=== PATIENT | female | born 1965 | race Caucasian/White ===

== ENCOUNTER → 2018-01-05 15:57 | Outpatient (CLI) | payer MEDICAID, SELFPAY ==
[2018-01-05 17:27] LABS: D-Dimer 475 ng/mlFEU (<500)
== END ==
PROVIDERS: PCP Nurse Practitioner Family; Visit Provider Nurse Practitioner
DX: R22.42 Localized swelling, mass and lump, left lower limb (principal)
CPT/HCPCS: 36415; 85379

== ENCOUNTER → 2018-01-12 09:05 | Outpatient (CLI) | payer MEDICAID, SELFPAY | PROVIDERS: PCP Nurse Practitioner Family; Visit Provider Orthopaedic Surgery | DX: G56.01 Carpal tunnel syndrome, right upper limb (principal); Z01.818 Encounter for other preprocedural examination ==

== ENCOUNTER 2018-01-23 09:19 | Day surgery (SDC) | payer MEDICAID, SELFPAY ==
--- NOTE | 2018-01-12 11:33 | PHPE_ITS ---
PREOPERATIVE HISTORY AND PHYSICAL DATE OF PROCEDURE February 02, 2018 DATE OF DICTATION January 12, 2018 SURGEON Jean Orozco M.D. CHIEF COMPLAINT Right wrist numbness and pain. ASSESSMENT 1. Carpal tunnel syndrome, right wrist. 2. Hypertension. 3. Hyperlipidemia. 4. Diabetes controlled with diet. 5. Gastroesophageal reflux disease with Sams's esophagus. 6. Depression. 7. Frequent urinary tract infections. PLAN Right ECTR, details of the surgery were discussed with the patient, as well as the risks and pertinen t anatomy. All questions were answered. HISTORY OF PRESENT ILLNESS Lakeshia is a 52-year-old female who has been complaining of right wrist numbness and pain for a really m any years, upwards of 20 or 25 years. Lakeshia is a very active person who enjoys multiple sports includi ng golfing and bowling, and this is actually starting to get in the way of those activities. She also states that she has pretty significant pain at night that wakes her up from sleep. She previously baltazar d been well controlled using a brace at night and also during the daytime to relieve the numbness and pain during activities, however, recently since she went out to a bowling tournament this past sprin g, she feels as though she over did it and now even with the brace, she is getting significant pain a nd numbness. She has had EMGs, which have shown latency in the median nerve of 6.73. The ulnar nerve appears to be fine. She did get a workup in clinic and physical exam was classic for carpal tunnel syndrome. At this point, she has been able to deal with it with conservative measures up until recent ly and now conservative measures have failed, so she would like to move forward with an endoscopic ca rpal tunnel release on the right hand. PAST SURGICAL HISTORY Right knee Kinsey procedure. De Quervain's release. Dilation and curettage. Caesarean section x2. Abdominal hysterectomy. Removal of tibial hardware. Left cheek cystectomy. Tonsillectomy and adenoidectomy. Left knee arthroscopy. The only complication that she has had from surgery was from her left cheek cystoscopy done in [place] recently, she had a bout of what sounds like hypertension, which she was kept overnight unexpecte dly, and we are working on getting those records from [facility]. PAST MEDICAL HISTORY Gastroesophageal reflux disease with Sams's esophagus. Hypertension. Depression. Diabetes. She is diet controlled. Hyperlipidemia. She also mentions that she takes a little bit longer to stop bleeding than normal, this has not been an issue in her previous surgeries. She denies any history of CVA, cardiac disease, UT, angina, asthma, COPD, sleep apnea, renal or liver disorders, hepatitis, seizures, immune or thyroid disorders. MEDICATIONS Pantoprazole 20 mg p.o. once daily. Macrobid 100 mg p.o. p.r.n., she takes after sex for frequent UTIs. Atorvastatin 40 mg p.o. once daily. Aspirin 81 mg p.o. once daily. Lisinopril 5 mg p.o. once daily. ALLERGIES She states that she has an allergy to penicillin, which gives her a rash. She is not even sure that s he is actually allergic to penicillin as she has been able to take it previously. She also has had Ancef in the past with Kinsey procedure, which she has no issues with. She states and intolerance to codeine, which gives her GI upset. 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 She states that she quit smoking about 15 years ago in 2002. She drinks about one or two days per week, two or three beverages per day. She denies any other drug use. REVIEW OF SYSTEMS HEENT - Denies dizziness, headaches, loose teeth, sore throat or fever. CARDIAC - Denies murmur, chest pain, rapid, slow or irregular heartbeat. PULMONARY - Denies dyspnea on exertion, orthopnea, productive cough or wheeze. ABDOMEN - Denies abdominal pain, nausea, vomiting, bloody stools. GENITOURINARY - Denies dysuria, hematuria. PHYSICAL EXAMINATION VITAL SIGNS - Height - 6 feet inch. Weight - 201 pounds. Blood pressure 132/78. Pulse 72 and reg ular. HEENT - Head is normocephalic and atraumatic. Eyes - Pupils are equal, round and reactive to light . Sclerae are white. Conjunctivae pink. Nose - No purulent discharge. Throat - Soft palate rise s symmetrically. No erythema. LUNGS - Lungs are clear to auscultation bilaterally in all white. HEART - Heart S1 and S2 noted. No murmur appreciated. ABDOMEN - Bowel sounds are active, soft, nontender, nondistended. No organomegaly. CC: Day Surgery
[2018-01-23 09:30] VITALS: BP 137/79; PULSE 52; RESP 17; TEMP 36.5; O2SAT 100
[2018-01-23] MEDS: Lactated Ringers 1,000 ML 80 ML IV (09:50)
--- NOTE | 2018-01-23 11:27 | W.PM.DSUDISC ---
Discharge Plan Disposition Patient Disposition: HOME Condition: Good Discharge Details Reason For Visit: (R) CTS Attending Provider: Jean Orozco Primary Care Provider: Sumaya Saldivar Home Meds and New Rx's Prescriptions: New hydrocodone-acetaminophen 5-325 mg Tablet 1 tab PO Q6H PRN PRN (Reason: Pain) Qty: 6 RF: 0 Continue multivitamin [Daily Multi-Vitamin] 1 EACH tablet 1 ea PO DAILY Qty: 1 RF: 0 lisinopril 5 MG tablet 5 mg PO DAILY RF: 0 naproxen sodium [Aleve] 220 MG capsule 440 mg PO PRN RF: 0 pantoprazole 20 MG tablet,delayed release (DR/EC) 20 mg PO HS RF: 0 nitrofurantoin monohyd/m-cryst [Macrobid] 100 MG capsule 100 mg PO PRN RF: 0 aspirin [Aspir-81] 81 MG tablet,delayed release (DR/EC) 81 mg PO DAILY RF: 0 atorvastatin 40 MG tablet 40 mg PO DAILY RF: 0 fluoxetine [Prozac] 20 mg Capsule 20 mg PO DAILY RF: 0 Discharge Instructions Additional Instructions: Elevate R hand above heart level as much as possible overnite tonite. Wiggle fingers 10 times/hour when awake to prevent swelling. Your fingers may stay numb for 24 hours due to nerve block I put in to decrease post-op pain. Remove splint AND dressings after 48 hours and begin to move R wrist. May shower or bathe and get incision wet after you remove the dressings. Leave incision uncovered when it is dry and sealed. Use R hand as much as discomfort allows. Referrals: Jean Orozco MD [ [facility] STAFF PHYSICIAN] - (follow up in 10-14 days.) Equipment/Supplies: Splint Activity:: Activity as Tolerated Remove Dressings/Wound Care:: 48 hours Shower/Bathe:: 48 hours Discharge Orders Discharge Orders: Discharge Order (Routine); Ordered 01/23/18 Ordered By: Jean Orozco DS: Diagnosis Discharge Diagnosis (1) Carpal tunnel syndrome on right: Status: Resolved (2) S/P endoscopic carpal tunnel release: Status: Acute
[2018-01-23 12:00] VITALS: BP 136/83; PULSE 56; RESP 15; TEMP 35.8; O2SAT 95
--- NOTE | 2018-01-23 17:06 | ROE_ITS ---
DATE OF PROCEDURE: January 23, 2018 PREOPERATIVE DIAGNOSIS: Carpal tunnel syndrome right. POSTOPERATIVE DIAGNOSIS: Same. PROCEDURE: Endoscopic carpal tunnel release on the right. ANESTHESIA: IV Regional. SURGEON: Jean Orozco M.D. INDICATIONS: This is a 52-year-old white female with progressive symptoms of carpal tunnel syndrome on the right. This has not responded to night splinting. She's reached the point where it's interfe ring with her daily activity. She has previously undergone an endoscopic carpal tunnel release on left with good results. An endoscopic carpal tunnel release on the right was advised to alleviate her symptoms. The risks and complications of the procedure were explained to the patient in detail p reoperatively. PROCEDURE: The patient was taken to the operating room on 01/23/18. She was placed supine on the ope rating table and an IV regional anesthetic was administered to the right upper extremity. Once good anesthesia was obtained, the right hand, wrist and forearm were prepped and draped free in the usual sterile fashion. A transverse incision was made in line with the proximal flexion crease of the wrist beginning at the flexor carpi radialis tendon and extending to the flexor carpi ulnaris tendon. The incision was car ried down to the fascia. The palmaris longus tendon was retracted radially and a distally-based fasc ial flap was created to gain access to the carpal tunnel. A synovial reflector was then used to stri p any synovial attachments to the undersurface of the volar carpal ligament. A series of obturators were inserted to make room for the endoscope. The Raphael endoscope blade device was inserted in the ca rpal canal. It was placed against the ulnar side of the canal and was advanced until the distal edge of the volar carpal ligament was clearly visualized. At this point the trigger was depressed, eleva ting the blade, and the elevated blade was then brought out from distal to proximal out through the i ncision. Littler scissors were then used to perform a subcutaneous fasciotomy in a proximal directio n from the incision for a distance of about two inches. A median nerve block was performed with 0.5% Marcaine with an epinephrine solution. The wound margins were infiltrated with 0.5% Marcaine with a n epinephrine solution and the skin edges were approximated with two horizontal mattress sutures of # 4-0 nylon suture material. The wound was dressed with Xeroform gauze, sterile gauze 4x4's, wrapped w ith an Intersorb bandage and then wrapped with a 3-inch Ayush bandage. A commercial cock-up wrist spli nt was applied. The patient's IV regional anesthesia was reversed without complications. She was discharged to the ecovery room in good condition. The patient was discharged home from the Day Surgery Unit with instructions to elevate her right hand above heart level as much as possible overnight tonight. She is encouraged to wiggle her fingers te n times an hour when awake to decrease swelling. She is to remove her splint and dressings in 48 praful rs and begin to move her right wrist. She may shower or bathe and get her incision wet after the angelique ssings are removed in 48 hours. She is to leave the incision uncovered when the incision is dry and sealed. She can use her right hand as much as discomfort allows. She was given a prescription for b reakthrough pain of Hydrocodone with APAP 5/325 one tablet every six hours as needed for pain not rel ieved by plain Tylenol or ibuprofen. She will follow-up in my office in 10 to 14 days.
== END 2018-01-23 12:14 | disposition home or self-care (01) ==
PROVIDERS: PCP Nurse Practitioner Family; Visit Provider Orthopaedic Surgery
PROC: 01N54ZZ Release Median Nerve, Percutaneous Endoscopic Approach (ICD-10-PCS; CPT 29848; principal; 2018-01-23 10:25)
DX: G56.01 Carpal tunnel syndrome, right upper limb (principal); I10 Essential (primary) hypertension; E11.9 Type 2 diabetes mellitus without complications
CPT/HCPCS: 29848; J0690; J1100; J1885; J2250; J2405; J3010; L3908

== ENCOUNTER 2018-05-15 13:17 | Outpatient (REF) | payer MEDICAID, SELFPAY ==
[2018-05-15 21:47] LABS: ALT 45 U/L (12-78); AST 28 U/L (15-37); Albumin 4.2 g/dL (3.4-5.0); Alkaline Phosphatase 88 U/L (46-116); Anion Gap 8.4 mmol/L (3-11); BUN 13 mg/dL (7-18); Bilirubin, Total 0.4 mg/dL (0.2-1.0); CO2 29.6 mmol/L (21.0-32.0); CREATININE 0.64 mg/dL (0.55-1.02); Calcium 9.4 mg/dL (8.5-10.1); Chloride 100 mmol/L (98-107); Glucose 120 mg/dL (70-100); Magnesium 1.7 mg/dL (1.8-2.4); Potassium 4.2 mmol/L (3.5-5.1); Sodium 138 mmol/L (136-145); Total Protein 7.9 g/dL (6.4-8.2); Vitamin B12 691 pg/mL (193-986)
== END 2018-05-15 13:37 ==
LOC: NCHCN 13:17
PROVIDERS: PCP Nurse Practitioner Family; Visit Provider Nurse Practitioner Family
DX: F41.8 Other specified anxiety disorders (principal); R03.0 Elevated blood-pressure reading, without diagnosis of hypertension; N39.0 Urinary tract infection, site not specified; E11.9 Type 2 diabetes mellitus without complications; K22.70 Barrett's esophagus without dysplasia; G47.00 Insomnia, unspecified
CPT/HCPCS: 80053; 82607; 83735

== ENCOUNTER 2018-05-25 00:32 | Outpatient (CLI) | payer MEDICAID, SELFPAY ==
--- NOTE | 2018-05-25 17:55 | DI.MAMMO_ITS ---
SYMPTOM/DIAGNOSIS: SCREENING, Z12.31 MAMMOGRAMS: Mammograms were interpreted according to the usual protocol including computer analysis with CAD system, tomosynthesis and C view imaging. Comparison is made with exams from 2570-6515. The breasts are composed of heterogeneously dense fibroglandular tissue, breast density, Category C. No suspicious masses or suspicious microcalcifications are visible. IMPRESSION: Category 1C, negative mammogram. Yearly screening mammography is recommended. SA ASSESSMENT OF FINDINGS: Negative. Category 1. Patient will receive a letter notifying them of these results. Bi-RADS category C. The breasts are heterogeneously dense, which may obscure small masses.
== END 2018-05-25 00:52 ==
PROVIDERS: PCP Nurse Practitioner Family; Visit Provider Nurse Practitioner Family
DX: Z12.31 Encounter for screening mammogram for malignant neoplasm of breast (principal)
CPT/HCPCS: 77063; 77067

== ENCOUNTER 2019-04-30 12:14 | Outpatient (REF) | payer MEDICAID, SELFPAY ==
[2019-04-30 21:51] LABS: ALT 32 U/L (14-59); AST 21 U/L (15-37); Alkaline Phosphatase 85 U/L (46-116); Anion Gap 10.3 mmol/L (3-11); BUN 14 mg/dL (7-18); Bilirubin, Total 0.3 mg/dL (0.2-1.0); CO2 27.7 mmol/L (21.0-32.0); CREATININE 0.55 mg/dL (0.55-1.02); Chloride 104 mmol/L (98-107); Glucose 125 mg/dL (74-106); Magnesium 1.7 mg/dL (1.8-2.4); Potassium 3.9 mmol/L (3.5-5.1); Sodium 142 mmol/L (136-145); Total Protein 7.3 g/dL (6.4-8.2)
[2019-04-30 22:36] LABS: Vitamin B12 631 pg/mL (193-986)
== END 2019-04-30 12:34 ==
LOC: NCHCN 12:14
PROVIDERS: PCP Nurse Practitioner Family; Visit Provider Nurse Practitioner Family
DX: E78.5 Hyperlipidemia, unspecified (principal); D11.9 Benign neoplasm of major salivary gland, unspecified; N39.0 Urinary tract infection, site not specified; E11.9 Type 2 diabetes mellitus without complications; G47.00 Insomnia, unspecified; F41.8 Other specified anxiety disorders; K22.70 Barrett's esophagus without dysplasia; M54.89 Other dorsalgia
CPT/HCPCS: 80053; 82607; 83735

== ENCOUNTER 2019-05-30 00:20 | Outpatient (CLI) | payer MEDICAID, SELFPAY ==
--- NOTE | 2019-05-30 08:39 | DI.MAMMO_ITS ---
EXAM: MG MAMMO SCREENING CLINICAL HISTORY: SCREENING Z12.31. TECHNIQUE: Bilateral full field digital CC and MLO mammographic images were obtained with 3D tomosyn thesis and utilizing computer aided detection (CAD). COMPARISON: Available for comparison. FINDINGS: Masses/Architectural Distortion: None seen. Microcalcifications: No suspicious pleomorphic-type are seen. Skin Thickening/Nipple Retraction: None. IMPRESSION: 1. No significant interval change with no specific features of malignancy noted. 2. Unless there is more urgent need, screening mammography is recommended, as per [place] [employer] guidelines. ACR BI-RAD Category- 1 Negative Breast Density - Category C - Heterogeneously dense The mammogram demonstrates the patient's breast tissue is dense. Dense breast tissue is very common a nd is not abnormal but dense breast tissue can make it harder to find cancer on a mammogram. Also, de nse breast tissue may increase their breast cancer risk. This information about the result of the [facility] the [facility] mogram report was provided to the patient to raise their awareness. Use this report when you speak wi th the patient about their risks for breast cancer, which includes their family history. At that time , you may recommend for more screening tests (Ultrasound or MRI) as they might be useful based on the ir risk. A negative radiographic report should not delay biopsy if a dominant or clinically suspicious mass is present. Up to ten percent of cancers are not identified on mammography. A negative report may reinforce clinical impression. Adenosis and dense breasts may obscure an underlying neoplasm. False positive reports average 6 to 10%. Patient will receive a letter notifying them of these results.
== END 2019-05-30 00:40 ==
PROVIDERS: PCP Nurse Practitioner Family; Visit Provider Nurse Practitioner Family
DX: Z12.31 Encounter for screening mammogram for malignant neoplasm of breast (principal)
CPT/HCPCS: 77063; 77067

== ENCOUNTER 2019-07-26 18:27 | Emergency (ER) | payer MEDICAID, SELFPAY ==
[2019-07-26 18:29] VITALS: BP 188/116; PULSE 57; RESP 18; TEMP 35.5; O2SAT 97
--- NOTE | 2019-07-26 18:54 | ED.GENADUL_ITS ---
Discharge Plan Disposition Patient Disposition: HOME Condition: Good Discharge Details Chief Complaint: FlankPain Clinical Impression: Kidney stone, AAA (abdominal aortic aneurysm) Primary Care Provider: Sumaya Saldivar ED Provider: Kye Nevarez Home Meds and New Rx's Prescriptions: New nitrofurantoin macrocrystal 100 mg capsule 100 mg PO BID 5 Days Qty: 10 RF: 0 Continued multivitamin [Daily Multi-Vitamin] 1 EACH tablet 1 ea PO DAILY Qty: 1 RF: 0 lisinopril 5 MG tablet 5 mg PO DAILY RF: 0 naproxen sodium [Aleve] 220 MG capsule 440 mg PO PRN RF: 0 pantoprazole 20 MG tablet,delayed release (DR/EC) 20 mg PO HS RF: 0 aspirin [Aspir-81] 81 MG tablet,delayed release (DR/EC) 81 mg PO DAILY RF: 0 atorvastatin 40 MG tablet 40 mg PO DAILY RF: 0 fluoxetine [Prozac] 20 mg Capsule 20 mg PO DIRECTED RF: 0 Discontinued nitrofurantoin monohyd/m-cryst [Macrobid] 100 MG capsule 100 mg PO PRN RF: 0 Discharge Instructions Instructions: Kidney Stones (ED) Additional Instructions: It is suspected that you have a small passed kidney stone. I suspect this is the initial cause of your pain. Your labs are otherwise very encouraging. There is a very questionable small infection, however there is no indication for admission with this. It is likely that these white blood cells were seen in your urine are secondary to the kidney stone rather than a true infection however out of an abundance of precaution will be starting an antibiotic. Please take the antibiotic as directed. Please contact Dr. Etienne's office tomorrow. Take Tylenol and Motrin as needed for any return of pain. Also of note as we discussed you do have an abdominal aortic aneurysm. It is not of a size that is of concern, but should be watched closely by your PCP. If you notice any worsening of your symptoms, or any new symptoms such as vomiting, diarrhea, fever, chills, shortness of breath, chest pain, numbness, weakness, or fainting , please return immediately to the emergency department for reevaluation. Please follow up with your primary care provider as soon as possible for reassessment and reevaluation. As always, it was a pleasure participating in your medical care today. Referrals: Sumaya Saldivar [Primary Care Provider] - Al Etienne MD [ [facility] STAFF PHYSICIAN] - Medical Decision Making <Jean Hancock MD - Last Filed: 07/26/19 19:47> 54-year-old female presents stating that she had the onset of urinary urgency some hours ago, and then abruptly developed moderate to severe right flank pain. She arrives afebrile but hypertensive and in pain. Most consistent with renal colic, this would be her initial presentation, therefore feel that imaging is appropriate to exclude other intra-abdominal processes. Patient IV access established, referred for urinalysis, laboratory testing, CT images. She is given fluid bolus, analgesic and antiemetic with improvement. Was signed out to Dr. Nevarez at change of shift pending laboratory review and CT imaging. Please see his note regarding final impression and disposition. <Kye Nevarez DO - Last Filed: 07/26/19 21:12> 54-year-old female who was signed out to me by my colleague Dr. Jean Hancock. Please refer to his HPI, physical exam and assessment for plan. Patient was signed out pending CT results and reassessment. CT scan results have returned, there is moderate right hydroureteronephrosis, questionable punctate calcification layering in the urinary bladder could reflect a recently passed stone, however there appears to be no ureteral or renal calculi. There is an incidental finding of an infrarenal abdominal aortic aneurysm measuring 28 x 30 mm. On reassessment the patient has complete resolution of her pain, she feels very well, and would like to go home. Laboratory work-up demonstrates no white count, no bandemia, no left shift. Urinalysis shows evidence of 10-20 WBCs, negative leuk esterase, negative nitrites, few bacteria. Patient at this time shows no CVA tenderness, and has no clinical history of fever or chills. Symptoms clinically inconsistent with pyelonephritis or significant UTI. Symptoms do appear clinically consistent with passed renal stone. Out of an abundance of precaution I did contact Dr. Etienne discussed the case with him. With no evidence of systemic infection, no clinical evidence of significant infection whatsoever, he agrees that at this time there is no indication for admission. Out of an abundance of precaution we will place the patient on an antibiotic and recommend close follow-up. Previous review of her urinalyses and cultures in the past demonstrate evidence of Staphylococcus staph saprophyticus which is sensitive to Bactrim and nitrofurantoin. She does take lisinopril so we will choose nitrofurantoin over Bactrim. Her renal function is normal. At this time the patient feels well. She will be discharged home with close follow -up. She has been given her first dose of antibiotics here, a bottle and a prescription to go home with. I also did discuss with her her abdominal aortic aneurysm which does require monitoring but no other acute intervention at this time. We will copy her primary care provider onto the note in regards to this. I have extensively reviewed the treatment plan and discharge instructions with the patient and their family. I have addressed all patient concerns at this time. The patient and family was made aware of what symptoms to monitor for that would warrant a return to the emergency department. Discussed the plan with the patient and family, they demonstrate verbal understanding and agreement with our assessment and plan at this time. FINDINGS: Liver: A micronodular appearance of portions of the liver suggesting early cirrhosis. Benignappearing probable cysts similar to prior. Hepatic dome was not imaged. Gallbladder and bile ducts: No calcified stones. No ductal dilation. Pancreas: No ductal dilation. No masses. Spleen: No splenomegaly or focal lesions. Adrenals: No mass. Kidneys and ureters: Moderate right hydroureteronephrosis. Question a punctate calcification layering in the urinary bladder however no ureteral or renal stones. No left nephrolithiasis. No left hydronephrosis. Stomach and bowel: Minimal scattered diverticula. No diverticulitis. Submucosal fat deposition in the right colon, likely habitus related. No focal pathology in the small bowel. Appendix: No evidence of appendicitis. Intraperitoneal space: No free air. No significant fluid collection. Vasculature: A progression of a mild infrarenal aortic aneurysm now measuring 28 x 30 mm. Atherosclerosis. Lymph nodes: No significantly enlarged lymph nodes. Bladder: Unremarkable as visualized. Reproductive: Hysterectomy. Bones/joints: No acute fracture or subluxation. Soft tissues: Diastasis recti. IMPRESSION: 1. Moderate right hydroureteronephrosis. Question a punctate calcification layering in the urinary bladder, could reflect a recently passed stone, however no ureteral or renal stones. 2. Additional findings as described. Thank you for allowing us to participate in the care of your patient. Dictated and Authenticated by: Ashly Barker MD 07/26/2019 8:04 PM Eastern Time ([place] & [place]) HPI <Jean Hancock MD - Last Filed: 07/26/19 19:47> General Mode of arrival: ambulatory . Date/Time Provider Initiated Documentation: 07/26/19 18:28 . Limitations to Documentation: no limitations . Information obtained by: patient . History of Present Illness 54 year old F presents to the emergency department with the chief complaint of Right flank pain, described as severe, Quality is described as constant, and is localized to the back and right. Patient reports radiation to back. Patient started experiencing this minute(s) and it has been constant. No relieving factors improve symptom(s), No exacerbating factors reported . Patient notes no other symptoms.. Patient did receive the following treatments prior to arrival, none Related Data Home Medications Medication Instructions Recorded Confirmed multivitamin [Daily Multi-Vitamin] 1 ea PO DAILY #1 01/16/13 07/26/19 aspirin [Aspir-81] 81 mg PO DAILY 09/24/13 07/26/19 lisinopril 5 mg PO DAILY tab-cap 06/11/16 07/26/19 naproxen sodium [Aleve] 440 mg PO PRN 07/06/17 07/26/19 pantoprazole 20 mg PO HS tab-cap 11/17/17 07/26/19 atorvastatin 40 mg PO DAILY 01/12/18 07/26/19 fluoxetine [Prozac] 20 mg PO DIRECTED 01/23/18 07/26/19 nitrofurantoin macrocrystal 100 mg PO BID 5 Days #10 cap 07/26/19 Previous Rx's Medication Instructions Recorded nitrofurantoin macrocrystal 100 mg PO BID 5 Days #10 cap 07/26/19 Allergies Allergy/AdvReac Type Severity Reaction Status Date / Time Penicillins Allergy Intermediate rash Verified 07/26/19 18:39 codeine AdvReac Mild GI UPSET Verified 07/26/19 18:39 General Stated Complaint: FlankPain DEEJAY: 3 Review of Systems <Jean Hancock MD - Last Filed: 07/26/19 19:47> Narrative: 6 systems reviewed and otherwise negative PFSH <Jean Hancock MD - Last Filed: 07/26/19 19:47> Medical History Barretts Esophagus Carpal tunnel syndrome on right (Resolved) chronic back pain Depression Diabetes mellitus Hyperlipidemia Migraine Surgical History (Updated 03/01/18 @ 14:35 by [employer] [facility]) Abdominal hysterectomy with ovarian conservation. Arthroplasty of knee (02/01/07) Right, from records.[facility] Arthroscopy (06/13/06) Right knee, with patellar chondroplasty, from recoreds.[facility] section 1990 c/s EGD - MAC (08/09/16) Kinsey Procedure (02/01/07) Right, same surgery as arthroscopy.HE Release for de Quervain's tenosynovitis of hand (09/18/08) Right wrist, from records.HE S/P endoscopic carpal tunnel release (Acute) Screw removal Tibia (03/12/08) right, from records.HE Family History Other Diabetes Heart disease Social History Smoking/Tobacco Use Status: Former Tobacco Use Alcohol Intake: never Drug use: Never Do you feel safe at home: Yes Do you feel safe in your relationship?: Yes Exam <Jena Hancock MD - Last Filed: 07/26/19 19:47> Narrative Exam Narrative: GEN: awake, alert, oriented 3. Pleasant, diaphoretic and appears to be in discomfort HEAD: Normocephalic, atraumatic ENT: Mucous membranes moist, oropharynx unremarkable, External ear exam unremarkable EYES: PERRL, EOMI NECK: Full ROM, no ERWIN, no menigismus CHEST/RESP: Nontender, clear to auscultation bilateral, no wheeze/rhonchi/rales CARDIOVASCULAR: RRR, no murmur, rub cierra. 2+ Rad pulse bilateral ABDOMEN: Soft, nontender, no mass. +Bowel sounds. Right flank tenderness to percussion EXT: Full ROM, no edema, no rash Neuro: Grossly normal neurologic exam, conversant, interactive. Psych: Speech fluent, thoughts congruent, affect normal Course <Jean Hancock MD - Last Filed: 07/26/19 19:47> Vital Signs Vital signs: Vital Signs Temperature 35.5 C L 07/26/19 18:29 Pulse 57 L 07/26/19 18:29 Respiratory Rate 18 07/26/19 18:29 Blood Pressure 188/116 H 07/26/19 18:29 Pulse Oximetry 97 07/26/19 18:29 Temperature 35.5 C L 07/26/19 18:29 Temperature Source Skin 07/26/19 18:29 Pulse 57 L 07/26/19 18:29 Respiratory Rate 18 07/26/19 18:29 Blood Pressure 188/116 H 07/26/19 18:29 Blood Pressure Position Sitting 07/26/19 18:29 Pulse Oximetry 97 07/26/19 18:29 Oxygen Delivery Method Room Air 07/26/19 18:29 Oxygen Flow Rate 0 07/26/19 18:29 Pain Level 10 07/26/19 18:41 Comment rt arm: 191/88 07/26/19 18:29 Sign Out <Jean Hancock MD - Last Filed: 07/26/19 19:47> Sign Out Data: Sign Out Comment: Follow-up CT images, laboratory tests, reevaluation Last updated by Jean Hancock MD at 07/26/19 19:49
[2019-07-26 18:58] LABS: Bilirubin Negative (Negative); Blood Large (Negative); Clarity Clear (Clear); Glucose Negative (Negative); Ketones Negative (Negative); Leukocyte Esterase Negative (Negative); Nitrite Negative (Negative); Specific Gravity >= 1.030 (1.005-1.025); Urobilinogen 0.2 EU/dL (Up TO 0.2); pH 5.5 (5-8)
[2019-07-26 19:10] LABS: Bacteria Few HPF (Negative); Crystals Mod Calcium Oxalate HPF (Negative); Epithelial Cells Moderate HPF (Negative); RBC Negative HPF (0-2)
[2019-07-26 19:11] LABS: C & S Indicated? No/Sq. Contamination; Casts Negative LPF (Negative); Mucus Negative (Negative)
[2019-07-26] MEDS: Normal Saline 1,000 ML 1000 ML IV (19:20)
[2019-07-26] MEDS: Ondansetron 4 MG/2 ML VIAL IVP (19:21)
[2019-07-26] MEDS: Ketorolac 30 MG/ML VIAL IVP (19:24)
[2019-07-26] MEDS: HYDROmorphone 2 MG/ML VIAL 0.5 MG IVP (19:26)
--- NOTE | 2019-07-26 19:40 | DI.CT_ITS ---
EXAM: CT RENAL COLIC WO CLINICAL HISTORY: R flank pain. TECHNIQUE: Imaging Protocol: Axial computed tomography images with coronal and sagittal reformatted images were created and reviewed. CONTRAST MATERIAL: Intravenous: Omnipaque 350 Contrast volume:0 mL contrast route:IV - Oral: No COMPARISON: ABD PELVIS WITH CONTRAST from 09/24/2013 FINDINGS: ABDOMEN: Lung Bases: Normal where visualized. Liver: Normal density. Cysts seen in the left lobe of the liver. The liver is enlarged measuring at least 20 cm. Gallbladder and biliary tract: No radiodense calculus or dilation. Pancreas: Normal density, no abnormal calcifications or inflammatory process. Spleen: Normal. Kidneys: Normal size, contour and axis. Moderate dilatation of the right renal collecting system. No ureteral stone. No masses seen. Adrenal glands: No masses seen. Abdominal Aorta: 3.0 cm infrarenal abdominal aortic aneurysm. Atherosclerosis. PELVIS: Bladder: Tiny calcification seen in the dependent portion of the urinary bladder suspicious for recen tly passed stone. Bowel: No obstruction or bowel wall thickening. There is a normal appendix. Peritoneal cavity: No ascites, collection or mesenteric inflammatory response. Bones: Degenerative changes. Reproductive organs: The patient appears to be status post hysterectomy. IMPRESSION: 1. Dilatation of the right renal collecting system which is moderate. No ureterolithiasis. 2. Tiny calcification in the dependent portion of the urinary bladder suspicious for recently passed stone. DATA REPOSITORY: All CT scans at this facility are submitted to the National Radiology Data Registry (NRDR) Dose Index Registry (DIR) with the [employer] (ACR). RADIATION OPTIMIZATION: All CT scans at this facility use at least one of these dose optimization te chniques: automated exposure control; mA and/or kV adjustment per patient size (includes targeted exa ms where dose is matched to clinical indication); or iterative reconstruction.
[2019-07-26 19:45] LABS: ALT 47 U/L (14-59); AST 30 U/L (15-37); Alkaline Phosphatase 88 U/L (46-116); Anion Gap 11.7 mmol/L (3-11); BUN 22 mg/dL (7-18); Bilirubin, Total 0.3 mg/dL (0.2-1.0); CO2 27.3 mmol/L (21.0-32.0); CREATININE 0.79 mg/dL (0.55-1.02); Calcium 8.8 mg/dL (8.5-10.1); Chloride 102 mmol/L (98-107); Glucose 189 mg/dL (74-106); Potassium 3.2 mmol/L (3.5-5.1); Sodium 141 mmol/L (136-145); Total Protein 7.9 g/dL (6.4-8.2)
[2019-07-26 19:48] LABS: Abs Immature Grans 0.01 k/cumm (0.0-0.09); Absolute Basophil Count 0.04 k/cumm (0.0-0.2); Absolute Eosinophil Count 0.34 k/cumm (0.0-0.7); Absolute Lymphocyte Count 4.24 k/cumm (1.2-3.4); Absolute Neutrophil Count 3.58 k/cumm (1.2-6.7); Basophils % 0.4; Eosinophils % 3.8; HCT 40.6 % (36.0-46.0); HGB 13.2 g/dL (12.0-15.5); Immature Grans % 0.1 %; Lymphocytes % 47.1; Mean Corp. HGB Concentration 32.5 g/dL (32.0-36.0); Mean Corpuscular Hemoglobin 28.6 pg (27.0-33.0); Mean Corpuscular Volume 87.9 fL (80-95); Mean Platelet Volume 9.5 fL (8.0-11.0); Monocytes % 8.9; Neutrophils % 39.7; Platelet Count 291 x1000/uL (130-400); RBC 4.62 m/cumm (4.00-5.20); RBC Distribution Width 13.8 % (11.7-14.6); White Blood Cell Count 9.01 k/cumm (4.4-10.8)
[2019-07-26 19:49] VITALS: BP 166/85; PULSE 61; RESP 18; TEMP 36.6; O2SAT 96
--- NOTE | 2019-07-26 20:04 | DI.VRAD_ITS ---
PROCEDURE INFORMATION: Exam: CT Abdomen And Pelvis Without Contrast Exam date and time: 07/26/2019 18:55 Age: 54 years old Clinical indication: Abdominal pain; Flank; Right TECHNIQUE: Imaging protocol: Computed tomography of the abdomen and pelvis without contrast. Radiation optimization: All CT scans at this facility use at least one of these dose optimization techniques: automated exposure control; mA and/or kV adjustment per patient size (includes targeted exams where dose is matched to clinical indication); or iterative reconstruction. COMPARISON: CT ABD PELVIS WITH CONTRAST 09/24/2013 23:36 FINDINGS: Liver: A micronodular appearance of portions of the liver suggesting early cirrhosis. Benign-appearing probable cysts similar to prior. Hepatic dome was not imaged. Gallbladder and bile ducts: No calcified stones. No ductal dilation. Pancreas: No ductal dilation. No masses. Spleen: No splenomegaly or focal lesions. Adrenals: No mass. Kidneys and ureters: Moderate right hydroureteronephrosis. Question a punctate calcification layering in the urinary bladder however no ureteral or renal stones. No left nephrolithiasis. No left hydronephrosis. Stomach and bowel: Minimal scattered diverticula. No diverticulitis. Submucosal fat deposition in the right colon, likely habitus related. No focal pathology in the small bowel. Appendix: No evidence of appendicitis. Intraperitoneal space: No free air. No significant fluid collection. Vasculature: A progression of a mild infrarenal aortic aneurysm now measuring 28 x 30 mm. Atherosclerosis. Lymph nodes: No significantly enlarged lymph nodes. Bladder: Unremarkable as visualized. Reproductive: Hysterectomy. Bones/joints: No acute fracture or subluxation. Soft tissues: Diastasis recti. IMPRESSION: 1. Moderate right hydroureteronephrosis. Question a punctate calcification layering in the urinary bladder, could reflect a recently passed stone, however no ureteral or renal stones. 2. Additional findings as described. Dictated and Authenticated by: Ashly Barker MD. Ordering:ADAM Pena MD
[2019-07-26] MEDS: MacroBID 100 MG CAP (20:25)
[2019-07-26 20:26] VITALS: BP 151/85; PULSE 69; RESP 16; TEMP 36.2; O2SAT 98
[2019-07-26] MEDS: MacroBID 100 MG CAP, 2 CAPS/BTL PO (20:26)
== END 2019-07-26 20:50 | disposition home or self-care (01) ==
PROVIDERS: Emergency Medicine; Emergency Provider Student in an Organized Health Care Education/Training Program; PCP Nurse Practitioner Family
DX: N13.39 Other hydronephrosis (principal); N13.4 Hydroureter; I71.4 Abdominal aortic aneurysm, without rupture; Z87.440 Personal history of urinary (tract) infections; E11.9 Type 2 diabetes mellitus without complications
CPT/HCPCS: 36415; 80053; 96361; 96374; 96375; 99284; 74176; 81003; 81015; 85025; J1885; J2405

== ENCOUNTER 2019-07-31 11:27 | Outpatient (REF) | payer MEDICAID, SELFPAY ==
[2019-07-31 21:20] LABS: BUN 16 mg/dL (7-18); CREATININE 0.57 mg/dL (0.55-1.02); Calcium 9.2 mg/dL (8.5-10.1); Chloride 103 mmol/L (98-107); Glucose 83 mg/dL (74-106); Potassium 4.6 mmol/L (3.5-5.1); Sodium 143 mmol/L (136-145)
[2019-08-02 11:33] LABS: Hepatitis A Antibody IgM Negative (Negative); Hepatitis B Core Antibody Negative (Negative); Hepatitis B surface Ag Negative (Negative); Hepatitis C Ab w Rflx HCV PCR Negative (Negative)
== END 2019-07-31 11:47 ==
LOC: NCHCN 11:27
PROVIDERS: PCP Nurse Practitioner Family; Visit Provider Nurse Practitioner Family
DX: N39.0 Urinary tract infection, site not specified (principal); K74.69 Other cirrhosis of liver; F41.8 Other specified anxiety disorders; E11.9 Type 2 diabetes mellitus without complications; E78.5 Hyperlipidemia, unspecified; N13.39 Other hydronephrosis; K22.70 Barrett's esophagus without dysplasia
CPT/HCPCS: 80048; 86704; 86709; 86803; 87340; 87086

== ENCOUNTER 2019-08-01 02:11 | Outpatient (CLI) | payer MEDICAID, SELFPAY ==
--- NOTE | 2019-08-01 | DI.US_ITS ---
EXAM: US RENAL CLINICAL HISTORY: HYDRONEPHROSIS, N13.30 TECHNIQUE: Ultrasound performed using standard protocol. COMPARISON: LEFT BREAST ULTRASOUND from 10/24/2017 FINDINGS: Renal ultrasound was performed according to the usual protocol. Kidneys are normal in size and shape . There is no evidence of hydronephrosis, nephrolithiasis, or renal mass. Urinary bladder is essentially empty. IMPRESSION: Negative renal ultrasound. Urinary bladder not evaluated as bladder is empty. DATA REPOSITORY:
== END 2019-08-01 02:31 ==
PROVIDERS: PCP Nurse Practitioner Family; Visit Provider Nurse Practitioner Family
DX: N13.39 Other hydronephrosis (principal)
CPT/HCPCS: 76770

== ENCOUNTER 2019-08-16 10:02 | Outpatient (REF) | payer MEDICAID, SELFPAY ==
[2019-08-16 20:34] LABS: TSH (W/Ref FT4) 0.72 uIU/mL (0.36-3.74)
== END 2019-08-16 10:22 ==
LOC: NCHCN 10:02
PROVIDERS: PCP Nurse Practitioner Family; Visit Provider Nurse Practitioner Family
DX: R61 Generalized hyperhidrosis (principal)
CPT/HCPCS: 84443

== ENCOUNTER 2020-01-28 12:38 | Outpatient (REF) | payer MEDICAID, SELFPAY ==
[2020-01-28 22:17] LABS: ALT 45 U/L (14-59); AST 25 U/L (15-37); Albumin 4.2 g/dL (3.4-5.0); Alkaline Phosphatase 92 U/L (46-116); Anion Gap 7.9 mmol/L (3-11); BUN 15 mg/dL (7-18); Bilirubin, Total 0.3 mg/dL (0.2-1.0); CO2 31.1 mmol/L (21.0-32.0); CREATININE 0.65 mg/dL (0.55-1.02); Calcium 9.3 mg/dL (8.5-10.1); Calculated LDL 136 mg/dL (<100); Chloride 104 mmol/L (98-107); Cholesterol 220 mg/dL (<200); Glucose 102 mg/dL (74-106); HDL Cholesterol 61 mg/dL (40-60); Potassium 4.1 mmol/L (3.5-5.1); Sodium 143 mmol/L (136-145); Total Protein 7.6 g/dL (6.4-8.2); Triglyceride 117 mg/dL (<150)
== END 2020-01-28 12:58 ==
LOC: NCHCN 12:38
PROVIDERS: PCP Nurse Practitioner Family; Visit Provider Internal Medicine
DX: E11.9 Type 2 diabetes mellitus without complications (principal); K22.70 Barrett's esophagus without dysplasia; K74.60 Unspecified cirrhosis of liver; M79.671 Pain in right foot; I71.4 Abdominal aortic aneurysm, without rupture
CPT/HCPCS: 80053; 80061

== ENCOUNTER 2020-02-29 04:16 | Outpatient (CLI) | payer MEDICAID, SELFPAY ==
--- NOTE | 2020-02-29 | DI.RAD_ITS ---
EXAM: XR FOOT RT COMPLETE CLINICAL HISTORY: RT FOOT PAIN, M79.671. TECHNIQUE: 2D digital imaging was performed. COMPARISON: No exams were available for comparison FINDINGS: BONES: No acute fracture is present. No bony destructive lesion is seen. There is a small spur at th e plantar surface of the calcaneus. There is a small enthesophyte at the Achilles insertion site. JOINTS: No dislocation present. SOFT TISSUE: Normal. IMPRESSION: No acute abnormality. DATA REPOSITORY: RADIATION DOSE DELIVERED:
--- NOTE | 2020-02-29 | DI.US_ITS ---
EXAM: US AAA DIAGNOSTIC CLINICAL HISTORY: F/U AAA,I71.4 COMPARISON: No exams were available for comparison FINDINGS: Abdominal Aorta: Proximal: 2.8 x 2.7 cm Mid: 2.3 x 2.3 cm Distal: 3.3 x 3.3 cm Iliac's: Right: 0.8 x 1.4 cm Left: 0.9 x 1.3 cm Atherosclerosis. IMPRESSION: 3.3 x 3.3 cm distal abdominal aortic aneurysm. DATA REPOSITORY:
== END 2020-02-29 04:36 ==
PROVIDERS: PCP Nurse Practitioner Family; Visit Provider Internal Medicine
DX: M79.671 Pain in right foot (principal); I71.4 Abdominal aortic aneurysm, without rupture
CPT/HCPCS: 73630; 76775

== ENCOUNTER 2020-04-07 22:17 | Outpatient (REF) | payer MEDICAID, SELFPAY | END 2020-04-07 22:37 | LOC: NCHCN 22:17 | PROVIDERS: PCP Nurse Practitioner Family; Visit Provider Nurse Practitioner Family | DX: R39.15 Urgency of urination (principal); R35.0 Frequency of micturition | CPT/HCPCS: 87086 ==

== ENCOUNTER 2020-05-28 01:35 | Outpatient (CLI) | payer MEDICAID, SELFPAY ==
--- NOTE | 2020-05-28 | DI.RAD_ITS ---
EXAM: XR CERVICAL SPINE COMP 4-5V CLINICAL HISTORY: NECK PAIN, M54.2. TECHNIQUE: 2D digital imaging was performed. COMPARISON: No exams were available for comparison FINDINGS: There is no evidence of fracture or listhesis nor offset the spinal laminar line. Disc spaces exhibi t normal height each level although there is mild anterior osseous lipping at C4-5 and C5-6 levels no kuldeep. There are small bilateral Luschka joint osteophytes evident at the C6-7 level. There is some m ild degenerative facet disease. No cervical ribs evident. IMPRESSION: Subtle evidence of degenerative disc disease. If clinically indicated follow-up MRI can be performed . DATA REPOSITORY: RADIATION DOSE DELIVERED:
== END 2020-05-28 01:55 ==
PROVIDERS: PCP Nurse Practitioner Family; Visit Provider Nurse Practitioner Family
DX: M54.2 Cervicalgia (principal)
CPT/HCPCS: 72050

== ENCOUNTER 2020-06-24 01:06 | Outpatient (CLI) | payer MEDICAID, SELFPAY ==
--- NOTE | 2020-06-24 08:00 | DI.MAMMO_ITS ---
EXAM: MG MAMMO SCREENING CLINICAL HISTORY: SCREENING, Z12.31 TECHNIQUE: Bilateral full field digital CC and MLO mammographic images were obtained with 3D tomosyn thesis and utilizing computer aided detection (CAD). COMPARISON: Available for comparison. FINDINGS: Masses/Architectural Distortion: None seen. Microcalcifications: No suspicious pleomorphic-type are seen. Skin Thickening/Nipple Retraction: None. IMPRESSION: 1. No significant interval change with no specific features of malignancy noted. 2. Unless there is more urgent need, screening mammography is recommended, as per [employer] guidelines. BI-RADS Category 1 - Negative Breast Density - Category C - Heterogeneously dense Breast density category C or D implies that the patient has dense breast tissue. Dense breast tissue is very common and is not abnormal but dense breast tissue can make it harder to find cancer on a ma mmogram. Also, dense breast tissue may increase their breast cancer risk. This information about the result of the mammogram report was provided to the patient to raise their awareness. Use this report when you speak with the patient about their risks for breast cancer, which includes their family hist ory. At that time, you may recommend for more screening tests (Ultrasound or MRI) as they might be us eful based on their risk. A negative radiographic report should not delay biopsy if a dominant or clinically suspicious mass is present. Up to ten percent of cancers are not identified on mammography. A negative report may reinforce clinical impression. Adenosis and dense breasts may obscure an underlying neoplasm. False positive reports average 6 to 10%. Patient will receive a letter notifying them of these results.
== END 2020-06-24 01:07 ==
LOC: DI 01:06
PROVIDERS: PCP Nurse Practitioner Family; Visit Provider Nurse Practitioner Family
DX: Z12.31 Encounter for screening mammogram for malignant neoplasm of breast (principal)
CPT/HCPCS: 77063; 77067

== ENCOUNTER 2020-09-13 15:31 | Emergency (ER) | payer MEDICAID, SELFPAY ==
[2020-09-13 15:35] VITALS: BP 140/71; PULSE 92; RESP 16; TEMP 36.4; O2SAT 97
--- NOTE | 2020-09-13 15:44 | W.ED.GENAD ---
Discharge Plan Disposition Patient Disposition: HOME Condition: Stable Discharge Details Clinical Impression: Left wrist sprain, Left thumb sprain Primary Care Provider: Sumaya Saldivar ED Provider: Sourav Jacobo Home Meds and New Rx's Prescriptions: Continued multivitamin [Daily Multi-Vitamin] 1 EACH tablet 1 ea PO DAILY Qty: 1 RF: 0 lisinopril 5 MG tablet 5 mg PO DAILY RF: 0 aspirin [Aspir-81] 81 MG tablet,delayed release (DR/EC) 81 mg PO DAILY RF: 0 atorvastatin 40 MG tablet 40 mg PO DAILY RF: 0 acetaminophen [Tylenol] 325 mg Capsule 325 mg PO PRN PRNRF: 0 Discharge Instructions Instructions: Wrist Sprain (ED) Additional Instructions: if pain continues this week follow up with your primary care provider if you have worsening pain, fevers or feel more ill return to the emergency department Medical Decision Making 55 yo female states 3 weeks ago she was walking in her house and her watch got caught on a doorway and it pulled her left wrist. Denies falls or other trauma. Has pain over the left radial wrist and base of the left thumb. Normal full range of motion of the thumb and wrist. No significant swelling on exam. No visible or palpable deformities, normal sensation and pulses. Given mechanism and location of pain suspect sprain vs tendonitis, will xray to evaluate for fracture, no snuffbox tenderness so doubt scaphoid fracture. No findings to suggest tendon injury or gamekeeper's thumb. NO redness or erythema to suggest septic joint. patient stable, xrays unremarkable. Placed in splint for comfort and advised to follow up with pcp this week if pain continues Differential Diagnosis Differential Diagnosis: sprain, tendonitis, fracture Imaging Data Radiologic Study: Attestation: I personally reviewed and interpreted this imaging study as follows: Imaging: X-Ray Radiologist's impression: no acute findings thumb xray Radiologic Study #2: Attestation: I personally reviewed and interpreted this imaging study as follows: Imaging: X-Ray Radiologist's impression: no acute findings wrist xray [facility] General Mode of arrival: ambulatory. Date/Time Provider Initiated Documentation: 09/13/20 15:43. Limitations to Documentation: no limitations. Information obtained by: patient. History of Present Illness 55 year old F presents to the emergency department with the chief complaint of left wrist pain, described as moderate, Patient started experiencing this week(s) (2) and it has been constant. Rest improves symptom(s), Movement worsens symptoms . Patient notes no other symptoms.. Patient did receive the following treatments prior to arrival, none Related Data Home Medications Medication Instructions Recorded Confirmed multivitamin [Daily Multi-Vitamin] 1 ea PO DAILY #1 01/16/13 09/13/20 aspirin [Aspir-81] 81 mg PO DAILY 09/24/13 09/13/20 lisinopril 5 mg PO DAILY tab-cap 06/11/16 09/13/20 atorvastatin 40 mg PO DAILY 01/12/18 09/13/20 acetaminophen [Tylenol] 325 mg PO PRN PRN 09/13/20 09/13/20 Allergies Allergy/AdvReac Type Severity Reaction Status Date / Time Penicillins Allergy Intermediate rash Verified 07/26/19 18:39 codeine AdvReac Mild GI UPSET Verified 07/26/19 18:39 General Stated Complaint: Orthopedic DEEJAY: 4 Review of Systems All systems reviewed & are unremarkable except as noted in HPI and below Constitutional Constitutional: Denies chills, Denies fever(s) and Denies weakness Cardiovascular Cardiovascular: Denies chest pain and Denies dyspnea Respiratory Respiratory: Denies cough and Denies dyspnea Gastrointestinal Gastrointestinal: Denies abdominal pain, Denies nausea and Denies vomiting Neurologic Neurologic: Denies weakness [facility] Medical History (Updated 09/13/20 @ 16:37 by Sourav Jacobo MD) Barretts Esophagus Carpal tunnel syndrome on right chronic back pain Depression Diabetes mellitus Hyperlipidemia Migraine Surgical History (Updated 03/01/18 @ 14:35 by [facility]) Abdominal hysterectomy with ovarian conservation. Arthroplasty of knee (02/01/07) Right, from records.[facility] Arthroscopy (06/13/06) Right knee, with patellar chondroplasty, from [facility] section 1990 c/s EGD - MAC (08/09/16) Kinsey Procedure (02/01/07) Right, same surgery as arthroscopy.[facility] Release for de Quervain's tenosynovitis of hand (09/18/08) Right wrist, from records.[facility] S/P endoscopic carpal tunnel release Screw removal Tibia (03/12/08) right, from records.[facility] Family History Other Diabetes Heart disease Social History Smoking/Tobacco Use Status: Former Tobacco Use Smoking risk assessment performed?: Yes Alcohol Intake: never Drug use: Never Do you feel safe at home: Yes Do you feel safe in your relationship?: Yes Exam Const General: no acute distress Orientation: alert HENMT Head: normal to inspection Ears: external ears normal General nose exam: external nose normal Mouth: moist mucous membranes Eyes General: appearance normal, both eyes and all related structures Neck Neck: normal visual inspection Resp Effort & Inspection: normal respiratory effort and able to speak in complete sentences Cardio Rate: regular rate Skin General skin exam: no rashes or lesions noted Neuro General: patient alert and patient oriented x3 Extrem General: full ROM and capillary refill normal Psych Mental Status: mental status grossly normal Course Vital Signs Vital signs: Vital Signs Temperature 36.4 C L 09/13/20 15:35 Pulse 92 H 09/13/20 15:35 Respiratory Rate 16 09/13/20 15:35 Blood Pressure 140/71 09/13/20 15:35 Pulse Oximetry 97 09/13/20 15:35 Temperature 36.4 C L 09/13/20 15:35 Temperature Source Temporal Artery Scan 09/13/20 15:35 Pulse 92 H 09/13/20 15:35 Respiratory Rate 16 09/13/20 15:35 Respiratory Effort 09/13/20 15:40 Blood Pressure 140/71 09/13/20 15:35 Blood Pressure Position Sitting 09/13/20 15:35 Pulse Oximetry 97 09/13/20 15:35 Oxygen Delivery Method Room Air 09/13/20 15:35 Oxygen Flow Rate 0 09/13/20 15:35
--- NOTE | 2020-09-13 15:45 | DI.RAD_ITS ---
Exam(s) XR THUMB LT EXAM: XR THUMB LT EXAM DATE/TIME: CLINICAL HISTORY: pain. TECHNIQUE: 2D digital imaging was performed. COMPARISON: None. FINDINGS: BONES: No acute fracture is present. No bony destructive lesion is seen. JOINTS: No dislocation present. SOFT TISSUE: Normal. IMPRESSION: No evidence of acute fracture, dislocation, or subluxation. DATA REPOSITORY: RADIATION DOSE DELIVERED:
--- NOTE | 2020-09-13 15:45 | DI.RAD_ITS ---
Exam(s) XR WRIST LT COMPLETE EXAM: XR WRIST LT COMPLETE CLINICAL HISTORY: pain. TECHNIQUE: 2D digital imaging was performed. COMPARISON: No exams were available for comparison FINDINGS: BONES: No acute fracture is present. No bony destructive lesion is seen. JOINTS: The carpal bones are normally aligned. SOFT TISSUE: Normal. IMPRESSION: No acute abnormality. DATA REPOSITORY: RADIATION DOSE DELIVERED:
[2020-09-13] MEDS: Acetaminophen 500 MG TAB 1000 MG PO (15:54)
--- NOTE | 2020-09-13 16:09 | DI.VRAD_ITS ---
PROCEDURE INFORMATION: Exam: XR Left Finger(s) Exam date and time: 09/13/2020 3:50 PM Age: 55 years old Clinical indication: Pain; Finger(s); Left TECHNIQUE: Imaging protocol: XR Left fingers. Views: Minimum 2 views. COMPARISON: No relevant prior studies available. FINDINGS: Bones/joints: Normal. Soft tissues: Normal. IMPRESSION: No evidence for acute abnormality. Dictated and Authenticated by: Marquita Blevins MD. Ordering:ALBERTO Benjamin MD
--- NOTE | 2020-09-13 16:10 | DI.VRAD_ITS ---
PROCEDURE INFORMATION: Exam: XR Left Wrist Exam date and time: 09/13/2020 3:50 PM Age: 55 years old Clinical indication: Patient HX: Left wrist and thumb pain after injury TECHNIQUE: Imaging protocol: XR Left wrist. Views: 3 or more views. COMPARISON: No relevant prior studies available. FINDINGS: Bones/joints: There is mild deformity of the ulnar styloid likely related to previous fracture. No acute fracture identified. Alignment is otherwise anatomic. Soft tissues: Normal. IMPRESSION: No evidence for acute posttraumatic abnormality. Dictated and Authenticated by: Marquita Blevins MD. Ordering:ALBERTO Benjamin MD
== END 2020-09-13 16:44 | disposition home or self-care (01) ==
PROVIDERS: Emergency Provider Emergency Medicine; PCP Nurse Practitioner Family
DX: S63.592A Other specified sprain of left wrist, initial encounter (principal); S63.682A Other sprain of left thumb, initial encounter; X58.XXXA Exposure to other specified factors, initial encounter
CPT/HCPCS: 29125; 99284; 73110; 73140; 99283

== ENCOUNTER 2020-12-04 11:43 | Outpatient (REF) | payer MEDICAID, SELFPAY ==
[2020-12-04 15:30] LABS: Abs Immature Grans 0.02 10^3/uL (0.0-0.06); Absolute Basophil Count 0.05 10^3/uL (0.0-0.2); Absolute Lymphocyte Count 2.42 10^3/uL (1.2-3.4); Absolute Monocyte Count 0.54 10^3/uL (0.1-0.8); Absolute Neutrophil Count 2.95 10^3/uL (1.2-6.7); Basophils % 0.8; Eosinophils % 3.2; HCT 40.4 % (36.0-46.0); HGB 13.2 g/dL (11.2-15.7); Immature Grans % 0.3; Lymphocytes % 39.2; MCH 29.5 pg (27.0-33.0); MCHC 32.7 % (32.0-36.0); MCV 90.2 fL (80-95); MPV 10.3 fL (8.0-11.0); Monocytes % 8.7; Neutrophils % 47.8; Nucleated RBC 0 %; Platelet Count 274 10^3/uL (130-400); RBC 4.48 10^6/uL (3.93-5.22); RDW 13.1 % (11.7-14.6); RDW-SD 42.7 fL; WBC 6.18 10^3/uL (4.4-10.8)
[2020-12-04 15:36] LABS: ESR 19 mm/hr (0-30)
[2020-12-04 15:41] LABS: Mono Screening Negative (Negative)
[2020-12-04 15:59] LABS: Hemoglobin A1C 6.8 % (<5.7)
[2020-12-04 16:04] LABS: ALT 36 U/L (14-59); AST 25 U/L (15-37); Albumin 4.2 g/dL (3.4-5.0); Alkaline Phosphatase 97 U/L (46-116); Anion Gap 6.7 mmol/L (3-11); BUN 9 mg/dL (7-18); Bilirubin, Total 0.4 mg/dL (0.2-1.0); C-Reactive Protein 0.15 mg/dL (0.0-0.3); CO2 32.3 mmol/L (21.0-32.0); CREATININE 0.6 mg/dL (0.55-1.02); Calcium 9.6 mg/dL (8.5-10.1); Chloride 104 mmol/L (98-107); Glucose 90 mg/dL (74-106); Potassium 4.4 mmol/L (3.5-5.1); Sodium 143 mmol/L (136-145); TSH (W/Ref FT4) 0.54 uIU/mL (0.36-3.74); Total Protein 7.7 g/dL (6.4-8.2)
[2020-12-04 20:51] LABS: Rheumatoid Factor <8.6 IU/mL (<12.0)
[2020-12-05 11:32] LABS: Lyme Ab w Rflx to Lyme Confirm Negative (Negative)
[2020-12-05 14:01] LABS: ANA Interpretation Positive (Negative); ANA Titer Pattern 1:80 Homogeneous
[2020-12-06 02:17] LABS: Anaplasma phagocytophilum Negative (Negative); B. miyamotoi PCR Negative (Negative); Babesia divergens/MO-1 Negative (Negative); Babesia duncani Negative (Negative); Babesia microti Negative (Negative); Ehrlichia chaffeensis Negative (Negative); Ehrlichia ewingii/canis Negative (Negative); Ehrlichia muris eauclairensis Negative (Negative)
== END 2020-12-04 11:44 | disposition home or self-care (01) ==
LOC: NCHCN 11:43
PROVIDERS: PCP Nurse Practitioner Family; Visit Provider Nurse Practitioner Family
DX: M79.18 Myalgia, other site (principal); M25.59 Pain in other specified joint; R53.83 Other fatigue; G44.89 Other headache syndrome; E11.9 Type 2 diabetes mellitus without complications
CPT/HCPCS: 80053; 85652; 87798; 83036; 84443; 85025; 86038; 86140; 86308; 86431; 86618

== ENCOUNTER 2021-01-26 02:05 | Outpatient (CLI) | payer MEDICAID, SELFPAY ==
--- NOTE | 2021-01-26 | DI.US_ITS ---
Exam(s) US ABDOMEN EXAM: US ABDOMEN CLINICAL HISTORY: CIRRHOSIS, K74.60 TECHNIQUE: Ultrasound abdomen performed using standard protocol. COMPARISON: CT CT RENAL COLIC WO from 07/26/[address] RENAL COLIC WO from 07/26/2019 FINDINGS: LIVER: Enlarged at 20 centimeters. Mildly heterogeneous echotexture.. No focal liver lesions are se en.. GALLBLADDER: No evidence of cholelithiasis. No evidence of wall thickening. No pericholecystic fluid identified. FITZGERALD'S SIGN: Negative. BILIARY SYSTEM: No intrahepatic or extrahepatic biliary ductal dilation. KIDNEYS: Kidneys are symmetric in size. No evidence of renal calculi. No evidence of hydronephrosis. No renal mass or cyst identified. PANCREAS: Normal where visualized. SPLEEN: Not enlarged. ABDOMINAL AORTA AND IVC: 3 centimeter distal abdominal aortic aneurysm. ASCITES: None seen. IMPRESSION: Mildly enlarged heterogeneous liver. No focal mass or biliary dilatation. 3 centimeter abdominal ao rtic aneurysm. DATA REPOSITORY:
--- NOTE | 2021-01-26 | DI.US_ITS ---
Exam(s) US AAA DIAGNOSTIC EXAM: US AAA DIAGNOSTIC CLINICAL HISTORY: ABDOMINAL AORTIC ANEURYSM, I71.4 COMPARISON: CT CT RENAL COLIC WO from 07/26/[address] RENAL COLIC WO from 07/26/2019 US US AAA DIAGNOSTIC from 02/29/2020 US US AAA DIAGNOSTIC from 02/29/2020 FINDINGS: Abdominal Aorta: The aorta was not as well visualized as on the previous exam. Proximal: 2.4 x 2.7 c m Mid: 2.0 x 2.4 cm Distal: 3.0 x 3.0 cm Iliacs: Right: 1.9 x 1.6 cm Left: 1.6 x 1.5 cm The doppler velocities are within normal limits. No significant atherosclerotic disease is seen. IMPRESSION: 3.0 centimeter distal abdominal aortic aneurysm. Mild dilatation of both iliac arteries, right great er than left. DATA REPOSITORY:
== END 2021-01-26 02:25 ==
PROVIDERS: PCP Nurse Practitioner Family; Visit Provider Nurse Practitioner Family
DX: I71.4 Abdominal aortic aneurysm, without rupture (principal); K74.60 Unspecified cirrhosis of liver
CPT/HCPCS: 76700; 76775

== ENCOUNTER 2021-02-04 01:53 | Outpatient (CLI) | payer MEDICAID, SELFPAY ==
--- NOTE | 2021-02-04 07:30 | DI.US_ITS ---
APPROVED REPORT EXAM: Comprehensive 2D, Doppler, and color-flow Echocardiogram Patient Location: Out-Patient Saloon Keeper: Roma Yang RDCS (AE) Indications: Systolic heart murmur Other Information Study Quality: Good Conclusion Normal left ventricular wall thickness and chamber size. Estimated ejection fraction is 60%. There are no segmental wall motion abnormalities Normal right ventricular size and systolic function Both atria are normal in size The aortic valve is sclerotic and trileaflet without stenosis or regurgitation Borderline dilated ascending aorta measuring 3.38 cm Wall motion Left Ventricle The left ventricle is normal size. The left ventricular systolic function is normal. The left ventric ular ejection fraction is within the normal range. There is normal left ventricular wall thickness. T here is normal LV segmental wall motion. There is no ventricular septal defect visualized. LVEF is 60 %. Right Ventricle The right ventricle is normal size. The right ventricular systolic function is normal. Atria The left atrium size is normal. The right atrium size is normal. The interatrial septum is intact wit h no evidence for an atrial septal defect. Atrial septal aneurysm is present. Aortic Valve Aortic valve is thickened but has adequate excursion. Aortic valve is trileaflet. There is no aortic valvular stenosis. No aortic regurgitation is present. Mitral Valve The mitral valve is normal in structure. No evidence of mitral valve stenosis. Trace mitral regurgita tion. Tricuspid Valve The tricuspid valve is normal in structure. There is no tricuspid valve stenosis. Trace tricuspid reg urgitation. Unable to assess PA pressure. Pulmonic Valve The pulmonary valve is normal in structure. There is no pulmonic valvular stenosis. Trace pulmonic re gurgitation. Great Vessels The aortic root is normal in size. The ascending aorta is mildly dilated. Aortic arch is normal in ca liber. IVC is normal in size and collapses >50% with inspiration. Pericardium There is no pericardial effusion. 2D Dimensions IVSD d PLAX 0.94 cm F: 0.6-1.0 LV Vol A2C d MOD 112.6 mL LVPW d PLAX 0.95 cm F: 0.6 - 1.0 LV Vol A4C d MOD 142.3 mL LVID d PLAX 4.94 cm F: 3.8 - 5.2 LA vol/ BSA A2C s A-L 23.3 mL/m2 LVDs 3.30 cm F: 2.2 - 3.5 LA vol/ BSA A4C s A-L 21.2 mL/m2 Ao Root d 2.95 cm F: 2.7 - 3.3 LA Vol/ BSA Biplane s A-L 22.4 mL/m2 RA Area A4C 13.72 cm2 LA Area A4C s MOD 16.50 cm2 RA Vol/ BSA A4C s A-L 16.9 mL/m2 LA Area A2C s MOD 17.19 cm2 Ao Asc Diam d 3.38 cm F: 2.3 - 3.1 LV EF A4C MOD 60.3 % LV EF Teichholz 60.8 % LV EF A2C MOD 59.6 % LVEF (Hernández's) 59.48 % F: 54 - 74 LV EF Biplane MOD 59.5 % LV Volume 92.47 mL F: 46 - 106 SV 75.34 mL LV Volume Index 42.61 mL/m2 F: 29 - 61 SV Index 34.65 mL/m2 LV Vol Biplane MOD 126.7 mL FS 32.60 % M-Mode TAPSE 2.42 cm (M/F) >1.7 LV Diastology MV E' medial 0.092 (>0.07 m/s) E/A Ratio 0.9 LV E/e MED 8.65 (<14) MV E Vmax 0.79 (0.4-1.3 m/s) MV E' lateral 0.132 (>0.1 m/s) MV A Vmax 0.85 (0.4-1.3 m/s) LV E/e LAT 6.00 (<14) MV E/A Ratio 0.88 MV E/E' medial 8.67 MV E/E' lateral 6.02 Aortic Valve LVOT Area 3.06 cm2 AoV Area Vmax 2.15 cm2 LVOT Vmax 1.19 m/s AoV Area/ BSA (Vmax) 0.99 cm2/m2 LVOT Mean Sachin. 0.74 m/s JARON Mean Sachin. 2.01 cm2 LVOT Peak Grad 5.7 mmHg JARON Mean Sachin. Index 0.92 cm2/m2 LVOT Mean Grad 2.6 mmHg LVOT VTI 0.286 m LVOT Diam s 1.95 cm AoV Vmax 1.69 m/s Velocity Ratio 0.70 AoV Mean Sachin. 1.12 m/s AoV Peak Grad 11.5 mmHg LVOT SV 87.52 mL AoV Mean Grad 5.8 mmHg AoV VTI 0.345 m AoV Area VTI 2.54 cm2 AoV Area/ BSA (VTI) 1.17 cm/m2 Mitral Valve MV DT 253 (160-240 msec) MV PHT 73 msec MV Area PHT 3.00 cm2 MV VTI 0.305 m MV Area VTI 2.87 (4.0-6.0 cm2) Pulmonary Valve PV Vmax 1.11 (0.5-1.5 m/s) RVOT Peak Gr. 2.95 mmHg PV Peak Grad 5.0 mmHg RVOT Mean Gr. 1.35 mmHg PV Mean Grad 2.5 mmHg RVOT VTI 0.188 m PV VTI 0.232 m RVOT Vmax 0.86 m/s
== END 2021-02-04 02:13 ==
PROVIDERS: PCP Nurse Practitioner Family; Visit Provider Nurse Practitioner Family
DX: R01.1 Cardiac murmur, unspecified (principal); I35.8 Other nonrheumatic aortic valve disorders; I77.810 Thoracic aortic ectasia
CPT/HCPCS: 93306

== ENCOUNTER 2021-06-02 16:18 | Outpatient (REF) | payer MEDICAID, SELFPAY ==
[2021-06-03 15:20] LABS: COVID-19 RT-PCR UVMMC Result Negative (Negative)
== END 2021-06-02 16:19 | disposition home or self-care (01) ==
LOC: NCHCN 16:18
PROVIDERS: PCP Nurse Practitioner Family; Visit Provider Nurse Practitioner Family
DX: Z20.822 Contact with and (suspected) exposure to COVID-19 (principal)
CPT/HCPCS: U0003

== ENCOUNTER 2021-06-22 09:13 | Outpatient (REF) | payer MEDICAID, SELFPAY ==
[2021-06-22 16:05] LABS: Abs Immature Grans 0.01 10^3/uL (0.0-0.06); Absolute Basophil Count 0.05 10^3/uL (0.0-0.2); Absolute Eosinophil Count 0.35 10^3/uL (0.0-0.7); Absolute Lymphocyte Count 2.29 10^3/uL (1.2-3.4); Absolute Monocyte Count 0.48 10^3/uL (0.1-0.8); Absolute Neutrophil Count 4.26 10^3/uL (1.2-6.7); Basophils % 0.7; Eosinophils % 4.7; HCT 41.2 % (36.0-46.0); HGB 13.3 g/dL (11.2-15.7); Immature Grans % 0.1; Lymphocytes % 30.8; MCH 28.5 pg (27.0-33.0); MCHC 32.3 % (32.0-36.0); MCV 88.4 fL (80-95); MPV 10.1 fL (8.0-11.0); Monocytes % 6.5; Neutrophils % 57.2; Nucleated RBC 0 %; Platelet Count 309 10^3/uL (130-400); RBC 4.66 10^6/uL (3.93-5.22); RDW 13.4 % (11.7-14.6); RDW-SD 43.2 fL; WBC 7.44 10^3/uL (4.4-10.8)
[2021-06-22 16:28] LABS: ALT 33 U/L (14-59); AST 19 U/L (15-37); Albumin 4.1 g/dL (3.4-5.0); Alkaline Phosphatase 93 U/L (46-116); Anion Gap 8.8 mmol/L (3-11); BUN 10 mg/dL (7-18); Bilirubin, Total 0.4 mg/dL (0.2-1.0); CO2 29.2 mmol/L (21.0-32.0); CREATININE 0.7 mg/dL (0.55-1.02); Calcium 9.4 mg/dL (8.5-10.1); Chloride 104 mmol/L (98-107); Glucose 159 mg/dL (74-106); Potassium 4.2 mmol/L (3.5-5.1); Sodium 142 mmol/L (136-145); Total Protein 7.7 g/dL (6.4-8.2)
[2021-06-22 16:30] LABS: Hemoglobin A1C 6.7 % (<5.7)
== END 2021-06-22 09:14 | disposition home or self-care (01) ==
LOC: NCHCN 09:13
PROVIDERS: PCP Nurse Practitioner Family; Visit Provider Nurse Practitioner Family
DX: E11.9 Type 2 diabetes mellitus without complications (principal); Z01.818 Encounter for other preprocedural examination
CPT/HCPCS: 80053; 83036; 85025

== ENCOUNTER 2021-06-25 02:01 | Outpatient (CLI) | payer MEDICAID, SELFPAY ==
--- NOTE | 2021-06-25 07:45 | DI.MAMMO_ITS ---
Exam(s) MAMMO SCREENING EXAM: MAMMO SCREENING CLINICAL HISTORY: SCREENING, Z12.31. TECHNIQUE: Bilateral full field digital CC and MLO mammographic images were obtained with 3D tomosyn thesis and utilizing computer aided detection (CAD). COMPARISON: Prior mammograms were reviewed, the most recent being June 2020. FINDINGS: The fibroglandular tissue is again noted be moderately dense, this somewhat decreasing the sensitivit y of the mammogram for finding in underlying lesions. There has been no significant change in the appearance and distribution of the fibroglandular tissue There are no new spiculated masses nor malignant appearing microcalcification groups. There is no significant architectural distortion nor skin thickening-retraction. IMPRESSION: Dense bilateral fibroglandular tissue. No obvious radiographic evidence of malignancy nor significan t change compared to prior mammograms. BI-RADS Category 1 - Negative Breast Density - Category C - Heterogeneously dense Breast density Category C or D implies that the patient has dense breast tissue. Dense breast tissue can make it harder to find cancer on a mammogram. Dense breast tissue is also associated with an incr eased risk of breast cancer. This information about the result of the mammogram report was provided to the patient to raise their awareness. Use this report when you speak with the patient about their risks for breast cancer, which includes their family history. At that time, you may recommend additional screening tests (Ultrasoun d or MRI) as these tests may add significant information. A negative radiographic report should not delay biopsy if a dominant or clinically suspicious mass is present. Up to ten percent of cancers are not identified on mammography. A negative report may reinforce clinical impression. Adenosis and dense breasts may obscure an underlying neoplasm. False positive reports average 6 to 10%. Patient will receive a letter notifying them of these results.
== END 2021-06-25 02:21 ==
PROVIDERS: PCP Nurse Practitioner Family; Visit Provider Nurse Practitioner Family
DX: Z12.31 Encounter for screening mammogram for malignant neoplasm of breast (principal)
CPT/HCPCS: 77063; 77067

== ENCOUNTER 2021-08-24 02:06 | Outpatient (CLI) | payer MEDICAID, SELFPAY ==
[2021-08-24 09:35] LABS: Source Nasal/Nares
[2021-08-24 12:08] LABS: COVID-19 PCR Negative (Negative)
== END 2021-08-24 02:07 | disposition home or self-care (01) ==
LOC: LBO 02:06
PROVIDERS: PCP Nurse Practitioner Family; Visit Provider Student in an Organized Health Care Education/Training Program
DX: Z20.822 Contact with and (suspected) exposure to COVID-19 (principal); Z01.818 Encounter for other preprocedural examination
CPT/HCPCS: 87635

== ENCOUNTER 2021-08-25 10:50 | Day surgery (SDC) | payer MEDICAID, SELFPAY ==
[2021-08-25 11:04] VITALS: BP 125/73; PULSE 64; RESP 16; TEMP 36.1; O2SAT 100
[2021-08-25] MEDS: Lactated Ringers 1,000 ML 80 ML IV (11:33)
--- NOTE | 2021-08-25 11:59 | W.ANESPRE ---
General Info Date of Service Date Performed: 08/25/21 Height: 6 ft 1 in Weight: 92.8 kg Body Mass Index (BMI): 26.9 Surgical Procedure: Operation Date: 08/25/21 15:25 Proposed Procedure Side Surgeon p Wrist Dequervains Release Left Kiko Plunkett MD Meds Allergies and Home Medications Allergies Allergy/AdvReac Type Severity Reaction Status Date / Time Penicillins Allergy Intermediate rash Verified 08/25/21 11:10 codeine AdvReac Mild GI UPSET Verified 08/25/21 11:10 Home Medication Medication Instructions Recorded multivitamin (Daily Multi-Vitamin) 1 ea PO DAILY #1 01/16/13 aspirin 81 mg tablet,delayed 81 mg PO DAILY 09/24/13 release (Aspir-) lisinopril 5 mg tablet 5 mg PO DAILY tab-cap 06/11/16 atorvastatin 40 mg tablet 40 mg PO DAILY 01/12/18 acetaminophen 325 mg capsule 325 mg PO PRN PRN 09/13/20 (Tylenol) Current Visit Medications: Current Medications Generic Name Dose Route Start Last Admin Trade Name Freq PRN Reason Stop Dose Admin Ringer's Solution 1,000 mls @ 80 mls/hr 08/25/21 06:00 08/25/21 11:33 IV 09/23/21 23:59 80 mls/hr INFUSION OLAMIDE Administration Cefazolin Sodium/Dextrose 2 gm in 50 mls @ 100 mls/hr 08/25/21 06:00 Ancef Duplex IVPB 09/24/21 23:59 PREOP OLAMIDE IV Miscellaneous Supplies 1 each 08/25/21 06:00 Iv Access IV 09/23/21 23:59 DIRECTED OLAMIDE Sodium Chloride 0 ml 08/25/21 06:00 Normal Saline Flush 10 Ml Syr IV 09/23/21 23:59 PRN PRN Sodium Chloride 0 ml 08/25/21 06:00 Normal Saline 10 Ml Vial IJ 09/23/21 23:59 DIRECTED PRN Sterile Water 0 ml 08/25/21 06:00 Water,Injection,Sterile 10 Ml Vial IJ 09/23/21 23:59 DIRECTED PRN PFSH Active Problems Active Problems: Problem Status Onset Code De Quervain's tenosynovitis, left M65.4 Sams esophagus K22.70 Anxiety and depression F41.9, F32.A Heart murmur, systolic R01.1 Aneurysm of iliac artery I72.3 Left wrist sprain S63.502A Left thumb sprain S63.602A S/P endoscopic carpal tunnel release Z98.890 Carpal tunnel syndrome, left G56.02 Carpal tunnel syndrome on right G56.01 Medical History Medical History Barretts Esophagus chronic back pain Depression Diabetes mellitus Hyperlipidemia Migraine Parotid mass (05/03/16) Surgical History Surgical History Abdominal hysterectomy with ovarian conservation. Arthroplasty of knee (02/01/07) Right, from records.[facility] Arthroscopy (06/13/06) Right knee, with patellar chondroplasty, [facility] section 1990 c/s EGD - MAC (08/09/16) [facility] Procedure (02/01/07) Right, same surgery as arthroscopy.[facility] Release for de Quervain's tenosynovitis of hand (09/18/08) Right wrist, from records.[facility] Screw removal Tibia (03/12/08) right, from records.[facility] Tobacco Smoking/Tobacco Use Status: Former Tobacco Use Substance Use Substance use: Never Substance use type: does not use Vital Signs and Lab Results Vital Signs Most Recent Vital Signs in EMR: Most Recent Vital Signs Temp Pulse Resp BP Pulse Ox 36.1 C L 64 16 125/73 100 08/25/21 11:04 08/25/21 11:04 08/25/21 11:04 08/25/21 11:04 08/25/21 11:04 Point of Care Results Point of Care Results: Finger Stick Blood Glucose 105 08/25/21 11:39 Lab Results Blood Type / Crossmatch: No Data to Display Complete Blood Count: No Data to Display Complete Metabolic Panel: No Data to Display Liver Function Panel: No Data to Display Coagulation Panel: No Data to Display Cardiac Panel: No Data to Display Arterial Blood Gas: No Data to Display Venous Blood Gas: No Data to Display Pancreas Panel: No Data to Display Thyroid Panel: No Data to Display Infectious Disease: Coronavirus (COVID-19)(PCR) Negative (Negative) 08/24/21 09:09 08/24/21 Coronavirus 2019 Source Nasal/Nares 08/24/21 09:09 08/24/21 Blood Cultures: No Data to Display Toxicology Panel: No Data to Display Anesthesia Assessment and Plan Anesthesia History Personal History: No History of Anesthesia Complications Family History: No Family History of Anesthesia Complications Exercise Tolerance Exercise Tolerance: Metabolic Equivalents>4 Pertinent Negatives Pertinent Negatives: No Symptoms of GERD, No Major Cardiovascular Symptoms or Complaints (Innocent murmur), No Major Pulmonary Symptoms or Complaints and No History of CVA/TIA Cardiac & Pulmonary Exam Cardiac Exam: Normal S1/S2 Heart Sounds Pulmonary Exam: Clear Bilateral Breath Sounds Implantable Cardiac Device Does patient have a Pacemaker or an ICD?: No Airway Exam Known Difficult Airway: No Mallampati Class: 1 Mouth Opening: Normal (> 3cm) Thyromental Distance: Greater than 3 cm Neck Range of Motion: Full ROM Neck Circumference: Thick Teeth Condition: Normal Dentition and Removable Dentures/Plates Upper ASA Classification ASA Score: ASA 2 Emergency Case?: No NPO Status NPO Status: NPO Clears >2 hours, Solids >8 hours Anesthesia Plan Resuscitation Status: Full Code Anesthesia Technique: General Anesthesia Airway Planned: Natural Airway Monitors Used: Standard Monitors
[2021-08-25 12:02] VITALS: BMI 26.9
--- NOTE | 2021-08-25 13:34 | W.PREOPHP ---
Assessment and Plan Assessment and plan (1) De Quervain's tenosynovitis, left: Status: Acute Assessment and plan: Lakeshia is a 56-year-old who has de Quervain's tenosynovitis of the left wrist. She is here today for first extensor compartment release for this diagnosis. I reviewed the technical procedures of the case. I discussed the risk of the procedure to include bleeding, infection, pain, stiffness, tendon instability or subluxation, numbness of the superficial radial nerve, incomplete release for Ms. compartment, need for repeat procedures. Despite these risks, she elects to proceed. History of Present Illness Narrative: Lakeshia is a 56-year-old who has known de Quervain's tenosynovitis of the left hand. She has been seen in the office for this. Please see the previous office note for complete detailed history. She has failed conservative options and continues have pain about the radial aspect of the left hand. She has had no changes to her health. She is COVID-19 negative. Review of Systems All systems reviewed & are unremarkable except as noted in HPI and below PFSH All Active Problems De Quervain's tenosynovitis, left (Acute) Sams esophagus (Acute) Anxiety and depression (Acute) Heart murmur, systolic (Acute) Aneurysm of iliac artery (Acute) Left wrist sprain (Acute) Left thumb sprain (Acute) S/P endoscopic carpal tunnel release (Acute) Carpal tunnel syndrome, left (Acute) Medical History Barretts Esophagus chronic back pain Depression Diabetes mellitus Hyperlipidemia Migraine Parotid mass (05/03/16) Surgical History Abdominal hysterectomy with ovarian conservation. Arthroplasty of knee (02/01/07) Right, from records.[facility] Arthroscopy (06/13/06) Right knee, with patellar chondroplasty, from [facility] section 1990 c/s EGD - MAC (08/09/16) [facility] Procedure (02/01/07) Right, same surgery as arthroscopy.[facility] Release for de Quervain's tenosynovitis of hand (09/18/08) Right wrist, from records.[facility] Screw removal Tibia (03/12/08) right, from records.[facility] Family History Other Diabetes Heart disease Social History Smoking/Tobacco Use Status: Former Tobacco Use Quit Date: 05/16/13 Smoking risk assessment performed?: Yes Drug use: Never Substance use type: does not use Do you feel safe at home: Yes Do you feel safe in your relationship?: Yes Meds Allergies and Home Medications Allergies Allergy/AdvReac Type Severity Reaction Status Date / Time Penicillins Allergy Intermediate rash Verified 08/25/21 11:10 codeine AdvReac Mild GI UPSET Verified 08/25/21 11:10 Home Medications Medication Instructions Recorded Confirmed Type multivitamin (Daily Multi-Vitamin) 1 ea PO DAILY #1 01/16/13 08/25/21 History aspirin 81 mg tablet,delayed 81 mg PO DAILY 09/24/13 08/25/21 History release (Aspir-) lisinopril 5 mg tablet 5 mg PO DAILY tab-cap 06/11/16 08/25/21 History atorvastatin 40 mg tablet 40 mg PO DAILY 01/12/18 08/25/21 History acetaminophen 325 mg capsule 325 mg PO PRN PRN 09/13/20 08/25/21 History (Tylenol) Exam Resp Auscultation: clear to auscultation bilaterally Cardio Rate: regular rate Rhythm: regular rhythm Results Last Vital Signs Temp 36.1 C L 08/25/21 11:04 Pulse 64 08/25/21 11:04 Resp 16 08/25/21 11:04 BP 125/73 08/25/21 11:04 Pulse Ox 100 08/25/21 11:04
[2021-08-25] MEDS: ceFAZolin 2 GM/50 ML BAG IVPB (13:42)
[2021-08-25] MEDS: Sodium Bicarbonate 50 MEQ/50 ML VIAL (13:49)
[2021-08-25] MEDS: Bupivacaine 0.25% Pres-Free 30 ML VIAL (13:57)
--- NOTE | 2021-08-25 14:01 | W.PM.DSUDISC ---
Discharge Plan Disposition Patient Disposition: HOME Condition: Good Discharge Details Reason For Visit: De Quervain's release left Attending Provider: Kiko Plunkett Primary Care Provider: Sumaya Saldivar Home Meds and New Rx's Prescriptions: New acetaminophen 500 mg tablet 1,000 mg PO TID Qty: 90 0RF ibuprofen 600 mg tablet 600 mg PO TID PRN (Reason: pain) Qty: 90 0RF Continued multivitamin [Daily Multi-Vitamin] 1 EACH tablet 1 ea PO DAILY Qty: 1 0RF lisinopril 5 MG tablet 5 mg PO DAILY 0RF aspirin [Aspir-81] 81 MG tablet,delayed release (DR/EC) 81 mg PO DAILY 0RF atorvastatin 40 MG tablet 40 mg PO DAILY 0RF Discontinued acetaminophen [Tylenol] 325 mg Capsule 325 mg PO PRN PRN0RF Discharge Instructions Additional Instructions: Marilia'makayla Discharge Instructions Activity: You should keep the hand elevated as much as possible for the first few days. You may use the other fingers as tolerated but avoid trying to do too much too soon. You may perform light activities with the splint in place. Dressing/Cast: Your splint should stay in place at all times. Do NOT get it wet. You may loosen the ERICA wrap if you feel it is too tight and then rewrap more loosely. Medications: - You should take Tylenol and Ibuprofen for baseline pain control. - You may apply ice over the thumb. Follow-up: 7-10 days Referrals: Kiko Plunkett MD [ [facility] STAFF PHYSICIAN] - Activity:: Elevate Remove Dressings/Wound Care:: Do Not Remove Shower/Bathe:: Cover Diet:: As Tolerated Discharge Orders Discharge Orders: Discharge Order (Routine); Ordered 08/25/21 Ordered By: Félix Wing DS: Diagnosis Discharge Diagnosis (1) De Quervain's tenosynovitis, left: Status: Acute
[2021-08-25 14:11] VITALS: BP 122/77; PULSE 74; RESP 18; TEMP 36.4; O2SAT 98
[2021-08-25 14:39] VITALS: BP 124/75; PULSE 62; RESP 16; TEMP 36.2; O2SAT 96
--- NOTE | 2021-08-25 14:41 | W.ANESPOSTOP ---
Postoperative Evaluation Date, Time and Location Date Performed: 08/25/21 Time Performed: 14:41 Patient Location: Day Surgery Unit Vital Signs Most Recent Imported Vital Signs: Most Recent Vital Signs Temp Pulse Resp BP Pulse Ox 36.4 C L 74 18 122/77 98 08/25/21 14:11 08/25/21 14:11 08/25/21 14:11 08/25/21 14:11 08/25/21 14:11 Pain Score Most Recent Pain Score: Most Recent Pain Score Pain Level 0 08/25/21 14:11 Assessment Mental Status: Awake (Alert & Oriented to Patient Baseline) Airway and Respiratory Function: Patent airway with normal (patient baseline) respiratory exam Cardiovascular Function: Hemodynamically Stable Hydration Status: Adequately Hydrated Nausea & Vomiting: No Nausea or Vomiting Pain: Pt. Denies Any Pain Peripheral Nerve Block: Patient did not receive a nerve block
--- NOTE | 2021-08-26 21:35 | W.PM.OP ---
Date of service: 08/25/21 Time of Service: 14:15 Operative Note Operative Note DATE OF PROCEDURE: 08/25/21 PRE-OP DIAGNOSIS: Left Dequervain's Tenosynovitis POST-OP DIAGNOSIS: same PROCEDURE: Left First Extensor Compartment Release SURGEON: Kiko Plunkett ANESTHESIA TYPE: General:No Airway Refer to Anesthesia Record ESTIMATED BLOOD LOSS: 0 PATHOLOGY: none sent TOURNIQUET TIME: 10 COMPLICATIONS: None Patient was transported to: same day Patient's condition: stable Indications: Lakeshia is a 56 year old female who has had symptoms of Dequervain's tenosynovitis. Nonoperative treatment options had been trialed. Given their failure, I offered operative intervention. I reviewed the technical details of a first extensor compartment release. I reviewed the risk of the procedure to include bleeding, infection, pain, stiffness, tendon instability, damage to the superficial radial nerve, and complete release. Despite these risks, the patient elected to proceed. Findings: There was a tightened first excessive compartment. No subcompartments were seen encasing the EPB tendon. There were 3 main slips of APL tendon. Procedure Description: Lakeshia was greeted in the preoperative holding area. Name and surgical site were confirmed. The history and physical was completed. The consent was reviewed the patient and signed. She was taken back to the operating room. The patient was placed in the supine position and monitored anesthesia care was initiated. The left was then prepped with ChloraPrep and draped in a standard fashion after a nonsterile tourniquet was placed high up onto the arm. Prophylactic antibiotics in the form of cefazolin were administered. A timeout was performed for safe surgery. The surgical site was drawn on the skin. The planned surgical field was anesthetized with 1.5% Lidocaine with epinephrine. The limb was exsanguinated and the tourniquet was inflated where it stayed for 10 minutes. A 2 cm incision was made longitudinally over the radial styloid. The skin was incised only. The deep tissue subcutaneous fat was dissected with a tenotomy scissors trying to protect bridge of the superficial radial nerve. Any branches that were identified were retracted out of the way. The first compartment extensor tendons were then identified. The distal aspect of the first compartment was noted and were released. This release was performed more on the dorsal side to prevent tendon subluxation. The entirety of the first extensor compartment was then released. The slips of the abductor pollicis longus tendon were inspected. They removed to confirm the appropriate motion of the thumb. The extensor pollicis brevis tendon was then identified. It was fully released and did not reside in a subcompartment. Traction on the tendon was also used to confirm appropriate extension of the thumb confirming the release of the appropriate tendon. The dorsal radial surface of the radius was once again inspected to make sure there is no other sub-compartments or other restrictions to tendon motion. The wound was then thoroughly irrigated. The deep tissue was closed with a 3-0 Vicryl. The skin was closed with a running subjective 4-0 Monocryl. Skin glue was applied. The tourniquet is released without significant bleeding. The hand was dressed with 4 x 4's, web roll, thumb spica splint. All counts were correct. Patient was transferred back to same day surgery area in stable condition.
== END 2021-08-25 15:10 | disposition home or self-care (01) ==
PROVIDERS: PCP Nurse Practitioner Family; Visit Provider Student in an Organized Health Care Education/Training Program
PROC: (CPT 25000; principal; 2021-08-25 15:15)
DX: M65.4 Radial styloid tenosynovitis [de Quervain] (principal); E11.9 Type 2 diabetes mellitus without complications; K22.70 Barrett's esophagus without dysplasia; F41.8 Other specified anxiety disorders; F32.A Depression, unspecified
CPT/HCPCS: 25000; J0131; J0690; J1100; J1885; J2001; J2250; J2405

== ENCOUNTER 2022-03-26 06:32 | Emergency (ER) | payer MEDICAID, SELFPAY ==
[2022-03-26 06:37] VITALS: BP 163/84; PULSE 65; RESP 16; TEMP 36.4; O2SAT 96
[2022-03-26 07:17] LABS: HCT 40.9 % (36.0-46.0); HGB 13.3 g/dL (11.2-15.7); MCH 29.2 pg (27.0-33.0); MCHC 32.5 % (32.0-36.0); MCV 90 fL (80-95); MPV 9.5 fL (8.0-11.0); Platelet Count 329 10^3/uL (130-400); RBC 4.56 10^6/uL (3.93-5.22); RDW 13.4 % (11.7-14.6); RDW-SD 43.7 fL; WBC 8.28 10^3/uL (4.4-10.8)
--- NOTE | 2022-03-26 07:23 | ED.GENADUL_ITS ---
Discharge Plan Disposition Patient Disposition: STILL A PATIENT Condition: Stable Discharge Details Chief Complaint: Trauma Clinical Impression: Acute neck pain, Headache Primary Care Provider: Sumaya Saldivar ED Provider: Kye Nevarez Home Meds and New Rx's Prescriptions: No Action multivitamin [Daily Multi-Vitamin] 1 EACH tablet 1 ea PO DAILY Qty: 1 lisinopril 5 MG tablet 5 mg PO DAILY aspirin [Aspir-81] 81 MG tablet,delayed release (DR/EC) 81 mg PO DAILY atorvastatin 40 MG tablet 40 mg PO DAILY acetaminophen 500 mg tablet 1,000 mg PO TID Qty: 90 0RF ibuprofen 600 mg tablet 600 mg PO TID PRN (Reason: pain) Qty: 90 0RF Medical Decision Making 56-year-old female with a past medical history of an iliac artery aneurysm, Sams's esophagus, diabetes, high cholesterol, presents today after fall. 6 days ago the patient was in the shower fell, and hit the back of her head and neck, her left chest, and her left side. She has been in pain since then. Patient states it hurts whenever she turns her head, she has had a constant headache, she has had a persistent mild runny nose, and has had persistent left chest and abdomen pain. She denies any loss of consciousness. She is not on any blood thinners. She was encouraged to come here by her primary care provider. She denies any numbness or tingling or weakness. She denies any vision changes. She is not on any blood thinners. No other complaints at this time. Physical exam demonstrates tenderness over the entire cervical spine, mild for the upper cervical spine, moderate for C7-T2. Patient was immediately placed in c-collar upon arrival. No hemotympanums, or clear evidence of CSF rhinorrhea however subjectively the patient states that she has been having a runny nose. Fall. No focal neurologic deficits, mild left-sided chest wall tenderness, mild left upper quadrant tenderness of the abdomen. Although the patient is 6 days out from the fall, and certainly concern for an intracranial etiology, cervical spine injury, as well as chest and upper abdomen injury. Her fall seems to have been quite notable. She does appear notably stiff and sore. We will evaluate for these concerning etiologies, monitor closely and reassess. Patient will be signed out to my colleague for follow-up on imaging. HPI General Date/Time Provider Initiated Documentation: 03/26/22 06:47 . HPI Narrative: 56-year-old female with a past medical history of an iliac artery aneurysm, Sams's esophagus, diabetes, high cholesterol, presents today after fall. 6 days ago the patient was in the shower fell, and hit the back of her head and neck, her left chest, and her left side. She has been in pain since then. Patient states it hurts whenever she turns her head, she has had a constant headache, she has had a persistent mild runny nose, and has had pe rsistent left chest and abdomen pain. She denies any loss of consciousness. She is not on any blood thinners. She was encouraged to come here by her primary care provider. She denies any numbness or tingling or weakness. She denies any vision changes. She is not on any blood thinners. No other complaints at this time. Related Data Home Medications Medication Instructions Recorded Confirmed multivitamin (Daily Multi-Vitamin 1 ea PO DAILY ##1 01/16/13 03/26/22 tablet) aspirin 81 mg tablet,delayed 81 mg PO DAILY 09/24/13 03/26/22 release (Aspir-) lisinopril 5 mg tablet 5 mg PO DAILY 06/11/16 03/26/22 atorvastatin 40 mg tablet 40 mg PO DAILY 01/12/18 03/26/22 acetaminophen 500 mg tablet 1,000 mg PO TID #90 tabs 08/25/21 03/26/22 ibuprofen 600 mg tablet 600 mg PO TID PRN pain #90 tabs 08/25/21 03/26/22 Previous Rx's Medication Instructions Recorded acetaminophen 500 mg tablet 1,000 mg PO TID #90 tabs 08/25/21 ibuprofen 600 mg tablet 600 mg PO TID PRN pain #90 tabs 08/25/21 Allergies Allergy/AdvReac Type Severity Reaction Status Date / Time Penicillins Allergy Intermediate rash Verified 03/26/22 06:46 codeine AdvReac Mild GI UPSET Verified 03/26/22 06:46 General Stated Complaint: Trauma DEEJAY: 2 Review of Systems All systems reviewed & are unremarkable except as noted in HPI and below PFSH All Active Problems (Updated 03/26/22 @ 07:29 by Kye Nevarez DO) Acute neck pain (Acute) Headache (Acute) De Quervain's tenosynovitis, left (Acute) Status post de Quervain's release DOS: 08/25/2021 Sams esophagus (Acute) Anxiety and depression (Acute) Heart murmur, systolic (Acute) Aneurysm of iliac artery (Acute) Left wrist sprain (Acute) Left thumb sprain (Acute) S/P endoscopic carpal tunnel release (Acute) Carpal tunnel syndrome, left (Acute) Medical History Barretts Esophagus chronic back pain Depression Diabetes mellitus Hyperlipidemia Migraine Parotid mass (05/03/16) Surgical History Abdominal hysterectomy with ovarian conservation. Arthroplasty of knee (02/01/07) Right, from records.[facility] Arthroscopy (06/13/06) Right knee, with patellar chondroplasty, from [facility] section 1990 c/s EGD - MAC (08/09/16) [facility] Procedure (02/01/07) Right, same surgery as arthroscopy.HE Release for de Quervain's tenosynovitis of hand (09/18/08) Right wrist, from records.[facility] Screw removal Tibia (03/12/08) right, from records.[facility] Family History Other Diabetes Heart disease Social History Smoking/Tobacco Use Status: Former Tobacco Use Quit Date: 05/16/13 Smoking risk assessment performed?: Yes Drug use: Never Substance use type: does not use Do you feel safe at home: Yes Do you feel safe in your relationship?: Yes Exam Narrative Exam Narrative: 1.Const: Well-nourished, Well-developed, appearing stated age 2.Eyes: PERRL, no conjunctival injection, and symmetrical lids. 3.ENT: Atraumatic external nose and ears. Moist MM. Neck: Symmetric, trachea midline, No thyromegaly. There is no evidence of raccoon eyes, catalan sign, CSF rhinorrhea, mastoid tenderness, cranial crepitus, hemotympanum, exophthalmos, or hyphema. Patient demonstrates intact dentition with no signs of tooth avulsion or fracture, no signs of jaw deformity, no evidence of a LeFort's fracture, with an intact palate, nose and orbital region. There is no evidence of a nasal septal hematoma. No proptosis. Jaw closes symmetrically. Airway is clear. 4.CVS: +S1/S2, No murmurs or gallops. Peripheral pulses 2+ and equal in all extremities. Brisk capillary refill in all extremities. 5.RESP: Unlabored respiratory effort. Clear to auscultation bilaterally. No wheezes rales or rhonchi left sided chest and clavicular tenderness. 6.GI: Soft, Nondistended, No hepatosplenomegaly. No guarding or rebound. Tenderness over the left lower ribs and left upper abdomen 7.MSK: Normocephalic/Atraumatic, Extremities w/o deformity or ttp No cyanosis or clubbing, Normal movement of all extremities. Moderate midline cervical spine tenderness and upper thoracic tenderness between C7 and T3. Mild tenderness over C2-C7. 8.Skin: Warm, Dry. No rashes or lesions. 9.Neuro: stull installer II-XII grossly intact. Sensation grossly intact, no focal ne urologic deficits. 10.Psych: (AAO) x3. Appropriate mood and affect Course Vital Signs Vital signs: Vital Signs Temperature 36.4 C 03/26/22 06:37 Pulse 65 03/26/22 06:37 Respiratory Rate 16 03/26/22 06:37 Blood Pressure 163/84 H 03/26/22 06:37 Pulse Oximetry 96 03/26/22 06:37 Temperature 36.4 C 03/26/22 06:37 Pulse 65 03/26/22 06:37 Respiratory Rate 16 03/26/22 06:37 Respiratory Effort 03/26/22 06:58 Respiratory Depth Normal 03/26/22 06:58 Respiratory Pattern Normal 03/26/22 06:58 Blood Pressure 163/84 H 03/26/22 06:37 Pulse Oximetry 96 03/26/22 06:37 Oxygen Delivery Method Room Air 03/26/22 06:37 Oxygen Flow Rate 0 03/26/22 06:37 Pain Level 7 03/26/22 06:58 Lab/Test Results Lab/Test Results: Laboratory Tests Range/Units 03/26/22 06:55 WBC (4.4-10.8) 10^3/uL 8.28 RBC (3.93-5.22) 10^6/uL 4.56 Hgb (11.2-15.7) g/dL 13.3 Hct (36.0-46.0) % 40.9 MCV (80-95) fL 90 MCH (27.0-33.0) pg 29.2 MCHC (32.0-36.0) % 32.5 RDW (11.7-14.6) % 13.4 Plt Count (130-400) 10^3/uL 329 MPV (8.0-11.0) fL 9.5
[2022-03-26 07:29] LABS: Anion Gap 7.2 mmol/L (3-11); BUN 14 mg/dL (7-18); CO2 31.8 mmol/L (21.0-32.0); CREATININE 0.7 mg/dL (0.55-1.02); Calcium 9.6 mg/dL (8.5-10.1); Chloride 103 mmol/L (98-107); Estimated GFR 102.07 (mL/min/1.73m2); Glucose 144 mg/dL (74-106); Sodium 142 mmol/L (136-145)
--- NOTE | 2022-03-26 07:40 | DI.CT_ITS ---
Exam(s) CT HEAD CERVICAL SPINE WO EXAM: CT HEAD CERVICAL SPINE WO CLINICAL HISTORY: fall, hit head, runny nose, OLIVER and lower neck pain. TECHNIQUE: Imaging Protocol: Axial computed tomography images with coronal and sagittal reformatted images were created and reviewed COMPARISON: CT NECK WITH CONTRAST from 01/14/2016 FINDINGS: BRAIN: There are no skull fractures nor fluid in the visualized paranasal sinuses. There is no evidence of intracranial hemorrhage, mass effect, or shift of midline structures. There are no extra-axial fluid collections. The ventricles are not enlarged or shifted and there is no blo od within the ventricular system nor within the basal cisterns. Calcification is noted in the vertebral arteries at the skull base. Also within the intracavernous i nternal carotid arteries. CERVICAL SPINE: There is no evidence of fracture nor listhesis. No significant prevertebral soft tissue swelling. There is no significant facet joint malalignment. No significant osseous lesions evident. IMPRESSION: No acute intracranial findings on this noninfused CT scan of the brain. No evidence of cervical spine fracture, malalignment, nor acute compromise of the cervical spinal can al. Paranasal sinuses are clear as are the ethmoidal air cells. RADIATION DOSE DELIVERED: 1,434.15mGy.cm Total DLP DATA REPOSITORY: All CT scans at this facility are submitted to the National Radiology Data Registry (NRDR) Dose Index Registry (DIR) with the [employer] (A[employer]). RADIATION OPTIMIZATION: All CT scans at this facility use at least one of these dose optimization te chniques: automated exposure control; mA and/or kV adjustment per patient size (includes targeted exa ms where dose is matched to clinical indication); or iterative reconstruction.
--- NOTE | 2022-03-26 07:50 | DI.CT_ITS ---
Exam(s) CT CHEST/ABD/PEL W EXAM: CT CHEST/ABD/PEL W CLINICAL HISTORY: fell, chest pain, left shoulder and left rib pain. TECHNIQUE: Imaging Protocol: Axial computed tomography images with coronal and sagittal reformatted images were created and reviewed CONTRAST MATERIAL: Intravenous: Omnipaque 350 Contrast volume:100 ml Oral: None COMPARISON: CT CT RENAL COLIC WO from 07/26/2019 FINDINGS: CHEST: LUNGS: There is a tiny 2 millimeter benign-appearing nodule in the right lung base posterior basal se gment right lower lobe. Possibly granuloma. No other focal lung findings. No pleural effusions. N o pneumothorax. No lung contusion.. MEDIASTINUM: No sternal fracture nor mediastinal hematoma. No hilar or mediastinal adenopathy. CARDIAC: Heart size is normal. There is no pericardial effusion.Caliber of the thoracic aorta is wit hin normal limits. No dissection. OSSEOUS: There are healed fractures of the right 9th, 10th, and 11th ribs. No acute rib fractures ev ident. Also no vertebral fractures.. ABDOMEN: There is no ascites. No evidence of bowel wall nor mesenteric hematoma. LIVER: There are no focal hepatic lesions nor dilatation of intrahepatic ducts. No evidence of hepat ic laceration nor subcapsular hematoma. GALLBLADDER/BILIARY: No obvious gallbladder pathology. CBD is not dilated. PANCREAS: No evidence of pancreatic mass nor dilatation of the pancreatic duct. SPLEEN: Intact. No laceration. Normal size. Splenic and portal veins are patent. ADRENALS: There are no significant adrenal masses. KIDNEYS: No calculi nor hydronephrosis. No solid renal masses. No cysts evident. ABDOMINAL AORTA: Abdominal aorta is atherosclerotic and there is an infrarenal abdominal aortic aneur ysm with maximum measurement of 3.2 cm. The common iliac arteries are calcified but not enlarged. LYMPH NODES: There is no retroperitoneal nor paraaortic adenopathy. ABDOMINAL WALL: No evidence of significant anterior abdominal wall nor inguinal hernia. GI: There is no evidence of bowel obstruction. PELVIS: LYMPH NODES: There is no intrapelvic nor inguinal adenopathy. GI: No evidence of appendicitis.No evidence of sigmoid diverticulitis. URINARY BLADDER: No calculi nor masses evident REPRODUCTIVE: Uterus is smaller surgically absent. There are no abnormal adnexal masses. No free fl uid. OSSEOUS: No hip nor pelvic fractures. IMPRESSION: 1. No evidence of acute trauma sequelae in the chest, abdomen, and pelvis. 2. There healed fractures of the right 9th, 10th, and 11th ribs. No obvious acute rib fractures. No pneumothorax. 3. There is a fusiform infrarenal abdominal aortic aneurysm with maximum diameter 3.2 cm. No leak. No aneurysm of the iliac vessels. Called by myself to ER physician. RADIATION DOSE DELIVERED: 1,338.14mGy.cm Total DLP DATA REPOSITORY: All CT scans at this facility are submitted to the National Radiology Data Registry (NRDR) Dose Index Registry (DIR) with the [employer] (ACR). RADIATION OPTIMIZATION: All CT scans at this facility use at least one of these dose optimization te chniques: automated exposure control; mA and/or kV adjustment per patient size (includes targeted exa ms where dose is matched to clinical indication); or iterative reconstruction.
[2022-03-26] MEDS: Normal Saline - Diluent 50 ML VIAL IV (08:12)
[2022-03-26] MEDS: Omnipaque 350 MG/ML 100 ML BTL IJ (08:13)
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
[2022-03-26] MEDS: Cyclobenzaprine 10 MG TAB PO (09:58)
[2022-03-26 10:04] VITALS: BP 170/71; PULSE 62; TEMP 37; O2SAT 99
== END 2022-03-26 10:43 | disposition home or self-care (01) ==
PROVIDERS: Student in an Organized Health Care Education/Training Program; Emergency Provider Student in an Organized Health Care Education/Training Program; PCP Nurse Practitioner Family
DX: G89.11 Acute pain due to trauma (principal); R51.9 Headache, unspecified; M54.2 Cervicalgia; E11.9 Type 2 diabetes mellitus without complications; R07.81 Pleurodynia; R07.89 Other chest pain; M54.6 Pain in thoracic spine; R10.12 Left upper quadrant pain; I71.40 Abdominal aortic aneurysm, without rupture, unspecified; Z79.82 Long term (current) use of aspirin; Z87.81 Personal history of (healed) traumatic fracture; W18.2XXA Fall in (into) shower or empty bathtub, initial encounter
CPT/HCPCS: 36415; 74177; 80048; 85027; 96360; 96361; 99285; 70450; 71260; 72125; 99284; J3490

== ENCOUNTER 2022-05-03 14:48 | Outpatient (REF) | payer MEDICAID, SELFPAY ==
[2022-05-03 15:24] LABS: ALT 38 U/L (14-59); AST 25 U/L (15-37); Albumin 4.2 g/dL (3.4-5.0); Alkaline Phosphatase 81 U/L (46-116); Bilirubin, Direct 0.1 mg/dL (0.0-0.2); Bilirubin, Total 0.2 mg/dL (0.2-1.0); Total Protein 7.9 g/dL (6.4-8.2)
== END 2022-05-03 14:49 | disposition home or self-care (01) ==
LOC: NCHCN 14:48
PROVIDERS: PCP Nurse Practitioner Family; Visit Provider Nurse Practitioner Family
DX: E78.5 Hyperlipidemia, unspecified (principal); E11.9 Type 2 diabetes mellitus without complications; K22.70 Barrett's esophagus without dysplasia; N39.0 Urinary tract infection, site not specified; F41.8 Other specified anxiety disorders; I71.40 Abdominal aortic aneurysm, without rupture, unspecified; K74.60 Unspecified cirrhosis of liver; G44.89 Other headache syndrome
CPT/HCPCS: 80076

== ENCOUNTER 2022-09-26 14:11 | Emergency (ER) | payer MEDICAID, SELFPAY ==
[2022-09-26 14:13] VITALS: BP 175/103; PULSE 79; RESP 18; TEMP 36.8; O2SAT 98
--- NOTE | 2022-09-26 15:00 | DI.RAD_ITS ---
Exam(s) XR WRIST LT COMP NAVICULAR XR FOREARM LT EXAM: XR WRIST LT COMP NAVICULAR CLINICAL HISTORY: fall. TECHNIQUE: 2D digital imaging was performed. Four views of the wrist. Two views of the forearm.. COMPARISON: CR,XR XR WRIST LT COMPLETE from 09/13/2020 CR,XR XR FOREARM LT from 09/26/2022 FINDINGS: BONES: There is a comminuted intra-articular fracture of the distal radius. There is dorsal angulati on and mild dorsal displacement. The navicular appears intact. Tiny fragment adjacent to ulnar styl oid. No additional fractures are seen proximally in the forearm.. No bony destructive lesion is see n. JOINTS: The carpal bones are normally aligned. Elbow normally aligned. No joint effusion visible SOFT TISSUE: Swelling. No foreign body or gas collection. IMPRESSION: Comminuted intra-articular fracture of the distal radius. DATA REPOSITORY: RADIATION DOSE DELIVERED:
--- NOTE | 2022-09-26 15:00 | DI.RAD_ITS ---
Exam(s) XR LUMBAR SPINE COMPLETE EXAM: XR LUMBAR SPINE COMPLETE CLINICAL HISTORY: fall. TECHNIQUE: 2D digital imaging was performed. Five views. COMPARISON: No exams were available for comparison FINDINGS: BONES: No fracture or destructive lesion. Vertebral body heights are maintained. Endplate osteophyte s. Mild facet hypertrophy identified. No spondylolysis. DISKS: Mild narrowing L4-5. Mild to moderate narrowing L5-S1 disc space. ALIGNMENT: Lumbar spinal alignment is within normal limits. No spondylolisthesis. SOFT TISSUE: Calcification in the aorta. IMPRESSION: Degenerative change. No acute abnormality. DATA REPOSITORY: RADIATION DOSE DELIVERED:
--- NOTE | 2022-09-26 15:00 | DI.RAD_ITS ---
Exam(s) XR HIP RT COMPLETE AP PELVIS EXAM: XR HIP RT COMPLETE AP PELVIS CLINICAL HISTORY: fall. TECHNIQUE: 2D digital imaging was performed. Two views COMPARISON: No exams were available for comparison FINDINGS: BONES: No acute fracture is present. No bony destructive lesion is seen. JOINTS: No dislocation present. Mild degenerative changes of the hips and SI joints. SOFT TISSUE: Normal. IMPRESSION: No acute abnormality. DATA REPOSITORY: RADIATION DOSE DELIVERED:
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
[2022-09-26] MEDS: Acetaminophen 500 MG TAB 1000 MG PO (15:49)
--- NOTE | 2022-09-26 15:54 | DI.VRAD_ITS ---
PROCEDURE INFORMATION: Exam: XR Left Wrist Exam date and time: 09/26/2022 3:33 PM Age: 57 years old Clinical indication: Injury or trauma; Fall; Fracture, traumatic injury; Closed fracture; Wrist; Left TECHNIQUE: Imaging protocol: Radiologic exam of the left wrist. Views: 3 or more views. COMPARISON: CR XR WRIST LT COMPLETE 09/13/2020 5:16 PM FINDINGS: Bones/joints: Comminuted impacted distal radius fracture with dorsal angulation. There is no dislocation. Faint fragment versus calcification adjacent to the ulnar styloid Soft tissues: Swelling in the volar tissues IMPRESSION: Distal radius fracture as noted. Faint fragment adjacent to the ulnar styloid of indeterminate age Dictated and Authenticated by: Gurinder Lugo MD. Ordering:MAYLIN Little MD
--- NOTE | 2022-09-26 15:54 | DI.VRAD_ITS ---
PROCEDURE INFORMATION: Exam: XR Left Forearm Exam date and time: 09/26/2022 3:37 PM Age: 57 years old Clinical indication: Injury or trauma; Fall; Sprain or strain; Arm, lower; Left TECHNIQUE: Imaging protocol: Radiologic exam of the left forearm. Views: 2 views. COMPARISON: CR XR WRIST LT COMP NAVICULAR 09/26/2022 3:33 PM FINDINGS: Bones/joints: Comminuted/impacted distal radius fracture. No dislocation Soft tissues: Swelling distally IMPRESSION: Comminuted distal radius fracture Dictated and Authenticated by: Gurinder Lugo MD. Ordering:MAYLIN Little MD
--- NOTE | 2022-09-26 15:55 | DI.VRAD_ITS ---
PROCEDURE INFORMATION: Exam: XR Lumbosacral Spine Exam date and time: 09/26/2022 3:26 PM Age: 57 years old Clinical indication: Lumbago with sciatica; Bilateral TECHNIQUE: Imaging protocol: Radiologic exam of the lumbosacral spine. Views: 4 or 5 views. COMPARISON: CR XR HIP RT COMPLETE AP PELVIS 09/26/2022 3:23 PM FINDINGS: Bones/joints: Degenerative changes and loss of lumbar lordosis. Chronic loss of vertebral body height No acute fracture. Soft tissues: Unremarkable. IMPRESSION: No acute findings. Dictated and Authenticated by: Gurinder Lugo MD. Ordering:MAYLIN Little MD
--- NOTE | 2022-09-26 15:55 | DI.VRAD_ITS ---
PROCEDURE INFORMATION: Exam: XR Right Hip Exam date and time: 09/26/2022 3:23 PM Age: 57 years old Clinical indication: Injury or trauma; Fall; Blunt trauma (contusions or hematomas); Right; Hip TECHNIQUE: Imaging protocol: Radiologic exam of the right hip. Views: 2 or 3 views hip with pelvis when performed. COMPARISON: CT CHEST/ABD/PEL W 03/26/2022 7:46 AM FINDINGS: Bones/joints: Degenerative changes left hip and lower lumbar spine. No acute fracture. Soft tissues: Unremarkable. IMPRESSION: No acute findings. Dictated and Authenticated by: Gurinder Lugo MD. Ordering:MAYLIN Little MD
[2022-09-26] MEDS: Ondansetron O.D.T. 4 MG TABEF, 3 TABS/BTL PO (16:51)
== END 2022-09-26 16:54 | disposition home or self-care (01) ==
PROVIDERS: Emergency Provider Nurse Practitioner Family; PCP Nurse Practitioner Family
DX: S52.502A Unspecified fracture of the lower end of left radius, initial encounter for closed fracture (principal); W10.9XXA Fall (on) (from) unspecified stairs and steps, initial encounter
CPT/HCPCS: 29125; 99284; 72110; 73090; 73110; 73502

== ENCOUNTER 2022-09-28 11:07 | Outpatient (CLI) | payer MEDICAID, SELFPAY ==
--- NOTE | 2022-09-28 06:45 | DI.CT_ITS ---
Exam(s) CT UPPER EXTREMITY LT WO EXAM: CT UPPER EXTREMITY LT WO CLINICAL HISTORY: PAIN, SURGICAL PLANNING,lt distal radial fx,s52.502a. TECHNIQUE: Imaging Protocol: Axial computed tomography images with coronal and sagittal reformatted images were created and reviewed. COMPARISON: CR,XR XR FOREARM LT from 09/26/2022 FINDINGS: The patient's wrist is in a cast. Bones: There is a comminuted intra-articular fracture of the distal radius. There is mild impaction of the fracture noted. There is mild depression of the fracture medially. No cellulitic or osteomy elitic changes are identified. There is no evidence of joint space narrowing or cystic degeneration seen. No lytic or sclerotic lesions are identified. Soft Tissues: There is soft tissue swelling around the wrist. No radiopaque foreign bodies are ident ified. IMPRESSION: Comminuted, impacted, intra-articular fracture of the distal radius as described above. RADIATION DOSE DELIVERED: Total DLP Total DLP DATA REPOSITORY: All CT scans at this facility are submitted to the National Radiology Data Registry (NRDR) Dose Index Registry (DIR) with the [employer] (A[employer]). RADIATION OPTIMIZATION: All CT scans at this facility use at least one of these dose optimization te chniques: automated exposure control; mA and/or kV adjustment per patient size (includes targeted exa ms where dose is matched to clinical indication); or iterative reconstruction.
== END 2022-09-28 11:27 ==
LOC: DI 11:07
PROVIDERS: PCP Nurse Practitioner Family; Visit Provider Student in an Organized Health Care Education/Training Program
DX: S52.502A Unspecified fracture of the lower end of left radius, initial encounter for closed fracture (principal); X58.XXXA Exposure to other specified factors, initial encounter
CPT/HCPCS: 73200

== ENCOUNTER 2022-09-28 12:04 | Day surgery (SDC) | payer MEDICAID, SELFPAY ==
[2022-09-28] VITALS (9 sets, daily range): BP systolic 145–177; BP diastolic 80–96; PULSE 79–102; RESP 16–22; TEMP 36.2–37; TEMPC 36.5; O2SAT 93–100; BMI 26.8
[2022-09-28] MEDS: Lactated Ringers 1,000 ML 80 ML IV (12:45)
--- NOTE | 2022-09-28 13:17 | ANES.PREOP_ITS ---
General Info Date of Service Date Performed: 09/28/22 Height: 6 ft 1 in Weight: 92.1 kg Body Mass Index (BMI): 26.8 Surgical Procedure: Operation Date: 09/28/22 14:55 Proposed Procedure Side Surgeon p Wrist ORIF Distal Radius Vs Closed Reduction Left Kiko Plunkett MD Meds Allergies and Home Medications Allergies Allergy/AdvReac Type Severity Reaction Status Date / Time Penicillins Allergy Intermediate rash Verified 09/28/22 12:14 codeine AdvReac Mild GI UPSET Verified 09/28/22 12:14 Home Medication Medication Instructions Recorded multivitamin (Daily Multi-Vitamin 1 ea PO DAILY ##1 01/16/13 tablet) aspirin 81 mg tablet,delayed 81 mg PO DAILY 09/24/13 release (Aspir-) lisinopril 5 mg tablet 5 mg PO DAILY 06/11/16 atorvastatin 40 mg tablet 40 mg PO DAILY 01/12/18 acetaminophen 500 mg tablet 1,000 mg PO TID #90 tabs 08/25/21 Current Visit Medications: Current Medications Generic Name Dose Route Start Last Admin Trade Name Freq PRN Reason Stop Dose Admin Ringer's Solution 1,000 mls @ 80 mls/hr 09/28/22 06:00 09/28/22 12:45 IV 10/28/22 23:59 80 mls/hr INFUSION OLAMIDE Administration Cefazolin Sodium/Dextrose 2 gm in 50 mls @ 100 mls/hr 09/28/22 06:00 Ancef Duplex IVPB 10/28/22 23:59 PREOP OLAMIDE IV Miscellaneous Supplies 1 each 09/28/22 06:00 Iv Access IV 10/28/22 23:59 DIRECTED OLAMIDE Sodium Chloride 0 ml 09/28/22 06:00 Normal Saline Flush 10 Ml Syr IV 10/28/22 23:59 PRN PRN Sodium Chloride 0 ml 09/28/22 06:00 Normal Saline 10 Ml Vial IJ 10/28/22 23:59 DIRECTED PRN Sterile Water 0 ml 09/28/22 06:00 Water,Injection,Sterile 10 Ml Vial IJ 10/28/22 23:59 DIRECTED PRN PFSH Active Problems Active Problems: Problem Status Onset Code Distal radius fracture, left S52.502A De Quervain's tenosynovitis, left M65.4 Sams esophagus K22.70 Anxiety and depression F41.9, F32.A Heart murmur, systolic R01.1 Aneurysm of iliac artery I72.3 Left wrist sprain S63.502A Left thumb sprain S63.602A S/P endoscopic carpal tunnel release Z98.890 Carpal tunnel syndrome, left G56.02 Carpal tunnel syndrome on right G56.01 Medical History Medical History Barretts Esophagus chronic back pain Depression Diabetes mellitus Hyperlipidemia Migraine Parotid mass (05/03/16) Surgical History Surgical History Abdominal hysterectomy with ovarian conservation. Arthroplasty of knee (02/01/07) Right, from [facility] Arthroscopy (06/13/06) Right knee, with patellar chondroplasty, [facility] section 1990 c/s EGD - MAC (08/09/16) Kinsey Procedure (02/01/07) Right, same surgery as arthroscopy.[facility] Release for de Quervain's tenosynovitis of hand (09/18/08) Right wrist, from records.[facility] Screw removal Tibia (03/12/08) right, from records.[facility] Tobacco Smoking/Tobacco Use Status: Former Tobacco Use Substance Use Substance use: Never Substance use type: does not use Vital Signs and Lab Results Vital Signs Most Recent Vital Signs in EMR: Most Recent Vital Signs Temp Pulse Resp BP Pulse Ox 37 C 102 H 18 162/96 H 95 09/28/22 12:19 09/28/22 12:19 09/28/22 12:19 09/28/22 12:19 09/28/22 12:19 Lab Results Blood Type / Crossmatch: No Data to Display Complete Blood Count: No Data to Display Complete Metabolic Panel: No Data to Display Liver Function Panel: No Data to Display Coagulation Panel: No Data to Display Cardiac Panel: No Data to Display Arterial Blood Gas: No Data to Display Venous Blood Gas: No Data to Display Pancreas Panel: No Data to Display Thyroid Panel: No Data to Display Infectious Disease: No Data to Display Blood Cultures: No Data to Display Toxicology Panel: No Data to Display Imaging and Studies Imaging and Studies Study information below may be from another EMR and interpreted by another provider. Please see original notes in EMR for more complete details. Echocardiogram Summary: Patient Name: Lakeshia Tim #: [id number]: DI Ordering Provider: Sumaya Saldivar : HERLINDA LAWSONI Primary Care Provider: Sumaya Saldivar Date of Exam: 02/04/21Sex: F Admission Date: 02/04/21 : 1965 Age: 55 APPROVED REPORT EXAM: Comprehensive 2D, Doppler, and color-flow Echocardiogram Patient Location: [facility] Musical Instruments: Roma Yang RDCS (AE) Indications: Systolic heart murmur Other Information Study Quality: Good Conclusion Normal left ventricular wall thickness and chamber size. Estimated ejection fraction is 60%. There are no segmental wall motion abnormalities Normal right ventricular size and systolic function Both atria are normal in size The aortic valve is sclerotic and trileaflet without stenosis or regurgitation Borderline dilated ascending aorta measuring 3.38 cm Anesthesia Assessment and Plan Anesthesia History Personal History: No History of Anesthesia Complications Family History: No Family History of Anesthesia Complications Exercise Tolerance Exercise Tolerance: Metabolic Equivalents>4 Pertinent Negatives Pertinent Negatives: No Symptoms of GERD Cardiac & Pulmonary Exam Cardiac Exam: Normal S1/S2 Heart Sounds Pulmonary Exam: Clear Bilateral Breath Sounds and No cough or Cold Implantable Cardiac Device Does patient have a Pacemaker or an ICD?: No Airway Exam Known Difficult Airway: No Mallampati Class: 1 Mouth Opening: Normal (> 3cm) Thyromental Distance: Greater than 3 cm Neck Range of Motion: Full ROM Neck Circumference: Thick Teeth Condition: Normal Dentition and Removable Dentures/Plates Upper Airway Comments: Upper ASA Classification ASA Score: ASA 2 Emergency Case?: No NPO Status NPO Status: NPO Clears >2 hours, Solids >8 hours Anesthesia Plan Resuscitation Status: Full Code Anesthesia Technique: General Anesthesia Airway Planned: LMA Pain Management: Surgeon and patient request nerve block Monitors Used: Standard Monitors
--- NOTE | 2022-09-28 13:39 | HPE_ITS ---
Date of service: 09/28/22 Time of Service: 13:52 Assessment and Plan Assessment and plan (1) Distal radius fracture, left: Status: Acute Assessment and plan: Plan: Educated patient on surgery covering surgical technique, recovery process, benefits and risks including but not limited to risk of infection, blood clot, damage to soft tissue/blood vessels/nerves in detail. Briefly reviewed x-rays with patient. After discussion patient gives verbal understanding of risks and elects to proceed with scheduling surgery. Patient had opportunity to have questions answered to their satisfaction. They will contact office if issues arise. Patient will continue to be scheduled for closed reduction and likely ORIF of the left distal radius with Dr. Plunkett I interviewed and examined the patient with Breanna Lawler PA-C. I agree with the documentation as above. The assessment and plan were formulated with my direct involvement. Lakeshia is a 57-year-old female who I know previously from the office. Unfortunately, she had a fall landing on an outstretched left hand and suffered a comminuted, intra-articular, and displaced distal radius fracture. I was called by the emergency department about her case and given the severity of the fracture fragments ordered a CT scan which confirmed multiple intra- articular fragments and articular step-off. Therefore, given her young age and active lifestyle, I offered fracture fixation. I discussed the technical features of the case. I discussed potential risk to include bleeding, infection, pain, stiffness, hardware prominence, hardware failure, need for repeat procedures, hardware removal, tendon injury, damage to nerves and vessels, delayed tendon rupture, worsening arthritis. Despite these risks, she elected to proceed. Kiko Plunkett MD FAAOS FAAHKS History of Present Illness Narrative: Ms. Salima Tim is a 57-year-old female who presents to hospital for closed reduction vs ORIF of left wrist. Patient suffered fall down the a step landing onto her left wrist as well as right side and hip 2 days ago. Due to pain she presented to the ER at which time she was diagnosed with fracture and fitted with splint. Based on fracture type she was agreeable to having surgical intervention. Review of Systems Cardiovascular Cardiovascular: Denies chest pain and Denies dyspnea Respiratory Respiratory: Denies dyspnea PFSH All Active Problems Distal radius fracture, left (Acute) De Quervain's tenosynovitis, left (Acute) Status post de Quervain's release DOS: 08/25/2021 Sams esophagus (Acute) Anxiety and depression (Acute) Heart murmur, systolic (Acute) Aneurysm of iliac artery (Acute) Left wrist sprain (Acute) Left thumb sprain (Acute) S/P endoscopic carpal tunnel release (Acute) Carpal tunnel syndrome, left (Acute) Medical History Barretts Esophagus chronic back pain Depression Diabetes mellitus Hyperlipidemia Migraine Parotid mass (05/03/16) Surgical History Abdominal hysterectomy with ovarian conservation. Arthroplasty of knee (02/01/07) Right, from records.[facility] Arthroscopy (06/13/06) Right knee, with patellar chondroplasty, [facility] section 1990 c/s EGD - MAC (08/09/16) Kinsey Procedure (02/01/07) Right, same surgery as arthroscopy.[facility] Release for de Quervain's tenosynovitis of hand (09/18/08) Right wrist, from records.[facility] Screw removal Tibia (03/12/08) right, from records.[facility] Family History Other Diabetes Heart disease Social History Smoking/Tobacco Use Status: Former Tobacco Use Quit Date: 05/16/13 Smoking risk assessment performed?: Yes Drug use: Never Substance use type: does not use Meds Allergies and Home Medications Allergies Allergy/AdvReac Type Severity Reaction Status Date / Time Penicillins Allergy Intermediate rash Verified 09/28/22 12:14 codeine AdvReac Mild GI UPSET Verified 09/28/22 12:14 Home Medications Medication Instructions Recorded Confirmed Type multivitamin (Daily Multi-Vitamin 1 ea PO DAILY ##1 01/16/13 09/28/22 History tablet) aspirin 81 mg tablet,delayed 81 mg PO DAILY 09/24/13 09/28/22 History release (Aspir-) lisinopril 5 mg tablet 5 mg PO DAILY 06/11/16 09/28/22 History atorvastatin 40 mg tablet 40 mg PO DAILY 01/12/18 09/28/22 History acetaminophen 500 mg tablet 1,000 mg PO TID #90 tabs 08/25/21 09/28/22 Rx hydrocodone 5 mg-acetaminophen 325 1 tab PO Q6H PRN severe pain #6 09/28/22 Rx mg tablet tabs ibuprofen 600 mg tablet 600 mg PO TID PRN pain #60 tabs 09/28/22 Rx Exam Const General: cooperative, healthy appearing and comfortable Resp Auscultation: clear to auscultation bilaterally, no rales, no rhonchi and no wheezes Cardio Heart Sounds: S1 normal and S2 normal Results Last Vital Signs Temp 98.6 F 09/28/22 12:19 Pulse 102 H 09/28/22 12:19 Resp 18 09/28/22 12:19 BP 162/96 H 09/28/22 12:19 Pulse Ox 95 09/28/22 12:19 Time Spent Time spent with Patient: 55-74 minutes Time was spent: preparing to see the patient(eg.review tests), obtaining and/or reviewing separately otained hiistory, ordering medications,tests, procedures, indepentently interpreting results and counseling the patient
--- NOTE | 2022-09-28 14:21 | W.ANESNERVE ---
Nerve Block Single Injection Procedure Date and Time Date Performed: 09/28/22 Procedure Start: 12:56 Location Where Procedure Performed Procedure Location: Day Surgery Unit Reason Performed: Postoperative Analgesia Requesting Provider: Kiko Plunkett Timeout Performed Timeout Performed: Yes Monitoring Used ECG, Blood Pressure, SpO2 and See EMR for corresponding vital signs Sterility Sterility: Hand Hygiene, Surgical Cap, Surgical Mask, Sterile Gloves and Chlorhexidine Sedation Given During Procedure Sedation Given (Indicate Dose Given): Versed IV Dose:: 2mg Patient Mental Status Patient Mental Status: Awake Nerve Block 1st Nerve Block: Laterality: Left Block Type: Supraclavicular Ultrasound Image Saved?: Yes Needle / Catheter Used: 80mm SonoPlex II Local Anesthetic Bolus (Indicate Dose Given): Lidocaine used for local infiltration of skin, Injected in 3-5ml increments after negative blood aspiration, Bupivacaine 0.5% Dose:: 10mL and Exparel Dose:: 10mL Additives (Indicate Dose Given): None Ultrasound: Sterile probe cover and gel used Nerve Stimulator: Not Used Paresthesia: None Post Procedure Pain score (0-10): 0 Procedure Tolerated: No Complications Procedure Outcome: Successful Performed By: Deshaun Blue Supervised By: Cinthia Heath
[2022-09-28] MEDS: ceFAZolin 2 GM/50 ML BAG IVPB (14:55)
--- NOTE | 2022-09-28 14:59 | PDOC.DSDIS_ITS ---
Date of service: 09/28/22 Time of Service: 15:02 Discharge Plan Disposition Patient Disposition: Home Condition: Good Discharge Details Reason For Visit: Left distal radius fracture Attending Provider: Kiko Plunkett Primary Care Provider: Sumaya Saldivar Home Meds and New Rx's Prescriptions: New hydrocodone-acetaminophen 5-325 mg tablet 1 tab PO Q6H PRN (Reason: severe pain) Qty: 6 0RF Rx Instructions: Take one tablet up to every 6 hours as needed for severe postoperative pain ibuprofen 600 mg tablet 600 mg PO TID PRN (Reason: pain) Qty: 60 0RF Continued multivitamin [Daily Multi-Vitamin] 1 EACH tablet 1 ea PO DAILY Qty: 1 lisinopril 5 MG tablet 5 mg PO DAILY aspirin [Aspir-81] 81 MG tablet,delayed release (DR/EC) 81 mg PO DAILY atorvastatin 40 MG tablet 40 mg PO DAILY acetaminophen 500 mg tablet 1,000 mg PO TID Qty: 90 0RF Discharge Instructions Additional Instructions: Wrist Fracture Fixation Discharge Instructions Activity: You should keep the hand/wrist elevated as much as possible for the first few days. You may use the other fingers as tolerated but avoid trying to do too much too soon. You may perform light activities with the splint in place. Dressing/Cast: Your splint should stay in place at all times. Do NOT get it wet. You may loosen the ERICA wrap if you feel it is too tight and then rewrap more loosely. Medications: - You should take Tylenol and Ibuprofen for baseline pain control. - You have been prescribed a stronger pain medication, Hydrocodone, for breakthrough pain. - You may apply ice over the wrist, just double bag so it doesn't get wet. Follow-up: 10-14 days Referrals: Kiko Plunkett MD [ [facility] STAFF PHYSICIAN] - Equipment/Supplies: Splint and Sling Activity:: Elevate Remove Dressings/Wound Care:: Do Not Remove Shower/Bathe:: Cover Diet:: As Tolerated Discharge Orders Discharge Orders: Discharge Order (Routine); Ordered 09/28/22 Ordered By: Breanna Lawler DS: Diagnosis Discharge Diagnosis (1) Distal radius fracture, left: Status: Acute
--- NOTE | 2022-09-28 16:42 | W.ANESPOSTOP ---
Postoperative Evaluation Date, Time and Location Date Performed: 09/28/22 Time Performed: 16:43 Patient Location: Day Surgery Unit Vital Signs Most Recent Imported Vital Signs: Most Recent Vital Signs Temp Pulse Resp BP Pulse Ox 36.5 C 84 22 171/82 H 93 09/28/22 16:30 09/28/22 16:30 09/28/22 16:30 09/28/22 16:30 09/28/22 16:30 Most Recent Manually Entered Vital Signs: Adult Blood Pressure: 177/89 Heart Rate: 84 Respirations: 19 Oxygen Saturation (%): 96 Temperature (C): 36.5 C Pain Score (0-10 Scale): 0 Pain Score Most Recent Pain Score: Most Recent Pain Score Pain Level 0 09/28/22 16:30 Assessment Mental Status: Awake (Alert & Oriented to Patient Baseline) Airway and Respiratory Function: Patent airway with normal (patient baseline) respiratory exam Cardiovascular Function: Hemodynamically Stable Hydration Status: Adequately Hydrated Nausea & Vomiting: No Nausea or Vomiting Pain: Pt. Denies Any Pain Peripheral Nerve Block: Regional nerve block not resolved at time of post operative discharge
--- NOTE | 2022-09-28 21:10 | W.PM.OP ---
Date of service: 09/28/22 Time of Service: 16:00 Operative Note Operative Note DATE OF PROCEDURE: 09/28/22 PRE-OP DIAGNOSIS: Left comminuted, intra-articular distal radius fracture POST-OP DIAGNOSIS: same PROCEDURE: Open Reduction and Internal Fixation of Left Distal Radius involving at least 2 separate epiphyseal segments SURGEON: Kiko Plunkett HYDROMETALLURGICAL ENGINEER: Charissa Burk ANESTHESIA TYPE: General LMA/ETT and Primary Nerve Block Refer to Anesthesia Record ESTIMATED BLOOD LOSS: 50 PATHOLOGY: none sent TOURNIQUET TIME: 0 COMPLICATIONS: None Patient was transported to: PACU Patient's condition: stable Indications: Lakeshia is a 57-year-old [id number] female who I saw today in referral from emergency department for a comminuted, displaced, intra-articular distal radius fracture. This was confirmed with CT scan of the wrist. Given the deformity, displacement, fracture pattern, and effect on daily function, I recommended surgical fixation. I reviewed the risk of the procedure to include bleeding, infection co-pay, stiffness, damage to nerves and vessels, damage to muscles and tendons, malunion, nonunion, hardware prominence, tendon rupture, need for repeat procedures. Despite these risks, the patient elected to proceed. Findings: There is a distal radius fracture which had multiple epiphyseal segments with 2 primary fragments split by coronal fracture line. With direct manipulation through the fracture and in a closed reduction I was able to reduce the fracture and hold it with a K wire and secured with a Synthes distal radius plate. Procedure Description: Lakeshia was greeted in the preoperative holding area. The correct patient and site was confirmed and marked. The history and physical was updated. The consent was reviewed the patient and signed. A regional anesthetic, supraclavicular block, was performed with excellent results. Then, the patient was taken to the operating room and placed in the supine position. All bony problems were well-padded. The left arm was placed onto a radiolucent hand table. A nonsterile tourniquet was placed high up on the arm. Prophylactic antibiotics in the form of cefazolin were administered. The left arm was prepped with ChloraPrep and draped in a standard fashion. A timeout was performed for safe surgery. A standard longitudinal incision was made overlying the flexor carpi radialis tendon starting at the distal wrist crease and moving proximally. The skin was incised sharply. The flexor carpi radialis tendon and its sheath is identified. The sheath was opened. The tendon was moved ulnarly in the floor of the sheath was incised. Blunt dissection the flexor pollicis longus muscle belly and tendon were also made radially exposing the pronator quadratus and the distal radius. The printer quadratus was elevated with an ulnar-based flap. This exposed the volar distal radius and the fracture. A orosco elevator was used for full exposure of the volar surface of the distal radius. The primary fracture line was exposed. Using a series of elevators, curettes, and knife, the fracture was fully debrided of any fibrous tissue and callus formation. I used a freer elevator to help mobilize the fragments. There is a transverse appearing fracture about the volar radius as expected. There appeared to be a split of the radial portion of the distal radius in a coronal plane. I then performed a closed reduction. Using gentle traction and fracture manipulation, this reduction was held. Fluoroscopic images were used to confirm adequate reduction. This showed that the dorsal segment was not mobilized as the volar segment was. Therefore, I used a George and placed it through the fracture to manipulate the dorsal elements lifting them up in a shoehorn type fashion. These were then elevated in line with the volar segments and the reduction was held with my hand. As this was being held a K wire was taken through the radial styloid and into the proximal aspect of the radius. This held the reduction well except for some gapping of the coronal split from the dorsal segment of the distal radius. A wide 3-hole Synthes volar locking plate was then placed onto the bony surface of the distal radius. Was then held there with a distal radius clamp sandwiching the plate to the distal segment. A single K wire was placed through the distal end. Fluoroscopy was once again used to confirm appropriate positioning of the plate on the distal radius. A reduction K wire was placed into the slotted hole on the shaft but not tightened all the way to allow for manipulation of the distal segment onto the proximal shaft. A single nonlocking screw was placed to the distal portion of the plate securing the plate against the bone of the distal radial metaphysis. There was excellent purchase and this screw was able to compress the coronal fracture plane of the 2 primary epiphyseal fragments. Once again, the plate was evaluated to make sure it was aligned appropriately. The single screw was also checked to make sure it was in appropriate positioning for trajectory of future screws. An additional nonlocking screw was also placed more ulnarly to help compress the coronal fracture fragments. The remainder of the screws within the distal row of the volar locking plate were filled with locking screws. These were made sure not to penetrate the dorsal cortex. Fluoroscopy was then used against confirm appropriate reduction. Nonlocking screws were placed within the 3 shaft screw holes. Final x-rays were obtained which demonstrated adequate reduction and positioning of hardware. The wound was then thoroughly irrigated. The pronator quadratus was reapproximated with a 0 Vicryl. The fingers were warm and well-perfused. The deep dermal layer was closed with a 2-0 Vicryl. The skin was closed with 4-0 nylon. The wound was dressed with Xeroform, 4 x 4's, web roll. A short arm splint was applied. At the end the case all counts are correct. Patient was transferred back to the PACU in stable condition.
== END 2022-09-28 17:34 | disposition home or self-care (01) ==
PROVIDERS: PCP Nurse Practitioner Family; Visit Provider Student in an Organized Health Care Education/Training Program
PROC: (CPT 25609; principal; 2022-09-28 14:45)
DX: S52.572A Other intraarticular fracture of lower end of left radius, initial encounter for closed fracture (principal); W19.XXXA Unspecified fall, initial encounter; F41.8 Other specified anxiety disorders; E11.9 Type 2 diabetes mellitus without complications; E78.5 Hyperlipidemia, unspecified
CPT/HCPCS: 25609; 76942; 76000; J0690; J1100; J1885; J2250; J2405; J2704; J3475

== ENCOUNTER 2022-10-08 10:45 | Outpatient (CLI) | payer MEDICAID, SELFPAY ==
--- NOTE | 2022-10-08 09:30 | DI.RAD_ITS ---
Exam(s) XR WRIST LT COMPLETE EXAM: XR WRIST LT COMPLETE CLINICAL HISTORY: s/p ORIF L DISTAL RADIUS FX. TECHNIQUE: 2D digital imaging was performed of the left wrist. Three images were obtained. PA, obl ique and lateral views were obtained. COMPARISON: CR,XR XR WRIST LT COMPLETE from 09/13/2020 CR,XR XR FOREARM LT from 09/26/2022 FINDINGS: BONES: There is now sideplate and screw transfixing the distal left radial fracture. The fracture baltazar s been reduced. The alignment is anatomic. No bony destructive lesion is seen. JOINTS: The carpal bones are normally aligned. The joint spaces are well maintained. SOFT TISSUE: Normal. IMPRESSION: Interval reduction and internal fixation of the distal left radial fracture. DATA REPOSITORY: RADIATION DOSE DELIVERED:
== END 2022-10-08 10:46 | disposition home or self-care (01) ==
LOC: DIORS 10:45
PROVIDERS: PCP Nurse Practitioner Family; Referring Provider Nurse Practitioner Family; Visit Provider Physician Assistant
DX: S52.502D Unspecified fracture of the lower end of left radius, subsequent encounter for closed fracture with routine healing (principal); Z98.890 Other specified postprocedural states; X58.XXXD Exposure to other specified factors, subsequent encounter
CPT/HCPCS: 73110

== ENCOUNTER 2022-11-05 10:08 | Outpatient (CLI) | payer MEDICAID, SELFPAY ==
--- NOTE | 2022-11-05 10:29 | DI.RAD_ITS ---
Exam(s) XR WRIST LT LIMITED EXAM: XR WRIST LT LIMITED CLINICAL HISTORY: f/u L DISTAL RADIUS FX. TECHNIQUE: 2D digital imaging was performed. Four images were obtained. AP, lateral and oblique vie ws were obtained. COMPARISON: CR XR WRIST LT COMPLETE from 10/08/2022 FINDINGS: BONES: There are stable post operative changes present. No new fracture or dislocation. JOINTS: The joint spaces are well maintained. The joint spaces are well maintained. SOFT TISSUE: Normal. IMPRESSION: Stable postoperative changes. DATA REPOSITORY: RADIATION DOSE DELIVERED:
== END 2022-11-05 10:09 | disposition home or self-care (01) ==
LOC: DIORS 10:08
PROVIDERS: PCP Nurse Practitioner Family; Referring Provider Nurse Practitioner Family; Visit Provider Physician Assistant
DX: S52.572D Other intraarticular fracture of lower end of left radius, subsequent encounter for closed fracture with routine healing (principal); S52.502D Unspecified fracture of the lower end of left radius, subsequent encounter for closed fracture with routine healing; Z98.890 Other specified postprocedural states; X58.XXXD Exposure to other specified factors, subsequent encounter
CPT/HCPCS: 73100

== ENCOUNTER 2022-11-22 13:35 | Outpatient (REF) | payer MEDICAID, SELFPAY ==
[2022-11-22 18:46] LABS: Abs Immature Grans 0.01 10^3/uL (0.0-0.06); Absolute Basophil Count 0.06 10^3/uL (0.0-0.2); Absolute Eosinophil Count 0.27 10^3/uL (0.0-0.7); Absolute Monocyte Count 0.51 10^3/uL (0.1-0.8); Absolute Neutrophil Count 2.77 10^3/uL (1.2-6.7); Eosinophils % 4.5; HCT 41.2 % (36.0-46.0); HGB 13.4 g/dL (11.2-15.7); Immature Grans % 0.2; Lymphocytes % 39.9; MCH 29.1 pg (27.0-33.0); MCHC 32.5 % (32.0-36.0); MCV 89 fL (80-95); MPV 10.1 fL (8.0-11.0); Monocytes % 8.5; Neutrophils % 45.9; Platelet Count 279 10^3/uL (130-400); RBC 4.61 10^6/uL (3.93-5.22); RDW 13.5 % (11.7-14.6); WBC 6.02 10^3/uL (4.4-10.8)
[2022-11-22 18:57] LABS: ALT 28 U/L (14-59); AST 27 U/L (15-37); Albumin 4.2 g/dL (3.4-5.0); Alkaline Phosphatase 93 U/L (46-116); BUN 14 mg/dL (7-18); Bilirubin, Total 0.4 mg/dL (0.2-1.0); CREATININE 0.7 mg/dL (0.55-1.02); Calcium 9.2 mg/dL (8.5-10.1); Chloride 100 mmol/L (98-107); Estimated GFR 101.44 (mL/min/1.73m2); Glucose 150 mg/dL (74-106); Potassium 4.1 mmol/L (3.5-5.1); Sodium 139 mmol/L (136-145)
== END 2022-11-22 13:36 | disposition home or self-care (01) ==
LOC: NCHCN 13:35
PROVIDERS: PCP Nurse Practitioner Family; Visit Provider Nurse Practitioner Family
DX: E11.9 Type 2 diabetes mellitus without complications (principal); F41.8 Other specified anxiety disorders; K74.60 Unspecified cirrhosis of liver; G44.89 Other headache syndrome; K22.70 Barrett's esophagus without dysplasia
CPT/HCPCS: 80053; 85025

== ENCOUNTER 2022-12-20 10:29 | Outpatient (CLI) | payer MEDICAID, SELFPAY ==
--- NOTE | 2022-12-20 10:15 | DI.RAD_ITS ---
Exam(s) XR WRIST LT LIMITED EXAM: XR WRIST LT LIMITED INDICATION: s/p ORIF L DISTAL RADIUS. COMPARISON: CR XR WRIST LT LIMITED from 11/05/2022 TECHNIQUE: 2D digital imaging was performed. Two views. FINDINGS: A fixation plate is again noted along the volar aspect of the distal radius for fracture fixation. T here is callus formation surrounding fracture consistent with some interval healing. Carpal alignmen t remains normal. DATA REPOSITORY: RADIATION DOSE DELIVERED:
== END 2022-12-20 10:30 | disposition home or self-care (01) ==
LOC: DIORS 10:29
PROVIDERS: PCP Nurse Practitioner Family; Visit Provider Student in an Organized Health Care Education/Training Program
DX: S52.572A Other intraarticular fracture of lower end of left radius, initial encounter for closed fracture (principal); X58.XXXA Exposure to other specified factors, initial encounter
CPT/HCPCS: 73100

== ENCOUNTER → 2022-12-24 00:57 | Outpatient (CLI) | payer MEDICAID, SELFPAY ==
--- NOTE | 2022-12-24 | DI.CT_ITS ---
Exam(s) CT THORAX ABD/PEL CTA EXAM: CT THORAX ABD/PEL CTA CLINICAL HISTORY: ABDOMINAL AORTIC ANEURYSM, I71.4. TECHNIQUE: Imaging Protocol: Axial CT angiography was performed with multi-slice acquisition and mu lti-planar and/or 3D reconstructions. CONTRAST MATERIAL: Intravenous: Omnipaque 350 Contrast volume:100 ml COMPARISON: CT CT CHEST/ABD/PEL W from 03/26/2022 FINDINGS: CHEST: Pulmonary Arteries: No evidence of filling defect to suggest pulmonary emboli. Tracheobronchial tree: Patent where visualized. Mediastinum and Jennifer: No dominant adenopathy or fluid collection. Pulmonary parenchyma: Mild emphysematous changes. No consolidation or dominant measurable mass. Pleura: No effusion or pneumothorax. Heart: The heart is not dilated. Mild coronary artery calcifications are seen. Aorta: Ascending nurse CT is not indicated aorta measures maximally 3.6 cm. Descending aorta measure s 2.8 cm. No mural thrombus. No dissection. Minimal atherosclerotic changes. Bones: Degenerative changes. Old right rib fractures. Tubes, Catheters, and Lines: None ABDOMEN: Liver: Normal density. No measurable mass. Portal, Superior Mesenteric, and Splenic Veins: Unremarkable. Gallbladder and Biliary Tract: No radiodense calculus or dilation. Pancreas: Normal density, no abnormal calcifications or inflammatory process. Spleen: Normal. Adrenals: No masses seen. Kidneys: Normal size, contour and axis. No radiodense stones or obstructive uropathy. No masses seen. Abdominal Aorta: Atherosclerotic changes. Focal saccular dilatation of the mid abdominal aorta 3.3 t ransverse by 2.9 cm AP. Iliac arteries normal in diameter. No significant stenosis. Bowel: No obstruction or bowel wall thickening. Appendix is unremarkable. Moderate quantity of stoo l. Peritoneal Cavity: No ascites, collection or mesenteric inflammatory response. Lymph Nodes: Within normal limits. Bones: Unremarkable. Soft Tissues: Unremarkable. PELVIS: Bladder: Nearly empty. no gross wall thickening. Reproductive Organs: Status post hysterectomy. Lymph Nodes: Within normal limits. Bones: Mild degenerative changes. IMPRESSION: 1. No evidence of pulmonary embolism or aortic dissection.. 2. No acute abdominal or pelvic process. Abdominal aortic aneurysm 3.3 cm maximal dimension. No dis section. RADIATION DOSE DELIVERED: 1,050.11mGy.cm Total DLP DATA REPOSITORY: All CT scans at this facility are submitted to the National Radiology Data Registry (NRDR) Dose Index Registry (DIR) with the [employer] (ACR). RADIATION OPTIMIZATION: All CT scans at this facility use at least one of these dose optimization te chniques: automated exposure control; mA and/or kV adjustment per patient size (includes targeted exa ms where dose is matched to clinical indication); or iterative reconstruction.
--- NOTE | 2022-12-24 08:00 | DI.US_ITS ---
Exam(s) US ABDOMEN LIMITED EXAM: US ABDOMEN LIMITED CLINICAL HISTORY: CIRRHOSIS, K74.60 TECHNIQUE: Ultrasound abdomen performed using standard protocol. COMPARISON: CT CT THORAX ABD/PEL CTA from 12/24/2022 FINDINGS: LIVER: Normal size and echogenicity. No focal liver lesions are seen. No findings to suggest cirrhos is.. GALLBLADDER: No evidence of cholelithiasis. No evidence of wall thickening. No pericholecystic fluid identified. FITZGERALD'S SIGN: Negative. BILIARY SYSTEM: No intrahepatic or extrahepatic biliary ductal dilation. RIGHT KIDNEY: Normal size. No evidence of renal calculi. No evidence of hydronephrosis. No suspicious renal mass. No cyst identified. PANCREAS: Normal where visualized. Portal vein AND IVC: Appropriate flow direction. Normal diameter. ASCITES: None seen. IMPRESSION: Normal sonographic appearance of the right upper quadrant. DATA REPOSITORY:
[2022-12-24] MEDS: Omnipaque 350 MG/ML 500 ML BTL-Imaging package 100 ML IJ (08:47)
[2022-12-24] MEDS: Normal Saline - Diluent 50 ML VIAL IJ (08:47)
== END ==
PROVIDERS: PCP Nurse Practitioner Family; Visit Provider Nurse Practitioner Family
DX: K74.60 Unspecified cirrhosis of liver (principal)
CPT/HCPCS: 71275; 74174; 76705

== ENCOUNTER 2023-03-18 17:47 | Emergency (ER) | payer SELFPAY ==
--- NOTE | 2023-03-18 17:45 | DI.CT_ITS ---
Exam(s) CT ABDOMEN PELVIS CTA EXAM: CT ABDOMEN PELVIS CTA CLINICAL HISTORY: left flank pain w/ hx of stones and AAA. TECHNIQUE: Imaging Protocol: Axial CT angiography was performed with multi-slice acquisition and m ulti-planar and/or 3D reconstructions. CONTRAST MATERIAL: Intravenous: Omnipaque 350 Contrast volume:100mL Oral: No COMPARISON: CT CT CHEST/ABD/PEL W from 03/26/[address] THORAX ABD/PEL CTA from 12/24/2022 FINDINGS: ABDOMEN AND PELVIS: Abdomen: Celiac axis/mesenteric arteries: No evidence of occlusion or significant stenosis. Atherosclerosis. Renal Arteries: No evidence of occlusion. There is mild bilateral renal artery stenosis. Atheroscle rosis at the origins of the renal arteries. Aorta: No evidence of occlusion or significant stenosis. There is a 2.9 x 3.4 cm infrarenal abdomina l aortic aneurysm. No evidence of dissection. Pelvis: Iliac Arteries: No evidence of occlusion or significant stenosis. Atherosclerosis. Common Femoral Arteries: No evidence of occlusion or significant stenosis. Atherosclerosis. ABDOMEN: Lung bases: Calcified granuloma in the right lower lobe. Liver: Normal density. Stable hepatic cysts. No follow-up is recommended. No suspicious hepatic mas ses. Portal, Superior Mesenteric, and Splenic Veins: Unremarkable. Gallbladder and Biliary Tract: No radiodense calculus or dilation. Pancreas: Normal density, no abnormal calcifications or inflammatory process. Spleen: Normal. Adrenals: No masses seen. Kidneys: Normal size, contour and axis. No radiodense stones or obstructive uropathy. No masses seen. Bowel: No obstruction or bowel wall thickening. Appendix is unremarkable. Peritoneal Cavity: No ascites, collection or mesenteric inflammatory response. No free air. Lymph Nodes: Within normal limits. Bones: Within normal limits for the patient's age. Soft Tissues: Small fat containing umbilical hernia. PELVIS: Bladder: Symmetric distention, no gross wall thickening. Reproductive Organs: Status post hysterectomy. Lymph Nodes: Within normal limits. Bones: Within normal limits. IMPRESSION: 1. No acute of abdominal pelvic abnormality. 2. 3.4 cm infrarenal abdominal aortic aneurysm. No evidence of dissection. RADIATION DOSE DELIVERED: Total DLP DATA REPOSITORY: All CT scans at this facility are submitted to the National Radiology Data Registry (NRDR) Dose Index Registry (DIR) with the [employer] (ACR). RADIATION OPTIMIZATION: All CT scans at this facility use at least one of these dose optimization te chniques: automated exposure control; mA and/or kV adjustment per patient size (includes targeted exa ms where dose is matched to clinical indication); or iterative reconstruction.
[2023-03-18 17:50] VITALS: BP 172/77; PULSE 74; RESP 20; TEMP 36.6; O2SAT 97
[2023-03-18 17:58] VITALS: TEMP 36.5
[2023-03-18 18:12] LABS: Bilirubin Negative (Negative); Blood Trace-intact (Negative); Clarity Clear (Clear); Glucose Negative (Negative); Ketones Negative (Negative); Leukocyte Esterase Negative (Negative); Nitrite Negative (Negative); Urobilinogen 0.2 mg/dL (Up to 0.2)
[2023-03-18 18:21] LABS: Bacteria Negative HPF (Negative); C & S Indicated? No; Crystals Negative HPF (Negative); Epithelial Cells Negative HPF (Negative); Mucus Negative (Negative); RBC 0-2 HPF (0-2); WBC Negative HPF (0-5)
[2023-03-18 18:22] LABS: Abs Immature Grans 0.01 10^3/uL (0.0-0.06); Absolute Basophil Count 0.08 10^3/uL (0.0-0.2); Absolute Eosinophil Count 0.34 10^3/uL (0.0-0.7); Absolute Lymphocyte Count 2.94 10^3/uL (1.2-3.4); Absolute Monocyte Count 0.56 10^3/uL (0.1-0.8); Absolute Neutrophil Count 3.25 10^3/uL (1.2-6.7); Basophils % 1.1; Eosinophils % 4.7; HCT 39.4 % (36.0-46.0); HGB 13.3 g/dL (11.2-15.7); Immature Grans % 0.1; Lymphocytes % 40.9; MCH 28.8 pg (27.0-33.0); MCHC 33.8 % (32.0-36.0); MCV 85 fL (80-95); MPV 9.6 fL (8.0-11.0); Monocytes % 7.8; Neutrophils % 45.4; Platelet Count 273 10^3/uL (130-400); RBC 4.62 10^6/uL (3.93-5.22); RDW 13.7 % (11.7-14.6); RDW-SD 42.5 fL; WBC 7.18 10^3/uL (4.4-10.8)
--- NOTE | 2023-03-18 18:26 | W.ED.GENAD ---
Discharge Plan Disposition Patient Disposition: Home Discharge Details Chief Complaint: Urinary Clinical Impression: Acute left flank pain Primary Care Provider: Sumaya Saldivar ED Provider: Kye Nevarez Home Meds and New Rx's Prescriptions: No Action nitrofurantoin macrocrystal 100 mg capsule 100 mg PO ONCE Rx Instructions: as directed, post intercourse multivitamin [Daily Multi-Vitamin] 1 EACH tablet 1 ea PO DAILY Qty: 1 lisinopril 5 MG tablet 5 mg PO DAILY aspirin [Aspir-81] 81 MG tablet,delayed release (DR/EC) 81 mg PO DAILY atorvastatin 40 MG tablet 40 mg PO DAILY acetaminophen 500 mg tablet 1,000 mg PO TID Qty: 90 0RF Discharge Instructions Instructions: Flank Pain (ED) Additional Instructions: At this time CAT scan shows no significant life-threatening causes to your pain. Your laboratory work-up is returned very reassuring. Symptoms may be secondary to spasm of your psoas muscle, strain around your ribs, or mild nerve irritation. There is no rash at this point to suggest shingles. Please take Tylenol and Motrin as needed for pain. Please perform the daily back and flank stretching exercises that we showed. Please monitor your symptoms closely. If you notice any worsening of your symptoms, or any new symptoms such as vomiting, diarrhea, fever, chills, shortness of breath, chest pain, numbness, weakness, or fainting , please return immediately to the emergency department for reevaluation. Please follow up with your primary care provider as soon as possible for reassessment and reevaluation. As always, it was a pleasure participating in your medical care today. Referrals: Sumaya Saldivar [Primary Care Provider] - Medical Decision Making This is a pleasant 57-year-old female with a past medical history of previous kidney stone, abdominal aneurysm of the iliac artery, carpal tunnel, high cholesterol, hypertension, who presents today for evaluation of left flank pain. Patient states that about 5 days ago she developed left-sided flank pain which felt similar to her previous kidney stone. She admits to slight urinary frequency. She denies fever or chills. Pain is achy in nature. She denies vomiting or diarrhea. She has been drinking, and taking occasional NSAIDs without any improvement. She denies any other complaints at this time. No hematuria that she can see. No other complaints. Patient does state that her last stone passed on its own without need for intervention. Exam demonstrates well-appearing female, she does not want any pain medication at this time. No significant flank or CVA tenderness. No abdominal tenderness. Symptoms differential include diverticulitis, kidney stone, UTI or pyelonephritis. Patient does not want anything for pain. Will give Toradol, get a CAT scan, perform laboratory work-up, monitor closely and reassess. 7:[address] scan has returned, no acute process per virtual radiology. Aortic aneurysm is stable. Appears to be bilateral extrarenal pelvis, but no other abnormalities otherwise. No diverticulitis. Laboratory work-up demonstrates stable renal function, EKG was normal and shows no evidence of abnormality. Urinalysis shows no significant hematuria or infection. CT scan showed no signs of stone. Transaminases are in the upper limit of normal but otherwise benign. No white count bandemia or left shift. On reassessment patient continues to have only mild ache on the left flank. Uncertain as to the exact cause of her symptoms, however there does not appear to be any evidence of an acute life-threatening etiology at this time. Psoas spasm is on the differential, intercostal spasm is of concern. No evidence of shingles. Patient otherwise stable. Discussed findings and plan. Patient feels comfortable with discharge at this time. Recommend continued close monitoring of symptoms and prompt return if symptoms worsen. Discussed red flags for which to return. I have extensively reviewed the treatment plan and discharge instructions with the patient and their family. I have addressed all patient concerns at this time. The patient and family was made aware of what symptoms to monitor for that would warrant a return to the emergency department. Discussed the plan with the patient and family, they demonstrate verbal understanding and agreement with our assessment and plan at this time. The documentation in this chart was dictated using [employer] dictation software. Please excuse any dictation errors. FINDINGS: Aorta: 34 mm infrarenal aortic aneurysm without rupture similar to prior. Irregular calcified and noncalcified atherosclerosis with no dissection. Branch arteries: Multifocal atherosclerosis involving celiac trunk, SMA, bilateral renal arteries, SMA stenosis likely [id number], renal artery stenosis moderate left mild right. Bilateral iliac atherosclerosis without significant stenosis. Liver: Benign hepatic cyst(s), no followup necessary. Gallbladder and bile ducts: The gallbladder is contracted. Pancreas: No mass. No ductal dilation. Spleen: No splenomegaly. Adrenal glands: No mass. Kidneys and ureters: Favor benign right and left extrarenal pelvis without convincing hydronephrosis. No renal masses. No significant stones in the collecting systems on postcontrast imaging. Stomach and bowel: Colonic diverticulosis without diverticulitis. No focal pathology in the small bowel. Appendix: No evidence of appendicitis. Intraperitoneal space: No free air. No significant fluid collection. Lymph nodes: No enlarged lymph nodes. Urinary bladder: Urinary bladder wall upper limits of normal for the degree of distension which is [id number]. Reproductive: Hysterectomy. Bones/joints: Degenerative changes in the spine. No acute fracture or subluxation. Soft tissues: Tiny fat-containing umbilical hernia. Diastasis recti. IMPRESSION: 1. No acute findings. 2. Incidental findings as described. Thank you for allowing us to participate in the care of your patient. Dictated and Authenticated by: Ashly Barker MD 03/18/2023 7:14 PM Eastern Time ([place] & [place]) HPI General Date/Time Provider Initiated Documentation: 03/18/23 17:48. HPI Narrative: This is a pleasant 57-year-old female with a past medical history of previous kidney stone, abdominal aneurysm of the iliac artery, carpal tunnel, high cholesterol, hypertension, who presents today for evaluation of left flank pain. Patient states that about 5 days ago she developed left-sided flank pain which felt similar to her previous kidney stone. She admits to slight urinary frequency. She denies fever or chills. Pain is achy in nature. She denies vomiting or diarrhea. She has been drinking, and taking occasional NSAIDs without any improvement. She denies any other complaints at this time. No hematuria that she can see. No other complaints. Patient does state that her last stone passed on its own without need for intervention. Related Data Home Medications Medication Instructions Recorded Confirmed multivitamin (Daily Multi-Vitamin 1 ea PO DAILY ##1 01/16/13 12/13/22 tablet) aspirin 81 mg tablet,delayed 81 mg PO DAILY 09/24/13 12/13/22 release (Aspir-) lisinopril 5 mg tablet 5 mg PO DAILY 06/11/16 12/13/22 atorvastatin 40 mg tablet 40 mg PO DAILY 01/12/18 12/13/22 acetaminophen 500 mg tablet 1,000 mg (2 x 500 mg) PO TID #90 08/25/21 12/13/22 tabs nitrofurantoin macrocrystal 100 mg 100 mg PO ONCE 12/10/22 12/13/22 capsule Previous Rx's Medication Instructions Recorded acetaminophen 500 mg tablet 1,000 mg (2 x 500 mg) PO TID #90 08/25/21 tabs Allergies Allergy/AdvReac Type Severity Reaction Status Date / Time Penicillins Allergy Intermediate rash Verified 12/20/22 10:19 codeine AdvReac Mild GI UPSET Verified 12/20/22 10:19 General Stated Complaint: Urinary DEEJAY: 3 Review of Systems All systems reviewed & are unremarkable except as noted in HPI and below PFSH All Active Problems (Updated 03/18/23 @ 19:42 by Kye Nevarez DO) Acute left flank pain (Acute) De Quervain's tenosynovitis, left (Acute) Status post de Quervain's release DOS: 08/25/2021 Anxiety and depression (Acute) Heart murmur, systolic (Acute) Aneurysm of iliac artery (Acute) Left wrist sprain (Acute) Left thumb sprain (Acute) S/P endoscopic carpal tunnel release (Acute) Carpal tunnel syndrome, left (Acute) Medical History Parotid mass (05/03/16) chronic back pain Hyperlipidemia Depression Diabetes mellitus Migraine Barretts Esophagus Surgical History Screw removal Tibia (03/12/08) right, from records[facility] section 1990 c/s Abdominal hysterectomy with ovarian conservation. [facility] Procedure (02/01/07) Right, same surgery as arthroscopy.[facility] EGD - MAC (08/09/16) Release for de Quervain's tenosynovitis of hand (09/18/08) Right wrist, from records.[facility] Arthroplasty of knee (02/01/07) Right, from records[facility] Arthroscopy (06/13/06) Right knee, with patellar chondroplasty, from [facility] Family History Other Diabetes Heart disease Social History Smoking/Tobacco Use Status: Former Tobacco Use Quit Date: 05/16/13 Smoking risk assessment performed?: Yes Drug use: Never Substance use type: does not use Exam Narrative Exam Narrative: 1.Const: Well-nourished, Well-developed, appearing stated age 2.Eyes: PERRL, no conjunctival injection, and symmetrical lids. 3.ENT: Atraumatic external nose and ears. Moist MM. Neck: Symmetric, trachea midline, No thyromegaly. 4.CVS: +S1/S2, No murmurs or gallops. Peripheral pulses 2+ and equal in all extremities. Brisk capillary refill in all extremities. 5.RESP: Unlabored respiratory effort. Clear to auscultation bilaterally. No wheezes rales or rhonchi 6.GI: Soft, Nontender/Nondistended, No hepatosplenomegaly. No guarding or rebound. No significant CVA tenderness 7.MSK: Normocephalic/Atraumatic, Extremities w/o deformity or ttp No cyanosis or clubbing, Normal movement of all extremities 8.Skin: Warm, Dry. No rashes or lesions. 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 Sensation grossly intact, no focal neurologic deficits. 10.Psych: (AAO) x3. Appropriate mood and affect Course Vital Signs Vital signs: Vital Signs Temperature 36.6 C 03/18/23 17:50 Pulse 74 03/18/23 17:50 Respiratory Rate 20 03/18/23 17:50 Blood Pressure 172/77 H 03/18/23 17:50 Pulse Oximetry 97 03/18/23 17:50 Temperature 36.5 C 03/18/23 17:58 Temperature Source Oral 03/18/23 17:58 Pulse 74 03/18/23 17:50 Respiratory Rate 20 03/18/23 17:50 Respiratory Effort Normal 03/18/23 17:58 Blood Pressure 172/77 H 03/18/23 17:50 Blood Pressure Position Sitting 03/18/23 17:50 Pulse Oximetry 97 03/18/23 17:50 Oxygen Delivery Method Room Air 03/18/23 17:50 Oxygen Flow Rate 0 03/18/23 17:50 Pain Level 2 03/18/23 17:58 Comment annoyance 03/18/23 17:58 Lab/Test Results Lab/Test Results: Laboratory Tests Range/Units 11/03/23 11/03/23 18:04 18:15 WBC (4.4-10.8) 10^3/uL 7.18 RBC (3.93-5.22) 10^6/uL 4.62 Hgb (11.2-15.7) g/dL 13.3 Hct (36.0-46.0) % 39.4 MCV (80-95) fL 85 MCH (27.0-33.0) pg 28.8 MCHC (32.0-36.0) % 33.8 RDW (11.7-14.6) % 13.7 Plt Count (130-400) 10^3/uL 273 MPV (8.0-11.0) fL 9.6 Immature Gran % 0.1 Neutrophils % 45.4 Lymphocytes % 40.9 Monocytes % 7.8 Eosinophils % 4.7 Basophils % 1.1 Nucleated RBC % (0.0-0.3) % 0.0 Absolute Neutrophils (1.2-6.7) 10^3/uL 3.25 Absolute Lymphocytes (1.2-3.4) 10^3/uL 2.94 Absolute Monocytes (0.1-0.8) 10^3/uL 0.56 Absolute Eosinophils (0.0-0.7) 10^3/uL 0.34 Absolute Basophils (0.0-0.2) 10^3/uL 0.08 Urine Color (Yellow) Yellow Urine Clarity (Clear) Clear Urine pH (5-8) 7.0 Ur Specific [place] (1.005-1.025) 1.010 Urine Protein (Negative) mg/dL Negative Urine Ketones (Negative) mg/dL Negative Urine Blood (Negative) Trace-intact H Urine Nitrite (Negative) Negative Urine Bilirubin (Negative) Negative Urine Urobilinogen (Up to 0.2) mg/dL 0.2 Ur Leukocyte Esterase (Negative) Negative Urine RBC (0-2) HPF 0-2 Urine WBC (0-5) HPF Negative Ur Epithelial Cells (Negative) HPF Negative Urine Crystals (Negative) HPF Negative Urine Bacteria (Negative) HPF Negative Urine Mucus (Negative) Negative Ur Culture Indicated? No Urine Glucose (Negative) mg/dL Negative
[2023-03-18] MEDS: Ketorolac 15 MG/ML VIAL IVP (18:30)
[2023-03-18] MEDS: Normal Saline 500 ML IV (18:31)
[2023-03-18] MEDS: Tamsulosin 0.4 MG CAPCR PO (18:31)
[2023-03-18 18:37] LABS: ALT 60 U/L (14-59); AST 41 U/L (15-37); Albumin 4.4 g/dL (3.4-5.0); Alkaline Phosphatase 82 U/L (46-116); Anion Gap 9.8 mmol/L (3-11); BUN 19 mg/dL (7-18); Bilirubin, Total 0.3 mg/dL (0.2-1.0); CO2 27.2 mmol/L (21.0-32.0); CREATININE 0.7 mg/dL (0.55-1.02); Calcium 9.8 mg/dL (8.5-10.1); Chloride 99 mmol/L (98-107); Estimated GFR 101.44 (mL/min/1.73m2); Glucose 103 mg/dL (74-106); Potassium 3.5 mmol/L (3.5-5.1); Sodium 136 mmol/L (136-145); Total Protein 8.3 g/dL (6.4-8.2)
[2023-03-18] MEDS: Omnipaque 350 MG/ML 100 ML BTL IJ (18:53)
[2023-03-18] MEDS: Normal Saline - Diluent 50 ML VIAL IJ (18:53)
[2023-03-18] MEDS: Normal Saline Flush 10 ML SYR IVP (18:54)
--- NOTE | 2023-03-18 19:15 | DI.VRAD_ITS ---
PROCEDURE INFORMATION: Exam: CTA Abdomen and Pelvis With Contrast Exam date and time: 03/18/2023 18:46 Age: 57 years old Clinical indication: Abdominal pain; Flank; Left upper quadrant (luq); Additional info: H/o kidney stones, known aaa w/o surg TECHNIQUE: Imaging protocol: Computed tomographic angiography of the abdomen and pelvis with contrast. Exam focused on the arteries. 3D rendering (Not supervised by radiologist): MIP and/or 3D reconstructed images were created by the technologist. Contrast material: OMNI 350; Contrast volume: 100 ml; Contrast route: INTRAVENOUS (IV); COMPARISON: CT THORAX ABD/PEL CTA 12/24/2022 08:39 FINDINGS: Aorta: 34 mm infrarenal aortic aneurysm without rupture similar to prior. Irregular calcified and noncalcified atherosclerosis with no dissection. Branch arteries: Multifocal atherosclerosis involving celiac trunk, SMA, bilateral renal arteries, SMA stenosis likely esrs-[id number], renal artery stenosis moderate left mild right. Bilateral iliac atherosclerosis without significant stenosis. Liver: Benign hepatic cyst(s), no followup necessary. Gallbladder and bile ducts: The gallbladder is contracted. Pancreas: No mass. No ductal dilation. Spleen: No splenomegaly. Adrenal glands: No mass. Kidneys and ureters: Favor benign right and left extrarenal pelvis without convincing hydronephrosis. No renal masses. No significant stones in the collecting systems on postcontrast imaging. Stomach and bowel: Colonic diverticulosis without diverticulitis. No focal pathology in the small bowel. Appendix: No evidence of appendicitis. Intraperitoneal space: No free air. No significant fluid collection. Lymph nodes: No enlarged lymph nodes. Urinary bladder: Urinary bladder wall upper limits of normal for the degree of distension which is blby-[id number]. Reproductive: Hysterectomy. Bones/joints: Degenerative changes in the spine. No acute fracture or subluxation. Soft tissues: Tiny fat-containing umbilical hernia. Diastasis recti. IMPRESSION: 1. No acute findings. 2. Incidental findings as described. Dictated and Authenticated by: Ashly Barker MD. Ordering:ELPIDIO Fishman MD
--- NOTE | 2023-03-18 19:30 | RT.EKG_ITS ---
APPROVED REPORT Exam: Resting ECG Reason for Exam: left flank pain Patient Location: E HR:57 bpm ECG Measurements Heart Rate 57 AXIS OK 163 P 63 QRSd 95 QRS 46 QT 430 T 57 QTc 421 Conclusion Sinus bradycardia...rate< 60 Phyician: no stemi
== END 2023-03-18 19:56 | disposition home or self-care (01) ==
PROVIDERS: Emergency Provider Student in an Organized Health Care Education/Training Program; PCP Nurse Practitioner Family
DX: R10.9 Unspecified abdominal pain (principal); I71.43 Infrarenal abdominal aortic aneurysm, without rupture; E11.9 Type 2 diabetes mellitus without complications; E78.5 Hyperlipidemia, unspecified; I10 Essential (primary) hypertension; R00.1 Bradycardia, unspecified; K57.30 Diverticulosis of large intestine without perforation or abscess without bleeding; Z79.82 Long term (current) use of aspirin
CPT/HCPCS: 36415; 80053; 93005; 96361; 96374; 99285; 74174; 81003; 81015; 85025; 93010; 99284; J1885; J3490

== ENCOUNTER → 2023-07-25 02:16 | Outpatient (CLI) | payer OTHER, SELFPAY ==
--- NOTE | 2023-07-25 | DI.US_ITS ---
Exam(s) US ABDOMEN LIMITED EXAM: US ABDOMEN LIMITED CLINICAL HISTORY: CIRRHOSIS OF LIVER K74.60 TECHNIQUE: Ultrasound abdomen performed using standard protocol. COMPARISON: US US ABDOMEN LIMITED from 12/24/[address] ABDOMEN PELVIS CTA from 03/18/2023 FINDINGS: PANCREAS: Normal where visualized. LIVER: Normal. Hepatopetal flow in the Portal Vein. The liver measures in 19.6 cm length. No evidence of a hepatic mass. There is again seen a cyst which is unchanged in the left lobe of the liver. GALLBLADDER: No evidence of cholelithiasis. No evidence of wall thickening. No pericholecystic fluid identified. BILIARY SYSTEM: Common bile duct measures < 7 mm. No intrahepatic biliary ductal dilation. FITZGERALD'S SIGN: Negative. RIGHT KIDNEY: Kidney is normal in size. No evidence of renal calculi. No evidence of hydronephrosis. No renal mass or cyst identified. ASCITES: None seen. IMPRESSION: 1. Mildly enlarged liver. 2. No evidence of a suspicious hepatic mass sonographically. 3. Stable hepatic cyst. DATA REPOSITORY:
--- NOTE | 2023-07-25 08:56 | DI.MAMMO_ITS ---
Exam(s) MAMMO SCREENING EXAM: MAMMO SCREENING CLINICAL HISTORY: SCREENING MAMMO Z12.31 TECHNIQUE: Bilateral full field digital CC and MLO mammographic images were obtained with 3D tomosyn thesis and utilizing computer aided detection (CAD). COMPARISON: Available for comparison. FINDINGS: Since the most recent comparison, the patient has undergone a bilateral breast reduction. Masses/Architectural Distortion: None seen. Microcalcifications: No suspicious pleomorphic-type are seen. Skin Thickening/Nipple Retraction: None. IMPRESSION: 1. No significant interval change with no specific features of malignancy noted. 2. Unless there is more urgent need, screening mammography is recommended, as per [employer] guidelines. BI-RADS Category 1 - Negative Breast Density - Category C - Heterogeneously dense Breast density category C or D implies that the patient has dense breast tissue. Dense breast tissue is very common and is not abnormal but dense breast tissue can make it harder to find cancer on a ma mmogram. Also, dense breast tissue may increase their breast cancer risk. This information about the result of the mammogram report was provided to the patient to raise their awareness. Use this report when you speak with the patient about their risks for breast cancer, which includes their family hist ory. At that time, you may recommend for more screening tests (Ultrasound or MRI) as they might be us eful based on their risk. A negative radiographic report should not delay biopsy if a dominant or clinically suspicious mass is present. Up to ten percent of cancers are not identified on mammography. A negative report may reinforce clinical impression. Adenosis and dense breasts may obscure an underlying neoplasm. False positive reports average 6 to 10%. Patient will receive a letter notifying them of these results.
== END ==
PROVIDERS: PCP Nurse Practitioner Family; Visit Provider Nurse Practitioner Family
DX: Z12.31 Encounter for screening mammogram for malignant neoplasm of breast (principal)
CPT/HCPCS: 77063; 77067; 76705

== ENCOUNTER 2024-02-07 10:22 | Outpatient (REF) | payer OTHER, SELFPAY ==
--- OUTSIDE RECORDS SUMMARY | 2024-02-07 10:29 | XMS_ITS | Encounter Summary ---
[place] [address] Care Team Providers Care Test Tech Name Role Phone YarielLadan malhotrahryn Sweetie CHATMAN Primary Care Provider [phone] Encounter Details Date Type Department Care Team (Latest Contact Info) Description 07/07/2021 11:00 AM EST Clinical [place] [id number] Surgery follow-up Social History Tobacco Use Types Packs/Day Years Used Date Smoking Tobacco: Former Cigarettes Q uit: 01/16/2004 Smokeless Tobacco: Never Alcohol Use Standard Drinks/Week Comments Not Currently 0 (1 standard drink = 0.6 oz pur e alcohol) Sex and Gender Information Value Date Recorded Sex Assigned at Not on file Gender Identity Not on file Sexual Orientation Not on file documented as of this encounter Patient Instructions * Patient Instructions* Jessica Antonio RN - 07/07/2021 10:55 AM EST Signs of Infection : A temperature over 100.4 F or 38 C. Redness at the incision line that is beginning to spread away from the incision after the first 48 hours. Yellow pus-like or foul smelling drainage larger than a dime size from the incision or drain sites. Increased pain / discomfort that is not relieved by your pain medicine such as extra strength tylenol, or NSAIDS For any of these symptoms please call our nurse's line at [phone] M - F 8 - 5 For after hours, and on weekends; Call [phone] and ask for our plastic surgeon target aircraft controller -SCAR MASSAGE TECHNIQUE: to begin 4-6 weeks following surgery What is a scar? When an injury occurs, the body immediately begins to repair itself & the area becomes swollen & sore. Eventually small collagen fibers form, becoming a solid tissue that results in a scar. This scar will continue to change in appearance for 1-2 years. Ideally, a scar is smooth & flat, blending in with the surrounding skin. However, some scars may become highly visible & unattractive due to factors such as your age, scar location & size, nutrition, genetics, or infection. A hypertrophic scar occurs when there is an excess production of collagen tissue that is elevated but remains within the wound boundaries. The scar is tense, red, & can be associated with itching & tenderness. A hypertrophic scar can be ordinary (usually stabilizes in 3 months & may even get smaller and smoother) or keloid. The keloid scar invades nearby tissue that was not part of the original wound, tends to enlarge even after 6 months & does not get softer. Will scar massage make my scars disappear? Nothing can make scars disappear. However, massaging the scar assists the body in breaking down thescar tissue to give it a flatter, softer, appearance. Massage also mobilizes the scar, preventing it from adhering to underlying tissue, tendons, & nerves. You can make the greatest difference in the appearance of the scar if you massage it in the first 3months. What should I use on my scars? You will hear many recommendations. This clinic finds that it is the massage itself that reduces the scar & not necessarily the choice of ointments or creams. We do discourage the use of Vitamin E oil, however, due to studies that have reported scar inflammation & deterioration. How do I massage my scars? Apply the lotion or cream into the scar 3-4 times a day for 8 weeks on new scars, and 3-4 times perday for 3 to 6 months on existing scars. Using your finger, apply pressure to the scar in a crosswise & circular direction, bearing down as hard as tolerated. Remember to protect your scar from the sun, especially in the first 6-12 months, by using a moisturizer with sunblock and wearing a physical barrier (ie: a hat) when possible documented in this encounter Progress Notes * Jessica Antonio RN - 07/07/2021 11:00 AM EST Plastic Surgery Post Op Note Lakeshia Tim returned to our office today for post surgical follow-up Date of surgery: 06/29/21 Procedure(s): Bilateral breast reduction with Dr. Salas Subjective : Pain: Lakeshia reports no discomfort. She reports that she her is using extra strength tylenol with good effect. She already feels substantial relief of her back pain and is happy with her results. Objective : Dr. Salas into examine General: Alert, comfortable, conversant, ambulating Breasts: Swelling: mild bilaterally Bruising: mild bilaterally Good symmetry and good perfusion of NAC's bilaterally. Incisions are well approximated. She was provided with a copy of her path report indicating benign breast tissue. Assessment: No evidence of delayed healing,erythema, or fluid collection. Incisions CDI Plan: Instructed in care of incision lines,and activity restrictions as outlined in our post op brochure.We reviewed signs and symptoms of infection, spitting sutures, parameters for normal post op swelling and bruising as stated in our post op brochure. We reviewed correct phone numbers to call for concerns. Begin scar massage at 4-6 weeks post op- instructions provided in AVS Supplies: a beata surgical bra was provided Follow up: [address] Salas or sooner if needed. Lakeshia expressed understanding of her instructions, and is happy with today's visit and plan of care. documented in this encounter Plan of Treatment Not on file documented as of this encounter Visit Diagnoses Diagnosis Surgery follow-up Follow-up examination, following unspecified surgery documented in this encounter Care Teams Test Tech Relationship Specialty Start Date End Date Sumaya Saldivar APRN [address] [place] [address] PCP - General Family Medicine 08/02/19 documented as of this encounter
--- OUTSIDE RECORDS SUMMARY | 2024-02-07 10:29 | XMS_ITS | Encounter Summary ---
[facility] [place] [address] Care Team Providers Care Packing And Final Assembly Supervisor Name Role Phone YarielSumaya malhotra LURDES Primary Care Provider [phone] Encounter Details Date Type Department Care Team (Latest Contact Info) Description 06/30/2021 2:00 PM EST Clinical [place] [id number] Surgery follow-up Social History Tobacco Use Types [...] * Patient Instructions* Jessica Antonio RN - 06/30/2021 2:17 PM EST Signs of Infection : A temperature [...] symptoms please call our nurse's line at [phone] M - F 8 - 5 For after hours, and on weekends; Call [phone] and ask for our plastic surgeon javascript application developer Your drains have removed your drain(s) have a compression dressing. You may remove the dressing in 24 hours and shower. After showering, you may cover the drain site(s) with a band aid,or guaze if still draining a largeamount of fluid. The drain site is typically closed in approximately three days. Please call the clinic with any questions or concerns @ [phone] Tuesday through Tuesday from 8-5. On weekends, nights, or holidays, call the Main Hospital number @ [phone] and ask for the Plastic Surgeon javascript application developer. documented in this encounter Progress Notes * Jessica Antonio RN - 06/30/2021 2:00 PM EST Plastic Surgery Breast Reduction Drain Removal Note Date of surgery: 06/29/21 Procedure(s): Bilateral breast reduction GARCIA with Subjective : Lakeshia reports mild discomfort using extra strength tylenol.She is happy with her results. Objective : Bilateral drains are about 30 mLs of serous drainage since yesterday and does meet criteria for removal today. Drain sites cleansed with a wound cleanser and dry dressings re applied withinstructions to leave this dressing in place for 24 hours. Both breasts are soft and equal in size. Swelling: mild bilaterally Bruising: mild bilaterally The incision lines are well approximated . The NACs have good perfusion. Nipples have normal projection. Areolar incisions are approximated with no drainage. Surgical bra fitted and in use. Patient denies nausea or vomiting. Assessment : There no signs of delayed healing, erythema, or fluid collection. Incisions CDI Plan : We reviewed instructions on drain site and incisional care, showering, pain control, and activity restrictions as outlined in our post op brochure. We reviewed parameters for normal post operative swelling and bruising as stated in our post op brochures.Lakeshia agrees with plan of care,and was instructed to call with any concerns. Hospital check appointment next week with nurses for bra fitting , pathology report , incision check. . documented in this encounter Plan of Treatment Not on file documented as of this encounter Visit Diagnoses Diagnosis Surgery follow-up Follow-up examination, following unspecified surgery documented in this encounter Care Teams Packing And Final Assembly Supervisor Relationship Specialty Start Date End Date Sumaya Saldivar APRN [address] [place] [address] PCP - General Family Medicine 08/02/19 documented as of this encounter
--- OUTSIDE RECORDS SUMMARY | 2024-02-07 10:29 | XMS_ITS | Encounter Summary ---
[place] [address] Care Team Providers Care Criminal Justice Professor Name Role Phone Sumaya Saldivar APRN Primary Care Provider [phone] Encounter Details Date Type Department Care Team (Late st Contact Info) Description 02/16/2022 8:00 AM EDT Tech [place] [id number] Monie Rodgers, [place] Ectatic abdominal aorta Social History Tobacco Use Types Packs/Day Years [...] on file documented as of this encounter Plan of Treatment Not on file documented as of this encounter Procedures Procedure Name Priority Date/Time Associated Diagnosis Comments AAA DUPLEX COMPLETE Routine 02/16/2022 7 :57 AM EDT Ectatic abdominal aorta documented in this encounter Results * AAA Duplex, Complete/Bilateral (02/16/2022 7:57 AM EDT) VB Text Report Department: Vascular Surgery Lab Patient: [id number] (LAKESHIA GUZMAN) CPT: 63510 Referring Physician: JOSEE SAVAGE APRN ?? Indications: 56 year old female with ectatic/at aneurysmal threshold aorta by OSP, ? size and establish in-house baseline Findings: Angie Renal Aorta ? PSV (cm/s): 76 ? EDV (cm/s): 11 ? Diam AP (cm): 2.4 ? Diam Lateral (cm): 2.4 Infra Renal Aorta ? PSV (cm/s): 72 ? EDV (cm/s): 0 ? Diam AP (cm): 2.0 ? Diam Lateral (cm): 2.0 Distal Aorta ? PSV (cm/s): 85 ? EDV (cm/s): 12 ? Diam AP (cm): 3.0 ? Diam Lateral (cm): 3.0 Common Iliac Artery, Proximal, Right ? PSV (cm/s): 110 ? EDV (cm/s): 15 ? Diam AP (cm): 1.2 ? Diam Lateral (cm): 1.2 Common Iliac Artery, Proximal, Left ? PSV (cm/s): 100 ? EDV (cm/s): 0 ? Diam AP (cm): 1.1 ? Diam Lateral (cm): 1.1 Interpretation : Patent abdominal aorta with the infra-renal aorta at the threshold for aneurysm measuring 3.0 x 3.0 cm. Patent proximal RIGHT and LEFT common iliac arteries with no evidence of aneurysm. The mid and distal segments of the iliac arteries was not visualized due to overlying bowel gas. Comparison: No previous study in our vascular lab database for comparison. Electronically Signed by: SALVADOR CHRISTIAN on 2022-02-22 05:25:14 PM [facility] VB Text Report End of Report [facility] 02/16/2022 7:57 AM EDT Josee Savage APRN VASCULAR ORDERABLE S [facility] documented in this encounter Visit Diagnoses Diagnosis Ectatic abdominal aorta Abdominal aortic ectasia documented in this encounter Care Teams Criminal Justice Professor Relationship Specialty Start Date End Date Sumaya Saldivar APRN [address] [place] [address] PCP - General Family Medicine 08/02/19 documented as of this encounter
--- OUTSIDE RECORDS SUMMARY | 2024-02-07 10:29 | XMS_ITS | Clinical Summary ---
Author Organization [facility] [place] [address] Care Team Providers Care Clockmaker Apprentice Name Role Phone Sumaya Saldivar APRN Primary Care Provider [phone] Allergies Active Allergy Reactions Criticality Noted Date Comments Codeine Phosphate CIS - Nausea/Vomiting Penicillins Rash Medium 07/26/2019 Medications Medication Sig Dispensed Refills Start Date End Date Status atorvastatin (Lipitor) 40 mg Tablet TAKE 1 TABLET BY MOUTH ONCE DAILY 08/13/2019 Active lisinopriL (Prinivil;Zestril) 5 mg Tablet TAKE 1 TABLET BY MOUTH ONCE DAILY 08/13/2019 Active nitrofurantoin (MACRODANTIN) 100 mg Capsule TAKE 1 CAPSULE BY MOUTH TWICE DAILY WITH A MEAL/FOOD 07/30/2019 Active acetaminophen 325 mg Capsule Take by mouth. 09/13/2020 Active Active Problems Problem Noted Date Diagnosed Date Surgery follow-up 12/30/2021 Macromastia 06/01/2021 Ectatic abdominal aorta 03/05/2021 Hypertension 03/05/2021 HLD (hyperlipidemia) 03/05/2021 Sams's esophagus 03/05/2021 Diabetes mellitus 03/05/2021 Assessment & Plan (03/05/2021 8:25 AM EDT): Diet and exercise controlled. Asymptomatic varicose veins of both lower extrem ities 03/05/2021 Social History Tobacco Use Types Packs/Day Years Used Date Smoking Tobacco: Former Cigarettes Q uit: 01/16/2004 Smokeless Tobacco: Never Alcohol Use Standard Drinks/Week Comments Not Currently 0 (1 standard drink = 0.6 oz pur e alcohol) Sex and Gender Information Value Date Recorded Sex Assigned at Not on file Gender Identity Not on file Sexual Orientation Not on file Last Filed Vital Signs Vital Sign Reading Time Taken Comments Blood Pressure 137/83 02/18/2023 8:51 AM EDT Pulse 58 02/18/2023 8:51 AM EDT Temperature 36.9 ??C (98.4 ??F) 06/29/2021 11:[address] Respiratory Rate 16 06/29/2021 12:30 PM EST Oxygen Saturation 95% 06/29/2021 12:30 PM EST Inhaled Oxygen Concentration - - Weight 94.3 kg (208 lb) 02/18/2023 8:51 AM EDT Height 185.4 cm (6' 1) 02/18/2023 8:51 AM EDT Body Mass Index 27.44 02/18/2023 8:51 AM EDT Plan of Treatment Health Maintenance Due Date Last Done Comments CT Colonography 1966 Colonoscopy 1966 Colorectal Cancer Screening 1966 FIT DNA 1966 FIT 1966 Sigmoidoscopy (10 year) with FIT yearly 1966 Sigmoidoscopy 1966 Pneumococcal Vaccine: At-Risk 5-64yrs (1 of 2 - PCV) 0 1972 DM Hemoglobin A1c 1976 DM Opthalmology Exam 1976 DM Urine Microalbumin yearly 1976 HIV screen 1984 Hepatitis C Screening 1984 Hepatitis B vaccine (0-59 yrs) (1) 1985 Tetanus/Diphtheria/Pertussis Vaccines (1 - Tdap) 06/09 HPV test 1996 PAP Smear 1996 Breast Cancer Share Decision Needed 2006 Breast Cancer screening 2006 Zoster vaccine (1 of 2) 2016 DM Creatinine yearly 01/15/2021 01/16/2020 Advance Directive 2021 Covid-19 Vaccine (1 - season) 2024 Influenza (Flu) vaccine (1 o f 1 - Influenza standard series) 01/15/2024 Diabetes Screening (HgbA1C or Glucose) Discontinued Procedures Procedure Name Priority Date/Time Associated Diagnosis Comments COMPREHENSIVE METABOLIC PANEL Routine 01/16/2020 4:41 PM EDT Elevated liver enzymes from Last 3 Months or Most Recently Relevant to Health Maintenance Results * (ABNORMAL) Comprehensive metabolic panel (non-fasting) (01/16/2020 4:41 PM EDT) Glucose 143 65 - 199 mg/dL [facility] Comment:Diabetes: >=200 mg/d L plus symptoms Blood Urea Nitrogen 12 8 - 18 mg/dL [facility] Creatinine 0.54(L) 0.70 - 1.20 mg/dL [facility] Sodium 142 135 - 145 mmol/L [facility] Potassium 4.1 3.5 - 5.0 mmol/L [facility] Comment: Please note: ??Patients with WBC >100,000 may have falsely elevated Potassium levels. ??For accurate Potassium quantification in these patients send serum separator tube (gold top) for subsequent determinations. ??Contact the Clinical Chemistry Laboratory if there are any questions. Chloride 103 98 - 107 mmol/L [facility] Carbon Dioxide 27 22 - 31 mmol/L [facility] Anion Gap 12 5 - 15 mmol/L [facility] Calcium 9.4 8.5 - 10.5 mg/dL [facility] Protein, Total 7.2 6.1 - 8.0 gm/dL [facility] Albumin 4.2 3.2 - 5.2 gm/dL [facility] Aspartate Aminotransferase 29 0 - 30 unit/L [facility] Alanine Aminotransferase 29 0 - 30 unit/L [facility] Alkaline Phosphatase 78 35 - 105 unit/L [facility] Bilirubin, Total 0.2 0.2 - 1.3 mg/dL [facility] Est Glomerular Filtration Rate 108 >=60 mL/min/1. 73 m?? [facility] Comment: The eGFR was calculated using the CKD-EPI equation. As with all creatinine based estimates of kidney function, eGFR values calculated with the CKD-EPI equation are not accurate in patients with acute kidney failure, extremes of body mass or the acutely ill. [email or web address] eGFR 125 >=60 mL/min/1. 73 m?? [facility] Comment: The eGFR was calculated using the CKD-EPI equation. As with all creatinine based estimates of kidney function, eGFR values calculated with the CKD-EPI equation are not accurate in patients with acute kidney failure, extremes of body mass or the acutely ill. [email or web address] Blood specimen (specimen) 01/16/2020 4:41 PM EDT 01/16/2020 4:51 PM EDT Narrative Resulting Agency Comment Spec In Lab Farzaneh Knowles MD CHEMISTRY ORDERABLES [facility] [place] [address] from Last 3 Months or Most Recently Relevant to Health Maintenance Advance Directives * Attempt Cardiopulmonary Resuscitation - Inpatient (Latest Code Status on File) Date Activated Date Inactivated Comments 06/29/2021 9:41 AM 06/29/2021 12:17 PM Question Answer Comments Code Status decision made by: Patient Care Teams Clockmaker Apprentice Relationship Specialty Start Date End Date Sumaya Saldivar APRN [address] [place] [address] PCP - General Family Medicine 08/02/19
--- OUTSIDE RECORDS SUMMARY | 2024-02-07 10:29 | XMS_ITS | Continuity of Care Document ---
Author Organization [facility] Address [address] [place] [address] Assessment No assessment recorded. Plan of Treatment Reminders Order Date Submit Date Provider Last Modified By Organization Details Last Modified Time Details Appointments Office Visit 2023 08:30A M Not available Not available Not available Nurse Visit 2023 10:30A M Not available Not available Not available Follow Up 2023 08:30A M Not available Not available Not available Follow Up 2024 08:30A M Not available Not available Not available Lab None recorded. Referral physical therapist referral 2023 024 TEAGAN Delgado PT, [address], [place], [address], 01/23/2024 14:15:25 Procedures None recorded. Surgeries None recorded. Imaging None recorded. Medication Orders None recorded. Patient TargetsNo targets recorded. Patient Instructions Encounter Date Encounter Id Patient Instructions Last Modified By Organization Details Last Modified Time 01/23/2024 [id number] learning about healthy weight [email or web address] Not available 01/23/2024 16:21:15 Reason for Referral ENT Surgery Referral for Ski n lesion Referring Physician: Sumaya Tijerina Family Medicine, Encounter Date: 07/20/2023 Physical Therapist Referral for Neck pain Referring Physician: Jeffery Faust [facility], Encounter Date: 01/23/2024 [employer] Boat [employer] Referral for Cirrhosis of liver Referring Physician: Sumaya Tijerina Family Medicine, Encounter Date: 02/07/2024 Results Created Date Observation Date Name Description Value Unit Range Abnormal Flag Note LastModifiedBy Organization Detail LastModifiedTime 01/30/20 24 03/18/2023 imagi ng/di agnos tic resul t No observ ation record ed. Not Available 01/29 18:49:16 01/30/20 24 05/30/2019 MAMMyvette Brown No observ ation record ed. Not Available 01/29 18:49:39 01/30/20 24 06/24/2020 MAMMO yvette No observ ation record ed. Not Available 01/29 18:49:40 01/30/20 24 06/25/2021 MAMMO yvette No observ ation record ed. Not Available 01/29 18:49:41 01/30/20 24 05/26/2018 MAMMO yvette No observ ation record ed. Not Available 01/29 18:49:42 01/30/20 24 01/26/2021 US, abdom en No observ ation record ed. Not Available 01/29 18:49:43 01/30/2007/27/2019 imagi ng/di agnos tic resul t No observ ation record ed. Not Available 01/29 18:49:47 01/30/20 24 12/24/2022 imagi ng/di agnos tic resul t No observ ation record ed. Not Available 01/29 18:49:50 01/30/20 24 03/26/2022 imagi ng/di agnos tic resul t No observ ation record ed. Not Available 01/29 18:49:51 01/30/20 24 03/26/2022 imagi ng/di agnos tic resul t No observ ation record ed. Not Available 01/29 18:49:52 01/30/20 24 09/28/2022 imagi ng/di agnos tic resul t No observ ation record ed. Not Available 01/29 18:49:53 01/30/20 24 03/19/2023 imagi ng/di agnos tic resul t No observ ation record ed. Not Available 01/29 18:49:54 01/30/20 24 12/24/2022 imagi ng/di agnos tic resul t No observ ation record ed. Not Available 01/29 18:49:55 01/30/20 24 02/04/2021 imagi ng/di agnos tic resul t No observ ation record ed. Not Available 01/29 18:50:07 01/30/20 24 09/13/2020 imagi ng/di agnos tic resul t No observ ation record ed. Not Available 01/29 18:50:43 01/30/20 24 09/13/2020 imagi ng/di agnos tic resul t No observ ation record ed. Not Available 01/29 18:50:44 01/30/20 24 07/26/2019 imagi ng/di agnos tic resul t No observ ation record ed. Not Available 01/29 18:50:45 01/30/20 24 03/18/2023 imagi ng/di agnos tic resul t No observ ation record ed. Not Available 01/29 18:50:54 01/30/20 24 09/26/2022 imagi ng/di agnos tic resul t No observ ation record ed. Not Available 01/29 18:50:55 01/30/20 24 09/26/2022 imagi ng/di agnos tic resul t No observ ation record ed. Not Available 01/29 18:50:56 01/30/20 24 09/26/2022 imagi ng/di agnos tic resul t No observ ation record ed. Not Available 01/29 18:50:57 01/30/20 24 09/26/2022 imagi ng/di agnos tic resul t No observ ation record ed. Not Available 01/29 18:50:58 01/30/20 24 08/01/2019 US, renal No observ ation record ed. Not Available 01/29 18:51:05 01/30/20 24 09/13/2020 imagi ng/di agnos tic resul t No observ ation record ed. Not Available 01/29 18:51:06 01/30/20 24 09/13/2020 XR, wrist No observ ation record ed. Not Available 01/29 18:51:07 01/30/20 24 05/28/2020 XR, cervi ihsan spine No observ ation record ed. Not Available 01/29 18:51:08 01/30/20 24 02/29/2020 XR, foot No observ ation record ed. Not Available 01/29 18:51:09 01/30/20 24 05/28/2020 imagi ng/di agnos tic resul t No observ ation record ed. Not Available 01/29 18:51:10 01/30/20 24 02/29/2020 US, abdom inal aorta No observ ation record ed. Not Available 01/29 18:51:11 01/30/20 24 01/26/2021 US, abdom inal aorta No observ ation record ed. Not Available 01/29 18:51:13 01/30/20 24 10/08/2022 imagi ng/di agnos tic resul t No observ ation record ed. Not Available 01/29 18:51:14 01/30/20 24 09/26/2022 imagi ng/di agnos tic resul t No observ ation record ed. Not Available 01/29 18:51:15 01/30/20 24 09/26/2022 imagi ng/di agnos tic resul t No observ ation record ed. Not Available 01/29 18:51:16 01/30/20 24 09/26/2022 imagi ng/di agnos tic resul t No observ ation record ed. Not Available 01/29 18:51:17 01/30/20 24 09/26/2022 imagi ng/di agnos tic resul t No observ ation record ed. Not Available 01/29 18:51:18 01/30/20 24 11/05/2022 imagi ng/di agnos tic resul t No observ ation record ed. Not Available 01/29 18:51:19 01/30/20 24 12/20/2022 imagi ng/di agnos tic resul t No observ ation record ed. Not Available 01/29 18:51:20 Result Notes None recorded. Problems Name Problem SNOMED Code Status Onset Date Resolution Date Notes Provider Name and Address Organization Details Recorded Time Pain in thoracic spine 306172905 Active 200305/15/20 18 - Comments only - Sumaya Tijerina APRN - overall improved . encour ed rest, ice, heat, exercise / movement . Problem Code: M54.89; Problem Code Type: ICD-10; SUMAYA TIJERINA APRN [address], [place], [address] , [facility] 4 16:51:37 Hyperlip idemia 19071988 Active 201008/11/19 19 - Comments only - Steacy Suddaby - Continue Atorvast atin. Recheck CMP in April 2019. Problem Code: E78.5; Problem Code Type: ICD-10; SUMAYA TIJERINA APRN [address], [place], [address] , [facility] 4 16:51:37 Sams' s esophagu s 713301470 Active 201208/11/19 19 - Comments only - Steacy Suddaby - stable. Having breakthr ough heartbur n rarely and only with spicy foods. Continue Pantopra zole. B12 and Mag stable last checked in April , recheck April 2019. Problem Code: K22.70; Problem Code Type: ICD-10; [address], [place], [address] , [facility] 4 16:51:37 Type 2 diabetes mellitus without complica tion 521369593 Active 201308/11/19 19 - Comments only - Lamberto Gutiérrez - Stable. A1C 6.6 today. Continue with diet and exercise manageme nt. UTD on monofila ment, foot exam and eye exam. Continue lisinopr il. Continue to monitor. Problem Code: E11.9; Problem Code Type: ICD-10; [address], [place], [address] , [facility] 4 16:51:37 Urinary tract infectio us disease 81708735 Active 201408/11/19 19 - Comments only - Lamberto Clearyby - Stable. No sx at this time. Continue Macrobid PRN after intercou rse. 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 Reviewed good skin care until fully healed. 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 Benign tumor. Follow-u p ENT as directed . Problem Code: D11.9; Problem Code Type: ICD-10; [address], [place], [address] , [facility] 4 16:51:37 Adult health examinat ion Active 201608/11/19 19 - Comments only - Lamberto Shahdebbi - Shingrix #2 given today. Problem Code: Z00.00; Problem Code Type: ICD-10; [address], [place], [address] , [facility] 4 16:51:37 Insomnia 659402080 Active 201608/11/19 19 - Comments only - Lamberto Gutiérrez - improved . Sleeping well and waking feeling well rested. [facility] ed good sleep habits includin g 7-9hrs of sleep a night. Problem Code: G47.00; Problem Code Type: ICD-10; [address], [place], [address] , [facility] 4 16:51:37 Venous varices 977319169 Active 201605/31/19 17 - Comments only - Sumaya Tijerina APRN - [facility] ed compress ions daily. Problem Code: I86.8; Problem Code Type: ICD-10; [address], [place], [address] , [facility] 4 16:51:37 Congenit al facial asymmetr y 60679360018 109 Active 201605/31/19 17 - Comments only - Sumaya Tijerina APRN - most likely nerve damage from surgery. Rest, ice, heat as desires. Consider medicati on manageme nt if continue s and desires. 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 Prescrib ed doxycycl ine 100 mg bid x 7 days. Also advised nasal saline rinses, and acetamin ophen or ibuprofe n for headache . Pt will f/u for new/wors ening sx or lack of improvem ent. The patient verbaliz ed understa nding and agreemen t to this care plan. Problem Code: J01.90; Problem Code Type: ICD-10; Not Available [facility] 3 05:51:42 Hypertro phic conditio n of skin 38499709 Completed 201611/11/2016 11/05/19 17 - Comments only - Sumaya Tijerina APRN - Skin tag removal performe d and was successf ul. Tolerate d well by patient. Counsele d on risk of infectio n. Will monitor and call if any symptoms . Problem Code: L91.8; Problem Code Type: ICD-10; Not Available [facility] 3 05:51:42 Lump in upper inner quadrant of left breast 43533179425 4100 Active 201605/15/20 18 - Comments only - Sumaya Tijerina UNIVERSITY ARCHIVIST - resolved . Problem Code: N63.22; Problem Code Type: ICD-10; SUMAYA TIJERINA APRN [address], [place], [address] , [facility] 4 16:51:37 Anxiety 04707287 Active 201708/11/19 19 - Comments only - Lamberto Gutiérrez - stable despite increase d stressor s. Using coping skills such as exercise to deal with anxiety and mood swings. Continue Fluoxeti ne Problem Code: F41.8; Problem Code Type: ICD-10; [address], [place], [address] , [facility] 4 16:51:37 Screenin g mammogra phy Active 2017 Problem Code: Z12.31; Problem Code Type: ICD-10; [address], [facility] [address] , [facility] 4 16:51:37 Hypertro phic conditio n of skin 29207177 Completed 201808/17/2018 08/11/19 19 - Comments only - Lamberto Gutiérrez - Removed. Watch for signs of infectio n or bleeding . Problem Code: L91.8; Problem Code Type: ICD-10; Not Available [facility] 3 05:51:42 Abdomina l aortic aneurysm 520054456 Active [address], [place], [address] , [facility] 4 16:51:37 Cirrhosi s of liver 06158382 Active 2019 Problem Code: K74.60; Problem Code Type: ICD-[place]; [address], [place], [address] , [facility] 4 16:51:37 Hydronep hrosis 58839721 Active 2019 Problem Code: N13.30; Problem Code Type: ICD-[place]; [address], [facility] [address] , [facility] 4 16:51:37 Neck pain 28910873 Active 2020 Problem Code: M54.2; Problem Code Type: ICD-[place]; [address], [facility] [address] , [facility] 4 16:51:37 Viral disease 40201417 Completed 202011/26/2020 Problem Code: B97.89; Problem Code Type: ICD-10; Not Available [facility] 3 05:51:43 Headache disorder 202677288 Active 2020 Problem Code: G44.89; Problem Code Type: ICD-10; [address], [facility] [address] , [facility] 4 16:51:37 Heart murmur 40939469 Active 2020 Problem Code: R01.1; Problem Code Type: ICD-10; [address], [facility] [address] , [facility] 4 16:51:37 Aneurysm of iliac artery 19873183 Active 2020 Problem Code: I72.3; Problem Code Type: ICD-10; [address], [place], [address] , [facility] 4 16:51:37 Ectasia of thoracic aorta 07606002155 9108 Active 2020 Problem Code: I77.810; Problem Code Type: ICD-10; [address], [facility] [address] , [facility] 4 16:51:37 Disorder of salivary gland 23184241 Completed 201505/20/2016 Problem Code: K11.8; Problem Code Type: ICD-10; Not Available [facility] 3 05:51:47 Pain in right foot 55692792471 9107 Completed 201911/22/2022 Problem Code: M79.671; Problem Code Type: ICD-10; Not Available [facility] 3 05:51:48 Fatigue 61192627 Completed 202002/09/2023 Problem Code: R53.83; Problem Code Type: ICD-10; Not Available [facility] 3 05:51:48 Disorder of skin and/or subcutan eous tissue 25064965 Completed 201705/15/2018 Problem Code: L98.9; Problem Code Type: ICD-10; Not Available [facility] 3 05:51:48 Urgent desire to urinate 60003215 Completed 201901/01/2021 Problem Code: R39.15; Problem Code Type: ICD-10; Not Available [facility] 3 05:51:49 Backache 437776992 Completed 200302/09/2023 Not Available [facility] 3 05:51:49 Pain of left wrist 56980378666 9102 Completed 202005/03/2022 Problem Code: M25.532; Problem Code Type: ICD-10; Not Available [facility] 3 05:51:50 Localize d enlarged lymph nodes 228453409 Completed 201510/31/2018 Problem Code: R59.0; Problem Code Type: ICD-10; Not Available [facility] 3 05:51:50 Recurren t urinary tract infectio n 899649049 Completed 201402/09/2023 Not Available [facility] 3 05:51:50 Pain of right eye 06703218738 9102 Completed 201705/15/2018 Problem Code: H57.11; Problem Code Type: ICD-10; Not Available [facility] 3 05:51:51 Abdomina l pain 15848474 Completed 201605/15/2018 Problem Code: R10.9; Problem Code Type: ICD-10; Not Available [facility] 3 05:51:51 Shoulder joint pain 826493132 Completed 201405/31/2016 Problem Code: M25.519; Problem Code Type: ICD-10; Not Available [facility] 3 05:51:51 Pain of right knee joint 41751837762 4100 Completed 201705/03/2022 Problem Code: M25.561; Problem Code Type: ICD-10; Not Available [facility] 3 05:51:51 Paresthe dino 33415320 Completed 201705/15/2018 Problem Code: R20.2; Problem Code Type: ICD-10; Not Available [facility] 3 05:51:52 Pain of right shoulder joint 25550428780 834865 Completed 201705/03/2022 Problem Code: M25.511; Problem Code Type: ICD-10; Not Available [facility] 3 05:51:52 Carpal tunnel syndrome of right wrist 35995805770 9108 Completed 201705/15/2018 Problem Code: G56.01; Problem Code Type: ICD-10; Not Available [facility] 3 05:51:52 Exposure to communic able disease Completed 202106/22/2021 Problem Code: Z20.9; Problem Code Type: ICD-10; Not Available [facility] 3 05:51:53 Joint pain 19470118 Completed 202006/22/2021 Problem Code: M25.50; Problem Code Type: ICD-10; Not Available [facility] 3 05:51:53 Lateral epicondy litis of right humerus 81060539515 9107 Completed 201505/31/2016 Problem Code: M77.11; Problem Code Type: ICD-10; Not Available [facility] 3 05:51:53 Increase d frequenc y of urinatio n 433217871 Completed 201901/01/2021 Problem Code: R35.0; Problem Code Type: ICD-10; Not Available [facility] 3 05:51:53 Lymphade nopathy 99013943 Completed 202006/22/2021 Problem Code: R59.9; Problem Code Type: ICD-10; Not Available [facility] 3 05:51:54 Generali zed hyperhid rosis 001829533 Completed 201906/22/2021 Problem Code: R61; Problem Code Type: ICD-10; Not Available [facility] 3 05:51:54 Nodule on toe 189590288 Completed 201705/15/2018 Not Available [facility] 3 05:51:55 Dysphoni a 55913873 Completed 201605/15/2018 Problem Code: R49.0; Problem Code Type: ICD-10; Not Available [facility] 3 05:51:55 Muscle pain 84560178 Completed 202005/03/2022 Problem Code: M79.10; Problem Code Type: ICD-10; Not Available [facility] 3 05:51:55 Diarrhea 93419076 Completed 201605/15/2018 Problem Code: R19.7; Problem Code Type: ICD-10; Not Available [facility] 3 05:51:56 Muscle pain 86736754 Completed 202006/22/2021 Problem Code: M79.10; Problem Code Type: ICD-10; Not Available [facility] 3 05:51:56 Elevated blood-pr essure reading without diagnosi s of hyperten vanessa 533872983 Completed 201608/10/2018 Problem Code: R03.0; Problem Code Type: ICD-10; Not Available [facility] 3 05:51:57 Pain of left knee joint 97221049448 4107 Completed 201605/03/2022 Problem Code: M25.562; Problem Code Type: ICD-10; Not Available [facility] 3 05:51:57 Pre-surg ramiro evaluati on Completed 202105/03/2022 Problem Code: Z01.818; Problem Code Type: ICD-10; Not Available [facility] 3 05:51:57 Disorder of skin and/or subcutan eous tissue 22747216 Active 2022 Problem Code: L98.9; Problem Code Type: ICD-10; Not Available [facility] 4 05:37:32 Disorder of eyelid 42721584 Active 2023 SUMAYA TIJERINA APRN [address], [place], [address] , [facility] 4 08:50:26 Mateusz mendez 73772837 Active 2023 SUMAYA TIJERINA APRN [address], [place], [address] , [facility] 4 08:56:04 Problem Notes None recorded. Procedures Surgical History Date Name Laterality Status Provider Name and Address Organization Details Recorded Time 06/25/19 22 Date of Last Mammogram completed [facility] 06/06/2023 16:24:21 11/05/19 17 Hysterectomy completed [facility] 05/24/2023 09:57:28 Imaging Results None recorded. Procedure Notes None recorded. Medical Equipment None Reported. Allergies Allergen ID Allergen Name Allergen Category Reaction Reaction Severity Criticality Documentation Date Start Date Code Code System Note Provider Name and Address Organization Details Recorded Time 85051 Medicinal product containin g penicilli n and acting as antibacte rial agent (product) medicatio n rash mild Not available 03/25/20232013 86381 05 SNSOURAV [facility] 4 13:13:31 Medications Name Sig Start Date Stop Date Status Note LastModified by Organization Details LastModified Time Prescript ion - Renewal 02/06 completed FLUOXETI NE HCL 20 MG CAPSULE Not Available Not Available Not Available Zocor 20 mg tablet 1 TAB QHS 06/08 completed Not Available Not Available Not Available Naprosyn 250 mg tablet take 1 tab twice daily. 05/31 completed Not Available Not Available Not Available atorvasta tin 40 mg tablet TAKE ONE TABLET BY MOUTH EVERY DAY active Not Available Not Available No t Available atorvasta tin 20 mg tablet 1 tab daily 11/23 completed Not Available Not Available Not Available hydrocodo ne 5 mg-acetam inophen 325 mg tablet TAKE ONE TABLET BY MOUTH EVERY 6 HOURS NEEDED FOR SEVERE POST OPERATIV E PAIN 05/26 completed Not Available Not Available Not Available Claritin 10 mg tablet 1 tab daily 09/07 completed Not Available Not Available Not Available ibuprofen 200 mg capsule prn 2016 active Not Available Not Available Not Avai lable fluoxetin e 10 mg tablet 1 qd 01/01 completed Not Available Not Available Not Available Pyridium 100 mg tablet 1 -2 tabs tid prn 09/10 completed Not Available Not Available Not Available Pyridium 200 mg tablet 1 TAB three times daily 06/11 completed Not Available Not Available Not Available Diflucan 150 mg tablet Take 1 tablet today , if unsolves sxs in 7 days may repeat times 1 08/19 completed Not Available Not Available Not Available penicilli n V potassium 500 mg tablet 1TAB bid 09/27 completed Not Available Not Available Not Available melatonin 3 mg tablet Take 1-2 tab by mouth at bedtime as needed 03/15 completed Not Available Not Available Not Available amoxicill in 500 mg tablet 1 CAP three times daily 09/25 completed Not Available Not Available Not Available pantopraz ole 20 mg tablet,de layed release TAKE 1 TABLET BY MOUTH ONCE DAILY 09/10 completed Not Available Not Available Not Available Aleve 220 mg tablet 1 tab prn 10/28 completed Not Available Not Available Not Available OneTouch Ultra Test strips Use 1 strip via meter once a day active Not Available Not Available No t Available Tylenol 500 mg tablet Take 1-2 tab by mouth every 6 hours as needed 2017 active Not Available Not Available Not Avai lable fluoxetin e 20 mg tablet 1 qd 06/08 completed Not Available Not Available Not Available Cipro 500 mg tablet 1 TAB BID 11/12 completed Not Available Not Available Not Available nitrofura ntoin macrocrys dorcas 100 mg capsule Take 1 capsule by mouth after intercou rse active Not Available Not Available No t Available lisinopri l 10 mg tablet Take 1 tablet every day by oral route. active Not Available Not Available No t Available Robitussi n A-C 10 mg-100 mg/5 mL oral syrup 1-2 tsps Q6H 10/05 completed Not Available Not Available Not Available fluoxetin e 10 mg capsule Take 1 tab by mouth daily 08/19 completed Not Available Not Available Not Available aspirin 81 mg tablet 1 tab daily 2013 active Not Available Not Available Not Avai lable lisinopri l 5 mg tablet TAKE ONE TABLET BY MOUTH EVERY DAY active Not Available Not Available No t Available Aspir-81 mg tablet,de layed release Take 1 tab by mouth daily 2013 active Not Available Not Available Not Avai lable ibuprofen 600 mg tablet TAKE ONE TABLET BY MOUTH THREE TIMES A DAY NEEDED FOR PAIN 02/06 completed Not Available Not Available Not Available Septra DS 800 mg-160 mg tablet 1 TAB BID 07/09 completed Not Available Not Available Not Available fluoxetin e 20 mg capsule TAKE 1 CAPSULE BY MOUTH DAILY 08/19 completed Not Available Not Available Not Available fluticaso ne propionat e 50 mcg/actua tion nasal spray,irene pension 1 spray each nostril daily 06/28 completed Not Available Not Available Not Available doxycycli ne hyclate 100 mg tablet Take 1 tab by mouth twice daily 07/26 completed Not Available Not Available Not Available naproxen 500 mg tablet 1 TAB twice daily 08/24 completed Not Available Not Available Not Available Tylenol Extra Strength 500 mg tablet Take 1-2 tablet by mouth every six hours as needed 2017 active Not Available Not Available Not Avai lable Augmentin 875 mg tablet 1 TAB twice daily 10/04 completed Not Available Not Available Not Available Augmentin 500 mg tablet 1 TAB twice daily 06/24 completed Not Available Not Available Not Available Bactrim DS 800 mg-160 mg tablet Take 1 tab by mouth twice daily 04/10 completed Not Available Not Available Not Available Vitamin D3 25 mcg (1,000 unit) tablet 1 daily 11/18 completed Not Available Not Available Not Available nitrofura ntoin monohydra te/macroc rystals 100 mg capsule TAKE 1 CAPSULE BY MOUTH DIRECTED AFTER INTERCOU RSE active Not Available Not Available No t Available Bactrim DS 1TAB twice daily 08/14 completed Not Available Not Available Not Available Multivita l 0.4 mg-162 mg-18 mg tablet 1 tab qd 2015 active Not Available Not Available Not Avai lable Multivita l 1 tablet once a day 2015 active Not Available Not Available Not Avai lable Dexilant 30 mg capsule, delayed release 1 tab daily 10/29 completed Not Available Not Available Not Available OneTouch Ultra2 Meter active Not Available Not Available Not Available OneTouch UltraSoft 2 Lancet 30 gauge Use 1 lancet to skin once a day 2022 active Not Available Not Available Not Avai lable Vitals Date Recorded Body height Body mass index (BMI) Body weight Body temperature Oxygen saturation Oxygen saturation in Arterial blood by Pulse oximetry Heart rate Systolic blood pressure Diastolic blood pressure Provider Name and Address Organization Details Last Updated DateTime 4 181.61 cm 27.9 kg/m2 84274.2 5 g 98 [degF] 97 % 97 % 78 /min 120 mm[Hg] 84 mm[Hg] EKTA KRAMER MA [facility] 13:29:31 Social History Question Answer Notes LastModified by Organizat ion Details LastModified Time Tobacco Smoking Status Former Smoker CUONG ABRAMS CMA null, [facility] 05/26/2023 09:20:52 When Did You Quit Smoking? 17+yearssinc elastcigaret te Information not available 05/26/2023 What Was The Date Of Your Most Recent Tobacco Screening? 05/26/2023 Information not available 05/26/2023 How Much Tobacco Do You Smoke? 1 PPW Information not available 05/26/2023 Do You Or Have You Ever Used Any Other Forms Of Tobacco Or Nicotine? No Information not available 05/26/2023 Sex: Female Functional Status None recorded. Mental Status None recorded. Family History Relationship Description Onset Age of this Age Resolved Age Notes LastModified by Organization Details LastModified Time Mother Family history of Hypercholest erolemia [email or web address] Not available 2022 03:57:17 Mother Family history of Hypertension [email or web address] Not available 02/2023 03:57:17 Paternal Grandmother Family history of breast cancer 1 gene mutation [email or web address] Not available 2022 03:57:17 Notes:*Problem: Mother-decea sed from cerebral aneurysm age 42. HTN and HLD Father- - Diabetes, colon cancer, ETOH Brothers- 3 half brothers- varicose veins with removal. Vimal has degeneration of spine. Children- 3- Michelle has eczema and psoriasis. HTN: Yes. HLD: Yes. CAD: Yes, MGF, maternal uncle. DM: yes. Breast CA, ?PGM. Colon CA: yes, father. Prostate CA: No. Uterine/ Ovarian CA: no ETOH: Yes. Mental Illness: children depression/anxiety. Other: Cerebral aneurysm MGM. Medical History No medical history recorded. Gynecological History Statement/Question Response Date of Last Mammogram 06/25/2021 Obstetrics History GPAL:G 0 P 0 0 0 0 Immunizations Vaccine Type Date Status Provider Name and Address Organization Details Recorded Time Td (adult), 5 Lf tetanus toxoid, preservative free, adsorbed 05/31/2016 completed Not Available [facility] 03/25/2023 04:05:11 Tdap 12/16/2006 completed Not Available [facility] 04:05:11 Influenza, split virus, trivalent, preservative 05/31/2016 completed Not Available [facility] 03/25/2023 04:05:12 Influenza, split virus, quadrivalent, PF 01/28/2020 completed Not Available [facility] 03/25/2023 04:05:12 Influenza, split virus, quadrivalent, PF 03/21/2019 completed Not Available [facility] 03/25/2023 04:05:13 Influenza, split virus, quadrivalent, PF 04/07/2021 completed Not Available [facility] 03/25/2023 04:05:13 Influenza, split virus, quadrivalent, PF 05/03/2022 completed Not Available [facility] 03/25/2023 04:05:13 Influenza, split virus, quadrivalent, preservative 05/15/2018 completed Not Available [facility] 03/25/2023 04:05:15 zoster recombinant 08/10/2018 completed Not Available [facility] 03/25/2023 04:05:16 zoster recombinant 11/28/2017 completed Not Available [facility] 03/25/2023 04:05:16 COVID-19, mRNA, LNP-S, PF, 100 mcg/0.5mL dose or 50 mcg/0.25mL dose 04/07/2021 completed Not Available [facility] 03/25/2023 04:05:17 COVID-19 vaccine, vector-nr, rS-Ad26, PF, 0.5 mL 08/14/2020 completed Not Available [facility] 03/25/2023 04:05:18 COVID-19, mRNA, LNP-S, bivalent, PF, 30 mcg/0.3 mL dose 03/16/2022 completed Not Available [facility] 03/25/20 04:05:18 pneumococcal polysaccharide PPV23 05/31/2016 completed Not Available [facility] 2022 04:05:19 influenza, unspecified formulation 03/21/2019 completed Not Available [facility] 03/25/2023 04:05:20 COVID-19, mRNA, LNP-S, PF, nori-sucrose, 30 mcg/0.3 mL 02/07/2024 completed CUONG ABRAMS OB/GYN NURSE null, [facility]. 02/07/2024 09:51:36 Influenza, split virus, trivalent, PF 02/07/2024 completed CUONG ABRAMS OB/GYN NURSE null, [facility] 02/07/2024 09:51:36 COVID-19, mRNA, LNP-S, PF, 30 mcg/0.3 mL dose 02/22/2023 completed CUONG ABRAMS OB/GYN NURSE null, [facility]. 05/24/2023 09:59:06 Influenza, split virus, quadrivalent, PF 02/22/2023 completed CUONG ABRAMS OB/GYN NURSE null, [facility] 05/24/2023 09:59:28 COVID-19, mRNA, LNP-S, PF, nori-sucrose, 30 mcg/0.3 mL 02/22/2023 completed Not Available [facility] 05/27/2023 05:33:05 Past Encounters Encounter ID Performer Location Encounter Start Date Encounter Closed Date Diagnosis/Indication Diagnosis SNOMED-CT Code Diagnosis ICD10 Code [id number] JEFFERY FAUST MD [facility] [address] [place] [address] 01/23/2024 13:16:15 01/23/2024 13:52:06 Type 2 diabetes mellitus without complication 709002236 E11.9 Neck pain 87799575 M54.2 Body mass index 25-29 - overweight 457349634 Z68.27 Health Concerns Section Related Observation LastModified by Organization Detai ls LastModified Time None Recorded Concern Status LastModified by Organization Details LastModified Time None Recorded Payers Encounter Date Sequence Insurance Name Policy Number Policy Fiore Covered Member ID Fiore Member ID Guarantor Name 01/23/2024 1 [facility] [place] [id number] Lakeshia Tim [id number] Lakeshia Tim Notes Date Note Type Note Provider Name and Address Organization Details Recorded Time 01/23/2024 text/html HPI Notes: Patie nt in with some complaints of some left upper neck/occipital discomfort. Is been there for a week or 2. Is tender when she turns her head extends or flexes. Tender to touch she saw a chiropractor for it which did not seem to really help much. She can think of no recent trauma or injuries, no illnesses. She has had no global headaches, no visual symptoms. No fevers chills other arthralgias or myalgias. She states there is some family history of some kind of intracranial aneurysms which has are a bit concerned, she also realizes that if she can touch and hurts it is likely not that causing it. MD Y[address], [place], [address], [facility]. 01/24/2024 10:40:18 OBGyn Episode No OBEpisode recorded.
--- OUTSIDE RECORDS SUMMARY | 2024-02-07 10:29 | XMS_ITS | Encounter Summary ---
[place] [address] Care Team Providers Care Chemical Machine Tender Name Role Phone Sumaya Saldivar APRN Primary Care Provider [phone] Encounter Details Date Type Department Care Team (Late st Contact Info) Description 02/18/2023 8:00 AM EDT Tech [place] [id number] Sylvia Cooper Ectatic abdominal aorta Social History Tobacco Use [...] Associated Diagnosis Comments AAA DUPLEX COMPLETE Routine 02/18/2023 8 :08 AM EDT Ectatic abdominal aorta documented in this encounter Results * AAA Duplex, Complete/Bilateral (02/18/2023 8:08 AM EDT) VB Text Report Department: Vascular Surgery Lab Patient: [id number] (LAKESHIA GUZMAN) CPT: 43392 Referring Physician: JOSEE SAVAGE APRN ?? Indications: AAA ? Size Findings: Unilateral ? PSV (cm/s) ??EDV (cm/s) ??Diam AP (cm) ??Diam Lateral (cm) ?? Angie Renal Aorta ? 84 ?19 ? 2.4 ?2.4 ?? Infra Renal Aorta ?55 ? 0 ? 1.8 ?1.8 ?? Distal Aorta ? 99 ?15 ? 3.0 ?3.0 ?? Interpretation: Patent abdominal aorta with the infra-renal aorta at the threshold for aneurysm measuring 3.0 x 3.0 cm (previously 3.0 x 3.0 cm). Bilateral common iliac arteries were not visualized due to obstruction by overlying bowel gas. Comparison: No significant change compared to previous exam on 02/16/22. Previous AAAs with change from previous value: Date ? DIAM AP ?DIAM LAT ? 3.00 ? 3.00 Current Exam ?? 3.00 ( 0.00) ?? 3.00 ( 0.00) Electronically Signed by: ANSHUL ROBLES on 2023-02-18 01:30:58 PM VASCU[facility] VB Text Report End of Report [facility] 02/18/2023 8:08 AM EDT Josee Savage APRN VASCULAR ORDERABLE S [facility] documented in this encounter Visit Diagnoses Diagnosis Ectatic abdominal aorta Abdominal aortic ectasia documented in this encounter Care Teams Chemical Machine Tender Relationship Specialty Start Date End Date Sumaya Saldivar APRN [address] [place] [address] PCP - General Family Medicine 08/02/19 documented as of this encounter
--- OUTSIDE RECORDS SUMMARY | 2024-02-07 10:29 | XMS_ITS | Encounter Summary ---
Author Organization [facility] [place] [address] Care Team Providers Care Operations Agent Name Role Phone Brian Saldivaryn Sweetie CHATMAN Primary Care Provider [phone] Encounter Details Date Type Department Care Team (Late st Contact Info) Description 12/30/2021 11:00 AM EDT Office [place] [address] Khanh Salas MD [facility] [place] [address] Surgery follow-up; Macromastia Social History Tobacco Use Types Packs/Day Years [...] on file documented as of this encounter Progress Notes * Khanh Salas MD - 12/30/2021 11:00 AM EDT Plastic Surgery Follow Up Note Provider: Khanh Salas MD Reason for Visit: fuv 6mths s/p BBR Date of surgery: 06/29/21 Procedure(s): Bilateral breast reduction (Josue) Complications: None reported HPI: Patient is accompanied for today's visit by her . She reports that she has no pain and is doing well. She reports that her posture has improved, and her back pain has resolved. She is very happy with the results of her surgery and reports that it was the easiest thing I've ever done. She is having a mammogram in May. Physical Examination: General: Alert, comfortable, conversant, ambulating Breasts: Excellent symmetry and good perfusion of NAC's bilaterally. Incisions healing well. No evidence of infection, seroma or hematoma. No masses Impression: Lakeshia Tim is a 56 y.o. female s/p bilateral breast reduction. She has an excellent result and is healing well at this time. She does not need to follow up at this point in time.She was instructed to call with any questions or concerns that may arise. All questions were answered for the patient and today. Photos obtained with informed, signed consent. Plan: Follow up: YUNIER Robertson, Ileana Pro, have performed the documentation for this encounter in the presence of and acting as a scribe for KHANH SALAS MD. documented in this encounter Plan of Treatment Not on file documented as of this encounter Visit Diagnoses Diagnosis Surgery follow-up Follow-up examination, following unspecified surgery Macromastia Hypertrophy of breast documented in this encounter Care Teams Operations Agent Relationship Specialty Start Date End Date Sumaya Saldivar APRN [address] [place] [address] PCP - General Family Medicine 08/02/19 documented as of this encounter
--- OUTSIDE RECORDS SUMMARY | 2024-02-07 10:29 | XMS_ITS | Data Portability ---
Author Organization [facility] Address [address] [place] [address] Assessment Encounter Date Assessment Date Assessment LastModified by Organization Details LastModified Time 05/26/2023 05/26/2023 Flu vaccine: current Comirnaty: current Td: current PCV20: she will think about Shingrix: completed RSV: n/a Pap/ HPV: exempt, s/p hys Mammogram: order CRC: current DEXA: n/a nia Not available 05/26/2023 09:35:56 Plan of Treatment Reminders Order Date Submit Date Provider Last Modified By Organization Details Last Modified Time Details Appointments Office Visit 30 2023 08:30A M Not available Not available Not available Nurse Visit 30 2023 10:30A M Not available Not available Not available Follow Up 30 2023 08:30A M Not available Not available Not available Follow Up 30 2024 08:30A M Not available Not available Not available Lab hemoglobi n A1C, fingersti ck [email or web address] [place] [address], [address] [place] [address], [address], 05/26/2023 10:04:01 Referral physical therapist referral 2023 024 TEAGAN Delgado PT, [address], [place], [address], 01/23/2024 14:15:25 Procedures None recorded. Surgeries None recorded. Imaging US, liver - Due June 162023 024 [facility] (Radiology), [address] [facility] [place], [address], 08/19/2023 12:24:49 Medication Orders None recorded. Patient TargetsNo targets recorded. Patient Instructions Encounter Date Encounter Id Patient Instructions Last Modified By Organization Details Last Modified Time 01/23/2024 [id number] learning about healthy weight [email or web address] Not available 01/23/2024 16:21:15 Reason for Referral ENT Surgery Referral for Ski n lesion Referring Physician: Sumaya Tijerina Family [facility], Encounter Date: 07/20/2023 Physical Therapist Referral for Neck pain Referring Physician: Jeffery Faust [facility], Encounter Date: 01/23/2024 Diagrammer And Seamer Referral for Cirrhosis of liver Referring Physician: Sumaya Tijerina [facility], Encounter Date: 02/07/2024 Results Created Date Observation Date Name Description Value Unit Range Abnormal Flag Note LastModifiedBy Organization Detail LastModifiedTime 05/26/19 24 05/26/2023 hemog lobin A1C, finge rstic k HGBA1C 6.5 % <5.7 Not Available [address], [address], 05/26/2023 09:48:02 02/07/20 24 02/07/2024 hemog lobin A1C, finge rstic k hemoglobin A1C 6.6 % <5.7 Not Available [address], [address], 02/07/2024 08:35:28 07/25/19 24 07/25/2023 US, liver Patien t Name: Lakeshia Smart Unit #: [id number] Loc: DI Orderi ng Provid er: Madyson Stone Accoun t #: [id number] Status : REG CLI Primar y Care Provid er: Madyson Stone Date of Exam: 04/08 Sex: F Admiss ion Date: : 1965 Age: 58 Exam(s ) US ABDOME N LIMITE D EXAM: US ABDOME N LIMITE D CLINIC AL HISTOR Y: CIRRHO SIS OF LIVER K74.60 TECHNI QUE: Ultras ound abdome n perfor med using standa rd protoc ol. COMPAR VALDEZ: US US ABDOME N LIMITE D from [address] ABDOME N PELVIS CTA from 2022 FINDIN GS: PANCRE : Normal where visual ized. LIVER: Normal . Hepato petal flow in the Portal Vein. The liver measur es in 19.6 cm length . No eviden ce of a hepati c mass. There is again seen a cyst which is unchan ged in the left lobe of the liver. GALLBL ADDER: No eviden ce of cholel ithias is. No eviden ce of wall thicke celeste. No perich olecys tic fluid identi fied. BILIAR Y SYSTEM : Common bile duct measur es < 7 mm. No intrah epatic biliar y ductal dilati on. FITZGERALD 'S SIGN: Negati ve. RIGHT KIDNEY : Kidney is normal in size. No eviden ce of renal calcul i. No eviden ce of hydron ephros is. No renal mass or cyst identi fied. ASCITE S: None seen. IMPRES CHAIM: 1. Mildly enlarg ed liver. 2. No eviden ce of a suspic ious hepati c mass sonogr aphica lly. 3. Stable hepati c cyst. DATA REPOSI TORY: Ordermanuel d By: Madyson Stone CC: ------ ------ ------ ------ ------ ------ ------ ------ ------ ------ ------ ------ - Dictat ed By: Davi David M.D. 900 Transc ribed By: Davi David 900 This is privil eged, confid ential inform ation intend ed only for the provid er named. Any use or distri bution by any person other than this provid er is strict ly prohib ited. If you receiv e this report in error, please notify us immedi ately at [phone] and return the origin al report to us at the addres s above. Thank- you. [email or web address] [facility] (Radiology) [address] [facility] [place], [address], 08/19/2023 12:24:49 07/25/19 24 07/25/2023 MAMMO , scree celeste, bilat eral Dk t Name: Lakeshia Smart Unit #: [id number] Loc: DI Orderi ng Provid er: Madyson Stone Accoun t #: [id number] Status : REG CLI Primar y Care Provid er: Madyson Stone Date of Exam: 04/08 Sex: F Admiss ion Date: : 1965 Age: 58 Exam(s ) MG MAMMO SCREEN ING EXAM: MG MAMMO SCREEN ING CLINIC AL HISTOR Y: SCREEN ING MAMMO Z12.31 TECHNI QUE: Bilate ral full field digita l CC and MLO mammog raphic images were obtain ed with 3D tomosy nthesi s and utiliz ing comput er aided detect ion (CAD). COMPAR VALDEZ: Availa ble for compar valdez. FINDIN GS: Since the most recent compar valdez, the patien t has underg one a bilate ral breast reduct ion. Masses /Archi tectur al Distor tion: None seen. Microc alcifi cation s: No suspic ious pleomo rphic- type are seen. Skin Thicke celeste/N ipple Retrac tion: None. IMPRES CHAIM: 1. No signif icant interv al change with no specif ic featur es of malign elise noted. 2. Unless there is more urgent need, screen ing mammog coleman is recomm ended, as per [place] [employer] Cancer Societ y guidel ann. BI-RAD S Catego ry 1 - Negati ve Breast Densit y - Catego ry C - Hetero geneou sly dense Breast densit y catego ry C or D implie s that the patien t has dense breast tissue . Dense breast tissue is very common and is not abnorm al but dense breast tissue can make it harder to find cancer on a mammog jet. Also, dense breast tissue may increa se their breast cancer risk. This inform ation about the result of the mammog jet report was provid ed to the patien t to raise their awaren ess. Use this report when you speak with the patien t about their risks for breast cancer , which includ es their family histor y. At that time, you may recomm end for more screen ing tests (Ultra sound or MRI) as they might be useful based on their risk. A negati ve radiog raphic report should not delay biopsy if a domina nt or clinic ally suspic ious mass is presen t. Up to ten percen t of cancer s are not identi fied on mammog coleman. A negati ve report may reinfo rce clinic al impres chaim. Adenos is and dense breast s may obscur e an underl nayely neopla sm. False positi ve report s averag e 6 to 10%. Patien t will receiv e a letter notify ing them of these result s. Ordere d By: Madyson Stone CC: ------ ------ ------ ------ ------ ------ ------ ------ ------ ------ ------ ------ - Dictat ed By: Davi David M.D. 904 Transc ribed By: Davi David 904 This is privil eged, confid ential inform ation intend ed only for the provid er named. Any use or distri bution by any person other than this provid er is strict ly prohib ited. If you receiv e this report in error, please notify us immrashid ramirez at [phone] and return the origin al report to us at the addres s above. Thank- you. [email or web address] [address], [place], [address] 07/26/2023 09:37:49 01/30/2003/18/2023 imagi ng/di agnos tic resul t No observ ation record ed. Not Available 01/29 18:49:16 01/30/20 24 05/30/2019 yvette BISHOP No observ ation record ed. Not Available 01/29 18:49:39 01/30/20 24 06/24/2020 MAMMyvette Brown No observ ation record ed. Not Available 01/29 18:49:40 01/30/20 24 06/25/2021 MAMMyvette Brown No observ ation record ed. Not Available 01/29 18:49:41 01/30/20 24 05/26/2018 MAMMyvette Brown No observ ation record ed. Not Available 01/29 18:49:42 01/30/20 24 01/26/2021 US, abdom en No observ ation record ed. Not Available 01/29 18:49:43 01/30/20 24 07/27/2019 imagi ng/di agnos tic resul t No observ ation record ed. Not Available 01/29 18:49:47 01/30/2012/24/2022 imagi ng/di agnos tic resul t No observ ation record ed. Not Available 01/29 18:49:50 01/30/20 24 03/26/2022 imagi ng/di agnos tic resul t No observ ation record ed. Not Available 01/29 18:49:51 01/30/2003/26/2022 imagi ng/di agnos tic resul t No [...] 01/29 18:51:07 01/30/20 24 05/28/2020 XR, cervi ihsna spine No observ ation record ed. Not [...] ed. Not Available 01/29 18:51:20 Result Notes Documentation Provider Name and Address Organization Details Recorded Time Mammo, Screening, Bilateral : Patient Name: Lakeshia Tineo Unit #: [id number] Loc: DI Ordering Provider: Sumaya Tijerina 7 Status: REG CLI Primary Care Provider: Sumaya Tijerina Date of Exam: 04/08 Sex: F Admission Date: 07/25/23 : 1965 Age: 58 Exam(s) MG MAMMO SCREENING EXAM: MG MAMMO SCREENING CLINICAL HISTORY: SCREENING MAMMO Z12.31 TECHNIQUE: Bilateral full field digital CC and MLO mammographic images were obtained with 3D tomosynthesis and utilizing computer aided detection (CAD). COMPARISON: Available for comparison. FINDINGS: Since the most recent comparison, the patient has undergone a bilateral breast reduction. Masses/Architectural Distortion: None seen. Microcalcifications: No suspicious pleomorphic-type are seen. Skin Thickening/Nipple Retraction: None. IMPRESSION: 1. No significant interval change with no specific features of malignancy noted. 2. Unless there is more urgent need, screening mammography is recommended, as per [place] [employer] guidelines. BI-RADS Category 1 - Negative Breast Density - Category C - Heterogeneously dense Breast density category C or D implies that the patient has dense breast tissue. Dense breast tissue is very common and is not abnormal but dense breast tissue can make it harder to find cancer on a mammogram. Also, dense breast tissue may increase their breast cancer risk. This information about the result of the mammogram report was provided to the patient to raise their awareness. Use this report when you speak with the patient about their risks for breast cancer, which includes their family history. At that time, you may recommend for more screening tests (Ultrasound or MRI) as they might be useful based on their risk. A negative radiographic report should not delay biopsy if a dominant or clinically suspicious mass is present. Up to ten percent of cancers are not identified on mammography. A negative report may reinforce clinical impression. Adenosis and dense breasts may obscure an underlying neoplasm. False positive reports average 6 to 10%. Patient will receive a letter notifying them of these results. Ordered By: Sumaya Tijerina CC: Dictated By: Davi David M.D. 07/25/2390407/25/23904 Transcribed By: Davi David 07/25/23904 This is privileged, confidential information intended only for the provider named. Any use or distribution by any person other than this provider is strictly prohibited. If you receive this report in error, please notify us immediately at [phone] and return the original report to us at the address above. Thank-you. RIAN PENA [facility] 07/26/2023 09:37:49 Problems Name Problem SNOMED Code Status Onset Date Resolution Date Notes Provider Name and Address Organization Details Recorded Time Pain in thoracic spine 640272938 Active 200305/15/20 18 - Comments only - Sumaya Tijerina FINANCIAL SERVICES AGENT - overall improved . encourag ed rest, ice, heat, exercise / movement . Problem Code: M54.89; Problem Code Type: ICD-10; SUMAYA TIJERINA APRN [address], [place], [address] , [facility] 16:51:37 Hyperlip idemia 47297458 Active 201008/11/19 19 - Comments only - Steacy Suddaby - Continue Atorvast atin. Recheck CMP in April 2019. Problem Code: E78.5; Problem Code Type: ICD-10; [address], [place], [address] , [facility] 4 16:51:37 Sams' s esophagu s 219476343 Active 201208/11/19 19 - Comments only - Steacy Suddaby - stable. Having breakthr ough heartbur n rarely and only with spicy foods. Continue Pantopra zole. B12 and Mag stable last checked in April , recheck April 2019. Problem Code: K22.70; Problem Code Type: ICD-10; [address], [place], [address] , [facility] 4 16:51:37 Type 2 diabetes mellitus without complica tion 670956377 Active 201308/11/19 19 - Comments only - Steacy Suddaby - Stable. A1C 6.6 today. Continue with diet and exercise manageme nt. UTD on monofila ment, foot exam and eye exam. Continue lisinopr il. Continue to monitor. Problem Code: E11.9; Problem Code Type: ICD-10; [address], [place], [address] , [facility] 4 16:51:37 Urinary tract infectio us disease 23678767 Active 201408/11/19 19 - Comments only - Steacy Suddaby - Stable. No sx at this time. Continue Macrobid PRN after intercou rse. Problem Code: N39.0; Problem Code Type: ICD-10; [address], [place], [address] , [facility] 4 16:51:37 Hypertro phic conditio n of skin 39031869 Completed 02/201507/15/2015 07/08/19 16 - Comments only - Sumaya Tijerina FINANCIAL SERVICES AGENT - Removed, declined sending to patholog y. Reviewed good skin care until fully healed. 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 Benign tumor. Follow-u p ENT as directed . Problem Code: D11.9; Problem Code Type: ICD-10; [address], [place], [address] , [facility] 4 16:51:37 Adult health examinat ion Active 201608/11/19 19 - Comments only - Lamberto Gutiérrez - Shingrix #2 given today. Problem Code: Z00.00; Problem Code Type: ICD-10; [address], [place], [address] , [facility] 4 16:51:37 Insomnia 976919768 Active 201608/11/19 19 - Comments only - Lamberto Gutiérrez - improved . Sleeping well and waking feeling well rested. [facility] ed good sleep habits includin g 7-9hrs of sleep a night. Problem Code: G47.00; Problem Code Type: ICD-10; [address], [place], [address] , [facility] 4 16:51:37 Venous varices 695500247 Active 201605/31/19 17 - Comments only - Sumaya Tijerina APRN - encourag ed compress ions daily. Problem Code: I86.8; Problem Code Type: ICD-10; SUMAYA TIJERINA APRN [address], [place], [address] , [facility] 4 16:51:37 Congenit al facial asymmetr y 49017405034 109 Active 201605/31/19 17 - Comments only - Sumaya Tijerina APRN - most likely nerve damage from surgery. Rest, ice, heat as desires. Consider medicati on manageme nt if continue s and desires. 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 Tolerate d well by patient. Counsele d on risk of infectio n. Will monitor and call if any symptoms . Problem Code: L91.8; Problem Code Type: ICD-10; Not Available [facility] 3 05:51:42 Lump in upper inner quadrant of left breast 47912165171 4100 Active 201605/15/20 18 - Comments only - Sumaya Tijerina APRN - resolved . Problem Code: N63.22; Problem Code Type: ICD-10; [address], [place], [address] , [facility] 4 16:51:37 Anxiety 00858807 Active 201708/11/19 19 - Comments only - Lamberto Gutiérrez - stable despite increase d stressor s. Using coping skills such as exercise to deal with anxiety and mood swings. Continue Fluoxeti ne Problem Code: F41.8; Problem Code Type: ICD-10; [address], [facility] [address] , [facility] 4 16:51:37 Screenin g mammogra phy Active 2017 Problem Code: Z12.31; Problem Code Type: ICD-10; [address], [place], [address] , [facility] 4 16:51:37 Hypertro phic conditio n of skin 83290883 Completed 201808/17/2018 08/11/19 19 - Comments only - Lamberto Gutiérrez - Removed. Watch for signs of infectio n or bleeding . Problem Code: L91.8; Problem Code Type: ICD-10; Not Available [facility] 3 05:51:42 Abdomina l aortic aneurysm 666357137 Active [address], [place], [address] , [facility] 4 16:51:37 Cirrhosi s of liver 14571661 Active 2019 Problem Code: K74.60; Problem Code Type: ICD-10; [address], [facility] [address] , [facility] 4 16:51:37 Hydronep hrosis 60851172 Active 2019 Problem Code: N13.30; Problem Code Type: ICD-10; [address], [facility] [address] [facility] 4 16:51:37 Neck pain 76657188 Active 2020 Problem Code: M54.2; Problem Code Type: ICD-10; [address], [facility] [address] , [facility] 4 16:51:37 Viral disease 99905936 Completed 202011/26/2020 Problem Code: B97.89; Problem Code Type: ICD-10; Not Available [facility] 3 05:51:43 Headache disorder 862123943 Active 2020 Problem Code: G44.89; Problem Code Type: ICD-10; [address], [facility] [address] , [facility] 4 16:51:37 Heart murmur 50979048 Active 2020 Problem Code: R01.1; Problem Code Type: ICD-10; [address], [facility] [address] [facility] 4 16:51:37 Aneurysm of iliac artery 68014777 Active 2020 Problem Code: I72.3; Problem Code Type: ICD-10; [address], [facility] [address] [facility] 4 16:51:37 Ectasia of thoracic aorta 74139948878 9108 Active 2020 Problem Code: I77.810; Problem Code Type: ICD-10; SUMAYA TIJERINA, FINANCIAL SERVICES AGENT [address], [place], [address] , [facility]. 4 16:51:37 Disorder of salivary gland 46084207 Completed 201505/20/2016 Problem Code: K11.8; Problem Code Type: ICD-10; Not Available [facility] 3 05:51:47 Pain in right foot 62120482600 9107 Completed 201911/22/2022 Problem Code: M79.671; Problem Code Type: ICD-10; Not Available [facility] 3 05:51:48 Fatigue 27999061 Completed 202002/09/2023 Problem Code: R53.83; Problem Code Type: ICD-10; Not Available [facility] 3 05:51:48 Disorder of skin and/or subcutan eous tissue 33692176 Completed 201705/15/2018 Problem Code: L98.9; Problem Code Type: ICD-10; Not Available [facility] 3 05:51:48 Urgent desire to urinate 24798321 Completed 201901/01/2021 Problem Code: R39.15; Problem Code Type: ICD-10; Not Available [facility] 3 05:51:49 Backache 168450699 Completed 200302/09/2023 Not Available [facility] 3 05:51:49 Pain of left wrist 02906040939 9102 Completed 202005/03/2022 Problem Code: M25.532; Problem Code Type: ICD-10; Not Available [facility] 3 05:51:50 Localize d enlarged lymph nodes 695552508 Completed 201510/31/2018 Problem Code: R59.0; Problem Code Type: ICD-10; Not Available [facility] 3 05:51:50 Recurren t urinary tract infectio n 566879605 Completed 201402/09/2023 Not Available [facility] 3 05:51:50 Pain of right eye 61957468535 9102 Completed 201705/15/2018 Problem Code: H57.11; Problem Code Type: ICD-10; Not Available [facility] 3 05:51:51 Abdomina l pain 49008015 Completed 201605/15/2018 Problem Code: R10.9; Problem Code Type: ICD-10; Not Available [facility] 3 05:51:51 Shoulder joint pain 756592577 Completed 201405/31/2016 Problem Code: M25.519; Problem Code Type: ICD-10; Not Available [facility] 3 05:51:51 Pain of right knee joint 46486552104 4100 Completed 201705/03/2022 Problem Code: M25.561; Problem Code Type: ICD-10; Not Available [facility] 3 05:51:51 Paresthe dino 35551547 Completed 201705/15/2018 Problem Code: R20.2; Problem Code Type: ICD-10; Not Available [facility] 3 05:51:52 Pain of right shoulder joint 30585719124 761980 Completed 201705/03/2022 Problem Code: M25.511; Problem Code Type: ICD-10; Not Available [facility] 3 05:51:52 Carpal tunnel syndrome of right wrist 67826031044 9108 Completed 201705/15/2018 Problem Code: G56.01; Problem Code Type: ICD-10; Not Available [facility] 3 05:51:52 Exposure to communic able disease Completed 202106/22/2021 Problem Code: Z20.9; Problem Code Type: ICD-10; Not Available [facility] 3 05:51:53 Joint pain 19566239 Completed 202006/22/2021 Problem Code: M25.50; Problem Code Type: ICD-10; Not Available [facility] 3 05:51:53 Lateral epicondy litis of right humerus 41538924862 9107 Completed 201505/31/2016 Problem Code: M77.11; Problem Code Type: ICD-10; Not Available [facility] 3 05:51:53 Increase d frequenc y of urinatio n 726891113 Completed 201901/01/2021 Problem Code: R35.0; Problem Code Type: ICD-10; Not Available [facility] 3 05:51:53 Lymphade nopathy 28737836 Completed 202006/22/2021 Problem Code: R59.9; Problem Code Type: ICD-10; Not Available [facility] 3 05:51:54 Generali zed hyperhid rosis 898986265 Completed 201906/22/2021 Problem Code: R61; Problem Code Type: ICD-10; Not Available [facility] 3 05:51:54 Nodule on toe 447216359 Completed 201705/15/2018 Not Available [facility] 3 05:51:55 Dysphoni a 09237639 Completed 201605/15/2018 Problem Code: R49.0; Problem Code Type: ICD-10; Not Available [facility] 3 05:51:55 Muscle pain 71962632 Completed 202005/03/2022 Problem Code: M79.10; Problem Code Type: ICD-10; Not Available [facility] 3 05:51:55 Diarrhea 03195133 Completed 201605/15/2018 Problem Code: R19.7; Problem Code Type: ICD-10; Not Available [facility] 3 05:51:56 Muscle pain 43495893 Completed 202006/22/2021 Problem Code: M79.10; Problem Code Type: ICD-10; Not Available [facility] 3 05:51:56 Elevated blood-pr essure reading without diagnosi s of hyperten chaim 325931956 Completed 201608/10/2018 Problem Code: R03.0; Problem Code Type: ICD-10; Not Available [facility] 3 05:51:57 Pain of left knee joint 02138027529 4107 Completed 201605/03/2022 Problem Code: M25.562; Problem Code Type: ICD-10; Not Available [facility] 3 05:51:57 Pre-surg ramiro evaluati on Completed 202105/03/2022 Problem Code: Z01.818; Problem Code Type: ICD-10; Not Available [facility] 3 05:51:57 Disorder of skin and/or subcutan eous tissue 57248827 Active 2022 Problem Code: L98.9; Problem Code Type: ICD-10; Not Available [facility] 4 05:37:32 Disorder of eyelid 16305606 Active 2023 SUMAYA TIJERINA APRN [address], [place], [address] , [facility] 4 08:50:26 Essentia l hyperten chaim 17041911 Active 2023 SUMAYA TIJERINA APRN [address], [place], [address] , [facility] 4 08:56:04 Problem Notes None recorded. Procedures Surgical History Date Name Laterality Status Provider Name and Address Organization Details Recorded Time 06/25/19 Date of Last Mammogram completed EMILE HOLLY [facility] 06/06/2023 16:24:21 11/05/19 17 [address]rectomy [address] A[address] [facility] 05/24/2023 09:57:28 Imaging Results Imaging Date Name Status LastModified by Organiz ation Details LastModified Time 07/25/2023 US, liver completed [email or web address] [facility] (Radiology) [address] [place] [address] [place], [address], 08/19/2023 12:24:49 07/25/2023 MAMMO, screening, bilateral completed [email or web address] [address] [place], [address] 07/26/2023 09:37:49 03/18/2023 imaging/diagno stic result completed Information not available 01/30/2024 18:49:16 05/30/2019 MAMMO, screening completed Information not available 01/30/2024 18:49:39 06/24/2020 MAMMO, screening completed Information not available 01/30/2024 18:49:40 06/25/2021 MAMMO, screening completed Information not available 01/30/2024 18:49:41 05/26/2018 MAMMO, screening completed Information not available 01/30/2024 18:49:42 01/26/2021 US, abdomen completed Information n ot available 01/30/2024 18:49:43 07/27/2019 imaging/diagno stic result completed Information not available 01/30/2024 18:49:47 12/24/2022 imaging/diagno stic result completed Information not available 01/30/2024 18:49:50 03/26/2022 imaging/diagno stic result completed Information not available 01/30/2024 18:49:51 03/26/2022 imaging/diagno stic result completed Information not available 01/30/2024 18:49:52 09/28/2022 imaging/diagno stic result completed Information not available 01/30/2024 18:49:53 03/19/2023 imaging/diagno stic result completed Information not available 01/30/2024 18:49:54 12/24/2022 imaging/diagno stic result completed Information not available 01/30/2024 18:49:55 02/04/2021 imaging/diagno stic result completed Information not available 01/30/2024 18:50:07 09/13/2020 imaging/diagno stic result completed Information not available 01/30/2024 18:50:43 09/13/2020 imaging/diagno stic result completed Information not available 01/30/2024 18:50:44 07/26/2019 imaging/diagno stic result completed Information not available 01/30/2024 18:50:45 03/18/2023 imaging/diagno stic result completed Information not available 01/30/2024 18:50:54 09/26/2022 imaging/diagno stic result completed Information not available 01/30/2024 18:50:55 09/26/2022 imaging/diagno stic result completed Information not available 01/30/2024 18:50:56 09/26/2022 imaging/diagno stic result completed Information not available 01/30/2024 18:50:57 09/26/2022 imaging/diagno stic result completed Information not available 01/30/2024 18:50:58 08/01/2019 US, renal completed Information no t available 01/30/2024 18:51:05 09/13/2020 imaging/diagno stic result completed Information not available 01/30/2024 18:51:06 09/13/2020 XR, wrist completed Information no t available 01/30/2024 18:51:07 05/28/2020 XR, cervical spine completed Information not available 01/30/2024 18:51:08 02/29/2020 XR, foot completed Information no t available 01/30/2024 18:51:09 05/28/2020 imaging/diagno stic result completed Information not available 01/30/2024 18:51:10 02/29/2020 US, abdominal aorta completed Information not available 01/30/2024 18:51:11 01/26/2021 US, abdominal aorta completed Information not available 01/30/2024 18:51:13 10/08/2022 imaging/diagno stic result completed Information not available 01/30/2024 18:51:14 09/26/2022 imaging/diagno stic result completed Information not available 01/30/2024 18:51:15 09/26/2022 imaging/diagno stic result completed Information not available 01/30/2024 18:51:16 09/26/2022 imaging/diagno stic result completed Information not available 01/30/2024 18:51:17 09/26/2022 imaging/diagno stic result completed Information not available 01/30/2024 18:51:18 11/05/2022 imaging/diagno stic result completed Information not available 01/30/2024 18:51:19 12/20/2022 imaging/diagno stic result completed Information not available 01/30/2024 18:51:20 Procedure Notes None recorded. Medical Equipment None Reported. Allergies Allergen ID Allergen Name Allergen Category Reaction Reaction Severity Criticality Documentation Date Start Date Code Code System Note Provider Name and Address Organization Details Recorded Time 20747 Medicinal product containin g penicilli n and acting as antibacte rial agent (product) medicatio n rash mild Not available 03/25/20232013 52502 05 SNOMED [facility] 4 13:13:31 Medications Name Sig [...] height Body mass index (BMI) Body weight Heart rate Systolic blood pressure Diastolic blood pressure Provider Name and Address Organization Details Last Updated DateTime 4 181.61 cm 26.3 kg/m2 76164.1 4 g 80 /min 144 mm[Hg] 66 mm[Hg] CUONG ABRAMS CMA [facility] 4 09:17:22 Date Recorded Systolic blood pressure Diastolic blood pressure Provider Name and Address Organization Details Last Updated DateTime 05/26/2023 138 mm[Hg] 82 mm[Hg] SUMAYA TIJERINA, LURDES [address], [place], [address], [facility] 05/26/2023 09:31:14 Date Recorded Body height Body mass index (BMI) Body weight Body temperature Oxygen saturation Oxygen saturation in Arterial blood by Pulse oximetry Heart rate Systolic blood pressure Diastolic blood pressure Provider Name and Address Organization Details Last Updated DateTime 4 181.61 cm 27.9 kg/m2 73630.2 5 g 98 [degF] 97 % 97 % 78 /min 120 mm[Hg] 84 mm[Hg] EKTA KRAMER MA [facility] 4 13:29:31 Date Recorded Body height Body mass index (BMI) Body weight Body temperature Oxygen saturation Oxygen saturation in Arterial blood by Pulse oximetry Heart rate Systolic blood pressure Diastolic blood pressure Provider Name and Address Organization Details Last Updated DateTime 4 180.85 cm 28.3 kg/m2 79903.5 6 g 97 [degF] 98 % 98 % 73 /min 144 mm[Hg] 94 mm[Hg] CUONG ABRAMS CMA [facility] 08:34:02 Date Recorded Systolic blood pressure Diastolic blood pressure Provider Name and Address Organization Details Last Updated DateTime 02/07/2024 142 mm[Hg] 92 mm[Hg] SUMAYA TIJERINA, FINANCIAL SERVICES AGENT [address], [place], [address], [facility] 02/07/2024 08:48:24 Social History Question Answer Notes LastModified by Organizat ion Details LastModified Time Tobacco Smoking Status Former Smoker CUONG ABRAMS CMA null, [facility] 05/26/2023 09:20:52 When Did You Quit [...] Time Mother Family history of Hypercholest erolemia [email or web address] Not available 2022 03:57:17 Mother Family history of Hypertension [email or web address] Not available 02/2023 03:57:17 Paternal Grandmother Family history of breast cancer 1 gene mutation [email or web address] Not available 2022 03:57:17 Notes:*Problem: Mother-decea sed [...] preservative free, adsorbed 05/31/2016 completed Not Available [facility] 03/25/2023 04:05:11 Tdap 12/16/2006 completed Not Available [facility] 04:05:11 Influenza, split virus, trivalent, preservative 05/31/2016 completed Not Available [facility] 03/25/2023 04:05:12 Influenza, split virus, quadrivalent, PF 01/28/2020 completed Not Available [facility] 03/25/2023 04:05:12 Influenza, split virus, quadrivalent, PF 03/21/2019 completed Not Available [facility] 03/25/2023 04:05:13 Influenza, split virus, quadrivalent, PF 04/07/2021 completed Not Available [facility] 03/25/2023 04:05:13 Influenza, split virus, quadrivalent, PF 05/03/2022 completed Not Available [facility] 03/25/2023 04:05:13 Influenza, split virus, quadrivalent, preservative 05/15/2018 completed Not Available [facility] 03/25/2023 04:05:15 zoster recombinant 08/10/[address] [facility] 03/25/2023 04:05:16 zoster recombinant 11/28/[address] [facility] 03/25/2023 04:05:16 COVID-19, mRNA, LNP-S, PF, 100 mcg/0.5mL dose or 50 mcg/0.25mL dose 04/07/2021 completed Not Available [facility] 03/25/2023 04:05:17 COVID-19 vaccine, vector-nr, rS-[id number], PF, 0.5 mL 08/14/2020 completed Not Available [facility] 03/25/2023 04:05:18 COVID-19, mRNA, LNP-S, bivalent, PF, 30 mcg/0.3 mL dose 03/16/2022 completed Not Available [facility] 03/25/20 04:05:18 pneumococcal polysaccharide PPV23 05/31/2016 completed Not Available [facility] 2022 04:05:19 influenza, unspecified formulation 03/21/2019 completed Not Available [facility] 03/25/2023 04:05:20 COVID-19, mRNA, LNP-S, PF, nori-sucrose, 30 mcg/0.3 mL 02/07/2024 completed CUONG ABRAMS [employer] null, [facility] 02/07/2024 09:51:36 Influenza, split virus, trivalent, PF 02/07/2024 completed CUONG ABRAMS [employer] null, [facility] 02/07/2024 09:51:36 COVID-19, mRNA, LNP-S, PF, 30 mcg/0.3 mL dose 02/22/2023 completed CUONG ABRAMS [employer] null, [facility] 05/24/2023 09:59:06 Influenza, split virus, quadrivalent, PF 02/22/2023 completed CUONG ABRAMS [employer]IST null, [facility] 05/24/2023 09:59:28 COVID-19, mRNA, LNP-S, PF, nori-sucrose, 30 mcg/0.3 mL 02/22/2023 completed Not Available [facility] 05/27/2023 05:33:05 Past Encounters Encounter ID Performer Location Encounter Start Date Encounter Closed Date Diagnosis/Indication Diagnosis SNOMED-CT Code Diagnosis ICD10 Code [id number] SUMAYA TIJERINA APRN [address] [address] 05/26/2023 09:11:38 05/26/2023 09:40:54 Cirrhosis of liver 40054369 K74.60 Headache disorder 399750 009 R51.9 Abdominal aortic aneurysm 395175353 I71.40 Pain in th oracic spine 647291132 M54.6 Sams's esophagus 3029 [address] K22.70 Type 2 francisco betes mellitus without complication 955391146 E11.9 Anxiety 24426397 F41.9 Hyperlipidemia 24319795 E78.5 Urinary tr act infectious disease 21786241 N39.0 [id number] JEFFERY FAUST MD [address] [address] 01/23/2024 13:16:15 01/23/2024 13:52:06 Type 2 diabetes mellitus without complication 969140777 E11.9 Neck pain 16037538 M54.2 Body mass index 25-29 - overweight 874919679 Z68.27 [id number] CUONG ABRAMS CMA [address] [address] 02/07/2024 08:20:30 02/07/2024 09:37:34 Pain in thoracic spine 985134914 M54.6 Hyperlipidemia 35968719 E78.5 Sams's esophagus 3029 11964 K22.70 Type 2 francisco betes mellitus without complication 102002839 E11.9 Urinary tr act infectious disease 34256923 N39.0 Anxiety 61875513 F41.9 Abdominal aortic aneurysm 618133877 I71.40 Cirrhosis of liver 79062 007 K74.60 Headache disorder 999904 009 R51.9 Disorder of eyelid 45541 004 H02.9 Essential hypertension 19162633 I10 Active or passive immunization 993046964 Z23 Health Concerns Section Related Observation LastModified by Organization Detai ls LastModified Time None Recorded Concern Status LastModified by Organization Details LastModified Time None Recorded Advance Directives Directive None Recorded Payers Encounter Date Sequence Insurance Name Policy Number Policy Fiore Covered Member ID Fiore Member ID Guarantor Name 05/26/2023 1 *SELF PAY* Angi Tim 01/23/2024 1 [facility] [place] [place] [id number] Lakeshia Tim [id number] Lakeshia Tim Notes Date Note Type Note Provider Name and Address Organization Details Recorded Time 05/26/2023 text/html HPI Notes: Is he re for follow-up: -Back pain, chronic. Thoracic. Neck pain. Knee pain. Shoulder pain. Wrist pain, left, s/p fracture with repair. Has been working with chiropractor. See ROS. -HLD. Takes atorvastatin. -Sams? s esophagus. Without meds. Last scope was 2019. Saw general surgery 12/05, they opted not to repeat EGD since she is asymptomatic since diet changes/ supplements and being ETOH free. -DM. Diet managed. Takes Lisinopril, atorvastatin, ASA. Last visit she was going to consider doing keto diet. -Recurrent UTI. Macrobid post coital. -Anxiety. Depression. Insomnia. Takes ashwangda, vitamin D supplements. -AAA. Aneurysm of iliac artery. Ascending aorta dilatation. Takes atorvastatin, Lisinopril, ASA. Sees vascular routinely. -Cirrhosis. Hx of. Working on lifestyle. -Headache, mixed. see ROS. SUMAYA TIJERINA APRN [address], [place], [address], [facility] 05/26/2023 10:21:48 01/23/2024 text/html HPI Notes: Patie nt in [...] it is likely not that causing it. JEFFERY FAUST MD [address], [place], [address], [facility] 01/24/2024 10:40:18 OBGyn Episode No OBEpisode recorded.
--- OUTSIDE RECORDS SUMMARY | 2024-02-07 10:29 | XMS_ITS | Encounter Summary ---
[place] [address] Care Team Providers Care Insulation Foreman Name Role Phone Sumaya Saldivar APRN Primary Care Provider [phone] Reason for Referral * Diagnostic Test (Routine) - Pending Review Specialty Diagnoses / Procedures Referred By Madhu smyth Referred To Contact Diagnoses Ectatic abdominal aorta Procedures AAA Duplex, Complete/Bilateral Shalini Cooley APRN [facility] [place] [address] [facility] [address] [address] Referral ID Status Reason Start Date Expiration Date Visits Requested Visits Authorized [id number] Pending Review Specialty Service Requested 3 02/24/2024 1 1 Encounter Details Date Type Department Care Team (Late st Contact Info) Description 02/18/2023 9:00 AM EDT Office [place] [address] Shalini Cooley APRN [facility] [address] Ectatic abdominal aorta Social History Tobacco Use [...] on file documented as of this encounter Last Filed Vital Signs Vital Sign Reading Time Taken Comments Blood Pressure 137/83 02/18/2023 8:51 AM EDT Pulse 58 02/18/2023 8:51 AM EDT Temperature - - Respiratory Rate - - Oxygen Saturation - - Inhaled Oxygen Concentration - - Weight 94.3 kg (208 lb) 02/18/2023 8:51 AM EDT Height 185.4 cm (6' 1) 02/18/2023 8:51 AM EDT Body Mass Index 27.44 02/18/2023 8:51 AM EDT documented in this encounter Progress Notes * Shalini Cooley, CLINICAL NURSE - 02/18/2023 9:00 AM EDT Reason for visit: F/u aortic duplex HPI: 57 y.o. female with HTN, HLD, DMII, Sams's esophagus and known AAA. Today, pt reports she is doing well. She denies abd/back pain, claudication, CP, SOB. She endorses BLE edema for which she wears compression with good relief. She takes ASA and statin daily. She is a distant former smoker, quit in 2003. PMHx: Past Medical History: Diagnosis Date Asymptomatic varicose veins of both lower extremities 03/05/2021 Sams's esophagus 03/05/2021 Diabetes mellitus 03/05/2021 Ectatic abdominal aorta 03/05/2021 HLD (hyperlipidemia) 03/05/2021 Hypertension 03/05/2021 PSxHx: Past Surgical History: Procedure Laterality Date PRO BREAST REDUCTION Bilateral 06/29/2021 REDUCTION MAMMOPLASTY, KRYSTIN (WRVU 16.03) performed by Khanh Salas MD at [facility] OSC PRO UPPER GI ENDOSCOPY, DIAGNOSTIC N/A 01/16/2020 EGD, UPPER GI ENDOSCOPY performed by Farzaneh Knowles MD at [facility] ENDOSCOPY Family Hx: No family history on file. Social Hx: Social History Tobacco Use Smoking status: Former Packs/day: 1.00 Types: Cigarettes Quit date: 01/16/2004 Years since quittin.1 Smokeless tobacco: Never Substance Use Topics Alcohol use: Not Currently Medications: Medications 02/18/23 0852 Medication Sig Taking? acetaminophen 325 mg Capsule Take by mouth. Yes atorvastatin (Lipitor) 40 mg Tablet TAKE 1 TABLET BY MOUTH ONCE DAILY Yes lisinopriL (Prinivil;Zestril) 5 mg Tablet TAKE 1 TABLET BY MOUTH ONCE DAILY Yes nitrofurantoin (MACRODANTIN) 100 mg Capsule TAKE 1 CAPSULE BY MOUTH TWICE DAILY WITH A MEAL/FOOD Yes Allergies: Allergies Allergen Reactions Penicillins Rash Codeine Phosphate CIS - Nausea/Vomiting Review of Systems: Constitutional (weight change, fever) - Denies Neuro (dizziness, seizures, numbness, tingling) - Denies Eyes (vision) - Denies Ears, nose, throat (hearing) - Denies Cardiovascular (CP) - Denies Respiratory (SOB) - Denies GI (abd pain, nausea, emesis, blood in stool) - Denies (hematuria, dysuria, frequency) - Denies Muscoloskeletal (extremity pain, weakness) - deneis Skin (ulcers, rashes) - denies All other ROS negative Physical Exam: Vitals: Vitals: 02/18/23 0851 BP: 137/83 BP Location (NBP): Right arm Patient Position: Sitting BP Cuff Sizes: Adult (25-34 cm) Pulse: 58 Weight: 94.3 kg (208 lb) Height: 185.4 cm (6' 1) General: NAD, appears well Neuro: Alert and oriented, motor sensory grossly intact Lungs: CTA Heart: RRR 1/6 systolic murmur supine, no murmur heard with sitting. Abd: Soft, NT, ND, no palpable pulsatile masses Extremity - [place], warm, no ulceration, brisk capillary refill, no edema. B anterior calf small varicosities. Vascular: R L Carotid 2/2 bruit (n) 2/2 bruit (n) Radial 2/2 2/2 Femoral 2/2 2/2 Popliteal 2/2 2/2 DP 2/2 2/2 PT 2/2 2/2 02/18/2023 Aortic duplex Findings: Unilateral PSV (cm/s) EDV (cm/s) Diam AP (cm) Diam Lateral (cm) Angie Renal Aorta 84 19 2.4 2.4 Infra Renal Aorta 55 0 1.8 1.8 Distal Aorta 99 15 3.0 3.0 Interpretation: Patent abdominal aorta with the infra-renal aorta at the threshold for aneurysm measuring 3.0 x 3.0 cm (previously 3.0 x 3.0 cm). Bilateral common iliac arteries were not visualized due to obstruction by overlying bowel gas. Comparison: No significant change compared to previous exam on 02/16/22. Previous AAAs with change from previous value: Date DIAM AP DIAM LAT 3.00 3.00 Current Exam 3.00 ( 0.00) 3.00 ( 0.00) Assessment/Plan: 57 y.o. female with HTN, HLD, AODM, Sams's esophagus. She was found to have 3.0cm AAA on U/S at OSH and duplex is stable today; 3.0 x 3.0 cm. Pt remains asymptomatic, denies abd/back pain, claudication. Normal size iliac arteries. No intervention warranted at this time. If aorta reaches 5.0 cm would proceed with CTA and see MD. Continue ASA and statin. RTC one year aortic duplex Shalini Cooley APRN Department of Vascular Surgery documented in this encounter Plan of Treatment Not on file documented as of this encounter Visit Diagnoses Diagnosis Ectatic abdominal aorta Abdominal aortic ectasia documented in this encounter Care Teams Insulation Foreman Relationship Specialty Start Date End Date Sumaya Saldivar APRN [address] [place] [address] PCP - General Family Medicine 08/02/19 documented as of this encounter
--- OUTSIDE RECORDS SUMMARY | 2024-02-07 10:29 | XMS_ITS | Encounter Summary ---
Author Organization [facility] Address [facility] [place] [address] Care Team Providers Care Chef Saucier Name Role Phone Sumaya Saldivar APRN Primary Care Provider [phone] Reason for Referral * Diagnostic Test (Routine) - Closed Specialty Diagnoses / Procedures Referred By Madhu t Referred To Contact Diagnoses Ectatic abdominal aorta Procedures AAA Duplex, Complete/Bilateral Josee Savage APRN [facility] [place] [address] [facility] Vascular Lab [address] [place] [address] Referral ID Status Reason Start Date Expiration Date V isits Requested Visits Authorized [id number] Closed Specialty Service Requested 02/16/2022 02/16/2023 1 1 Encounter Details Date Type Department Care Team (Late st Contact Info) Description 02/16/2022 9:00 AM EDT Office Visit [place] [address] Josee Savage APRN [facility] [place] [address] Ectatic abdominal aorta Social History [...] Sign Reading Time Taken Comments Blood Pressure 137/75 02/16/2022 8:58 AM EDT Pulse 67 02/16/2022 8:58 AM EDT Temperature - - Respiratory Rate - - Oxygen Saturation - - Inhaled Oxygen Concentration - - Weight 90.7 kg (200 lb) 02/16/2022 8:58 AM EDT Height 188 cm (6' 2) 02/16/2022 8:58 AM EDT Body Mass Index 25.68 02/16/2022 8:58 AM EDT documented in this encounter Progress Notes * Josee Savage, OPERATIONS SUPERVISOR - 02/16/2022 9:00 AM EDT F/u aortic duplex 56 yo female with HTN, HLD, AODM, Sams's esophagus. She was found to have 3.0 cm AAA on U/s at OSH. Doing well. Denies abd/back pain, claudication, chest pain, SOB, TIa's. C/o B LE edema wears compression Thinks grand farther on AAA. Taking ASA and statin. Former smoker PMHx: Past Medical History: Diagnosis Date ??? Asymptomatic varicose veins of both lower extremities 03/05/2021 ??? Sams's esophagus 03/05/2021 ??? Diabetes mellitus 03/05/2021 ??? Ectatic abdominal aorta 03/05/2021 ??? HLD (hyperlipidemia) 03/05/2021 ??? Hypertension 03/05/2021 PSxHx: Past Surgical History: Procedure Laterality Date ??? PRO REDUCTION OF LARGE BREAST Bilateral 06/29/2021 REDUCTION MAMMOPLASTY, KRYSTIN (WRVU 16.03) performed by Khanh Salas MD at [facility] OSC ??? PRO UPPER GI ENDOSCOPY, DIAGNOSTIC N/A 01/16/2020 EGD, UPPER GI ENDOSCOPY performed by Farzaneh Knowles MD at [facility] ENDOSCOPY Family Hx: No family history on file. Social Hx: Social History Tobacco Use ??? Smoking status: Former Smoker Packs/day: 1.00 Types: Cigarettes Quit date: 01/16/2004 Years since quittin.0 ??? Smokeless tobacco: Never Used Substance Use Topics ??? Alcohol use: Not Currently Medications: Medications 02/16/22 0858 Medication Sig Taking? acetaminophen 325 mg Capsule Take by mouth. atorvastatin (Lipitor) 40 mg Tablet TAKE 1 TABLET BY MOUTH ONCE DAILY lisinopriL (Prinivil;Zestril) 5 mg Tablet TAKE 1 TABLET BY MOUTH ONCE DAILY nitrofurantoin (MACRODANTIN) 100 mg Capsule TAKE 1 CAPSULE BY MOUTH TWICE DAILY WITH A MEAL/FOOD Allergies: Allergies Allergen Reactions ??? Penicillins Rash ??? Codeine Phosphate CIS - Nausea/Vomiting Review of [...] other ROS negative Physical Exam: Vitals: Vitals: 02/16/22 0858 BP: 137/75 BP Location (NBP): Right arm Patient Position: Sitting Pulse: 67 Weight: 90.7 kg (200 lb) Height: 188 cm (6' 2) General: NAD, appears well Neuro: Alert and oriented, motor sensory grossly intact Lungs: CTA Heart: RRR 1/6 systolic murmur supine, no murmur heard with sitting. Abd: Soft, NT, ND, no palpable pulsatile masses Extremity - Jobos, warm, no ulceration, brisk capillary refill, no edema B anterior calf small varicosities Vascular: R L Carotid 2/2 bruit (n) 2/2 bruit (n) Radial 2/2 2/2 Femoral 2/2 2/2 Popliteal 2/2 2/2 DP 2/2 2/2 PT 2/2 2/2 Aortic duplex today Angie Renal Aorta ?PSV (cm/s): 76 ?EDV (cm/s): 11 ?Diam AP (cm): 2.4 ?Diam Lateral (cm): 2.4 Infra Renal Aorta ?PSV (cm/s): 72 ?EDV (cm/s): 0 ?Diam AP (cm): 2.0 ?Diam Lateral (cm): 2.0 Distal Aorta ?PSV (cm/s): 85 ?EDV (cm/s): 12 ?Diam AP (cm): 3.0 ?Diam Lateral (cm): 3.0 Common Iliac Artery, Proximal, Right ?PSV (cm/s): 110 ?EDV (cm/s): 15 ?Diam AP (cm): 1.2 ?Diam Lateral (cm): 1.2 Common Iliac Artery, Proximal, Left ?PSV (cm/s): 100 ?EDV (cm/s): 0 ?Diam AP (cm): 1.1 ?Diam Lateral (cm): 1.1 ? Interpretation: Patent abdominal aorta with the infra-renal aorta at the threshold for aneurysm measuring 3.0 x 3.0 cm. Patent proximal RIGHT and LEFT common iliac arteries with no evidence of aneurysm. The mid and distal segments of the iliac arteries was not visualized due to overlying bowel gas. ?? Aortic duplex OSH 01/26/21 Aorta 3.0 x 3.0 cm Right iliac 1.9 x 1.6 cm Left iliac 1.6 x 1.5 cm Assessment/Plan: 56 yo female with HTN, HLD, AODM, Sams's esophagus. She was found to have 3.0 cm AAA on U/s at OSH. Denies abd/back pain, claudication. Stable duplex today. Ectatic abdominal aorta 3.0 cm, normal size iliac arteries. No intervention warranted at this time. If aorta reaches 5.0 cm would proceed with CTA and see MD. Continue ASA and statin. RTC one year aortic duplex documented in this encounter Plan of Treatment Not on file documented as of this encounter Results * AAA Duplex, Complete/Bilateral (02/18/2023 8:08 AM EDT) VB Text Report Department: Vascular Surgery Lab Patient: [id number] (LAKESHIA GUZMAN) CPT: 03315 Referring Physician: JOSEE SAVAGE APRN ?? Indications: [...] VASCUBASE 02/18/2023 8:08 AM EDT Josee Savage OPERATIONS SUPERVISOR VASCULAR ORDERABLE S VASCUBASE documented in this encounter Visit Diagnoses Diagnosis Ectatic abdominal aorta Abdominal aortic ectasia documented in this encounter Care Teams Chef Saucier Relationship Specialty Start Date End Date Sumaya Saldivar APRN [address] [place] [address] PCP - General Family Medicine 08/02/19 documented as of this encounter
--- OUTSIDE RECORDS SUMMARY | 2024-02-07 10:29 | XMS_ITS | Encounter Summary ---
[place] [address] Care Team Providers Care Truck Driver Flatbed Name Role Phone Sumaya Saldivar APRN Primary Care Provider [phone] Encounter Details Date Type Department Care Team (Latest Contact Info) Description 02/18/2023 Travel Social History Tobacco Use Types Packs/Day Years [...] documented as of this encounter Visit Diagnoses Not on filedocumented in this encounter Care Teams Truck Driver Flatbed Relationship Specialty Start Date End Date Sumaya Saldivar APRN [address] [place] [address] PCP - General Family Medicine 08/02/19 documented as of this encounter
--- OUTSIDE RECORDS SUMMARY | 2024-02-07 10:30 | XMS_ITS | Encounter Summary ---
[place] [address] Care Team Providers Care Audit Clerk Name Role Phone Sumaya Saldivar APRN Primary Care Provider [phone] Reason for Referral * Diagnostic Test (Routine) - Closed Specialty Diagnoses / Procedures Referred By Madhu t Referred To Contact Diagnoses Ectatic abdominal aorta Procedures AAA Duplex, Complete/Bilateral Josee Savage APRN [facility] [place] [address] [facility] Vascular Lab [address] [place] [phone] Referral ID Status Reason Start Date Expiration Date V isits Requested Visits Authorized [id number] Closed Specialty Service Requested 03/05/2021 03/05/2022 1 1 Reason for Visit * Consultation (Routine) - Closed Specialty Diagnoses / Procedures Referred By Contac t Referred To Contact Vascular Surgery Diagnoses Aneurysm of iliac artery Abdominal aortic aneurysm, without rupture Sumaya Saldivar APRN [address] [place] [address] [facility] [address] [place] [phone] Referral ID Status Reason Start Date Expiration Date V isits Requested Visits Authorized [id number] Closed Consult, Test & Treat Connection [facility] PCP Updated and/or Approved 02/02/2021 02/02/2022 12 12 Encounter Details Date Type Department Care Team (Late st Contact Info) Description 03/05/2021 8:30 AM EDT Office Visit [place] [address] Josee Savage APRN [facility] [place] [address] Ectatic abdominal aorta Social History Tobacco Use [...] Sign Reading Time Taken Comments Blood Pressure 143/83 03/05/2021 8:11 AM EDT Pulse 70 03/05/2021 8:10 AM EDT Temperature - - Respiratory Rate - - Oxygen Saturation - - Inhaled Oxygen Concentration - - Weight 90.7 kg (200 lb) 03/05/2021 8:10 AM EDT Height 185.4 cm (6' 1) 03/05/2021 8:10 AM EDT Body Mass Index 26.39 03/05/2021 8:10 AM EDT documented in this encounter Progress Notes * Josee Savage, LURDES - 03/05/2021 8:30 AM EDT This is a new patient to the practice who is being evaluated for small AAA and was referred by Sumaya Saldivar APRN. 55 yo female with HTN, HLD, AODM, Sams's esophagus. She was found to have 3.0 cm AAA on U/s at OSH. Denies abd/back pain, claudication, chest pain, SOB, [...] Surgical History: Procedure Laterality Date ??? PRO UPPER GI ENDOSCOPY, DIAGNOSTIC N/A 01/16/2020 EGD, UPPER GI ENDOSCOPY performed by Farzaneh Knowles MD at [facility] ENDOSCOPY Family Hx: No family history on file. Social Hx: Social History Tobacco Use ??? Smoking status: Former Smoker Packs/day: 1.00 Types: Cigarettes Quit date: 01/16/2004 Years since quittin.1 ??? Smokeless tobacco: Never Used Substance Use Topics ??? Alcohol use: Not Currently Medications: Medications 03/05/21831 Medication Sig Taking? multivitamin Capsule Take by mouth. Yes acetaminophen 325 mg Capsule Take by mouth. Yes atorvastatin (Lipitor) 40 mg Tablet TAKE 1 TABLET BY MOUTH ONCE DAILY Yes lisinopriL (Prinivil;Zestril) 5 mg Tablet TAKE 1 TABLET BY MOUTH ONCE DAILY Yes nitrofurantoin (MACRODANTIN) 100 mg Capsule TAKE 1 CAPSULE BY MOUTH TWICE DAILY WITH A MEAL/FOOD Yes aspirin EC 81 mg Tablet, Delayed Release (E.C.) Take 81 mg by mouth daily. Yes pantoprazole EC (Protonix) 20 mg Tablet, Delayed Release (E.C.) TAKE 1 TABLET BY MOUTH ONCE DAILY Allergies: Allergies Allergen Reactions ??? Codeine Phosphate CIS - Nausea/Vomiting Review [...] other ROS negative Physical Exam: Vitals: Vitals: 03/05/21 0810 03/05/21 0811 BP: 133/77 143/83 BP Location (NBP): Right arm Left arm Patient Position: Sitting Sitting BP Cuff Sizes: Adult (25-34 cm) Adult (25-34 cm) Pulse: 70 Weight: 90.7 kg (200 lb) Height: 185.4 cm (6' 1) General: NAD, appears well Neuro: Alert and oriented, motor sensory grossly intact Lungs: CTA Heart: RRR 1/6 systolic murmur supine, no murmur heard with sitting. Abd: Soft, NT, ND, no palpable pulsatile masses Extremity - Sarita, warm, no ulceration, brisk capillary refill, no edema B anterior calf small varicosities Vascular: R L Carotid 2/2 bruit (n) 2/2 bruit (n) Radial 2/2 2/2 Femoral 2/2 2/2 Popliteal 2/2 2/2 DP 2/2 2/2 PT 2/2 2/2 Aortic duplex OSH 01/26/21 Aorta 3.0 x 3.0 cm Right iliac 1.9 x 1.6 cm Left iliac 1.6 x 1.5 cm Assessment/Plan: 55 yo female with HTN, HLD, AODM, Sams's esophagus. She was found to have 3.0 cm AAA on U/s at OSH. Denies abd/back pain, claudication. Ectatic abdominal aorta 3.0 cm, normal sizeiliac arteries. No intervention warranted at this time. If aorta reaches 5.0 cm would proceed with CTA and see MD. Continue ASA and statin. RTC one year aortic duplex documented in this encounter Miscellaneous Notes * Addendum Note - Josee Savage APRN - 03/05/2021 8:30 AM EDTAddended by: JOSEE SAVAGE on: 03/05/2021 08:35 AM Modules accepted: Orders * Assessment & Plan Note - Josee Savage APRN - 03/05/2021 8:25 AM EDT Associated Problem(s): Diabetes mellitus Diet and exercise controlled. documented in this encounter Plan of Treatment Not on file documented as of this encounter Results * AAA Duplex, Complete/Bilateral (02/16/2022 7:57 AM EDT) VB Text Report Department: Vascular Surgery Lab Patient: [id number] (LAKESHIA GUZMAN) CPT: 47669 Referring Physician: JOSEE SAVAGE, RAIL SIGNAL MECHANIC ?? Indications: 56 year old female with [...] VASCUBASE 02/16/2022 7:57 AM EDT Josee Savage RAIL SIGNAL MECHANIC VASCULAR ORDERABLE S VASCUBASE documented in this encounter Visit Diagnoses Diagnosis Ectatic abdominal aorta Abdominal aortic ectasia documented in this encounter Care Teams Audit Clerk Relationship Specialty Start Date End Date Sumaya Saldivar APRN [address] [place] [address] PCP - General Family Medicine 08/02/19 documented as of this encounter
--- OUTSIDE RECORDS SUMMARY | 2024-02-07 10:30 | XMS_ITS | Encounter Summary ---
Author Organization [facility] Address [address] [place] [address] Care Team Providers Care Therapy Administrative Assistant Name Role Phone Unknown, Provider Primary Care Provider [phone] Encounter Details Date Type Department Care Team (Late st Contact Info) Description 07/31/2003 Results Only [facility] [address] [place] [address] Senia Nuñez, [address] [place] [address] Social History Tobacco Use Types Packs/Day Years Used Date Smoking Tobacco: Never Assessed Sex and Gender Information Value Date Recorded Sex Assigned at Not on file Gender Identity Not on file Sexual Orientation Not on file documented as of this encounter Plan of Treatment Not on file documented as of this encounter Procedures Procedure Name Priority Date/Time Associated Diagnosis Comments CYTOPATHOLOGY Routine 07/31/2003 0:00 EST documented in this encounter Results * CYTOPATHOLOGY (07/31/2003 0:00 EST) Pathology Report: CYTOPATHOLOGY REPORT Reports generated via electronic interface contain original data; however they are lacking the format of the original report. Caution should be taken when reading/interpreti ng unformatted reports. Name: ? LAKESHIA NELSON ? Accession #: ? [id number] : ? 1965 (Age: 38) ??F ?Collect Date: ? 07/31/2003 Location: ? [facility] ? Receive Date: ? 08/01/2003 Provider: ?SENIA NUÑEZ [employer] Copy to: ? Specimen/Source: ?ThinPrep Pap Test, Cervix/Endocervix Last Menstrual Period: ? 07/23/03 Other: ? HPVA - HPV testing requested if ASC-US on the current ThinPrep Pap test. ? SPECIMEN ADEQUACY ? Satisfactory for Evaluation - transformation zone component present GENERAL CATEGORIZATION ? Negative for Intraepithelial Lesion or Malignancy ? Document reviewed and electronically signed by: ? Kaila Crowell, SCT(ASCP) ? Report Date: ??08/07/2003 09:09 End of Report [facility] 07/31/2003 08/01/2003 Senia Nuñez [employer] PATHOLOGY ORDERABLES Performing Organization Address City/State/[facility] Co de Phone Number [facility] [address] [place] [address] documented in this encounter Visit Diagnoses Not on filedocumented in this encounter Care Teams Therapy Administrative Assistant Relationship Specialty Start Date End Date Unknown, Provider, PCP - General 09/10/08 02/17/11 documented as of this encounter
--- OUTSIDE RECORDS SUMMARY | 2024-02-07 10:30 | XMS_ITS | Encounter Summary ---
Author Organization [facility] Address [address] [place] [address] Care Team Providers Care Dye Can Operator Name Role Phone Hellen Andrews MD Primary Care Provider [phone] Encounter Details Date Type Department Care Team (Latest Contact Info) Description 02/27/2016 9:27 EDT - 02/27/2016 23:59 EDT Hospital Encounter [address] [address] Unknown, Provider, Discharge Disposition: Home or Self Care Social History Tobacco Use Types Packs/Day Years Used Date Smoking Tobacco: Never Assessed Sex and Gender Information Value Date Recorded Sex Assigned at Not on file Gender Identity Not on file Sexual Orientation Not on file documented as of this encounter Discharge Disposition Disposition Code Departure Means Destination Home or Self [facility] documented in this encounter Plan of Treatment Not on file documented as of this encounter Visit Diagnoses Not on filedocumented in this encounter Care Teams Dye Can Operator Relationship Specialty Start Date End Date Hellen Andrews MD [address] [place] [address] PCP - General 02/18/11 documented as of this encounter
--- OUTSIDE RECORDS SUMMARY | 2024-02-07 10:30 | XMS_ITS | Encounter Summary ---
Author Organization [facility] Address [address] [place] [address] Care Team Providers Care Oral Hygienist Name Role Phone Unknown, Provider Primary Care Provider [phone] Encounter Details Date Type Department Care Team (Late st Contact Info) Description 04/05/[address] [facility] - [facility] [address] [place] [address] Michael Simms MD [address] [place], [place] [id number] Social History Tobacco Use Types Packs/Day Years Used Date Smoking Tobacco: Never Assessed Sex and Gender Information Value Date Recorded Sex Assigned at Not on file Gender Identity Not on file Sexual Orientation Not on file documented as of this encounter Plan of Treatment Not on file documented as of this encounter Procedures Procedure Name Priority Date/Time Associated Diagnosis Comments CYTOPATHOLOGY Routine 04/05/2005 0:00 EST documented in this encounter Results * CYTOPATHOLOGY (04/05/2005 0:00 EST) Pathology Report: CYTOPATHOLOGY REPORT Reports generated via electronic interface contain original data; however they are lacking the format of the original report. Caution should be taken when reading/interpreti ng unformatted reports. Name: ? DALILASindhuCINDYLAKESHIA Austin ? Accession #: ? [id number] : ? 1965 (Age: 39) ??F ?Collect Date: ? 04/05/2005 Location: ? [facility] ? Receive Date: ? 04/06/2005 Provider: ?MICHAEL SIMMS MD Copy to: ? Specimen/Source: ?ThinPrep Pap Test, Cervix/Endocervix, processed on [employer] ThinPrep Imaging System, with manual evaluation Last Menstrual Period: ? 03/16/05 Other: ? Additional clinical information: 07-31-03 pap normal HPVA - HPV testing requested if ASC-US on the current ThinPrep Pap test. ? SPECIMEN ADEQUACY ? Satisfactory for Evaluation - transformation zone component present GENERAL CATEGORIZATION ? Negative for Intraepithelial Lesion or Malignancy INTERPRETATION ? Shift in rosanne present suggestive of bacterial vaginosis. ? Document reviewed and electronically signed by: ? Chito Youssef, YRN(ASCP) ? Report Date: ??04/09/2005 13:39 End of Report [facility] 04/05/2005 04/06/2005 Michael Simms MD PATHOLOGY ORDERABLES Performing Organization Address City/State/[facility] Co de Phone Number [facility] [address] [place] [address] documented in this encounter Visit Diagnoses Not on filedocumented in this encounter Care Teams Oral Hygienist Relationship Specialty Start Date End Date Unknown, Provider, PCP - General 09/10/08 02/17/11 documented as of this encounter
--- OUTSIDE RECORDS SUMMARY | 2024-02-07 10:30 | XMS_ITS | Encounter Summary ---
[place] [address] Care Team Providers Care Fur Designer Name Role Phone Sumaya Saldivar APRN Primary Care Provider [phone] Encounter Details Date Type Department Care Team (Late st Contact Info) Description 12/14/2019 Telephone [place] [id number] Senia Meneses, CCMA Social History Tobacco Use Types Packs/Day Years Used Date Smoking Tobacco: Never Sex and Gender Information Value Date Recorded Sex Assigned at Not on file Gender Identity Not on file Sexual Orientation Not on file documented as of this encounter Plan of Treatment Not on file documented as of this encounter Visit Diagnoses Not on filedocumented in this encounter Care Teams Fur Designer Relationship Specialty Start Date End Date Sumaya Saldivar APRN [address] [place] [address] PCP - General Family Medicine 08/02/19 documented as of this encounter
--- OUTSIDE RECORDS SUMMARY | 2024-02-07 10:30 | XMS_ITS | Encounter Summary ---
[place] [address] Care Team Providers Care Manager Drive Name Role Phone Sumaya Saldivar LURDES Primary Care Provider [phone] Encounter Details Date Type Department Care Team (Late st Contact Info) Description 08/17/2007 Orders [place] [address] Placido Pérez MD [address] [place] [id number] Social History Tobacco Use Types Packs/Day Years Used Date Smoking Tobacco: Never Assessed Sex and Gender Information Value Date Recorded Sex Assigned at Not on file Gender Identity Not on file Sexual Orientation Not on file documented as of this encounter Plan of Treatment Not on file documented as of this encounter Procedures Procedure Name Priority Date/Time Associated Diagnosis Comments NON-REFINERY OPERATOR LIGHT ENDS RECOVERY FINAL REPORT Routine 08/17/2007 4:05 PM EDT documented in this encounter Results * Non-Radiographer Final Report (08/17/2007 4:05 PM EDT) Non-Radiographer Final Report [id number] ? Location: The signing pathologist has (i) examined the relevant preparation(s) for the specimen(s) and (ii) rendered or confirmed the diagnosis(es). . ? Pathology Non-Radiographer Cytology Final Report Clinical Information Specimen Source: ?Thyroid/FNA; Right Clinical History/Impression : ?? 1.6cm (R) thyroid nodule ?? R/o Malignancy Gross Description: ?? Received ??in Cytorich red, ??approximately 10 ml. total volume of ?? clear, pink fluid. ?Total Preparation: ??Liquid Based Prep 1; Diff Quik 2; Pap Stain 2. Interpretation Specimen submitted is satisfactory. Diagnosis Macrofollicular Pattern (see Comment). 08/18/07 ?Screened by: ? FMQ ?Rescreened by: ?? WAW 08/22/07 ?Verified by: ? Ying Bansal MD ? Pathologist ? (Electronic Signature) Comment Cytologic preservation: Adequate Cellularity (follicular cells): Adequate Colloid: Abundant Macrophages: Abundant Architectural pattern: Predominantly macrofollicular pattern with some Hurtle cell change (see note). Note: ?? Compatible with a goiter/colloid nodule. MICKEY SILVESTRE 08/17/2007 4:05 PM EDT Placido Pérez MD PATHOLOGY/CYTOLOGY O RDERABLES MICKEY SILVESTRE documented in this encounter Visit Diagnoses Not on filedocumented in this encounter Care Teams Manager Drive Relationship Specialty Start Date End Date Sumaya Saldivar, BOTTOM POLISHER [address] [place] [address] PCP - General Family Medicine 08/02/19 documented as of this encounter
--- OUTSIDE RECORDS SUMMARY | 2024-02-07 10:30 | XMS_ITS | Encounter Summary ---
Author Organization [facility] Address [address] [place] [address] Care Team Providers Care Petrophysicist Name Role Phone Unknown, Provider Primary Care Provider [phone] Encounter Details Date Type Department Care Team (Late st Contact Info) Description 05/18/2000 Results Only [facility] [address] [place] [address] Michael Simms MD [address] [place], [place] [id number] Social History Tobacco Use Types Packs/Day Years Used Date Smoking Tobacco: Never Assessed Sex and Gender Information Value Date Recorded Sex Assigned at Not on file Gender Identity Not on file Sexual Orientation Not on file documented as of this encounter Plan of Treatment Not on file documented as of this encounter Procedures Procedure Name Priority Date/Time Associated Diagnosis Comments SURGICAL PATHOLOGY Routine 05/18/2000 0:00 EST documented in this encounter Results * SURGICAL PATHOLOGY (05/18/2000 0:00 EST) Pathology Report: SURGICAL PATHOLOGY REPORT Reports generated via electronic interface contain original data; however they are lacking the format of the original report. Caution should be taken when reading/interpreti ng unformatted reports. Name: ? DALILASindhuCINDYLAKESHIA Austin ? Accession #: ? [id number] ? : ? 1965 (Age: 34) ??F ? Collect Date: ? 05/18/2000 ? Location: ? [facility] ? Receive Date: ? 05/18/2000 ? Provider: MICHAEL SIMMS MD Copy to: HELLEN FULLER MD ? Final Pathologic Diagnosis: A. ?Uterus, endometrium, curettings: 1. ?Disordered proliferative endometrium with tubal metaplasia. See comment. B. ?Pelvis ??left, soft tissue, biopsy: 1. ?Endometriosis. C. ?Uterosacral ligament, left, soft tissue, biopsy: ? 1. ?? Endometriosis. Comment: ? Dr. Hellen Garcia has reviewed the case and concurs with the diagnosis. Document reviewed and electronically signed by: CHRISTINE ADAMSON MD Report ??Date: 05/23/2000 17:11 By the signature above, the attending physician certifies that he/she has personally conducted a gross and/or microscopic examination of the described specimens and rendered or confirmed the above diagnosis. Specimen(s) Received: A. ?Endometrial curettings (#1) B. ?Left pelvic sidewall (#2) C. ?Left uterosacral ligament (#3) Clinical History: ? Dysmenorrhea; abnormal uterine bleeding; endometriosis Gross Description: ? Received in formalin labelled Borrego and #1 endometrial curettings are multiple fragments of rivera-brown mucoid material that measure in aggregate 3.5 x 1.4 x 0.3 cm. ??The specimen is entirely submitted as (A1) and (A2). Received in formalin labelled Borrego and #2 left pelvic sidewall is a roughly rectangular shaped rivera-pink focally hemorrhagic soft tissue with a small amount of attached adipose tissue that measures 3.7 x 2.1 x 0.5 cm. ??Three field representative sections are submitted as (B). Received in formalin labelled Borrego and #3 left uterosacral ligament is a rivera-pink focally hemorrhagic roughly triangular fragment of tissue that measures 3.4 x 2.1 x 0.5 cm. ??There is a focal amount of attached adipose tissue. ??Three field representative sections are submitted as (C). ??(Dr. Pratt)/bi End of Report [facility] 05/18/2000 05/18/2000 15: 20 EST Michael Simms MD PATHOLOGY ORDERABLES [facility] [address] [place] [address] documented in this encounter Visit Diagnoses Not on filedocumented in this encounter Care Teams Petrophysicist Relationship Specialty Start Date End Date Unknown, Provider, PCP - General 09/10/08 02/17/11 documented as of this encounter
--- OUTSIDE RECORDS SUMMARY | 2024-02-07 10:30 | XMS_ITS | Encounter Summary ---
Author Organization [facility] [place] [place] [address] Care Team Providers Care Pot Feeder Name Role Phone Sumaya Saldivar APRN Primary Care Provider [phone] Encounter Details Date Type Department Care Team (Late st Contact Info) Description 09/04/2019 [place] [phone] Roma Malcolm Social History Tobacco Use Types Packs/Day Years Used Date Smoking Tobacco: Never Sex and Gender Information Value Date Recorded Sex Assigned at Not on file Gender Identity Not on file Sexual Orientation Not on file documented as of this encounter Miscellaneous Notes * Telephone Encounter - Roma Malcolm - 09/04/2019 3:17 PM EDT Kenneth Mccollum Salima Jeanmanuel we are calling as we have received a referral for a procedure in our Endoscopy center in Gastroenterology. Due to the COVID-19 pandemic, we have significantly limited the number of procedures we are performing in order to limit possible COVID exposure as well as preserve hospital supplies. At the current time we are only performing procedures for life threatening emergencies. We hope that you understand and we can assure you that we have you on our list and will be reachingback out to you to schedule as soon as it is appropriate. If you???d like to speak to a provider inthe meantime we are happy to get you set up in our virtual visits (telehealth, phone) documented in this encounter Plan of Treatment Not on file documented as of this encounter Visit Diagnoses Not on filedocumented in this encounter Care Teams Pot Feeder Relationship Specialty Start Date End Date Sumaya Saldivar APRN [address] [place] [address] PCP - General Family Medicine 08/02/19 documented as of this encounter
--- OUTSIDE RECORDS SUMMARY | 2024-02-07 10:30 | XMS_ITS | Encounter Summary ---
Author Organization [facility] Address [address] [place] [address] Care Team Providers Care Production Hand Name Role Phone Unavailable Primary Care Provider Unavailabl e Encounter Details Date Type Department Care Team (Late st Contact Info) Description 09/06/2008 Orders Only [facility] [place] [address], [place] [id number] Maximo Badillo DO [address] [facility] [address] [place], [place] [phone] Social History Tobacco Use Types Packs/Day Years Used Date Smoking Tobacco: Never Assessed Sex and Gender Information Value Date Recorded Sex Assigned at Not on file Gender Identity Not on file Sexual Orientation Not on file documented as of this encounter Plan of Treatment Not on file documented as of this encounter Procedures Procedure Name Priority Date/Time Associated Diagnosis Comments SURGICAL PATHOLOGY Routine 09/06/2008 0:00 EDT documented in this encounter Results * SURGICAL PATHOLOGY (09/06/2008 0:00 EDT) Pathology Report: SURGICAL PATHOLOGY REPORT ? Reports generated via electronic interface contain original data; ? however they are lacking the format of the original report. ? Caution should be taken when reading/interpreting unformatted reports. ? Name: ? PECKFLEURIE, LAKESHIA ? Accession #: ? [id number] ? : ? 1965 (Age: 43) ??F ? Collect Date: ? 09/06/2008 ? Location: ? [facility] ? Receive Date: ? 09/07/2008 ? Provider: MAXIMO BADILLO DO ? Copy to: CORDELL COBB MD ? Final Pathologic Diagnosis: ? A. ?Stomach, antrum, biopsy: ? 1. ?No pathologic features. ? B. ?Esophagus, distal, biopsies: ? 1. ?Columnar mucosa with Intestinal metaplasia. ? - No dysplasia identified. ??See comment. ?2. ?? Squamous mucosa with reactive features compatible with ?? reflux. ? C. ?? Esophagus, mid, biopsies: ?1. ?? Squamous mucosa with reactive features, compatible with reflux. ? D. ?? Esophagus, proximal, biopsies: ?1. ?? Squamous mucosa with mild reactive features, compatible with ? reflux. ? Comment: ? Deeper levels of section (B) have been examined. ??In addition, section (B) was shown at the intradepartmental consultation conference on September 10, 2008. ?? (Dr. Aguilar)/bi ? Document reviewed and electronically signed by: ? Heather Aguilar MD ? Report ??Date: 09/10/2008 16:17 ? By the signature above, the attending physician certifies that he/she has ? personally conducted a gross and/or microscopic examination of the described ? specimens and rendered or confirmed the above diagnosis. ? Specimen(s) Received: ? A. ?Bx antrum ? B. ? Bx distal esophagus ? C. ? Bx mid esophagus ? D. ? Bx proximal esophagus ? Clinical History: ? Gastroesophageal reflux ? Gross Description: ? Received in Jevon's fixative labelled PeckFleuri, Lakeshia and bx antrum is a rivera-pink, 0.3 x 0.3 x 0.2 cm soft tissue fragment. ??The specimen is ? entirely submitted as (A). ? Received in Adello Ince's fixative labelled Elzbieta, Lakeshia and bx distal ? esophagus are three rivera-pink soft tissues ranging from 0.3 x 0.2 x 0.2 cm to ?? 0.5 x 0.3 x 0.2 cm. ??The specimen is entirely submitted as (B). ? Received in Hollande's fixative labelled Clarenceri, Lakeshia and bx mid ? esophagus are two rivera-pink soft tissues measuring 0.4 x 0.2 x 0.2 cm and 0.5 x 0.2 x 0.2 cm. ??The specimen is entirely submitted as (C). ? Received in Hollande's fixative labelled PeckFleuri, Lakeshia and bx proximal ? esophagus are two rivera-pink soft tissues measuring 0.2 x 0.2 x 0.2 cm and 0.5 x 0.3 x 0.2 cm. ??The specimen is entirely submitted as (D). ??(Yara Rodgers)/[facility] ? End of Report ? [facility] 09/06/2008 09/07/2008 9:3 6 EDT Maximo Badillo DO PATHOLOGY ORDER SATYA [facility] [address] [place] [address] documented in this encounter Visit Diagnoses Not on filedocumented in this encounter
--- OUTSIDE RECORDS SUMMARY | 2024-02-07 10:30 | XMS_ITS | Encounter Summary ---
Author Organization [facility] [place] [address] Care Team Providers Care Material Dispatcher Name Role Phone Cordell Robledo MD Primary Care Provider [phone] Reason for Visit * Reason Comments Animal Bite Encounter Details Date Type Department Care Team (Late st Contact Info) Description 08/09/2011 1:15 PM EDT Follow-[place] [phone] Moe Christian MD [facility] [place] [address] Dog bite (Primary Dx) Discharge Disposition: Home Social History Tobacco Use Types Packs/Day Years Used Date Smoking Tobacco: Never Sex and Gender Information Value Date Recorded Sex Assigned at Not on file Gender Identity Not on file Sexual Orientation Not on file documented as of this encounter Last Filed Vital Signs Vital Sign Reading Time Taken Comments Blood Pressure 136/82 08/09/2011 1:34 PM EDT Pulse 78 08/09/2011 1:34 PM EDT Temperature - - Respiratory Rate - - Oxygen Saturation - - Inhaled Oxygen Concentration - - Weight 90.7 kg (200 lb) 08/09/2011 1:34 PM EDT Height 185.4 cm (6' 1) 08/09/2011 1:34 PM EDT Body Mass Index 26.39 08/09/2011 1:34 PM EDT documented in this encounter Progress Notes * Richard Givens MD - 08/10/2011 7:47 AM EDT The patient's clinical history is reviewed and a complete examination is accomplished. The physicalfindings are confirmed. The resident's assessment and plan was formulated with my guidance and approval. * Moe Christian MD - 08/09/2011 4:01 PM EDT ENT FOLLOW UP NOTE Subjective: Patient ID: Lakeshia Tim is a 46 y.o. female. Follow up of dog bite to the right cheek and left lip. HPI: She has been doing well since I last saw her. She reports that she is continuing to have some pain and discomfort at the right cheek site. The lip has healed well and she is happy with the outcome. Review of Systems: ENT as above, health overall is stable. Objective: Physical Exam Filed Vitals: 08/09/11 1334 BP: 136/82 Pulse: 78 Height: 185.4 cm (6' 1) Weight: 90.719 kg (200 lb) Constitutional: Well developed and well nourished, well groomed. Communicates in a strong clear voice without stridor or hoarseness On the right cheek there is a lazy C type scar that extends from laterally and inferiorly from the lateral portion of the right eye on to the cheek, approximately 8 CM in length. Well approximated, slightly heaped up but expected for this stage of wound healing. No drainage, erythema, purulence from the incision. Palpation of the parotid reveals clear saliva intra-orally without drainage into thewound. The left lip is CDI. Intra-orally the wound is well approximated. Extra-orally it is well approximated as well. Inferiorly there is some heaped up, erythematous tissue that is consistent with this stage of healing. Extending from the commissure is a small portio of the wound which is healingwell- CDI. Facial motor function is full bilaterally. Assessment and Plan: Overall I am very happy with her wound healing now approximately 2 weeks after repair. She is quietpleased as well. I have discussed with her that the pain she is having at the site is probably related to injury of a cutaneous nerve during the injury, it may recover with time but I have told her that unfortunately it may remain abnormal, there is really no way to know at this pont. I have assured her that final wound result can take up to 6 months to achieve. She understands this and understands the importance of continuing to use ointment to promote a moist environment for healing. Further,I have asked her to take care to wear sunscreen on the incisions to prevent poor cosmetic result once the weather warms. She understands all of this. I would like to see her in ~ 2 months time for another wound check. If there are further issues in the interim I would be happy to see her sooner. documented in this encounter Plan of Treatment Not on file documented as of this encounter Visit Diagnoses Diagnosis Dog bite(E906.0)- Primary Dog bite documented in this encounter Care Teams Material Dispatcher Relationship Specialty Start Date End Date Cordell Robledo MD [address] [place] [id number] PCP - General 08/06/11 08/01/19 documented as of this encounter
--- OUTSIDE RECORDS SUMMARY | 2024-02-07 10:30 | XMS_ITS | Encounter Summary ---
Author Organization [facility] Address [address] [place] [address] Care Team Providers Care Cdl Service Technician Name Role Phone Unknown, Provider Primary Care Provider Encounter Details Date Type Department Care Team (Late st Contact Info) Description 02/16/2011 Results Only [facility] Laboratory Services - [facility] ([facility] [place] [address] [place] [address] Maximo Badillo, DO [address] [facility] [address] [place], [place] [phone] Social History Tobacco Use Types Packs/Day Years Used Date Smoking Tobacco: Never Assessed Sex and Gender Information Value Date Recorded Sex Assigned at Not on file Gender Identity Not on file Sexual Orientation Not on file documented as of this encounter Plan of Treatment Not on file documented as of this encounter Procedures Procedure Name Priority Date/Time Associated Diagnosis Comments SURGICAL PATHOLOGY Routine 02/16/2011 0:00 EDT documented in this encounter Results * SURGICAL PATHOLOGY (02/16/2011 0:00 EDT) Pathology Report: SURGICAL PATHOLOGY REPORT ? Reports generated via electronic interface contain original data; ? however they are lacking the format of the original report. ? Caution should be taken when reading/interpreti ng unformatted reports. ? Name: ? PECKFLEURIE, LAKESHIA ? Accession #: ? [id number] ? : ? 1965 (Age: 45) ??F ? Collect Date: ? 02/16/2011 ? Location: ? [facility] ? Receive Date: ? 02/17/2011 ? Provider: MAXIMO BADILLO DO ? Copy to: MARICRUZ FINE MD ? Final Pathologic Diagnosis: ? A. ?Esophagus, distal, biopsies: ? 1. ?Columnar-lined mucosa with intestinal metaplasia. ? - Negative for dysplasia. ?2. ?? Squamous mucosa with reactive features. ? B. ?? Esophagus, mid, biopsies: ? 1. ?Squamous mucosa with no specific pathologic features. ? Document reviewed and electronically signed by: ? ABEBE GARDUNO MD ? Report ??Date: 02/19/2011 16:32 ? By the signature above, the attending physician certifies that he/she has ? personally conducted a gross and/or microscopic examination of the described ? specimens and rendered or confirmed the above diagnosis. ? Specimen(s) Received: ? A. ?Distal esophagus ? B. ? Mid esophagus ? Clinical History: ? H/O Sams's esophagus ? Gross Description: ? Received in formalin labelled Lakeshia Tineo and #1 distal esophagus are four rivera-pink biopsies which vary in size from 0.4 x 0.3 x 0.1 cm up to 0.5 x 0.4 x 0.2 cm. ??The specimens are submitted intact as (A1) and (A2). ? Received in formalin labelled Lakeshia Tineo and #2 mid esophagus are two pink-white biopsies measuring 0.4 x 0.3 x 0.1 cm and 0.5 x 0.2 x 0.1 cm. ??The ?? specimens are submitted intact as (B). ??(JACINTO Treviño)/bi ? End of Report ? [facility] 02/16/2011 02/17/2011 8:1 6 EDT Maximo Badillo DO PATHOLOGY ORDER SATYA [facility] [address] [place] [address] documented in this encounter Visit Diagnoses Not on filedocumented in this encounter Care Teams Cdl Service Technician Relationship Specialty Start Date End Date Unknown, Provider, PCP - General 09/10/08 02/17/11 documented as of this encounter
--- OUTSIDE RECORDS SUMMARY | 2024-02-07 10:30 | XMS_ITS | Encounter Summary ---
[place] [address] Care Team Providers Care Administrative Office Clerk Name Role Phone Yariel Sumayairis Pitt APRN Primary Care Provider [phone] Reason for Visit * Auth/Cert Specialty Diagnoses / Procedures Referred By Madhu smyth Referred To Contact Diagnoses reduction mammoplasty Procedures PRO REDUCTION OF LARGE BREAST REDUCTION MAMMOPLASTY, KRYSTIN (WRVU 16.03) MODIFIER GARCIA SEE PROTOCOL Referral ID Status Reason Start Date Expiration Date Visits Re quested Visits Authorized [id number] 1 1 Encounter Details Date Type Department Care Team (Late st Contact Info) Description 06/29/2021 9:54 AM EST Anesthesia Event [place] [address] Salvador Akins MD [facility] [place] [address] Geovanni Rico MD [facility] [place] [address] Anesthesia Record Procedure Summary Procedure Name Responsible Anesthesiologist Anesthesia Start Time Anesthesia Stop Time REDUCTION MAMMOPLASTY, KRYSTIN (WRVU 16.03) (Bilateral: Breast) Salvador Akins MD 06/29/21 0954 06/29/21 1152 Events Date Time Event Comment 06/29/2021 0940 0954 Start 0956 AN Verify 0956 An Start Data 0958 An Induction 0958 An Intubation 1002 Anesthesia Ready 1127 Break/Relief In I assumed ca re for Break Relief before which we: 1. Identified the patient 2. Identified the responsible provider(s) 3. Reviewed the pertinent medical history 4. Discussed the surgical plan and course 5. Reviewed intra-op anesthesia management and issues during anesthesia 6. Set expectations for the relief (and/or post-procedure) period 7. Allowed opportunity for questions and acknowledgement of understanding SALVADOR AKINS MD 1145 Extubation/LMA Out 1148 an stop data 1151 Recovery or ICU Handoff [place] ent care was transferred to the destination unit staff after review of the patient's medical history, current anesthetic/surgical status and plan, according to the Provider Handoff Checklist. 1152 Stop Meds Name Total Propofol 200 mg Propofol INF 760.28 mg Midazolam 2 mg IV Lidocaine 60 mg Dexamethasone 8 mg Ondansetron 8 mg Ketamine 10 mg/mL 70 mg HYDROmorphone 2 mg/mL 2 mg Glycopyrrolate 0.1 mg clindamycin (Cleocin) (150 mg/mL) inject ion 900 mg 900 mg lactated ringers infusion 800 mL * Agents Name O2 Air N2O Sevoflurane (et) * Blood No blood administrations on file. Lines, Drains, and Airways Type Details Placement Removal Incision 06/29/21; 1016; Righ t; breast 06/29/21 1016 by Lita Seo RN Incision 06/29/21; 1016; Left ; breast 06/29/21 1016 by Lita Seo RN Drain/Device Site 06/29/21; 1025; Righ t; lower; breast; collapsible closed device; Dr. Salas; 10Fr Flat Drain 06/29/21 1025 by Lita Seo RN Drain/Device Site 06/29/21; 1025; Left ; lower; breast; collapsible closed device; Dr. Saals; 10Fr Flat Drain 06/29/21 1025 by Lita Seo RN (RETIRED) Peripheral IV Line - Single Lumen 06/29/21; 0928; basilic vein (medial side of arm), right; [id number] catheter system; Anatomical Landmarks; 20 gauge, 1 in length; Yanely FREEMAN; 06/29/21; 1236 06/29/21 0928 by Yanely Weston RN 06/29/21 1236 by Ilda Sykes RN Supraglottic Mask Ventilation: No t Attempted (0); LMA Type: iGel; LMA Size: 3; Inserted by: HW; Removal Date: 06/29/21; Removal Time: 1145 06/29/21 1003 by Laney Ellis CRNA 06/29/21 1145 by Salvador Akins MD documented in this encounter Social History Tobacco Use Types Packs/Day Years [...] on file documented as of this encounter OR Notes * Anesthesia Postprocedure Evaluation - Salvador Akins MD - 06/29/2021 2:33 PM EST Department of Anesthesiology Post-procedure Note Patient: Lakeshia Tim Procedure Summary Date: 06/29/21 Room / Location: [facility] OR [address] [place] [address] OSC Anesthesia Start: 953 Anesthesia Stop: 1151 Procedures: REDUCTION MAMMOPLASTY, KRYSTIN (WRVU 16.03) (Bilateral Breast) MODIFIER GARCIA (N/A ) SEE PROTOCOL (N/A ) Diagnosis: Macromastia (reduction mammoplasty) Surgeons: Khanh Salas MD Responsible Provider: Salvador Akins MD Anesthesia Type: general ASA Status: 2 All Anesthesia Providers: Anesthesiologist: Salvador Akins MD TRIGONOMETRY TEACHER: Laney Ellis CRNA Vitals Value Taken Time BP 178/93 06/29/21 1230 Temp 36.9 ??C (98.4 ??F) 06/29/21 1150 Pulse 78 06/29/21 1228 Resp 16 06/29/21 1230 SpO2 95 % 06/29/21 1230 Pain Level 0 06/29/21 1242 Vitals shown include unvalidated device data. Patient Location: PACU/[facility] Level of Consciousness: Awake and Alert Pain Management: Satisfactory Analgesia PONV: None Cardiovascular Status: At Baseline Respiratory Status: At Baseline Postoperative Fluid Status: Intravascular EUvolemia Possible Anesthetic Complications: NONE apparent at time of evaluation Final Primary Anesthesia Type: General (The anesthetic type performed was the same as planned.) Comments: * Anesthesia Preprocedure Evaluation - Salvador Akins MD - 06/29/2021 9:40 AM EST Images from the original note were not included. Pre-Anesthesia Evaluation for: Lakeshia guallpa 56 y.o. female. Procedure(s): REDUCTION MAMMOPLASTY, KRYSTIN (WRVU 16.03) MODIFIER GARCIA SEE PROTOCOL Patient Active Problem List Diagnosis Date Noted ??? Macromastia 06/01/2021 ??? Ectatic abdominal aorta 03/05/2021 ??? Hypertension 03/05/2021 ??? HLD (hyperlipidemia) 03/05/2021 ??? Sams's esophagus 03/05/2021 ??? Diabetes mellitus 03/05/2021 ??? Asymptomatic varicose veins of both lower extremities 03/05/2021 Past Medical History: Diagnosis Date ??? Asymptomatic varicose veins of both lower extremities 03/05/2021 ??? Sams's esophagus 03/05/2021 ??? Diabetes mellitus 03/05/2021 ??? Ectatic abdominal aorta 03/05/2021 ??? HLD (hyperlipidemia) 03/05/2021 ??? Hypertension 03/05/2021 Past Surgical History: Procedure Laterality Date ??? PRO UPPER GI ENDOSCOPY, DIAGNOSTIC N/A 01/16/2020 EGD, UPPER GI ENDOSCOPY performed by Farzaneh Knowles MD at [facility] ENDOSCOPY Social History Tobacco Use ??? Smoking status: Former Smoker Packs/day: 1.00 Types: Cigarettes Quit date: 01/16/2004 Years since quittin.4 ??? Smokeless tobacco: Never Used Substance Use Topics ??? Alcohol use: Not Currently Social History Substance and Sexual Activity Drug Use Never Allergies Allergen Reactions ??? Penicillins Rash ??? Codeine Phosphate CIS - Nausea/Vomiting Medications: MAR and/or home medications have been reviewed. Physical Exam: Preprocedure Vitals Current as of 06/29/21 0940 BP: 111/79 Pulse: 79 Resp: 18 SpO2: 98 Temp: 36.6 ??C (97.9 ??F) Height: 185.4 cm (6' 1) (06/29/21) Weight: 91.6 kg (202 lb) (06/29/21) BMI: 26.65 IBW: 75.4 kg (166 lb 3 oz) Last edited 06/29/21928 by MN Currently displaying vitals information from multiple entries within 90 minutes of most recent vitals. Airway Assessment: Mallampati: I TM distance: >3 FB Neck ROM: full Cardiovascular Assessment: Rhythm: regular Rate: normal Pulmonary Assessment: unlabored breathing Dental Assessment: (+) upper dentures Misc Assessment: IV access: Peripheral line Last Filed Perioperative Cognitive Screening None Anesthesia Plan: ASA 2 general, with a(n) intravenous induction 56 y.o. female with a history of HTN (controlled on meds), HLD, DM2, Sams's esophagus, and macromastia scheduled for: Procedure(s): REDUCTION MAMMOPLASTY, KRYSTIN (WRVU 16.03) MODIFIER GARCIA SEE PROTOCOL Previous anesthetics without issue- no records at URI/COVID symptoms: no Tobacco: no GERD: no Plan GA with routine monitors- LMA. Plans and risks reviewed. Questions answered. Region - Other Informed Consent: Anesthetic plan and risks discussed with patient and spouse. Plan discussed with TRIGONOMETRY TEACHER and attending. Anesthesia Screening documented in this encounter Plan of Treatment Not on file documented as of this encounter Visit Diagnoses Not on filedocumented in this encounter Administered Medications Inactive Administered Medications - up to 3 most recent administrations Medication Order MAR Action Action Date Dose Rate Site clindamycin (Cleocin) (150 mg/mL) injection 900 mg 900 mg, Intravenous, ONCE, 1 dose, On Tue06/29/21 at 1000, Day of Surgery (Day of Procedure), Routine, Indication for (Active or Suspected): Prophylaxis Given 06/29/2021 10:00 AM EST 900 mg dexamethasone (Decadron) injection Intravenous, PRN, Starting on Tue06/29/21 at 0958, Until Tue06/29/21 at 1201, Anesthesia Intra-op, Routine Given 06/29/2021 9:58 AM EST 8 mg glycopyrrolate (Robinul) (0.2 mg/mL) multi-dose injection Intravenous, PRN, Starting on Tue06/29/21 at 1009, Until Tue06/29/21 at 1201, Anesthesia Intra-op, Routine Given 06/29/2021 10:09 AM EST 0.1 mg HYDROmorphone (Dilaudid) (2 mg/mL) multi-dose injection solution Intravenous, PRN, Starting on Tue06/29/21 at 1023, Until Tue06/29/21 at 1201, Anesthesia Intra-op, Routine Given 06/29/2021 10:23 AM EST 1 mg Given 06/29/2021 10:07 AM EST 1 mg ketamine (Ketalar) (10 mg/mL) IV bolus injection (Anesthesia) Intravenous, PRN, Starting on Tue06/29/21 at 1010, Until Tue06/29/21 at 1201, Anesthesia Intra-op Given 06/29/2021 11:04 AM EST 20 mg Given 06/29/2021 10:51 AM EST 10 mg Given 06/29/2021 10:41 AM EST 10 mg lactated ringers infusion 1,000 mL, at 100 mL/hr, Intravenous, CONTINUOUS, Starting on Tue06/29/21 at 0930, Until Tue06/29/21 at 1217, Day of Surgery (Day of Procedure) Restarted 06/29/2021 9:58 AM EST New Bag 06/29/2021 9:35 AM EST 1,000 mLs 100 mL/hr lidocaine (pf) (Xylocaine) (20 mg/mL) 2% injection syringe Intravenous, PRN, Starting on Tue06/29/21 at 0958, Until Tue06/29/21 at 1201, Anesthesia Intra-op, Routine Given 06/29/2021 9:58 AM EST 60 mg midazolam (pf) (Versed) (1 mg/mL) multi-dose injection Intravenous, PRN, Starting on Tue06/29/21 at 0955, Until Tue06/29/21 at 1201, Anesthesia Intra-op, Routine Given 06/29/2021 9:55 AM EST 2 mg ondansetron (pf) (Zofran) (2 mg/mL) injection Intravenous, PRN, Starting on Tue06/29/21 at 1119, Until Tue06/29/21 at 1201, Anesthesia Intra-op, Routine Given 06/29/2021 11:19 AM EST 8 mg propofoL (Diprivan) (10 mg/mL) infusion Intravenous, CONTINUOUS PRN, Starting on Tue06/29/21 at 1003, Until Tue06/29/21 at 1201, Anesthesia Intra-op, Routine Rate/Dose Change 06/29/2021 10:29 AM EST 100 mcg/kg/min 54.96 mL/hr New Bag 06/29/2021 10:03 AM EST 50 mcg/kg/min 27.48 mL/ hr propofoL (Diprivan) 10 mg/mL bolus injection (Anesthesia) Intravenous, PRN, Starting on Tue06/29/21 at 0958, Until Tue06/29/21 at 1201, Anesthesia Intra-op Given 06/29/2021 9:58 AM EST 200 mg documented in this encounter Care Teams Administrative Office Clerk Relationship Specialty Start Date End Date Sumaya Saldivar APRN [address] [place] [address] PCP - General Family Medicine 08/02/19 documented as of this encounter
--- OUTSIDE RECORDS SUMMARY | 2024-02-07 10:30 | XMS_ITS | Encounter Summary ---
[place] [address] Care Team Providers Care Web Architect Name Role Phone Sumaya Saldivar APRN Primary Care Provider [phone] Encounter Details Date Type Department Care Team (Late st Contact Info) Description 01/17/2020 Tele[place] [phone] Hilda Dempsey Social History Tobacco Use Types Packs/Day Years [...] encounter Miscellaneous Notes * Telephone Encounter - Hilda Dempsey - 01/17/2020 11:46 AM EDT Called pt to schedule in person follow up with Dr. Knowles, this month. Pt did not answer and did not have a VM box set up. Will send [email or web address] message. documented in this encounter Plan of Treatment Not on file documented as of this encounter Visit Diagnoses Not on filedocumented in this encounter Care Teams Web Architect Relationship Specialty Start Date End Date Sumaya Saldivar APRN [address] [place] [address] PCP - General Family Medicine 08/02/19 documented as of this encounter
--- OUTSIDE RECORDS SUMMARY | 2024-02-07 10:30 | XMS_ITS | Clinical Summary ---
Author Organization [facility] Address [address] [place] [address] Care Team Providers Care Pack Worker Name Role Phone Hellen Andrews MD Primary Care Provider [phone] Social History Tobacco Use Types Packs/Day Years Used Date Smoking Tobacco: Never Assessed Interpersonal Safety Answer Date Record ed Physically Hurt Never 12/16/2019 Verbally Threaten Not on file 12/16/2019 Sex and Gender Information Value Date Recorded Sex Assigned at Not on file Gender Identity Not on file Sexual Orientation Not on file Plan of Treatment Health Maintenance Due Date Last Done Comments Hepatitis C Screen 1965 Hepatitis B Vaccine (1 of 3 - 19+ 3-dose series) 06/09 COVID-19 Vaccine ( season) 2023 Care Teams Pack Worker Relationship Specialty Start Date End Date Hellen Andrews MD [address] [place] [address] PCP - General 02/18/11
--- OUTSIDE RECORDS SUMMARY | 2024-02-07 10:30 | XMS_ITS | Encounter Summary ---
Author Organization [facility] Address [address] [place] [address] Care Team Providers Care Tool Profiling Machine Set Up Operator Name Role Phone Hellen Andrews MD Primary Care Provider [phone] Encounter Details Date Type Department Care Team (Late st Contact Info) Description 05/13/2016 Results Only [facility] [phone] Arleen Castro, [address] [place] [address] Social History Tobacco Use Types Packs/Day Years Used Date Smoking Tobacco: Never Assessed Sex and Gender Information Value Date Recorded Sex Assigned at Not on file Gender Identity Not on file Sexual Orientation Not on file documented as of this encounter Plan of Treatment Not on file documented as of this encounter Procedures Procedure Name Priority Date/Time Associated Diagnosis Comments SURGICAL PATHOLOGY Routine 05/13/2016 13 :05 EST documented in this encounter Results * SURGICAL PATHOLOGY (05/13/2016 13:05 EST) Pathology Report: SURGICAL PATHOLOGY REPORT Reports generated via electronic interface contain original data; however they are lacking the format of the original report. Caution should be taken when reading/interpret ing unformatted reports. Name: ? LAKESHIA TIM ? Accession #: ? [id number] ? : ? 1965 (Age: 50) ??F ? Collect Date: ? 05/13/2016 ? Location: ? [facility] ? Receive Date: ? 05/17/2016 ? Provider: ARLEEN CASTRO DO Copy to: CORDELL COBB MD ? Final Pathologic Diagnosis: A. 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 - Two intraparotid lymph nodes negative for malignancy (0/2). - Margins negative for papillary cystadenoma lymphomatosum. B. PAROTID GLAND, LEFT, PRETRAGAL, BIOPSY: - Benign salivary gland tissue. - Negative for mass lesion. Document reviewed and electronically signed by: DAVEY LEWIS MD Report ??Date: 05/18/2016 15:19 By the signature above, the attending physician certifies that he/she has personally conducted a gross and/or microscopic examination of the described specimens and rendered or confirmed the above diagnosis. Specimen(s) Received: A. ??Left parotid mass B. ??Left pretragal parotid Clinical History: Left parotid mass Gross Description: A. ?Received in formalin labelled with proper patient identification (initials F, L) and left parotid mass is a 20 g parotid gland tissue, 5.8 x 4.8 x 2.0 cm. The margin is inked. Sections show a circumscribed peripheral nodular tumor, 1.8 x 1.8 x 1.6 cm. Cut section of the tumor shows a central cavity containing semisolid cloudy brown fluid. The surrounding solid areas are granular rivera-frey. The remaining glandular parenchyma is lobulated rivera-yellow and without obvious associated lymph nodes. [employer] sections are submitted as follows: BLOCK RASHID A1-A4- ??home furnishings sales representative sections tumor A5-A6- ??home furnishings sales representative sections parotid gland tissue away from tumor B. ?Received in formalin labelled with proper patient identification (initials F, L) and left pretragal parotid are fragmented lobulated rivera-brown salivary gland tissues aggregating 2.0 x 1.8 x 0.4 cm. Entirely submitted in B1. CHYNA Moyer (ASCP) 05/17/2016 3:03 PM End of Report [facility] 05/13/2016 13:0 5 EST 05/17/2016 13:05 EST Arleen Castro DO PATHOLOGY ORDER SATYA [facility] [address] [place] [address] documented in this encounter Visit Diagnoses Not on filedocumented in this encounter Care Teams Tool Profiling Machine Set Up Operator Relationship Specialty Start Date End Date Hellen Andrews MD [address] [place] [address] PCP - General 02/18/11 documented as of this encounter
--- OUTSIDE RECORDS SUMMARY | 2024-02-07 10:30 | XMS_ITS | Encounter Summary ---
Author Organization [facility] Address [address] [place] [address] Care Team Providers Care Bulk Delivery Driver Name Role Phone Hellen Andrews MD Primary Care Provider [phone] Encounter Details Date Type Department Care Team (Latest Contact Info) Description 11/29/2017 15:55 EDT - 11/29/2017 23:59 EDT Hospital Encounter [address] [address] Unknown, Provider, Discharge Disposition: Home or Self Care Social History Tobacco Use Types Packs/Day Years Used Date Smoking Tobacco: Never Assessed Sex and Gender Information Value Date Recorded Sex Assigned at Not on file Gender Identity Not on file Sexual Orientation Not on file documented as of this encounter Discharge Disposition Disposition Code Departure Means Destination Home or Self Shelter documented in this encounter Plan of Treatment Not on file documented as of this encounter Visit Diagnoses Not on filedocumented in this encounter Care Teams Bulk Delivery Driver Relationship Specialty Start Date End Date Hellen Andrews MD [address] [place] [address] PCP - General 02/18/11 documented as of this encounter
--- OUTSIDE RECORDS SUMMARY | 2024-02-07 10:30 | XMS_ITS | Encounter Summary ---
Author Organization [facility] Address [address] [place] [address] Care Team Providers Care Assistant Branch Operations Manager Name Role Phone Hellen Andrews MD Primary Care Provider [phone] Encounter Details Date Type Department Care Team (Late st Contact Info) Description 08/01/[address] [facility] Pathology & Laboratory Medicine - [facility] [address] [place] [address] Unknown, ProviderMD Social History Tobacco Use Types Packs/Day Years Used Date Smoking Tobacco: Never Assessed Sex and Gender Information Value Date Recorded Sex Assigned at Not on file Gender Identity Not on file Sexual Orientation Not on file documented as of this encounter Plan of Treatment Not on file documented as of this encounter Procedures Procedure Name Priority Date/Time Associated Diagnosis Comments ACUTE HEPATITIS PROFILE Routine 07/31/2019 20:32 EDT documented in this encounter Results * ACUTE HEPATITIS PROFILE (07/31/2019 20:32 EDT) Hep B Surface Ag Negative Negative 08/02/2019 11:27 EDT [facility] Hep C Antibody Negative Negative 08/02/2019 11:27 EDT [facility] Hepatitis A Antibody, IgM Negative Negative 08/02/2019 11:27 EDT [facility] Comment: The results of this assay can be falsely lowered due to the consumption of Biotin. Hepatitis B Core Ab, Total Negative Negative 08/02/2019 11:27 EDT [facility] Blood VENOUS BLOOD / Unknown 07/31/2019 20:32 EDT 08/01/2019 15:37 EDT Provider Unknown CHEMISTRY & BLOOD GA S ORDERABLES [facility] [address] [place] [address] documented in this encounter Visit Diagnoses Not on filedocumented in this encounter Care Teams Assistant Branch Operations Manager Relationship Specialty Start Date End Date Hellen Andrews MD [address] [place] [address] PCP - General 02/18/11 documented as of this encounter
--- OUTSIDE RECORDS SUMMARY | 2024-02-07 10:30 | XMS_ITS | Encounter Summary ---
Author Organization [facility] [place] [address] Care Team Providers Care Store Gift Wrap Associate Name Role Phone Sumaya Saldivar APRN Primary Care Provider [phone] Encounter Details Date Type Department Care Team (Latest Contact Info) Description 01/16/2020 2:02 PM EDT - 01/16/2020 4:14 PM EDT Hospital [place] [id number] Farzaneh Knowles MD [facility] [place] [address] Discharge Disposition: Home Social History Tobacco Use [...] Sign Reading Time Taken Comments Blood Pressure 126/65 01/16/2020 3:55 PM EDT Pulse 53 01/16/2020 3:15 PM EDT Temperature 36.8 ??C (98.2 ??F) 01/16/2020 2:25 PM ED T Respiratory Rate 16 01/16/2020 3:55 PM EDT Oxygen Saturation 96% 01/16/2020 4:00 PM EDT Inhaled Oxygen Concentration - - Weight 83.9 kg (185 lb) 01/16/2020 2:25 PM EDT Height 182.9 cm (6') 01/16/2020 2:25 PM EDT Body Mass Index 25.09 01/16/2020 2:25 PM EDT documented in this encounter Discharge Instructions * Discharge Instructions* Vasyl Marquez, LYDIA - 01/16/2020 4:08 PM EDT Upper GI Endoscopy: What to Expect at Home Your Recovery You will be able to go home after your doctor or nurse checks to make sure you are not having any problems. You may have to stay overnight if you had treatment during the test. You may have a sore throat fora day or two after the test. This care sheet gives you a general idea about what to expect after the test. How can you care for yourself at home? Activity Rest when you feel tired. ?? You can do your normal activities when it feels okay to do so. Diet ?? Follow your doctor's directions for eating. ?? Unless your doctor has told you not to, drink plenty of fluids. This helps to replace the fluidsthat were lost during the prep. ?? Do not drink alcohol. Medicines ?? Your doctor will tell you if and when you can restart your medicines. He or she will also give you instructions about taking any new medicines. ?? If you take blood thinners, such as warfarin (Coumadin), clopidogrel (Plavix), or aspirin, be sure to talk to your doctor. He or she will tell you if and when to start taking those medicines again. Make sure that you understand exactly what your doctor wants you to do. ?? If polyps were removed or a biopsy was done during the test, your doctor may tell you not to take aspirin or other anti-inflammatory medicines for a few days. These include ibuprofen (Advil, Motrin) and naproxen (Aleve). ?? If you have a sore throat the day after the procedure, use an otwl-qvy-jblwlvu spray to numb your throat. Sucking on throat lozenges and gargling with warm salt water may also help relieve your symptoms. Other instructions ?? For your safety, do not drive or operate machinery until the medicine wears off and you can think clearly. Your doctor may tell you not to drive or operate machinery until the day after your test. ?? Do not sign legal documents or make major decisions until the medicine wears off and you can think clearly. The anesthesia can make it hard for you to fully understand what you are agreeing to. Additional Information for Sedation Patients For patients who received sedation: ?? You may have received medications before and/or during your procedure which effects your judgement and reaction time. ?? Do not drive, operate machinery, drink alcoholic beverages or make important decisions for 24 hours. ?? Be careful on stairs as you may be unsteady on your feet. ?? You may eat a regular diet as tolerated. ?? Do not smoke if you are alone. ?? IV site: Slight redness or tenderness is normal, you can use a warm compress if you would like. If tenderness and/or redness increase or if foul drainage occurs, please contact your Doctor. Please call [phone] before 8pm Mon-Fri with problems, questions or concerns. If you call after 8pm or on weekends, call the Hospital at [phone] and ask to speak to the Driver'S License Examiner financial services education consultant and the soldering machine operator will contact that person for you. When should you call for help? Call 240 anytime you think you may need emergency care. For example, call if: ?? You passed out (lost consciousness). ?? You pass maroon or bloody stools. ?? You have trouble breathing. Call your doctor now or seek immediate medical care if: ?? You have pain that does not get better after you take pain medicine. ?? You are sick to your stomach or cannot drink fluids. ?? You have new or worse belly pain. ?? You have blood in your stools. ?? You have a fever. ?? You cannot pass stools or gas. Watch closely for changes in your health, and be sure to contact your doctor if you have any problems. Where can you learn more? [facility] View your After Visit Summary and more online at [email or web address] If you would like to provide feedback about your hospital experience, please call the Office of Patient and Family Relations at . If you have received this After Visit Summary in error, please immediately return it in person to the department, or notify the [facility] Privacy Office by calling toll free at between the hours of 8AM and 5PM to arrange for our retrieval of the documents at no cost to you. Content Version: 12.2 ?? [id number] [employer]. Care instructions adapted under license by [facility]. If you have questions about a medical condition or this instruction, always ask your healthcare professional. [employer] disclaims any warranty or liability for your use of this information. documented in this encounter Medications at Time of Discharge Medication Sig Dispensed Refills Start Date End Date atorvastatin (Lipitor) 40 mg Tablet TAKE 1 TABLET BY MOUTH ONCE DAILY 08/13/2019 lisinopriL (Prinivil;Zestril) 5 mg Tablet TAKE 1 TABLET BY MOUTH ONCE DAILY 08/13/2019 nitrofurantoin (MACRODANTIN) 100 mg Capsule TAKE 1 CAPSULE BY MOUTH TWICE DAILY WITH A MEAL/FOOD 07/30/2019 multivitamin Capsule Take by mouth. 01/16/201302/16 pantoprazole EC (Protonix) 20 mg Tablet, Delayed Release (E.C.) TAKE 1 TABLET BY MOUTH ONCE DAILY 08/13/2019 05/27/2021 aspirin EC 81 mg Tablet, Delayed Release (E.C.) Take 81 mg by mouth daily. 06/29/2021 documented as of this encounter H&P Notes * Farzaneh Knowles MD - 01/16/2020 2:56 PM EDT Patient Name: Lakeshia Tim Patient Age: 54 y.o. Birthdate: 1965 Admit date: 01/16/2020 Attending Physician: Farzaneh Knowles MD Gastroenterology and Hepatology Pre-Procedure History and Physical Exam Procedure: EGD: Indication: Biopsy of GEJ in 2017 with focal intestinal metaplasia There is no problem list on file for this patient. EXAM: HEENT: Airway examined, oropharynx clear Mallampati Score: II (soft palate, uvula, fauces visible) LUNGS: Clear to auscultation HEART: Regular rate and rhythm, normal S1, S2 ABDOMEN: Normal bowel sounds, soft, non tender, non distended, A/P Proceed with the planned endoscopic procedure. ASA 2 - Patient with mild systemic disease with no functional limitations Sedation Plan: moderate (conscious sedation) Risks and benefits of the procedure explained to the patient. Consent signed. documented in this encounter Plan of Treatment Not on file documented as of this encounter Procedures Procedure Name Priority Date/Time Associated Diagnosis Comments Upper GI Endoscopy, Diagnostic ([id number]) 01/16/2020 2:59 PM EDT barrets esophagus UPPER GI ENDOSCOPY Routine 01/16/2020 2: 37 PM EDT documented in this encounter Results * UPPER GI ENDOSCOPY (01/16/2020 2:37 PM EDT) [facility] UPPER GI ENDOSCOPY [facility] Endoscopy Procedure Date: 01/16/2020 2:37 PM ? Patient Name: Lakeshia Tim ? Date of : 1965 ? Age: 54 ? Order #: [id number] ? Instrument Name: [id number] ? Procedure: ? Upper GI endoscopy Indications: ? Suspected Sams's esophagus Providers: ? Farzaneh Knowles MD, Vannessa Morfin, ? Betsey Alva MD: ?Sumaya Saldivar Medicines: ? Midazolam 3 mg IV, Fentanyl 125 ? micrograms IV Complications: ? No immediate complications. Procedure: ? Pre-Anesthesia Assessment: ? - Prior to the procedure, a History ? and Physical was performed, and ? patient medications and allergies ? were reviewed. The patient's ? tolerance of previous anesthesia was ? also reviewed. The risks and benefits ? of the procedure and the sedation ? options and risks were discussed with ? the patient. All questions were ? answered, and informed consent was ? obtained. Prior Anticoagulants: The ? patient has taken no previous ? anticoagulant or antiplatelet agents ? except for aspirin. ASA Grade ? Assessment: II - A patient with mild ? systemic disease. After reviewing the ? risks and benefits, the patient was ? deemed in satisfactory condition to ? undergo the procedure. ? The procedure, indications, benefits, ? risks and alternatives were explained ? to the patient. Specifically ? discussed were potential ? complications including, but not ? limited to, bleeding, perforation, ? infection, missing a cancer, and ? adverse medication reactions. The ? Endoscope was introduced through the ? mouth, and advanced to the second ? part of duodenum. The patient ? tolerated the procedure well. The ? upper GI endoscopy was accomplished ? without difficulty. The patient ? tolerated the procedure well. ? Findings: ? Esophagogastric landmarks were identified: the Z-line ? was found at 40 cm, the upper extent of the gastric ? folds was found at 41 cm and the site of hiatal ? narrowing was found at 41 cm from the incisors. ? The examined esophagus was normal. ? The entire examined stomach was normal. ? The examined duodenum was normal. ? Moderate Sedation: ? I was present during the intraservice time as ? documented by the sedation RN. Impression: ?- Esophagogastric landmarks ? identified. ? - Normal esophagus. ? - Normal stomach. ? - Normal examined duodenum. ? - No specimens collected. Recommendation: ?- Repeat upper endoscopy is not ? recommended for surveillance. ? - Return to referring physician. ? Procedure Code(s): ?? --- Professional --- ? 52209, Esophagogastroduod enoscopy, ? flexible, transoral; diagnostic, ? including collection of specimen(s) ? by brushing or washing, when ? performed (separate procedure) CPT copyright 2019 [employer]. All rights reserved. The codes documented in this report are preliminary and upon tube mounter review may be revised to meet current compliance requirements. Attending Participation: ? I personally performed the entire procedure. ? Farzaneh Knowles MD Farzaneh Knowles MD 01/16/2020 3:23:47 PM This report has been signed electronically. Number of Addenda: 0 Note Initiated On: 01/16/2020 2:37 PM PROVATION 01/16/2020 2:37 PM EDT Sumaya Saldivar APRN GENERAL SURGICAL ORDERABLES PROVATION documented in this encounter Visit Diagnoses Not on filedocumented in this encounter Active and Recently Administered Medications Times are shown in EDT. PRN Medication Order 01/14/2020 01/15/2020 01/16/2020 fentaNYL 50 mcg/mL multi-dose injection (CANCELED) ONCE PRN, Starting on Tue01/16/20 at 1502, Until Tue01/16/20 at 1631, Intra-Operative (Intra-Procedure), Routine 1502 (Given - Provid er: Vannessa Morfin RN)1505 (Given - Provider: Vannessa Morfin RN)1512 (Given - Provider: Vannessa Morfin RN) midazolam (PF) (VERSED) multi-dose injection (CANCELED) ONCE PRN, Starting on Tue01/16/20 at 1502, Until Tue01/16/20 at 1631, Intra-Operative (Intra-Procedure), Routine 1502 (Given - Provid er: Vannessa Morfin RN)1505 (Given - Provider: Vannessa Morfin RN)1512 (Given - Provider: Vannessa Morfin RN) documented in this encounter Care Teams Store Gift Wrap Associate Relationship Specialty Start Date End Date Sumaya Saldivar APRN [address] [place] [address] PCP - General Family Medicine 08/02/19 documented as of this encounter
--- OUTSIDE RECORDS SUMMARY | 2024-02-07 10:30 | XMS_ITS | Encounter Summary ---
Author Organization [facility] Address [address] [place] [address] Care Team Providers Care Electric Power Line Examiner Name Role Phone Hellen Andrews MD Primary Care Provider [phone] Encounter Details Date Type Department Care Team (Late st Contact Info) Description 08/09/2016 Results Only [facility] [phone] Parker Rudolph MD [address] [place] [id number] Social History Tobacco Use Types Packs/Day Years Used Date Smoking Tobacco: Never Assessed Sex and Gender Information Value Date Recorded Sex Assigned at Not on file Gender Identity Not on file Sexual Orientation Not on file documented as of this encounter Plan of Treatment Not on file documented as of this encounter Procedures Procedure Name Priority Date/Time Associated Diagnosis Comments SURGICAL PATHOLOGY Routine 08/09/2016 18 :35 EDT documented in this encounter Results * SURGICAL PATHOLOGY (08/09/2016 18:35 EDT) Pathology Report: SURGICAL PATHOLOGY REPORT Reports generated via electronic interface contain original data; however they are lacking the format of the original report. Caution should be taken when reading/interpret ing unformatted reports. Name: ? LAKESHIA TIM ? Accession #: ? [id number] ? : ? 1965 (Age: 51) ??F ? Collect Date: ? 08/09/2016 ? Location: ? [facility] ? Receive Date: ? 08/09/2016 ? Provider: PARKER RUDOLPH MD Copy to: RICH TIJERINA STITCHDOWN TOE FORMER ? Final Pathologic Diagnosis: ESOPHAGUS, GE JUNCTION, BIOPSY: - ??Squamocolumnar junctional mucosa with focal intestinal metaplasia consistent with Sams's esophagus. - ??Negative for dysplasia. Document reviewed and electronically signed by: YUDELKA AL MD Report ??Date: 08/10/2016 16:16 By the signature above, the attending physician certifies that he/she has personally conducted a gross and/or microscopic examination of the described specimens and rendered or confirmed the above diagnosis. Specimen(s) Received: GE junction Clinical History: H/O Sams's esophagus Gross Description: ? Received in formalin labelled with proper patient identification (initials F, L) and GE junction are four pink-rivera tissues (0.2 x 0.2 x 0.2 cm to 0.5 x 0.2 x 0.1 cm). Entirely submitted in blocks 1 and 2. CHYNA Alvarado (ASCP) 08/10/2016 9:04 AM End of Report [facility] 08/09/2016 18:3 5 EDT 08/09/2016 18:35 EDT Parker Rudolph MD PATHOLOGY ORDERA POS [facility] [address] [place] [address] documented in this encounter Visit Diagnoses Not on filedocumented in this encounter Care Teams Electric Power Line Examiner Relationship Specialty Start Date End Date Hellen Andrews MD [address] [place] [phone] PCP - General 02/18/11 documented as of this encounter
--- OUTSIDE RECORDS SUMMARY | 2024-02-07 10:30 | XMS_ITS | Encounter Summary ---
Author Organization [facility] Address [address] [place] [address] Care Team Providers Care Bag Bleacher Name Role Phone Hellen Andrews MD Primary Care Provider [phone] Encounter Details Date Type Department Care Team (Late st Contact Info) Description 02/27/[address] [facility] [phone] Arleen Castro, [address] [place] [address] Social History Tobacco Use Types Packs/Day Years Used Date Smoking Tobacco: Never Assessed Sex and Gender Information Value Date Recorded Sex Assigned at Not on file Gender Identity Not on file Sexual Orientation Not on file documented as of this encounter Plan of Treatment Not on file documented as of this encounter Procedures Procedure Name Priority Date/Time Associated Diagnosis Comments CYTOPATHOLOGY Routine 02/27/2016 0:00 EDT documented in this encounter Results * CYTOPATHOLOGY (02/27/2016 0:00 EDT) Pathology Report: CYTOPATHOLOGY REPORT Reports generated via electronic interface contain original data; however they are lacking the format of the original report. Caution should be taken when reading/interpreting unformatted reports. Name: ? LAKESHIA TIM ? Accession #: ? [id number] : ? 1965 (Age: 50) ??F ?Collect Date: ? 02/27/2016 Location: ? [facility] ? Receive Date: ? 03/02/2016 Provider: ? ARLEEN CASTRO DO Copy to: ? CYTOLOGIC DIAGNOSIS: PAROTID, LEFT, PALPATION GUIDED FINE NEEDLE ASPIRATION: - Oncocytic neoplasm, favor Warthin's tumor. See comment. ? COMMENT: Cytologic evaluation reveals bland oncocytic cells with scant proteinaceous debris and scattered lymphocytes. ??The differential diagnosis includes oncocytoma vs. Warthins' tumor (papillary cystadenoma lymphomatosum). 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 ??Abe Teacher slides of this case were reviewed at the intradepartmental consultation conference. (Dr. Salas) Document reviewed and electronically signed by: ? EVIN RUVALCABA MD Report Date: ??03/02/2016 17:46 By the signature above, the attending physician certifies that he/she has personally conducted a gross and/or microscopic examination of the described specimens and rendered or confirmed the above diagnosis. Specimen Type: ? Salivary Gland, Fine Needle Aspiration, Left parotid Clinical History: ? Left parotid neck mass. clinical diagnosis code: ??R22.0. ? Gross Description: ? One vial of Cytolyt was received and processed by selective cellular enhancement technique. ? End of Report [facility] 02/27/2016 03/02/2016 7:4 2 EDT Arleen Castro DO PATHOLOGY ORDER SATYA [facility] [address] [place] [address] documented in this encounter Visit Diagnoses Not on filedocumented in this encounter Care Teams Bag Bleacher Relationship Specialty Start Date End Date Hellen Andrews MD [address] [place] [phone] PCP - General 02/18/11 documented as of this encounter
--- OUTSIDE RECORDS SUMMARY | 2024-02-07 10:30 | XMS_ITS | Encounter Summary ---
Author Organization [facility] [place] [address] Care Team Providers Care Narrative Writer Name Role Phone Cordell Robledo MD Primary Care Provider [phone] Encounter Details Date Type Department Care Team (Late st Contact Info) Description 08/01/2019 Ancillary Procedure Radiology [facility] at [facility] [place] [address] Farzaneh Knowles MD [facility] [place] [address] Social History Tobacco Use Types Packs/Day Years Used Date Smoking Tobacco: Never Sex and Gender Information Value Date Recorded Sex Assigned at Not on file Gender Identity Not on file Sexual Orientation Not on file documented as of this encounter Plan of Treatment Not on file documented as of this encounter Procedures Procedure Name Priority Date/Time Associated Diagnosis Comments FILM LIBRARY STORAGE ONLY ULTRASOUND STUDY Routine 08/01/2019 12:00 AM EDT documented in this encounter Results * Film Library- Storage Only Ultrasound Study (08/01/2019 12:00 AM EDT) Narrative [facility] - 08/31/2019 3:22 PM EDT This exam is auto-finalizing. It's purpose is for storage only. Farzaneh Knowles MD IMG FILM LIBRARY ORD ERABLES [place], [place] documented in this encounter Visit Diagnoses Not on filedocumented in this encounter Care Teams Narrative Writer Relationship Specialty Start Date End Date Cordell Robledo MD [address] [place] [address] PCP - General 08/06/11 08/01/19 documented as of this encounter
--- OUTSIDE RECORDS SUMMARY | 2024-02-07 10:30 | XMS_ITS | Encounter Summary ---
[place] [address] Care Team Providers Care Roofer Applicator Name Role Phone Sumaya Saldivar APRN Primary Care Provider [phone] Encounter Details Date Type Department Care Team (Late st Contact Info) Description 04/21/2021 Telephone [place] [phone] Stephanie White Social History Tobacco Use Types Packs/Day Years [...] encounter Miscellaneous Notes * Telephone Encounter - Stephanie White - 04/21/2021 11:04 AM EST You've been assigned an Gloria educational program. The Gloria program is: BREAST REDUCTION. The program is available at '[email or web address] The access code to view the Gloria program is: [id number]. The [email or web address] is 05-21-2021. documented in this encounter Plan of Treatment Not on file documented as of this encounter Visit Diagnoses Not on filedocumented in this encounter Care Teams Roofer Applicator Relationship Specialty Start Date End Date Sumaya Saldivar APRN [address] [place] [address] PCP - General Family Medicine 08/02/19 documented as of this encounter
--- OUTSIDE RECORDS SUMMARY | 2024-02-07 10:30 | XMS_ITS | Encounter Summary ---
Author Organization Formerly [facility] [place] [address] Care Team Providers Care Hide Cooking Operator Name Role Phone Sumaya Saldivar APRN Primary Care Provider [phone] Encounter Details Date Type Department Care Team (Latest Contact Info) Description 01/16/2020 4:35 PM EDT Laboratory Appointment Lab [address] [place] [id number] Elevated liver enzymes Social History Tobacco Use Types Packs/Day Years [...] Procedure Name Priority Date/Time Associated Diagnosis Comments HEMOGRAM Routine 01/16/2020 4:41 PM EDT Elevated liver enzymes DIFFERENTIAL, AUTOMATED Routine 01/16/2020 4:41 PM EDT Elevated liver enzymes HC VENIPUNCTURE Routine 01/16/2020 4:41 PM EDT Elevated liver enzymes HC CBC,PLT & AUTO DIFF Routine 0 4:41 PM EDT Elevated liver enzymes COMPREHENSIVE METABOLIC PANEL Routine 01/16/2020 4:41 PM EDT Elevated liver enzymes documented in this encounter Results * Differential, Automated (01/16/2020 4:41 PM EDT) Pathologist [facility] Neutrophil % 48.2 % [facility] Neutrophil Absolute 2.79 1.70 - 6.10 x10(3)/[facility] Lymph % 38.3 % [facility] Lymphocytes Abs 2.2 0.9 - 3.2 x10(3)/[facility] Monocyte % 7.8 % [facility] Monocyte Abs 0.4 0.3 - 0.9 x10(3)/[facility] Eos % 4.5 % [facility] Eosinophils Abs 0.3 0.0 - 0.4 x10(3)/[facility] Basophil % 1.0 % [facility] Baso Absolute 0.1 0.0 - 0.1 x10(3)/[facility] Immature Gran % 0.20 % [facility] Comment: Immature granulocytes(IG's)percentage and absolute count will include metamyelocytes, myelocytes, and promyelocytes. Blood smears from CBCs yielding IG's will be scanned manually for concordance. If this scan disagrees with the automated IG or if promyelocytes are noted, a manual differential will be performed. Immature Gran Absolute 0.01 0.00 - 0.04 x10(3)/[facility] Blood specimen (specimen) 01/16/2020 4:41 PM EDT 01/16/2020 4:51 PM EDT Narrative Resulting Agency Comment Spec In Lab Artur Knowles MD HEMATOLOGY ORDERABLE S [facility] [place] [address] * Hemogram (01/16/2020 4:41 PM EDT) Pathologist [facility] White Blood Cell 5.8 4.0 - 9.5 x10(3)/[facility] Red Blood Cell 4.14 4.00 - 5.21 x10(6)/[facility] Hemoglobin 12.2 11.7 - 15.5 gm/dL [facility] Hematocrit 36.7 35.7 - 45.8 % [facility] Mean Cell Volume 88.6 82.6 - 94.4 fL [facility] Mean Cell Hemoglobin 29.5 27.1 - 32.0 pg [facility] Mean Cell Hemoglobin Concentration 33.2 31.7 - 35.0 gm/dL [facility] Platelet 236 145 - 357 x10(3)/[facility] RDW Standard Deviation 42.5 37.0 - 46.0 fL [facility] RDW coefficient of variation 13.1 11.5 - 14.1 % [facility] Mean Platelet Volume 9.7 7.6 - 12.9 fL [facility] NRBC% auto 0.0 % [facility] NRBC Absolute 0.000 0.000 - 0.000 x10(3)/[facility] Blood specimen (specimen) 01/16/2020 4:41 PM EDT 01/16/2020 4:51 PM EDT Narrative Resulting Agency Comment Spec In Lab Artur Knowles MD HEMATOLOGY ORDERABLE S [facility] [place] [address] * (ABNORMAL) Comprehensive metabolic panel (non-fasting) (01/16/2020 4:41 PM EDT) Glucose 143 65 - 199 mg/dL [facility] Comment:Diabetes: >=200 mg/d L plus symptoms Blood Urea Nitrogen 12 8 - 18 mg/dL [facility] Creatinine 0.54(L) 0.70 - 1.20 mg/dL [facility] Sodium 142 135 - 145 mmol/L [facility] Potassium 4.1 3.5 - 5.0 mmol/L [facility] Comment: Please note: ??Patients with WBC >100,000 may have falsely elevated Potassium levels. ??For accurate Potassium quantification in these patients send serum separator tube (gold top) for subsequent determinations. ??Contact the Clinical Chemistry Laboratory if there are any questions. Chloride 103 98 - 107 mmol/L [facility] Carbon Dioxide 27 22 - 31 mmol/L [facility] Anion Gap 12 5 - 15 mmol/L [facility] Calcium 9.4 8.5 - 10.5 mg/dL [facility] Protein, Total 7.2 6.1 - 8.0 gm/dL [facility] Albumin 4.2 3.2 - 5.2 gm/dL [facility] Aspartate Aminotransferase 29 0 - 30 unit/L [facility] Alanine Aminotransferase 29 0 - 30 unit/L [facility] Alkaline Phosphatase 78 35 - 105 unit/L [facility] Bilirubin, Total 0.2 0.2 - 1.3 mg/dL [facility] Est Glomerular Filtration Rate 108 >=60 mL/min/1. 73 m?? [facility] Comment: The eGFR was calculated using the CKD-EPI equation. As with all creatinine based estimates of kidney function, eGFR values calculated with the CKD-EPI equation are not accurate in patients with acute kidney failure, extremes of body mass or the acutely ill. [email or web address] eGFR 125 >=60 mL/min/1. 73 m?? [facility] Comment: The eGFR was calculated using the CKD-EPI equation. As with all creatinine based estimates of kidney function, eGFR values calculated with the CKD-EPI equation are not accurate in patients with acute kidney failure, extremes of body mass or the acutely ill. [email or web address] Blood specimen (specimen) 01/16/2020 4:41 PM EDT 01/16/2020 4:51 PM EDT Narrative Resulting Agency Comment Spec In Lab Artur Knowles MD CHEMISTRY ORDERABLES [facility] [place] [address] * Prothrombin Time (01/16/2020 4:41 PM EDT) Prothrombin Time 11.8 9.4 - 12.5 sec [facility] International Normalization Ratio 1.0 [facility] Comment: An INR <2.0 indicates adequate procoagulant activity for hemostasis in most patients without underlying bleeding disorders, though the INR may not adequately reflect hemostatic capacity in patients with liver disease and synthetic impairment. The recommended target INR range for therapeutic anticoagulation is 2.0 ? 3.0 for most applications, though lower and higher ranges may be appropriate depending on clinical circumstances. Blood specimen (specimen) 01/16/2020 4:41 PM EDT 01/16/2020 4:51 PM EDT Narrative Resulting Agency Comment Spec In Lab Artur Knowles MD HEMATOLOGY ORDERABLE S Performing Organization Address [facility] Co de Phone Number [facility] [place] [address] documented in this encounter Visit Diagnoses Diagnosis Elevated liver enzymes Nonspecific elevation of levels of transaminase or lactic acid dehydrogenase (LDH) documented in this encounter Care Teams Hide Cooking Operator Relationship Specialty Start Date End Date Sumaya Saldivar APRN [address] [place] [address] PCP - General Family Medicine 08/02/19 documented as of this encounter
--- OUTSIDE RECORDS SUMMARY | 2024-02-07 10:30 | XMS_ITS | Encounter Summary ---
Author Organization [facility] Address [address] [place] [address] Care Team Providers Care Ethnoarchaeologist Name Role Phone Hellen Andrews MD Primary Care Provider [phone] Encounter Details Date Type Department Care Team (Late st Contact Info) Description 12/04/2020 Lab Requisition [facility] Pathology & Laboratory Medicine - [facility] [address], [place] [address] Outr Resulting Lab, Provider Social History Tobacco Use Types Packs/Day Years [...] Procedure Name Priority Date/Time Associated Diagnosis Comments LYME AB Routine 12/04/2020 11:30 EDT RHEUMATOID FACTOR Routine 12/04/2020 11: 30 EDT ANTI NUCLEAR AB (NIC), IFA Routine 12/04/2020 11:30 EDT documented in this encounter Results * LYME AB (12/04/2020 11:30 EDT) Lyme Ab Negative Negative 12/05/2020 11:27 EDT [facility] Blood VENOUS BLOOD / Unknown 12/04/2020 11:30 EDT 12/04/2020 20:29 EDT Provider Outr Resulting Lab IMMUNOLOGY A ND SEROLOGY ORDERABLES Performing Organization Address [facility] Co de Phone Number [facility] [address] [place] [address] * RHEUMATOID FACTOR (12/04/2020 11:30 EDT) Pathologist [facility] Rheumatoid Factor <8.6 <12.0 IU/mL 12/04/2020 20:47 EDT [facility] Blood VENOUS BLOOD / Unknown 12/04/2020 11:30 EDT 12/04/2020 20:29 EDT Provider Outr Resulting Lab CHEMISTRY & BLOOD GAS ORDERABLES Performing Organization Address [facility] Co de Phone Number [facility] [address] [place] [address] * (ABNORMAL) ANTI NUCLEAR AB (NIC), IFA (12/04/2020 11:30 EDT) [facility] NIC Interpretation Positive(A) Negative 12/05/2020 13:56 EDT [facility] NIC Titer and Pattern 1 1:80 Homogeneous 12/05/2020 13:56 EDT [facility] Blood VENOUS BLOOD / Unknown 12/04/2020 11:30 EDT 12/04/2020 20:29 EDT Narrative [facility] - 12/05/2020 13:56 EDT Results were obtained with the INOVA NOVA Lite HEp-2 NIC Kit by indirect immunofluorescence. Provider Outr Resulting Lab IMMUNOLOGY A ND SEROLOGY ORDERABLES Performing Organization Address City/[facility] Co de Phone Number [facility] [address] [place] [address] documented in this encounter Visit Diagnoses Not on filedocumented in this encounter Care Teams Ethnoarchaeologist Relationship Specialty Start Date End Date Hellen Andrews MD [address] [place] [address] PCP - General 02/18/11 documented as of this encounter
--- OUTSIDE RECORDS SUMMARY | 2024-02-07 10:30 | XMS_ITS | Encounter Summary ---
Author Organization [facility] Address [address] [place] [address] Care Team Providers Care Atm Mechanic Name Role Phone Unknown, Provider Primary Care Provider [phone] Encounter Details Date Type Department Care Team (Late st Contact Info) Description 07/05/2001 Results Only [facility] - Maple conversion [address] [place] [address] Michael Simms MD [address] [place], [place] [id number] Social History Tobacco Use Types Packs/Day Years Used Date Smoking Tobacco: Never Assessed Sex and Gender Information Value Date Recorded Sex Assigned at Not on file Gender Identity Not on file Sexual Orientation Not on file documented as of this encounter Plan of Treatment Not on file documented as of this encounter Procedures Procedure Name Priority Date/Time Associated Diagnosis Comments CYTOPATHOLOGY Routine 07/05/2001 0:00 EST documented in this encounter Results * CYTOPATHOLOGY (07/05/2001 0:00 EST) Pathology Report: CYTOPATHOLOGY REPORT Reports generated via electronic interface contain original data; however they are lacking the format of the original report. Caution should be taken when reading/interpreti ng unformatted reports. Name: ? DALILASindhuCINDYLAKESHIA Austin ? Accession #: ? [id number] : ? 1965 (Age: 36) ??F ?Collect Date: ? 07/05/2001 Location: ? [facility] ? Receive Date: ? 07/06/2001 Provider: ?MICHAEL SIMMS MD Copy to: ? Specimen/Source: ?ThinPrep Pap Test, Cervix/Endocervix Last Menstrual Period: ? 11/29/00 Hormonal/Contracep tive Status: ? Depo-Provera ? SPECIMEN ADEQUACY ? Satisfactory for Evaluation - transformation zone component present GENERAL CATEGORIZATION ? Negative for Intraepithelial Lesion or Malignancy ? Document reviewed and electronically signed by: ? YRN Gr(ASCP) ? Report Date: ??07/10/2001 09:59 End of Report CHAPO NAILS 07/05/2001 07/06/2001 Michael Simms MD PATHOLOGY ORDERABLES CHAPO NAILS [address] [place] [address] documented in this encounter Visit Diagnoses Not on filedocumented in this encounter Care Teams Atm Mechanic Relationship Specialty Start Date End Date Unknown, Provider, PCP - General 09/10/08 02/17/11 documented as of this encounter
--- OUTSIDE RECORDS SUMMARY | 2024-02-07 10:30 | XMS_ITS | Encounter Summary ---
Author Organization [facility] [address] Care Team Providers Care Backfiller Name Role Phone Sumaya Saldivar APRN Primary Care Provider [phone] Encounter Details Date Type Department Care Team (Late st Contact Info) Description 01/16/2020 3:15 PM EDT - 01/16/2020 4:00 PM EDT [place] [id number] Farzaneh Knowles MD [facility] [place] [address] EGD, UPPER GI ENDOSCOPY (WRVU 2.09) Social History Tobacco Use Types Packs/Day Years [...] encounter Discharge Instructions * Discharge Instructions* Vasyl Marquez RN - 01/16/2020 4:08 PM EDT Upper GI [...] the day after the procedure, use an oieg-hup-bdptfhy spray to numb your throat. Sucking on [...] occurs, please contact your Doctor. Please call [phone] before 8pm Mon-Fri with problems, questions or concerns. If you call after 8pm or on weekends, call the Hospital at [phone] and ask to speak to the [employer]ud [employer] consulting hr professional and the aluminum hydroxide process operator will contact that person for you. When should you call for help? Call [phone] anytime you think you may need emergency [...] problems. Where can you learn more? [facility] View your After Visit Summary and more online at [email or web address] If you would like to provide feedback about your hospital experience, please call the Office of Patient and Family Relations at . If you have received this After Visit Summary in error, please immediately return it in person to the department, or notify the [facility] Privacy Office by calling toll free at between the hours of 8AM and 5PM to arrange for our retrieval of the documents at no cost to you. Content Version: 12.2 ?? [id number] [employer]. Care instructions adapted under license by [facility]. If you have questions about a medical condition or this instruction, always ask your healthcare professional. 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 Patient Name: Lakeshia Tim ? Date of : 1965 ? Age: 54 ? Order #: [id number] ? Instrument Name: [facility]-[id number] ? Procedure: ? Upper GI endoscopy Indications: [...] Procedure Code(s): ?? --- Professional --- ? 90240, Esophagogastroduod enoscopy, ? flexible, transoral; diagnostic, ? including collection of specimen(s) ? by brushing or washing, when ? performed (separate procedure) CPT copyright 2019 [employer]. All rights reserved. The codes documented in this report are preliminary and upon legislators review may be revised to meet current compliance requirements. Attending Participation: ? I personally performed the entire procedure. ? Farzaneh Knowles MD Farzaneh Knowles MD 01/16/2020 3:23:47 PM This report has been signed electronically. Number of Addenda: 0 Note Initiated On: 01/16/2020 2:37 PM PROVATION 01/16/2020 2:37 PM EDT Sumaya Saldivar [facility] ORDERABLES [employer]ATION documented in this encounter Visit Diagnoses Not on filedocumented in this encounter Administered Medications Inactive Administered Medications - up to 3 most recent administrations Medication Order MAR Action Action Date Dose Rate Site fentaNYL 50 mcg/mL multi-dose injection ONCE PRN, Starting on Tue01/16/20 at 1502, Until Tue01/16/20 at 1631, Intra-Operative (Intra-Procedure), Routine Given 01/16/2020 3:12 PM EDT 25 mcg Given 01/16/2020 3:05 PM EDT 50 mcg Given 01/16/2020 3:02 PM EDT 50 mcg midazolam (PF) (VERSED) multi-dose injection ONCE PRN, Starting on Tue01/16/20 at 1502, Until Tue01/16/20 at 1631, Intra-Operative (Intra-Procedure), Routine Given 01/16/2020 3:12 PM EDT 1 mg Given 01/16/2020 3:05 PM EDT 1 mg Given 01/16/2020 3:02 PM EDT 1 mg documented in this encounter Active and Recently Administered [...] Routine 1502 (Given - Provid er: Vannessa Morfin, RN)1505 (Given - Provider: Vannessa Morfin, LYDIA)1512 (Given - Provider: Vannessa Morfin, RN) documented in this encounter Care Teams Backfiller Relationship Specialty Start Date End Date Sumaya Saldivar APRN [address] [place] [address] PCP - General Family Medicine 08/02/19 documented as of this encounter
--- OUTSIDE RECORDS SUMMARY | 2024-02-07 10:30 | XMS_ITS | Encounter Summary ---
Author Organization [facility] [place] [address] Care Team Providers Care Forestry Faculty Member Name Role Phone Cordell Robledo MD Primary Care Provider [phone] Encounter Details Date Type Department Care Team (Late st Contact Info) Description 07/26/2019 Ancillary Procedure [facility] [place] [address] Farzaneh Knowles MD [facility] [place] [address] Social History Tobacco Use Types Packs/Day Years Used Date Smoking Tobacco: Never Sex and Gender Information Value Date Recorded Sex Assigned at Not on file Gender Identity Not on file Sexual Orientation Not on file documented as of this encounter Plan of Treatment Not on file documented as of this encounter Procedures Procedure Name Priority Date/Time Associated Diagnosis Comments FILM LIBRARY STORAGE ONLY CT ABDOMEN AND PELVIS Routine 07/26/2019 12:00 AM EDT documented in this encounter Results * Film Library- Storage Only CT Abdomen & Pelvis (07/26/2019 12:00 AM EDT) Narrative [facility] - 08/31/2019 3:21 PM EDT This exam is auto-finalizing. It's purpose is for storage only. Farzaneh Knowles MD IMG FILM LIBRARY ORD ERABLES [place], [place] documented in this encounter Visit Diagnoses Not on filedocumented in this encounter Care Teams Forestry Faculty Member Relationship Specialty Start Date End Date Cordell Robledo MD [address] [place] [address] PCP - General 08/06/11 08/01/19 documented as of this encounter
--- OUTSIDE RECORDS SUMMARY | 2024-02-07 10:30 | XMS_ITS | Encounter Summary ---
Author Organization [facility] Address [address] [place] [address] Care Team Providers Care Certification Officer Name Role Phone Unknown, Provider Primary Care Provider [phone] Encounter Details Date Type Department Care Team (Late st Contact Info) Description 06/16/2005 Results Only [facility] - [facility] [address] [place] [address] Michael Simms MD [address] [place], [place] [id number] Social History Tobacco Use Types Packs/Day Years Used Date Smoking Tobacco: Never Assessed Sex and Gender Information Value Date Recorded Sex Assigned at Not on file Gender Identity Not on file Sexual Orientation Not on file documented as of this encounter Plan of Treatment Not on file documented as of this encounter Procedures Procedure Name Priority Date/Time Associated Diagnosis Comments SURGICAL PATHOLOGY Routine 06/16/2005 0:00 EST documented in this encounter Results * SURGICAL PATHOLOGY (06/16/2005 0:00 EST) Pathology Report: SURGICAL PATHOLOGY REPORT Reports generated via electronic interface contain original data; however they are lacking the format of the original report. Caution should be taken when reading/interpreti ng unformatted reports. Name: ? DALILASindhuCINDYLAKESHIA Austin ? Accession #: ? [id number] ? : ? 1965 (Age: 40) ??F ? Collect Date: ? 06/16/2005 ? Location: ? [facility] ? Receive Date: ? 06/16/2005 ? Provider: MICHAEL SIMMS MD Copy to: MARICRUZ NAJERA MD ? Final Pathologic Diagnosis: ? Uterus, left ovary, bilateral fallopian tubes, hysterectomy, left salpingo-oophorect nathanael, right salpingectomy: 1. ?Cervix: ? - Parakeratosis. - Chronic cervicitis. 2. ?Endometrium: ? - Proliferative endometrium. 3. ?Myometrium: ? - Adenomyosis extends throughout the myometrial thickness. 4. ?Uterine serosa: ? - Focal serosal fibrosis. 5. ?Ovary, left: ? - Simple hemorrhagic cyst with ovarian stromal hemorrhage. See comment. 6. ?Fallopian tubes, bilateral: ? - No pathologic features. Comment: ? The entire left ovary was submitted for histologic examination. There is acute stromal hemorrhage present as well as a simple cyst lined by connective tissue and fibrin without a definitive epithelial lining or definitive evidence of endometriosis. (Dr. Flores) Document reviewed and electronically signed by: Kimberly Flores MD Report ??Date: 06/23/2005 09:13 By the signature above, the attending physician certifies that he/she has personally conducted a gross and/or microscopic examination of the described specimens and rendered or confirmed the above diagnosis. Specimen(s) Received: ? Uterus, left tube and ovary, right tube Clinical History: ? Endometriosis, dysmenorrhea, stress urinary incontinence; hemorrhagic L ovarian cyst adhered to L sidewall Gross Description: ? Received in formalin labelled Pe[place]le[place]ie and uterus, left ovary, and left and right tubes is a uterus and cervix with attached left adnexa and a separately received right fallopian tube. ??The uterus and cervix are received open posteriorly. ??After removal of the adnexa, the uterus and cervix weigh 133 grams, and measure 8.5 cm fundus to cervix, 5.0 cm cornu to cornu, and 3.5 cm anterior to posterior. ??The serosa is rivera-pink, glistening, and slightly nodular. ??The endometrium is rivera-pink, focally hemorrhagic, and averages 0.1 cm in thickness. ??The myometrium is rivera-pink, trabeculated, and reveals multiple hemorrhagic, cystic foci which range in size from 0.1 to 0.6 cm in maximum dimension. ??The myometrium itself averages 2.5 cm in thickness. ??The cervical os is patent and measures 0.3 cm in inner circumference. ??The cervical mucosa is rivera-pink and finely trabeculated. ??The squamocolumnar junction is well-demarcated. ??There is a single cyst in the anterior cervix which contains clear gelatinous material and measures 0.9 x 0.9 x 0.8 cm. ??A single hemorrhagic focus measuring 0.6 cm in maximum dimension is also noted in the anterior cervix. ??A cyst filled with clear gelatinous material measuring 0.4 x 0.4 x 0.3 cm is also noted in the posterior cervix near the squamocolumnar junction. ??The left fallopian tube measures 6.5 x 1.0 cm, is pink-purple, and soft. ??Serial sectioning reveals a pinpoint lumen and otherwise unremarkable fallopian tube. The left ovary is dark red-brown and appears hemorrhagic. ??It has a nodular contour and measures 1.3 x 1.2 x 0.8 cm. ??Serial sectioning reveals a soft, hemorrhagic cut surface. ??Separately received in the same container is a right fallopian tube which is pink-purple and measures 1.8 x 1.5 cm. ??Serial sectioning reveals a pinpoint lumen and red-pink cut surface. BLOCK RASHID A1 ?Anterior cervix, to include cyst A2 ?Anterior cervix, to include squamocolumnar junction and hemorrhage A3 ?Posterior cervix, to include squamocolumnar junction and cyst A4 ?Endomyometrium, anterior, full thickness, to include hemorrhagic cyst A5 ?Endomyometrium, posterior, full thickness, to include hemorrhagic cyst A6 ?Endomyometrium, anterior, full thickness A7 ?Endomyometrium, posterior, full thickness A8 ?Hostel Parent sections of left fallopian tube and ovary A9 ?Hostel Parent section of right fallopian tube A10-A12 ? Remaining left ovary (Dr. Billingsley)/[facility] End of Report [facility] 06/16/2005 06/16/2005 15: 00 EST Michael Simms MD PATHOLOGY ORDERABLES Performing Organization Address City/State/[facility] Co de Phone Number [facility] [address] [place] [address] documented in this encounter Visit Diagnoses Not on filedocumented in this encounter Care Teams Certification Officer Relationship Specialty Start Date End Date Unknown, Provider, PCP - General 09/10/08 02/17/11 documented as of this encounter
--- OUTSIDE RECORDS SUMMARY | 2024-02-07 10:30 | XMS_ITS | Encounter Summary ---
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 Role Phone Unknown, Provider Primary Care Provider [phone] Encounter Details Date Type Department Care Team (Late st Contact Info) Description 06/26/2002 Results Only [facility] - [facility] [address] [place] [address] Michael Simms MD [address] [place], [place] [id number] Social History Tobacco Use Types Packs/Day Years Used Date Smoking Tobacco: Never Assessed Sex and Gender Information Value Date Recorded Sex Assigned at Not on file Gender Identity Not on file Sexual Orientation Not on file documented as of this encounter Plan of Treatment Not on file documented as of this encounter Procedures Procedure Name Priority Date/Time Associated Diagnosis Comments CYTOPATHOLOGY Routine 06/26/2002 0:00 EST documented in this encounter Results * CYTOPATHOLOGY (06/26/2002 0:00 EST) Pathology Report: CYTOPATHOLOGY REPORT Reports generated via electronic interface contain original data; however they are lacking the format of the original report. Caution should be taken when reading/interpreti ng unformatted reports. Name: ? DALILASindhuCINDYLAKESHIA Austin ? Accession #: ? [id number] : ? 1965 (Age: 37) ??F ?Collect Date: ? 06/26/2002 Location: ? [facility] ? Receive Date: ? 06/27/2002 Provider: ?MICHAEL SIMMS MD Copy to: ? Specimen/Source: ?ThinPrep Pap Test, Cervix/Endocervix Last Menstrual Period: ? 12/02/00 ? SPECIMEN ADEQUACY ? Satisfactory for Evaluation - transformation zone component present GENERAL CATEGORIZATION ? Negative for Intraepithelial Lesion or Malignancy ? Document reviewed and electronically signed by: ? Yolanda Gamez, CT(ASCP) ? Report Date: ??06/28/2002 08:52 End of Report [facility] 06/26/2002 06/27/2002 Michael Simms MD PATHOLOGY ORDERABLES [facility] [address] [place] [address] documented in this encounter Visit Diagnoses Not on filedocumented in this encounter Care Teams Dry Cleaner Presser Relationship Specialty Start Date End Date Unknown, Provider, PCP - General 09/10/08 02/17/11 documented as of this encounter
--- OUTSIDE RECORDS SUMMARY | 2024-02-07 10:30 | XMS_ITS | Encounter Summary ---
Author Organization [facility] Address [facility] [place] [address] Care Team Providers Care Terminal System Operator Name Role Phone Sumaya Saldivar APRN Primary Care Provider [phone] Reason for Visit * Auth/Cert Specialty Diagnoses / Procedures Referred By Madhu smyth Referred To Contact Diagnoses reduction mammoplasty Procedures PRO REDUCTION OF LARGE BREAST REDUCTION MAMMOPLASTY, KRYSTIN (WRVU 16.03) MODIFIER BARROW SEE PROTOCOL Referral ID Status Reason Start Date Expiration Date Visits Re quested Visits Authorized [id number] 1 1 Encounter Details Date Type Department Care Team (Latest Contact Info) Description 06/29/2021 8:52 AM EST - 06/29/2021 12:42 PM EST Hospital Encounter [place] [id number] Khanh Turner MD [facility] [place] [address] Macromastia Discharge Disposition: Home Social History Tobacco Use [...] Sign Reading Time Taken Comments Blood Pressure 178/93 06/29/2021 12:30 PM EST Pulse 69 06/29/2021 12:15 PM EST Temperature 36.9 ??C (98.4 ??F) 06/29/2021 11:[address] Respiratory Rate 16 06/29/2021 12:30 PM EST Oxygen Saturation 95% 06/29/2021 12:30 PM EST Inhaled Oxygen Concentration - - Weight 91.6 kg (202 lb) 06/29/2021 9:12 AM EST Height 185.4 cm (6' 1) 06/29/2021 9:12 AM EST Body Mass Index 26.65 06/29/2021 9:12 AM EST documented in this encounter Discharge Instructions * Discharge Instructions* Yanely Weston RN - 06/29/2021 9:16 AM EST At 0915 am you received 1000 mg of acetaminophen- Your next dose should not be taken before 8 hourshave passed. Next dose not before- 5:15 pm You should not take more than a total of 3000 mg of acetaminophen in a 24 hour period. General Anesthesia Discharge Instructions Go home and rest. You may be sleepy for several hours. Take it easy as sudden position changes may cause nausea and/or dizziness. Use caution on stairs. Do not smoke if you are alone. Follow a light to regular diet as tolerated today. If nausea occurs, start with clear liquids, and progress slowly to a regular diet. Do not drive, operate machinery, drink alcoholic beverages or make any legal decisions after havinggeneral anesthesia. The medications given change your reaction time and alter your judgement. IV site -- slight redness is normal, you can use warm compresses. If tenderness and redness increases or foul drainage occurs, please contact your M.D. Patients who have had endotracheal tubes/LMA (tubes used by the anesthesia staff to ensure a safe airway during your operation) may have a sore throat. This is normal and cold liquids or soothing lozenges will help ease this discomfort. Narcotic pain medications can cause constipation, please ask the surgeons office what they recommend for prevention of this. Some non-pharmaceutical means of constipation prevention include increasing intake of fluids, eating more fruits and vegetables as well as fruit juices. If you are uncomfortable and/or unable to urinate within 8 hours of discharge and it is before 5 pm, call your physician. If it is after 5pm go to the closest emergency room or call the hospital insulation machine operator at [phone] and ask for physician eligibility consultant covering for your physician. Questions or problems after 5pm or on a weekend: Call the [facility] insulation machine operator at and ask for the physician eligibility consultant covering for your doctor. * Patient Instructions* Ángel Parks PA - 06/29/2021 9:30 AM EST Images from the original note were not included. Breast Reduction Discharge Instructions The healing process after breast reduction surgery varies with each person. You should expect to feel tired for the first 2 - 3 weeks due to anesthesia and the healing process. Rest often during the day and get a good night sleep. Pain (short term and ad terminal makeup operator) With any surgery there is some discomfort or pain. You should take tylenol starting the day of surgery. You should also take ibuprofen starting 48 hours after surgery. We recommend taking an dzsm-qkn-Qyfuufe stool softener, such as Colace (docusate) or a gentle laxative while taking your narcotic pain reliever. This will help to maintain bowel regularity and prevent straining. Drink plenty of water. You will may have nerve pain after your surgery because the nerve endings have been disturbed. Nerve pain may feel like a burning sensation, itching or a shooting, electric shock pain. This is normaland will get better as you heal. Swelling Moderate bruising and swelling is normal in the first few weeks after surgery. The swelling will gradually go down, but it may remain for 3 to 6 months. To help with swelling wear your compression bra. Drains Record drain output and bring to your first clinic appointment with you. Based on the nursing assessment, your drain will likely be removed at this appointment. The nurses will show you how to care for the drains. Showering You may shower tomorrow. Do not take a bath or use a hot tub until incisions are completely healed. Tie a shoe lace or string around your neck and attach the drains to this to prevent accidental removal. Have someone nearby during your first shower. Incisions/Dressings You may have some red, pink, yellow/clear drainage from your incisions for the first 1-2 weeks. Change gauze as needed. Continue to use dressings until there is no more drainage. DO???S AND DON???TS FOR THE NEXT 6 WEEKS Hold your aspirin for [address]. [address] a motor vehicle for 1-2 weeks or until you can handle the steering wheel without discomfort. Do not drive while taking your narcotic. You will be able to wear a seat belt if you place a small pillow over your chest area. Do not engage in sexual activity for at least 1 week. Do not smoke or be around anyone who smokes for 2 weeks after your surgery. Smoking delays healing and can lead to infection. Do not lift more than 5 pounds or bend at the waist to lift for 6 weeks. Do not participate in strenuous activities such as running or aerobics for 6 weeks. Do resume walking at a gentle pace. Protect your incisions from the sun for 6 months. You may return to work in 1-6 weeks (average time is 3 weeks) depending upon your work activity. GETTING A GOOD NIGHT SLEEP Your surgeon may ask you to sleep on your back for a few weeks. Here are some suggestions for a good nights sleep. Try sleeping in a recliner. Have extra pillows in your bed for support: two along your side and one under your knees to relievelower back pressure. Buy a large body pillow or a pillow with arm rests for sitting up in bed. GETTING OUT OF BED You will be asked to limit the use of your arms for a few weeks after surgery. This can be a problem when trying to get out of bed. The following suggestions help you get out of bed with minimal use of your arms. When in bed, pull your knees up towards your chest and tip to the side, gently rolling out of bed. Take care not to roll onto your breasts. Create a nest of pillows to prop you in a semi-upright position helps give you that extra boost to get out of bed. Have someone put gentle pressure to your lower shoulder blades as you sit up. This gives you the extra power you need to get to your feet. Complications: Call your doctor with the following signs of infection: A temperature over 100.4 F or 38 C Redness at the incision line that spreads away from the incision after the first 48 praful thick yellow, foul smelling drainage Increasing pain that is not relieved by your pain medicine One breast becomes much larger and more firm than the other Contact your Doctor To make an appointment or for questions about scheduling, please contact our administrative officesat [phone] For clinical questions, please call our nurses at [phone] Both offices are open Tuesday thru Tuesday 8a - 5p. With emergencies after hours, call the hospital insulation machine operator at [phone] and ask for the Plastic Surgery Resident eligibility consultant. Future Appointments Date Time Provider Department Center 06/30/2021 2:00 PM [place]URSE[place] [facility] [place] [facility] [facility] [place]/07/2021 11:00 AM NURSE, [place] [facility] [place] [facility] [facility] DRAIN CARE INSTRUCTIONS General Information: Drains help to keep fluid from collecting by removing the extra blood and fluid from under the skin. A drain is temporary. It stays in place until the drainage has slowed down or stopped. Your doctoror nurse will decide when each drain should be removed: This is usually after each drain has 30cc or less in 24 hours for 2 days in a row. When this happens, you should call the General Surgery Clinic to schedule an appointment with the nurses to have it/them removed. This is usually not painful and only takes a few seconds. How do I care for the drains at home? Pin your drains to your clothing by using a safety pin through the plastic loop on the top of the bulb. If the drain is not attached to your clothing, it may pull out from under your skin. Also, a drain usually feels more comfortable when it???s attached. To care for the drain at home, you will have to empty the drain, ???strip?? the drain tubing, and change the dressing if applicable. See the following pages for instructions on how to do this. What problems may I have with my drain? The bulb is not compressed- The bulb may not be squeezed tightly enough, the plug may not be closedsecurely, or the tube has slipped out a bit and is leaking. Follow the instructions on how to emptythe drain. If the bulb remains expanded, then notify your doctor or nurse during business hours. No drainage or sudden decrease in amount of drainage- This is usually due to clots in the drain. Follow the instructions on how to strip the drain tubing. The tube accidentally falls out- If this happens, place a dry gauze dressing over the drain site and notify your doctor or nurse during business hours. Increased redness, swelling, or heat around the tube insertion site- This may be a sign of infection. Take your temperature: if it is higher than 101F or 38.8C, call your doctor or nurse immediately.Otherwise, notify your doctor or nurse during business hours and keep the dressing clean and dry. Post-Surgical Drain Care: After surgery, you will have one or two drains, called a Huy-Garcia (DANIELLE) drain, placed near the incision. This device collects fluid, under suction, from your surgical area. The drain promotes healing and recovery, and reduces the chance of infection. The drain will be in place until the drainage slows enough for your body to reabsorb fluid on its own. While you are hospitalized the nursing staff will care for the drain and teach you to continue to do so at home. How to Empty Your DANIELLE Drain Note: Wash your hands thoroughly before emptying your drain(s). Have the plastic measuring cup from the hospital ready to collect and measure the drainage. Please measure the output at the same two times every 24 hours and record the amount. Unpin the drain from your clothing. Open the top of the drain. Turn the drain upside down and squeeze the contents of the bulb into themeasuring cup. Be sure to empty the bulb as completely as possible. Flush the contents in the toilet. Use the drain output log chart to record the amount of drainage twice a day or any time the bulb isfull. Record the total for 24 hours for each drain you have. If you have more than one drain, remember to record the drainage from each drain separately. To prevent infection, do not let the stopper or top of the bottle touch the measuring cup or any other surface. Use one hand to squeeze all of the air from the drain. With the drain still squeezed, use your other hand to replace the top. This creates the suction necessary to remove the fluids from your body. Pin the drain back on your clothing to avoid pulling it out accidently. Wash your hands again. Remember to wash your hands before and after the procedure to reduce the risk of infection. Stripping the Tube Often the tube may become blocked with products of healing or clot. If you do not have drainage, then: Hold the tube near where it is inserted in to the skin with your one hand. Use the other hand to hold a pencil and gently squeeze the tubing with the pencil while moving it down toward the drain away from your skin. This forces the more sold material into the bulb for better drainage. Repeat as necessary to start the draining again. Removal of the Tube The tube may be removed once a single tube output is less than 30cc (1 oz.) for 24 hours. Please call the office if the output becomes thicker or has a bad odor. Huy-Garcia Drainage Record NAME: Date of Surgery: Date: Time: If more than one drain, which one: Drainage Amount (per drain) Total Amount (per drain; in 24 hours) documented in this encounter Medications at Time of Discharge Medication Sig Dispensed Refills Start Date End Date acetaminophen 325 mg Capsule Take by mouth. 09/13/2020 atorvastatin (Lipitor) 40 mg Tablet TAKE 1 TABLET BY MOUTH ONCE DAILY 08/13/2019 lisinopriL (Prinivil;Zestril) 5 mg Tablet TAKE 1 TABLET BY MOUTH ONCE DAILY 08/13/2019 nitrofurantoin (MACRODANTIN) 100 mg Capsule TAKE 1 CAPSULE BY MOUTH TWICE DAILY WITH A MEAL/FOOD 07/30/2019 multivitamin Capsule Take by mouth. 01/16/201302/16 documented as of this encounter Progress Notes * Ilda Wray RN - 06/29/2021 10:08 AM EST Discharge instructions and medications reviewed with patient and her , Baldo. All questions answered and written copy sent home with patient. Patient ambulated to car for discharge accompanied by [facility] staff member. Instructed on DANIELLE drain maintenance, emptying, and recording. Instructed to resume ASA in 48hrs per instructions documented in this encounter H&P Notes * Ángel Parks PA - 06/29/2021 9:20 AM EST Patient Name: Lakeshia Tim Patient Age: 56 y.o. Birthdate: 1965 Admit date: 06/29/2021 Attending Physician: Khanh Turner MD S: Patient with history of Symptomatic macromastia. Denies health and medication changes since lastseen by Dr. Turner. Denies any changes in allergies. O: General: alert and oriented x 3. Moves all extremities spontaneously. Laying in bed, NAD. Pulm: respirations unlabored on room air. CV: RRR Surgical site: site marked by Dr. Turner. intact skin without lesions or erythema. Assessment / Plan: To OR for Bilateral breast reduction. Patient expresses understanding of risks and benefits and elects to proceed. CHYNA Hodge documented in this encounter Miscellaneous Notes * Brief Op Note - Khanh Turner MD - 06/29/2021 11:19 AM EST Brief Operative Note Patient Name: Lakeshia Tim : [id number] MR#: [id number] Case Date: 06/29/2021 Surgeon: Surgeon(s) and Role: * Khanh Turner MD - Primary * Ángel Parks PA - Physician Sample Tester Grinder * Cholo Capone MD - Resident Preoperative diagnosis: reduction mammoplasty Postoperative diagnosis: reduction mammoplasty Procedure(s) (LRB): REDUCTION MAMMOPLASTY, KRYSTIN (WRVU 16.03) (Bilateral) MODIFIER BARROW (N/A) SEE PROTOCOL (N/A) Anesthesia: General Findings: as above Complications: none Intake: Intraprocedure Crystalloid Total None Transfusion No data found in the last 1 encounters. Output: Estimated Blood Loss: 150cc Urine Output:: (no urine output recorded) Other Output: (no other output recorded) Drains:x 2 DANIELLE Specimens removed during surgery: mastectomy 405 L /330 R Disposition: awakened from anesthesia, extubated and taken to the recovery room in a stable condition, having suffered no apparent untoward event. Condition: doing well without problems Attestation: Case Date: 06/29/2021 I was present for the entire procedure and performed all of the orosco elements of this procedure. Khanh Turenr MD Post Op Plan: 1-3 days: Drain removal in based on nursing assessment 7-10 days: Return for wound check, suture removal, give patient pathology report, beata bra fitting, review post-op activity restrictions 6 months: long-term f/u with surgeon Future Appointments Date Time Provider Department Center 06/30/2021 2:00 PM NURSE, [place] [facility] [place] [facility] [facility] [place]/07/2021 11:00 AM NURSE, [place] [facility] [place] [facility] * Op Note - Khanh Turner MD - 06/29/2021 10:08 AM EST [facility] [place] Patient Name: Lakeshia Tim : [id number] MR#: [id number] Case Date: 06/29/2021 Surgeon: Surgeon(s) and Role: * Khanh Turner MD - Primary * Ángel Parks PA - Physician Sample Tester Grinder * Cholo Capone MD - Resident Preoperative diagnosis: reduction mammoplasty Postoperative diagnosis: reduction mammoplasty Procedure(s) (LRB): REDUCTION MAMMOPLASTY, KRYSTIN (WRVU 16.03) (Bilateral) MODIFIER BARROW (N/A) SEE PROTOCOL (N/A) SEE PROTOCOL (N/A) Anesthesia: General Findings: as above Complications: none Intake: Intraprocedure Crystalloid Total None Transfusion No data found in the last 1 encounters. Output: Estimated Blood Loss: 150cc Urine Output:: (no urine output recorded) Other Output: (no other output recorded) Drains:x 2 DANIELLE Specimens removed during surgery: mastectomy 405 L /330 R Disposition: awakened from anesthesia, extubated and taken to the recovery room in a stable condition, having suffered no apparent untoward event. Condition: doing well without problems HPI/Surgical Indications: The patient has a history of back pain, neck pain, and shoulder pain associated with symptomatic macromastia. She has requested a bilateral breast reduction. The risks benefits and complications of the procedure have been discussed with her in detail. These include but are not limited to infection,bleeding, hematoma, seroma, dehiscence, poor healing, loss of sensation in the nipple, loss of the areola complex, loss of pigmentation, poor aesthetic shape of the breast, asymmetry, and identification of malignancy and need for surgery for all of the above. The risks of anesthesia and surgery in general to include deep venous thrombosis, pulmonary embolus, myocardial infarction and potentially even were discussed with the patient in detail. She understands and wishes to proceed. Procedure: In the holding area, the patient was marked in standing position for a barrow pattern inferior pedicle breast reduction. Sternal notch to nipple distance was marked at 21-22 cm on both the left and theright sides. She was then brought to the operating room. Following the adequate induction of general endotracheal anesthesia the patient was prepped and draped in the usual sterile fashion. The procedure began by using a 42 mm cookie cutter on both of the left and right sides and the nipple areolarcomplex was created the epithelization was carried out in the standard fashion on both left and theright sides. First on the right side a total of 330 grams of breast tissue was resected and then correspondingly on the left side a total of 405 grams of breast tissue was resected. Hemostasis was achieved, and then 210 flat drains were placed. Skin reapproximation was accomplished with 3-0 Vicryl at the orosco points. The Insorb stapler was used throughout except around the nipple areolar complex which was closed with 4-0 Vicryl followed by a 4-0 subcuticular Monocryl. The remainder of the incisions were closed with a 3-0 V loc suture. The drains were sutured in with a 4-0 nylon bilaterally. Drain sponges were placed. Skin was tacked together with 5-0 fast absorb. Mastisol and Steri-Strips were placed a postoperative garment was placed on the patient after application of additional sterile dressings. The anesthesia was reversed and the patient was extubated and taken to recovery room in stable condition. I was present for and performed the entire operation. Attestation: Case Date: 06/29/2021 I was present for the entire procedure and performed all of the orosco elements of this procedure. KHANH TURNER MD 06/29/2021 documented in this encounter Plan of Treatment Not on file documented as of this encounter Procedures Procedure Name Priority Date/Time Associated Diagnosis Comments SPECIMEN TO PATHOLOGY Routine 06/29/2021 11:17 AM EST SPECIMEN TO PATHOLOGY Routine 06/29/2021 11:17 AM EST SURGICAL PATHOLOGY REPORT Routine 06/29/2021 11:06 AM EST SEE PROTOCOL 06/29/2021 9:55 AM EST Macromastia MODIFIER BARROW 06/29/2021 9:55 AM EST Macromastia Breast Reduction (28507) 06/29/2021 9:55 AM EST Macromastia REDUCTION MAMMOPLASTY, BILATERAL Routine 06/29/2021 8:43 AM EST Macromastia POCT HGB Routine 06/29/2021 documented in this encounter Results * Specimen to Pathology (06/29/2021 11:17 AM EST) AP Specimen 06/29/2021 11:1 7 AM EST 06/29/2021 11:17 AM EST Narrative [facility] - 06/29/2021 11:17 AM EST Specimen requisition ordered. ??Separate Pathology report to follow Khanh Turner MD PATHOLOGY/CYTOLOGY O OLLIE Performing Organization Address [facility] [place] [address] * Specimen to Pathology (06/29/2021 11:17 AM EST) AP Specimen 06/29/2021 11:1 7 AM EST 06/29/2021 11:17 AM EST Narrative [facility] - 06/29/2021 11:17 AM EST Specimen requisition ordered. ??Separate Pathology report to follow Khanh Turner MD PATHOLOGY/CYTOLOGY O OLLIE Performing Organization Address [facility] [place] [address] * Surgical Pathology Report (06/29/2021 11:06 AM EST) Final Diagnosis [id number] ? Location: [facility] The signing pathologist has (i) examined the relevant preparation(s) for the specimen(s) and (ii) rendered or confirmed the diagnosis(es). . ?Surgical Pathology DIAGNOSIS A - Left breast tissue, reduction mammoplasty: ??- Benign breast tissue B - Right breast tissue, reduction mammoplasty: ??- Benign breast tissue Electronically signed by: ?Cher Fragoso DO Verified: ??07/02/2021 15:57 ??Pathologist Performed at: ??[place] [place], [place], [place] SPECIMEN(S) SUBMITTED A - Left breast reduction, excision (1) B - Right breast reduction, excision (1) CLINICAL INFORMATION Reduction mammoplasty SPECIMEN PROCESSING A - Labeled/Fixativ e: Left breast reduction, fresh. Quantity/Size/W eight: Multiple, aggregating 20 x 12.5 x 4.7 cm, 414 g. Tissue Description: Fibrofatty breast tissue. Skin: Unremarkable. Sectioning: Adipose and dense, steinberg-white fibrous tissue. Sections/Proces sing: Media Director sections in 3 cassettes labeled A1-A3. B - Labeled/Fixativ e: Right breast reduction, fresh. Quantity/Size/W eight: Multiple, 24 x 13.4 x 3.5 cm, 337 g. Tissue Description: Fibrofatty breast tissue. Skin: Unremarkable. Sectioning: Adipose and dense, steinberg-white fibrous tissue. Sections/Proces sing: Media Director sections in 3 cassettes labeled B1-B3. ??pps 07/02/2021 3:57 PM EST [facility] BREAST STRUCTURE / Unknown 06/29/2021 11:06 AM EST 06/29/2021 11:06 AM EST BREAST STRUCTURE / Unknown 06/29/2021 11:06 AM EST 06/29/2021 11:06 AM EST Khanh Turner MD PATHOLOGY/CYTOLOGY O RDERABLES [facility] [place] [address] * POCT HGB (06/29/2021) POC Hemoglobin 13.96 g/dL Comment:RN notified 06/29/2021 Khanh Turner MD POINT OF CARE TEST O RDERABLES documented in this encounter Visit Diagnoses Diagnosis Macromastia Hypertrophy of breast documented in this encounter Administered Medications Inactive Administered Medications - up to 3 most recent administrations Medication Order MAR Action Action Date Dose Rate Site acetaminophen (Tylenol) tablet 1,000 mg 1,000 mg, Oral, ONCE, 1 dose, On Tue06/29/21 at 0930, Administer with SIP of H2O only., Day of Surgery (Day of Procedure), Routine Given 06/29/2021 9:15 AM EST 1,000 mg lactated ringers infusion 1,000 mL, at 100 mL/hr, Intravenous, CONTINUOUS, Starting on Tue06/29/21 at 0930, Until Tue06/29/21 at 1217, Day of Surgery (Day of Procedure) Restarted 06/29/2021 9:58 AM EST New Bag 06/29/2021 9:35 AM EST 1,000 mLs 100 mL/hr documented in this encounter Active and Recently Administered Medications Times are shown in EST. Scheduled Medication Order 06/27/2021 06/28/2021 06/29/2021 acetaminophen (Tylenol) tablet 1,000 mg (COMPLETED) 1,000 mg, Oral, ONCE, 1 dose, On Tue06/29/21 at 0930, Administer with SIP of H2O only., Day of Surgery (Day of Procedure), Routine 0915 (Given - Provid er: Yanely Weston RN) clindamycin (Cleocin) (150 mg/mL) injection 900 mg (COMPLETED) 900 mg, Intravenous, ONCE, 1 dose, On Tue06/29/21 at 1000, Day of Surgery (Day of Procedure), Routine, Indication for (Active or Suspected): Prophylaxis 1000 (Given - Provid er: Laney Ellis CRNA) Continuous Medication Order 06/27/2021 06/28/2021 06/29/2021 lactated ringers infusion (CANCELED) 1,000 mL, at 100 mL/hr, Intravenous, CONTINUOUS, Starting on Tue06/29/21 at 0930, Until Tue06/29/21 at 1217, Day of Surgery (Day of Procedure) 0935 (New Bag - Prov ider: Yanely Weston RN)0957 (Paused - Provider: Laney Ellis CRNA - Comment: Switch to gravity)0958 (Restarted - Provider: Laney Ellis CRNA)1143 (Anesthesia Volume Adjustment - Provider: Laney Ellis CRNA) PRN Medication Order 06/27/2021 06/28/2021 06/29/2021 BUpivacaine (pf) (Marcaine) (2.5 mg/mL) 0.25% injection (CANCELED) ONCE PRN, Starting on Tue06/29/21 at 1129, Until Tue06/29/21 at 1447, Intra-Operative (Intra-Procedure), Routine 1129 (Given - Provid er: Khanh Turner MD) lidocaine-EPINEPHrine (pf) (1% - 1:200,000) injection (CANCELED) ONCE PRN, Starting on Tue06/29/21 at 1020, Until Tue06/29/21 at 1447, Intra-Operative (Intra-Procedure), Routine 1020 (Given - Provid er: Khanh Turner MD - Comment: 10ml per breast; Due to dilution per Dr. Turner, Epinephrine concentration is approximately 1:400,000) No Frequency Medication Order 06/27/2021 06/28/2021 06/29/2021 clindamycin (Cleocin) 900 mg/50 mL infusion 1 dose, Starting on Tue06/29/21 at 0951, Until Tue06/29/21 at 1447, MONIQUE ROSALES: cabinet override 1000 (Due) documented in this encounter Care Teams Terminal System Operator Relationship Specialty Start Date End Date Sumaya Saldivar APRN [address] [place] [address] PCP - General Family Medicine 08/02/19 documented as of this encounter
--- OUTSIDE RECORDS SUMMARY | 2024-02-07 10:30 | XMS_ITS | Encounter Summary ---
Author Organization [facility] Address [facility] [place] [address] Care Team Providers Care Dramatic Director Name Role Phone Sumaya Saldivar APRN Primary Care Provider [phone] Reason for Visit * Consultation (Routine) - Specialty Diagnoses / Procedures Referred By Madhu smyth Referred To Contact Gastroenterology Diagnoses Sams's esophagus without dysplasia Unspecified cirrhosis of liver Sumaya Saldivar APRN [address] [place] [address] [facility] [place] [address] [address] Referral ID Status Reason Start Date Expiration Date V isits Requested Visits Authorized [id number] Consult, Test & Treat Connection Center PCP Updated and/or Approved 07/31/2019 07/30/2020 6 6 Encounter Details Date Type Department Care Team (Latest Contact Info) Description 09/13/2019 8:30 AM EDT TH Visit (TeleHealth) [place] [phone] Farzaneh Knowles MD [facility] [place] [address] Elevated liver enzymes Social History Tobacco Use Types Packs/Day Years Used Date Smoking Tobacco: Never Sex and Gender Information Value Date Recorded Sex Assigned at Not on file Gender Identity Not on file Sexual Orientation Not on file documented as of this encounter Progress Notes * Farzaneh Knowles MD - 09/13/2019 8:30 AM EDT GASTROENTEROLOGY TELEHEALTH PROGRAM - NEW PATIENT VISIT Chief Complaint: Lakeshia Tim is a 54 y.o. patient referred for consultation by Dr. Saldivar for potential cirrhosis based on imaging and Sams's esophagus. History of Present Illness: 54 y.o. female who developed severe back pain on 07/26/2019. She ended up passing a kidney stone. Her pain has improved. CT imaging at the time noted a nodular liver and a AAA. AST/ALT were mildly elevated, never checked previously. No family history of liver disease, butthere is a family history of alcohol abuse. She has been sober for 42 weeks, but notes she drank toexcess daily prior for ~7 years (worse in the last 4 years). No risk factors for viral hepatitis, reports recent check through her PCP. DUNCAN risk factor include hyperlipidemia, hypertension, diet controlled DM (improved with stopping drinking). She did lose weight when she stopped drinking. No jaundice, melena, ascites, pruritis, or hepatic encephalopathy. She reports easy bruising (life long). No nausea, vomiting, diarrhea, or constipation. No issues swallowing. She reports a history of acid reflux. She reports being diagnosed with Sams's [address] [facility]. She do not remember being told that she had dysplasia. Review of systems: 14-point review of systems reviewed and negative except as above. Medications: Outpatient Medications Prior to Visit Medication Sig Dispense Refill ??? atorvastatin (Lipitor) 40 mg Tablet TAKE 1 TABLET BY MOUTH ONCE DAILY ??? lisinopriL (Prinivil;Zestril) 5 mg Tablet TAKE 1 TABLET BY MOUTH ONCE DAILY ??? nitrofurantoin (MACRODANTIN) 100 mg Capsule TAKE 1 CAPSULE BY MOUTH TWICE DAILY WITH A MEAL/FOOD ??? pantoprazole EC (Protonix) 20 mg Tablet, Delayed Release (E.C.) TAKE 1 TABLET BY MOUTH ONCE DAILY ??? aspirin EC 81 mg Tablet, Delayed Release (E.C.) Take 81 mg by mouth daily. ??? nitrofurantoin (Macrobid) 100 mg Capsule TAKE 1 CAPSULE BY MOUTH AFTER INTERCOURSE ??? simvastatin (ZOCOR) 20 mg tablet Take 20 mg by mouth nightly. ??? dexlansoprazole (DEXILANT) 30 mg CpDM Take 30 mg by mouth daily. ??? amoxicillin-clavulanate (AUGMENTIN) 875-125 mg per tablet Take 1 tablet by mouth 2 times daily.20 tablet 0 ??? OXYcodone-acetaminophen (PERCOCET) 5-325 mg per tablet Take 1 tablet by mouth every 4 hours as needed for Pain. 30 tablet 0 ??? bacitracin 500 unit/g ointment Apply topically 2 times daily. 15 g 1 ??? ibuprofen (ADVIL;MOTRIN) 800 mg tablet ??? Calcium Carbonate (TUMS) 300 mg (750 mg) Chew ??? LANSOPRAZOLE (PREVACID ORAL) No facility-administered medications prior to visit. Allergies: is allergic to codeine phosphate. Past Medical History: - DM, diet controlled, improved with stopping alcohol - Anxiety/depression - Sams's esophagus - Recurrent UTI - Hyperlipidemia - Right shoulder pain - Knee pain bilateral - Back pain - AAA, 28-[address] from 08/02 Past Surgical History: - Warthin's tumor s/p surgical resection Family History: Family history of alcohol abuse, no liver disease, colon cancer, celiac disease, orIBD Social History: stopped smoking 20 years ago No Physical Examination performed during this telemedicine visit Laboratory studies, imaging, and procedures (my review of prior records): CT 07/26/2019: Liver: micronodular appearance of portions of the liver suggesting early cirrhosis, cysts Spleen: normal GB: no calcified stones No bile duct dilation Progression of mild infrarenal aortic aneurysm, now 28-30 mm Labs 07/26/19: Hb 13.2 MCV 87.9 WBC 9.01 Plt 291 Ca 8.8 Cr 0.79 Alb 4.0 T bili 0.3 Alk phos 88 Na 141 K 3.2 AST 30 ALT 47 FIB-4: 0.81 EGD 2017: Z-line at 35 cm with minimal inflammation, no tongues of Sams's [place] 2017: no polyps Assessment/Plan: Ms. Salima Tim is a 54 [address] patient with [address] imaging concerning for potential cirrhosis (nodular contour to the liver) on a background history of previous heavy alcohol use. We discussed that other features for cirrhosis such as varices or splenomegaly were not noted on her CT imaging. Laboratory i nvestigations are significant for normal platelet count, bilirubin, alkaline phosphatase, and albumin. Her FIB-4 score is 0.81 which would argue against significant liver fibrosis. We did review thather AST is 30 and ALT is 47 which is borderline high. She does have risk factors for nonalcoholic steatohepatitis (high blood pressure and high cholesterol), but these have improved with weight loss that occurred after stopping alcohol. At this time I recommend a follow-up in clinic in January 2020 where a FibroScan can be performed. We will obtain a CBC, CMP, and INR at this visit for follow-up. We discussed that if the FibroScan is elevated or her liver enzymes were made mildly elevated additional work-up to look for other causes of liver disease would be warranted. In the meantime I willrequest the records from her PCP to review her hepatitis serologies. As for her Sams's esophagus I will attempt to obtain the records from her initial diagnosis. Herlast EGD showed a Z line at 35 cm but no tongues of Sams's were noted. I will also obtain these biopsies. We discussed that if this is indeed nondysplastic Sams's follow-up upper endoscopy would be recommended in 2021. Recommendations: Follow-up in clinic in January 2020 with CBC, CMP, INR, and FibroScan. Request records for viral hepatitis serology, previous endoscopy, and esophageal biopsies. I spent 38 minutes face to face with the patient. 40 minutes were spent on counseling and discussion as of the above during this telemedicine visit. The patient was located in [place] at the time of their visit. Farzaneh Knowles MD [facility] [place] [address] documented in this encounter Plan of Treatment Not on file documented as of this encounter Results * Prothrombin Time (01/16/2020 4:41 PM EDT) Prothrombin Time 11.8 9.4 - 12.5 sec [facility] International Normalization Ratio 1.0 [facility] Comment: An INR <2.0 indicates [...] Comment Spec In Lab Farzaneh Knowles MD HEMATOLOGY ORDERABLE S [facility] [place] [address] * (ABNORMAL) Comprehensive metabolic panel (non-fasting) (01/16/2020 4:41 PM EDT) Glucose 143 65 - 199 mg/dL [facility] Comment:Diabetes: >=200 mg/d L plus symptoms Blood Urea Nitrogen 12 8 - 18 mg/dL [facility] Creatinine 0.54(L) 0.70 - 1.20 mg/dL [facility] Sodium 142 135 - 145 mmol/L [facility] Potassium 4.1 3.5 - 5.0 mmol/L [facility] Comment: Please note: ??Patients with WBC >100,000 may have falsely elevated Potassium levels. ??For accurate Potassium quantification in these patients send serum separator tube (gold top) for subsequent determinations. ??Contact the Clinical Chemistry Laboratory if there are any questions. Chloride 103 98 - 107 mmol/L [facility] Carbon Dioxide 27 22 - 31 mmol/L [facility] Anion Gap 12 5 - 15 mmol/L [facility] Calcium 9.4 8.5 - 10.5 mg/dL [facility] Protein, Total 7.2 6.1 - 8.0 gm/dL [facility] Albumin 4.2 3.2 - 5.2 gm/dL [facility] Aspartate Aminotransferase 29 0 - 30 unit/L [facility] Alanine Aminotransferase 29 0 - 30 unit/L [facility] Alkaline Phosphatase 78 35 - 105 unit/L [facility] Bilirubin, Total 0.2 0.2 - 1.3 mg/dL [facility] Est Glomerular Filtration Rate 108 >=60 mL/min/1. 73 m?? [facility] Comment: The eGFR was calculated using the CKD-EPI equation. As with all creatinine based estimates of kidney function, eGFR values calculated with the CKD-EPI equation are not accurate in patients with acute kidney failure, extremes of body mass or the acutely ill. http://[employer]/[facility]IATIONnkf eGFR 125 >=60 mL/min/1. 73 m?? [facility] Comment: The eGFR was calculated using the CKD-EPI equation. As with all creatinine based estimates of kidney function, eGFR values calculated with the CKD-EPI equation are not accurate in patients with acute kidney failure, extremes of body mass or the acutely ill. http://[employer]/DHMCnkf Blood specimen (specimen) 01/16/2020 4:41 PM EDT 01/16/2020 4:51 PM EDT Narrative Resulting Agency Comment Spec In Lab Farzaneh Knowles MD CHEMISTRY ORDERABLES [facility] [place] [id number] documented in this encounter Visit Diagnoses Diagnosis Elevated liver enzymes Nonspecific elevation of levels of transaminase or lactic acid dehydrogenase (LDH) documented in this encounter Care Teams Dramatic Director Relationship Specialty Start Date End Date Sumaya Saldivar APRN [address] [place] [address] PCP - General Family Medicine 08/02/19 documented as of this encounter
--- OUTSIDE RECORDS SUMMARY | 2024-02-07 10:30 | XMS_ITS | Encounter Summary ---
Author Organization [facility] Address [address] [place] [address] Care Team Providers Care Mandrel Press Hand Name Role Phone Hellen Andrews MD Primary Care Provider [phone] Encounter Details Date Type Department Care Team (Late st Contact Info) Description 06/02/2021 Lab Requisition [facility] Pathology & Laboratory Medicine - [facility] [address], [place] [address] Outr Resulting Lab, Provider Social History Tobacco [...] Procedure Name Priority Date/Time Associated Diagnosis Comments ZZCOVID-19 TEST [facility] PCR Today 06/02/2021 10:20 EST COVID-19 TESTING Routine 06/02/2021 10:2 0 EST documented in this encounter Results * COVID-19 TEST [facility] PCR (06/02/2021 10:20 EST) Swab 06/02/2021 10:2 0 EST 06/02/2021 23:27 EST Provider Outr Resulting Lab MICROBIOLOGY - GENERAL ORDERABLES [facility] [address] [place] [address] * COVID-19 TESTING (06/02/2021 10:20 EST) COVID-19 rt-PCR Result Negative Negative 06/03/2021 15:15 EST [facility] Comment: This test has not been FDA cleared or approved. This test has been authorized by FDA under an EUA for use by authorized laboratories. This test has been authorized only for detection of nucleic acid from 2019-nCoV, not for any other viruses or pathogens. This test is only authorized for the duration of the declaration that circumstances exist justifying the authorization of emergency use of in vitro diagnostic tests for detection and/or diagnosis of 2019-nCoV under section 564(b)(1) of Act, 21 U.S.C ?? 360bbb-3(b) (1), unless the authorization is terminated or revoked sooner. Negative results do not preclude 2019-nCoV infection and should not be used as the sole basis for treatment or other patient management decisions. Negative results must be combined with clinical observations, patient history, and epidemiological information. Performed on the [employer] Interactive Fusion instrument Performing Lab Pinch [facility] Lab 06/03/2021 15:15 EST [facility] Swab 06/02/2021 10:2 0 EST 06/02/2021 23:27 EST Provider Outr Resulting Lab MICROBIOLOGY - GENERAL ORDERABLES [facility] [address] [place] [address] documented in this encounter Visit Diagnoses Not on filedocumented in this encounter Care Teams Mandrel Press Hand Relationship Specialty Start Date End Date Hellen Andrews MD [address] [place] [address] PCP - General 02/18/11 documented as of this encounter
--- OUTSIDE RECORDS SUMMARY | 2024-02-07 10:30 | XMS_ITS | Encounter Summary ---
Author Organization [facility] Address [facility] [place] [address] Care Team Providers Care Food Vendor Name Role Phone Sumaya Saldivar APRN Primary Care Provider [phone] Reason for Visit * Auth/Cert Specialty Diagnoses / Procedures Referred By Madhu smyth Referred To Contact Diagnoses reduction mammoplasty Procedures PRO REDUCTION OF LARGE BREAST REDUCTION MAMMOPLASTY, KRYSTIN (WRVU 16.03) MODIFIER BARROW SEE PROTOCOL Referral ID Status Reason Start Date Expiration Date Visits Re quested Visits Authorized [id number] 1 1 Encounter Details Date Type Department Care Team (Late st Contact Info) Description 06/29/2021 10:20 AM EST - 06/29/2021 1:07 PM EST Surgery [facility] [place] [phone] Khanh Turner MD [facility] [place] [address] REDUCTION MAMMOPLASTY, KRYSTIN (WRVU 16.03) Social History Tobacco Use Types Packs/Day Years [...] closest emergency room or call the hospital defensive fire control systems operator at [phone] and ask for physician customer resolution specialist covering for your physician. Questions or problems after 5pm or on a weekend: Call the [facility] defensive fire control systems operator at and ask for the physician customer resolution specialist covering for your doctor. * Patient Instructions* [...] good night sleep. Pain (short term and adjunct faculty for medical terminology) With any surgery there is some discomfort or pain. You should take tylenol starting the day of surgery. You should also take ibuprofen starting 48 hours after surgery. We recommend taking an oepu-krr-Yotsyto stool softener, such as Colace (docusate) or [...] about scheduling, please contact our administrative officesat [phone] For clinical questions, please call our nurses at [phone] Both offices are open Tuesday thru Tuesday 8a - 5p. With emergencies after hours, call the hospital defensive fire control systems operator at [phone] and ask for the Plastic Surgery Resident customer resolution specialist. Future Appointments Date Time Provider Department Center 06/30/2021 2:00 PM NURSE, [place] [facility] [place] [facility] [facility] 07/07/2021 11:00 AM NURSE, [place]LASTIC [place] [facility] [place] [facility] DRAIN CARE INSTRUCTIONS General Information: [...] Operative Note Patient Name: Lakeshia Tim : [id number] MR#: [id number] Case Date: 06/29/2021 Surgeon: Surgeon(s) and Role: * Khanh Turner MD - Primary * Ángel Parks PA - Physician Gastroenterology Manager * Cholo Capone MD - Resident Preoperative [...] the orosco elements of this procedure. Khanh Turner MD Post Op Plan: 1-3 days: Drain removal in based on nursing assessment 7-10 days: Return for wound check, suture removal, give patient pathology report, beata bra fitting, review post-op activity restrictions 6 months: senior living f/u with surgeon Future Appointments Date Time Provider Department Center 06/30/2021 2:00 PM NURSE, [place]LASTIC [place] [facility] [place] [facility] 07/07/2021 11:00 AM NURSE, PLASTIC SURG[place] [facility] [place] [facility] [facility] * Op Note - Khanh Turner MD - 06/29/2021 10:08 AM EST [facility] [place] Patient Name: Lakeshia Tim : [id number] MR#: [id number] Case Date: 06/29/2021 Surgeon: Surgeon(s) and Role: * Khanh Turner MD - Primary * Ángel Parks PA - Physician Gastroenterology Manager * Cholo Capone MD - Resident Preoperative [...] 06/29/2021 9:55 AM EST Macromastia Breast Reduction (53031) 06/29/2021 9:55 AM EST Macromastia REDUCTION MAMMOPLASTY, [...] MD PATHOLOGY/CYTOLOGY O OLLIE Performing Organization Address [facility] Co de Phone Number [facility] [place] [address] * Specimen to Pathology (06/29/2021 11:17 AM EST) AP Specimen 06/29/2021 11:1 7 AM EST 06/29/2021 11:17 AM EST Narrative [facility] - 06/29/2021 11:17 AM EST Specimen requisition ordered. ??Separate Pathology report to follow Khanh Turner MD PATHOLOGY/CYTOLOGY O RDCARRIE Performing Organization Address [facility] [place] [address] * Surgical Pathology Report (06/29/2021 11:06 AM EST) Final Diagnosis [id number] ? Location: [facility] The signing pathologist has (i) examined the relevant preparation(s) for the specimen(s) and (ii) rendered or confirmed the diagnosis(es). . ?Surgical Pathology DIAGNOSIS A - Left breast tissue, reduction mammoplasty: ??- Benign breast tissue B - Right breast tissue, reduction mammoplasty: ??- Benign breast tissue Electronically signed by: ?Cher Fragoso DO Verified: ??07/02/2021 15:57 ??Pathologist Performed at: ??-[facility] [place], [place], [place] SPECIMEN(S) SUBMITTED A - Left breast reduction, excision (1) B - Right breast reduction, excision (1) CLINICAL INFORMATION Reduction mammoplasty SPECIMEN PROCESSING A - Labeled/Fixativ e: Left breast reduction, fresh. Quantity/Size/W eight: Multiple, aggregating 20 x 12.5 x 4.7 cm, 414 g. Tissue Description: Fibrofatty breast tissue. Skin: Unremarkable. Sectioning: Adipose and dense, steinberg-white fibrous tissue. Sections/Proces sing: Mobile Health Vehicle Operator sections in 3 cassettes labeled A1-A3. B - Labeled/Fixativ e: Right breast reduction, fresh. Quantity/Size/W eight: Multiple, 24 x 13.4 x 3.5 cm, 337 g. Tissue Description: Fibrofatty breast tissue. Skin: Unremarkable. Sectioning: Adipose and dense, steinberg-white fibrous tissue. Sections/Proces sing: Mobile Health Vehicle Operator sections in 3 cassettes labeled B1-B3. ??pps 07/02/2021 3:57 PM EST [facility] BREAST STRUCTURE / Unknown 06/29/2021 11:06 AM EST 06/29/2021 11:06 AM EST BREAST STRUCTURE / Unknown 06/29/2021 11:06 AM EST 06/29/2021 11:06 AM EST Khanh Turner MD PATHOLOGY/CYTOLOGY O RDERABLES [facility] [place] [address] * POCT HGB (06/29/2021) POC Hemoglobin 13.96 g/dL Comment:RN notified 06/29/2021 Khanh Turner MD POINT OF CARE TEST O RDERABLES documented in this encounter Visit Diagnoses Diagnosis Macromastia Hypertrophy of breast Macromastia Hypertrophy of breast documented in this [...] Given 06/29/2021 9:15 AM EST 1,000 mg BUpivacaine (pf) (Marcaine) (2.5 mg/mL) 0.25% injection ONCE PRN, Starting on Tue06/29/21 at 1129, Until Tue06/29/21 at 1447, Intra-Operative (Intra-Procedure), Routine Given 06/29/2021 11:29 AM EST 20 mLs 19- Surgical Site lactated ringers infusion 1,000 mL, at 100 mL/hr, Intravenous, CONTINUOUS, Starting on Tue06/29/21 at 0930, Until Tue06/29/21 at 1217, Day of Surgery (Day of Procedure) Restarted 06/29/2021 9:58 AM EST New Bag 06/29/2021 9:35 AM EST 1,000 mLs 100 mL/hr lidocaine-EPINEPHrine (pf) (1% - 1:200,000) injection ONCE PRN, Starting on Tue06/29/21 at 1020, Until Tue06/29/21 at 1447, Intra-Operative (Intra-Procedure), Routine Given 06/29/2021 10:20 AM EST 20 mLs 19- Surgical Site documented in this encounter Active and Recently Administered Medications Times are shown in EST. Scheduled Medication Order 06/27/2021 06/28/2021 06/29/2021 acetaminophen (Tylenol) tablet 1,000 mg (COMPLETED) 1,000 mg, Oral, ONCE, 1 dose, On Tue06/29/21 at 0930, Administer with SIP of H2O only., Day of Surgery (Day of Procedure), Routine 914 (Given - Provid er: Yanely Weston RN) [...] Tue06/29/21 at 0951, Until Tue06/29/21 at 1447, ROSALES, MONIQUE G.: cabinet override 1000 (Due) documented in this encounter Care Teams Food Vendor Relationship Specialty Start Date End Date Sumaya Saldivar APRN [address] [place] [address] PCP - General Family Medicine 08/02/19 documented as of this encounter
--- OUTSIDE RECORDS SUMMARY | 2024-02-07 10:30 | XMS_ITS | Encounter Summary ---
Author Organization [facility] [place] [address] Care Team Providers Care Procurement Intern Name Role Phone Sumaya Saldivar APRN Primary Care Provider [phone] Encounter Details Date Type Department Care Team (Late st Contact Info) Description 09/25/2019 Notes [place] [address] Farzaneh Knowles MD [facility] [place] [address] Social History Tobacco Use Types Packs/Day Years Used Date Smoking Tobacco: Never Sex and Gender Information Value Date Recorded Sex Assigned at Not on file Gender Identity Not on file Sexual Orientation Not on file documented as of this encounter Progress Notes * Farzaneh Knowles MD - 09/25/2019 3:15 PM EDT Images from the original note were not included. documented in this encounter Plan of Treatment Not on file documented as of this encounter Visit Diagnoses Not on filedocumented in this encounter Care Teams Procurement Intern Relationship Specialty Start Date End Date Sumaya Saldivar APRN [address] [place] [address] PCP - General Family Medicine 08/02/19 documented as of this encounter
--- OUTSIDE RECORDS SUMMARY | 2024-02-07 10:30 | XMS_ITS | Encounter Summary ---
Author Organization [facility] Address [address] [place] [address] Care Team Providers Care Roll Out Manager Name Role Phone Hellen Andrews MD Primary Care Provider [phone] Encounter Details Date Type Department Care Team (Latest Contact Info) Description 08/09/2016 10:20 EDT - 08/09/2016 23:59 EDT Hospital Encounter [address] [address] Unknown, Provider, Discharge Disposition: Home or Self Care Social History Tobacco Use Types Packs/Day Years Used Date Smoking Tobacco: Never Assessed Sex and Gender Information Value Date Recorded Sex Assigned at Not on file Gender Identity Not on file Sexual Orientation Not on file documented as of this encounter Discharge Disposition Disposition Code Departure Means Destination Home or Self Custodial documented in this encounter Plan of Treatment Not on file documented as of this encounter Visit Diagnoses Not on filedocumented in this encounter Care Teams Roll Out Manager Relationship Specialty Start Date End Date Hellen Andrews MD [address] [place] [address] PCP - General 02/18/11 documented as of this encounter
--- OUTSIDE RECORDS SUMMARY | 2024-02-07 10:30 | XMS_ITS | Encounter Summary ---
Author Organization [facility] [place] [address] Care Team Providers Care Cuff Setter Lockstitch Name Role Phone Sumaya Saldivar APRN Primary Care Provider [phone] Reason for Visit * Consultation (Routine) - Closed Specialty Diagnoses / Procedures Referred By Madhu smyth Referred To Contact Plastic Surgery Diagnoses Other dorsalgia Procedures Sumaya Vera APRN [address] [place] [address] [facility] S[facility] [address] [address] Referral ID Status Reason Start Date Expiration Date V isits Requested Visits Authorized [id number] Closed Consult, [facility] PCP Updated and/or Approved 04/08/2021 04/08/2022 12 12 Encounter Details Date Type Department Care Team (Late st Contact Info) Description 05/27/2021 8:30 AM EST Office [place] [address] Khanh Salas MD [facility] [place] [address] Macromastia Social History Tobacco Use Types Packs/Day [...] Sign Reading Time Taken Comments Blood Pressure - - Pulse - - Temperature - - Respiratory Rate - - Oxygen Saturation - - Inhaled Oxygen Concentration - - Weight 91.6 kg (202 lb) 05/27/2021 8:27 AM EST Height 185.4 cm (6' 0.99) 05/27/2021 8:27 AM ES T Body Mass Index 26.66 05/27/2021 8:27 AM EST documented in this encounter Patient Instructions * Patient Instructions* Jessica Antonio RN - 05/27/2021 8:30 AM EST Preoperative Instructions You have been scheduled to have plastic surgery. The instructions below are specific to your procedure. If you are a smoker, we ask that you stop at least 2 months prior to your surgical date and remain nicotine free for at least a month after surgery. Smoking can impair healing and increase your chance of infection. If you are 40 years old or older, please remember to have a mammogram with in one year prior to your upcoming breast reduction surgery as we advise not having one for at least six months after surgery. One Month prior to Surgery Schedule a pre-operative physical with your primary care doctor Two Weeks prior to Surgery Do not take any Aspirin or aspirin containing products for the 2 weeks leading up to surgery. You may resume taking 48 hours after surgery. Do not take medications containing Ibuprofen. Do not take any anti-steroidal's such as Advil, Aleve, Celebrex, Daypro, Indocin, Midol, Motrin, Naproxen, Nuprinand Toradol. These medications increase your risk of bleeding. You may resume taking any of these medications 48 hours after surgery. Stop Vitamin E, Garlic supplements, Ginseng, Fish Oil tablets, Ginkgo and Bull's Wort and any other herbals. You may resume taking 48 hours after surgery. If you need medication for pain, you may take Tylenol or extra strength Tylenol during this two week period. One Week prior to Surgery Please call if you feel ill, have cold or fever, have a rash or breaks in the skin near your surgical site. Stay hydrated. Avoid alcohol and recreational drugs Three Days before Surgery Do not shave near your surgical site One Day before Surgery Breast Surgery - Wash your chest and underarms for several minutes the night before and the morningof surgery using an antibacterial soap (Dial or Lever 2000) or Hibiclens wash. The Same Day Surgery Team will call you the business day before your surgery to give you instructions specific to your procedure and your surgical time. Generally, you will be asked not to eat any solids after midnight. You are allowed clear liquids (water, heriberto loren, apple juice, black coffee andplain tea) until 2 hours prior to your surgery. Day of Surgery A route relief driver is required at time of discharge. If you are a Same Day procedure and do not have a driveryour surgery will be canceled. DO NOT wear any jewelry, makeup or artificial nails the day of surgery. DO NOT apply any lotions, powders or deodorants on or near the surgical site the day of surgery. Do wear comfortable, loose fitting clothes. Anesthesia will meet with you the morning of surgery. They will perform an assessment and review your history with you. Contact Information: During regular office hours (Tuesday- Tuesday, non-holiday 8:00 am- 5:00 pm) For an appointment or insurance questions For questions pertaining to your surgical date [phone] For nursing related questions [phone] On weekends, holidays or after office hours: Call and ask the anvil seating press operator to page the Plastic Surgery Resident enterprise applications manager. documented in this encounter Progress Notes * Erlinda Arellano - 05/27/2021 8:30 AM EST Plastic Surgery Consultation Note Provider: Khanh Salas, PCP: Sumaya Saldivar APRN Requesting Physician: No primary care provider on file. CC: Symptomatic macromastia HPI: Lakeshia Tim is a 55 y.o. female who presents today for evaluation of symptomatic macromastia. Her PCP is Sumaya Saldivar APRN and has requested the consultation. She is unaccompanied for today???s visit. She has been suffering from back, neck, and shoulder pain for years. She has a mammogram scheduled for this month. Her grandmother did have breast cancer. The patient has been going to physical therapy since 02/03. Her most recent mammogram was in 1 year ago and was normal. She has completed a breast specific questionnaire: Pertinent findings to emphasize are: No flowsheet data found. Breast Q Reduction PreOp 05/27/2021 Satisfaction with Breast 43 Psychosocial Wellbeing 72 Sexual well-being 56 Physical Well-being 62 How your breasts look in clothes? Somewhat satisfied How your breast size matches the rest of your body? Somewhat dissatisfied The size of your breasts? Somewhat dissatisfied The shape of your breasts when you are wearing a bra? Somewhat dissatisfied How equal in size your breasts are to each other? Very satisfied How comfortably your bras fit? Very dissatisfied The shape of your breasts when you are not wearing a bra? Somewhat dissatisfied How you look in the mirror clothed? Somewhat satisfied How your breasts sit/hang on your chest? Somewhat dissatisfied How normal your breasts look? Somewhat satisfied How you look in the mirror unclothed? Very dissatisfied Confident in a social setting? All of the time Of equal worth to other women? All of the time Good about yourself? Most of the time Self-assured? Most of the time Confident in your clothes? Most of the time Accepting of your body? Most of the time That your appearance matches who you are inside? Most of the time Confident about your body? Most of the time Attractive? Most of the time Comfortable/at ease during sexual activities? Most of the time Confident sexually? Some of the time Satisfied with your sex-life? Most of the time Sexually attractive in your clothes? Most of the time Sexy when unclothed? Some of the time Headaches? All of the time Pain in your breast area? Some of the time Lack of energy? None of the time Difficulty doing vigorous physical activities (e.g. running or exercising)? None of the time Feeling physically unbalanced? Some of the time Shoulder pain? All of the time Difficulty sleeping because of discomfort in your breast area? None of the time Neck pain? All of the time Painful gouges or grooves in your shoulders from your bra straps? All of the time Feeling physically uncomfortable? Some of the time Rashes under your breasts? None of the time Back pain? All of the time Arm pain? Some of the time Pain, numbness or tingling in your hands because of your breast size? Some of the time Conservative Therapy Treatments: [facility] PLASTICS CONSERVATIVE THERAPY TREATMENTS 05/27/2021 Physical therapy was effective at relieving my symptoms. Some Relief How many months did you try this treatment? 3 to 6 months Use of custom support bras relieved my symptoms. Never Tired Treatment by a chiropractor relieved my symptoms. Some Relief How many months did you try this treatment? More than 6 months Weight loss relieved my symptoms. No Relief How many months did you try this treatment? More than 6 months Non-narcotic medications (such as Tylenol, Aspirin, Ibuprofen, Aleve, etc) have relieved my symptoms. Some Relief How many months did you try this treatment? More than 6 months Narcotic pain relievers (such as Tylenol #3, Percocet, etc) have relieved my symptoms. Never Tried Other Treatments have relieved my symptoms. No Relief Please specify which treatments have helped. I have used heat, cold, muscle rubs, massage How many months did you try this treatment(s)? More than 6 months Over the counter or prescription medication has relieved the rashes under my breasts. Never Tried Past Medical History: Diagnosis Date ??? Asymptomatic varicose veins of both lower extremities 03/05/2021 ??? Sams's esophagus 03/05/2021 ??? Diabetes mellitus 03/05/2021 ??? Ectatic abdominal aorta 03/05/2021 ??? HLD (hyperlipidemia) 03/05/2021 ??? Hypertension 03/05/2021 Past Surgical History: Procedure Laterality Date ??? PRO UPPER GI ENDOSCOPY, DIAGNOSTIC N/A 01/16/2020 EGD, UPPER GI ENDOSCOPY performed by Farzaneh Knowles MD at [facility] ENDOSCOPY ROS: System Constitutional neg Eye neg ENT neg CV neg Resp neg GI neg neg Skin neg Allergy neg Endocrine neg Neurologic neg Musculoskeletal Neck and back pain Lymph neg Psych neg Y N All other systems reviewed and negative. x Examination: BMI: Ht 185.4 cm (6' 0.99) Wt 91.6 kg (202 lb) BMI 26.66 kg/m?? BSA: Body surface area is 2.17 meters squared. General: On my examination today, the patient appears to be in good health. Her emotional outlook is positive and she asked appropriate questions throughout the visit. Breasts: Bra size: 42DD Breast Measurements Right Left Ptosis SN-N (cm) 31 30 NAC (cm) 5.5 5 Base diameter (cm) 18 18 Masses Shoulder grooves + + Rash -- - Axillary rolls Surgical Scars Resection (estimate in gms) 900 900 Impression: Symptomatic bilateral breast hypertrophy. Bilateral breast reduction is medically indicated for relief of her breast-related symptoms. She has not watched the [facility] video on breast reduction, and was provided with an ASPS brochure and informed consent on breast reduction. It reviews the surgical risks, alternate skin incisions and pedicle versus free nipple graft techniques. It also discusses the option of volume reduction by liposuction alone, which does not alter the nipple-areolarcomplex position. It talks about the impact of this surgery on decreasing breast cancer risk. We reviewed the timing of surgery relative to weight fluctuations and I've advised that surgery is best done at a realistic prison stable weight. We talked about the outpatient nature of the surgery, drains, postoperative recovery, and time required off work. Post-operative restrictions include no lifting, pushing, or pulling more than 5lbs for 4-6 weeks. The following risks were reviewed in the video or in our discussion: Surgical Risks which are greater with open reduction: bleeding with risk of hematoma (<5%); numbness, which may be temporary or permanent; scarring, including abnormal scarring; infection (5-10%);fat necrosis resulting in a breast mass and possible need for revision. I stressed the likelihood of minor problems with delayed wound healing (~30%) and the rare complication of nippleareolar necrosis. She is also aware that there may be some residual pain after the surgery and that there may possibly be some asymmetry. Vertical or Lollipop Incision: Less scarring on breast, but slightly greater risk for delayed healing and desire for scar revision. (She was informed that her insurer might not cover secondary revisions for scarring or asymmetry.) Thompson or Dongola Pattern Incision: More scarring on breast, but lower risk for scar revision. (She was informed that her insurer might not cover secondary revisions for scarring or asymmetry.) Pedicle Technique: volume of reduction may be limited by need to provide an adequate blood supply to the nipple. There is a very small risk of nipple loss. Most women (~60%) will be able to breast-feed. Free Nipple Graft: The grafts will initially have no sensation and once fully healed may not respond to temperature and touch as they do now. She has also been informed that they may not look entirely normal and may have patchy hypopigmentation. She will not be able to breast feed with this technique. After fully discussing the options, she has opted to pursue a: + Bilateral Breast Reduction Vertical, Pedicle Bilateral Breast Reduction Thompson, Pedicle Bilateral Breast Reduction Thompson, FNG Anticipated resection: 900 grams right breast 900 grams left breast BSA [employer]/[place] Medicaid All other / Schnur 2.15 1000 819 2.20 1000 895 She would like to proceed with surgery and I will inform her PCP of this plan. Photos taken today with informed signed consent. Plan: Follow up: Schedule surgery Surgery Booking Information: Surgeon: ALIE Duration: 3 hours Timeframe: Elective Procedure: Bilateral breast reduction CPT: 00764 Surgical Technique: Surgical site: Breasts Side: Bilateral Anesthesia: General Follow up: 1-3 days with nurses for drain removal; 7-10 days for HCK w/ JAVAD PAT: H&P PCP/DOS Need to discontinue blood thinners pre-op? Yes Mammogram required pre-op? Yes I, Gali Parrish, have performed the documentation for this encounter in the presence of and acting as a scribe for Khanh Salas MD. documented in this encounter Plan of Treatment Not on file documented as of this encounter Visit Diagnoses Diagnosis Macromastia Hypertrophy of breast documented in this encounter Care Teams Cuff Setter Lockstitch Relationship Specialty Start Date End Date Sumaya Saldivar APRN [address] [place] [address] PCP - General Family Medicine 08/02/19 documented as of this encounter
--- OUTSIDE RECORDS SUMMARY | 2024-02-07 10:30 | XMS_ITS | Referral Summary ---
Author Organization [facility] Address [address] [place] [address] Care Team Providers Care Ibm Mainframe Systems Programmer Name Role Phone Hellen Andrews MD Primary Care Provider Social History Tobacco Use Types Packs/Day Years Used Date Smoking Tobacco: Never Assessed Interpersonal Safety Answer Date Record ed Physically Hurt Never 12/16/2019 Verbally Threaten Not on file 12/16/2019 Sex and Gender Information Value Date Recorded Sex Assigned at Not on file Gender Identity Not on file Sexual Orientation Not on file Plan of Treatment Not on file Care Teams Ibm Mainframe Systems Programmer Relationship Specialty Start Date End Date Hellen Andrews MD [address] [place] [address] PCP - General 02/18/11
--- OUTSIDE RECORDS SUMMARY | 2024-02-07 10:30 | XMS_ITS | Encounter Summary ---
Author Organization [facility] Address [address] [place] [address] Care Team Providers Care Evaporator Helper Name Role Phone Hellen Andrews MD Primary Care Provider [phone] Encounter Details Date Type Department Care Team (Late st Contact Info) Description 11/28/2017 Results Only [facility] [phone] Rich Tijerina, RESTAURANT CASHIER [address],[facility] [address] [place] [phone] Social History Tobacco Use Types Packs/Day Years Used Date Smoking Tobacco: Never Assessed Sex and Gender Information Value Date Recorded Sex Assigned at Not on file Gender Identity Not on file Sexual Orientation Not on file documented as of this encounter Plan of Treatment Not on file documented as of this encounter Procedures Procedure Name Priority Date/Time Associated Diagnosis Comments SURGICAL PATHOLOGY Routine 11/28/2017 18 :24 EDT documented in this encounter Results * SURGICAL PATHOLOGY (11/28/2017 18:24 EDT) Pathology Report: SURGICAL PATHOLOGY REPORT Reports generated via electronic interface contain original data; however they are lacking the format of the original report. Caution should be taken when reading/interpret ing unformatted reports. Name: ? LAKESHIA TIM ? Accession #: ? [id number] ? : ? 1965 (Age: 52) ??F ? Collect Date: ? 11/28/2017 ? Location: ? [facility] ? Receive Date: ? 11/29/2017 ? Provider: RICH TIJERINA RESTAURANT CASHIER Copy to: ? Final Pathologic Diagnosis: A. ??SKIN OF LEG, RIGHT THIGH, PUNCH BIOPSY: - Seborrheic keratosis. B. ??SKIN OF LEG, RIGHT THIGH, PUNCH BIOPSY: - Seborrheic keratosis. Document reviewed and electronically signed by: DELIO ABEL MD Report ??Date: 12/01/2017 13:37 By the signature above, the attending physician certifies that he/she has personally conducted a gross and/or microscopic examination of the described specimens and rendered or confirmed the above diagnosis. Specimen(s) Received: A. ??6.0 mm punch biopsy, Rt thigh B. ??6.0 mm punch biopsy, Rt thigh Clinical History: Two skin lesions, Rt thigh, rivera, 5.0 mm in size Gross Description: A. ?Received in formalin labelled with proper patient identification (initials F, L) and Rt thigh is a punch biopsy of rivera-white skin (0.5 cm in diameter and 0.3 cm in thickness). Bisected and submitted in A1. B. ?Received in formalin labelled with proper patient identification (initials F, L) and right thigh is a punch biopsy of rivera-white granular skin (0.4 cm in diameter and 0.3 cm in thickness). Bisected and submitted in B1. Mikhang Causey 11/30/2017 8:17 AM End of Report [facility] 11/28/2017 18:2 4 EDT 11/29/2017 18:24 EDT Rich Tijerina RESTAURANT CASHIER PATHOLOGY ORDERAB LES [facility] [address] [place] [address] documented in this encounter Visit Diagnoses Not on filedocumented in this encounter Care Teams Evaporator Helper Relationship Specialty Start Date End Date Hellen Andrews MD [address] [place] [address] PCP - General 02/18/11 documented as of this encounter
--- OUTSIDE RECORDS SUMMARY | 2024-02-07 10:30 | XMS_ITS | Encounter Summary ---
[place] [address] Care Team Providers Care Funeral Service Practitioner/Embalmer Name Role Phone Sumaya Saldivar APRN Primary Care Provider [phone] Encounter Details Date Type Department Care Team (Late st Contact Info) Description 04/21/2021 Telephone [place] [phone] Stephanie White Social History Tobacco Use Types [...] on filedocumented in this encounter Care Teams Funeral Service Practitioner/Embalmer Relationship Specialty Start Date End Date Sumaya Saldivar APRN [address] [place] [address] PCP - General Family Medicine 08/02/19 documented as of this encounter
--- OUTSIDE RECORDS SUMMARY | 2024-02-07 10:30 | XMS_ITS | Encounter Summary ---
[place] [address] Care Team Providers Care Etched Circuit Processor Name Role Phone Sumaya Saldivar APRN Primary Care Provider [phone] Encounter Details Date Type Department Care Team (Late st Contact Info) Description 12/25/2019 [place] [phone] Kimber Moncada Social History Tobacco Use Types Packs/Day Years Used Date Smoking Tobacco: Never Sex and Gender Information Value Date Recorded Sex Assigned at Not on file Gender Identity Not on file Sexual Orientation Not on file documented as of this encounter Miscellaneous Notes * Telephone Encounter - Kimber Moncada - 12/25/2019 11:18 AM EDT Lakeshia Tim [id number] Diagnosis/Indication: barrets esophagus 1. Have you ever had a/an Upper Endoscopy before? Yes: Date over 5 years at [facility] If yes, did you have any problems with the procedure? No What type of sedation was used: Other: unknown 2. Do you take any Blood Thinners? No 3. Do you have a Pacemaker or Defibrillator device? No 4. Are you a diabetic? No 5. Do you have any Allergies to Eggs, Latex or Medications? Yes: EDH 6. Do you take any Oral Iron Supplements (Including multi-vitamins)? Yes (Multivitamin) 7. Do you have a history of three or more abdominal surgeries? No 8. Have you had a problem with sedation or anesthesia? No 9. Do you have a c-pap machine or oxygen tank? Neither 10. Do you take prescription narcotic pain medications, including suboxone or methodone? No 11. Do you have a preference regarding the gender of your provider? No Preference 12. Is there any other information you would like to give us to aid in scheduling? No 13. Say to patient: You must have a responsible republican who will drive you to your procedure, stay oncampus for the entire duration of your procedure, and drive you home from your procedure? *Please Verify the height and weight, and adjust if height and/or weight have changed* Estimated body mass index is 27.44 kg/m?? as calculated from the following: Height as of 10/18/11: 185.4 cm (6' 1). Weight as of 10/18/11: 94.3 kg (208 lb). *Delete if not needed* Height: 6'1 Weight: 187 BMI: 24.7 Age:54 y.o. documented in this encounter Plan of Treatment Not on file documented as of this encounter Visit Diagnoses Not on filedocumented in this encounter Care Teams Etched Circuit Processor Relationship Specialty Start Date End Date Sumaya Saldivar APRN [address] [place] [address] PCP - General Family Medicine 08/02/19 documented as of this encounter
--- OUTSIDE RECORDS SUMMARY | 2024-02-07 10:30 | XMS_ITS | Encounter Summary ---
Author Organization [facility] Address [facility] [place] [address] Care Team Providers Care Instrument And Controls Technician Name Role Phone ValenciaRaul Sindhu CHATMAN Primary Care Provider [phone] Reason for Visit * Reason Comments Facial Injury Encounter Details Date Type Department Care Team (Late st Contact Info) Description 07/24/2011 7:25 PM EST - 07/24/2011 10:20 PM EST [place] [address] Tennille Ordonez MD [facility] [place] [address] Discharge Disposition: Home Social History Tobacco Use Types Packs/Day Years Used Date Smoking Tobacco: Never Assessed Sex and Gender Information Value Date Recorded Sex Assigned at Not on file Gender Identity Not on file Sexual Orientation Not on file documented as of this encounter Last Filed Vital Signs Vital Sign Reading Time Taken Comments Blood Pressure 120/78 07/24/2011 10:19 PM EST Pulse 50 07/24/2011 10:19 PM EST Temperature - - Respiratory Rate 18 07/24/2011 10:19 PM EST Oxygen Saturation 100% 07/24/2011 7:33 PM EST Inhaled Oxygen Concentration - - Weight - - Height - - Body Mass Index - - documented in this encounter Discharge Instructions * Patient Instructions* Moe Christian MD - 07/24/2011 10:11 PM EST Facial Laceration -Apply bacitracin to the wound twice daily. -Gently cleanse wound as needed with a half-strength peroxide solution prior to reapplying bacitracin. -Absorbable sutures were used which do not need to be removed. - May shower tomorrow, if the wound gets wet then pat it dry - Minimize talking and vigorous chewing and mouth opening to prevent poor wound healing - Take the antibiotics as directed - Call with concerns, I will see you back in 2-3 weeks - Use ointment on the wounds until the follow up appointment Contact Information for Dr Christian You can reach the ENT clinic at [phone] for appointment questions. The ENT triage nurse is available at [phone] For urgent issues during evenings and weekends the ENT resident operations specialist can be reached through the main hospital grinder set up operator surface at [phone] documented in this encounter Medications at Time of Discharge Medication Sig Dispensed Refills Start Date End Date amoxicillin-clavulanat e (AUGMENTIN) 875-125 mg per tablet Take 1 tablet by mouth 2 times daily. 20 tablet 0 07/24/2011 09/13/2019 OXYcodone-acetaminophe n (PERCOCET) 5-325 mg per tablet Take 1 tablet by mouth every 4 hours as needed for Pain. 30 tablet 0 07/24/2011 09/13/2019 bacitracin 500 unit/g ointment Apply topically 2 times daily. 15 g 1 07/24/2011 09/13/2019 ibuprofen (ADVIL;MOTRIN) 800 mg tablet 08/22/2008 09/13/2019 Calcium Carbonate (TUMS) 300 mg (750 mg) Chew 08/22/2008 09/13/2019 LANSOPRAZOLE (PREVACID ORAL) 08/22/2008 09/13/2019 documented as of this encounter ED Notes * Tennille Ordonez MD - 07/24/2011 8:05 PM EST ED ATTENDING BRIEF NOTE: This 46 y.o. female was transferred from an outside hospital emergency department to receive specialty care provided by the ENT service for dog bite to face. I reviewed the patients vitals as recorded in the electronic medical record, ED nursing notes, and discussed the case with resident/fellow ofthe accepting service. The patient was deemed to be stable and not require significant involvement from the attending emergency physician at this time. The accepting service has assumed further care of the patient. Please see their notes for any further clinical details. Tennille Ordonez MD 07/24/112005 documented in this encounter Miscellaneous Notes * Discharge Summary - Provider, Scanning - 07/26/2011 9:22 AM EDT * Miscellaneous - Provider, Scanning - 07/25/2011 4:11 AM EDT * Consult Note - Moe Christian MD - 07/24/2011 10:11 PM EST [facility] [place] [facility] & [facility] [place] Facial Trauma Consult Primary Care Physician:RAUL BIRMINGHAM APRN Primary team Attending:No name on file. Date: 07/24/2011 ENT Attending: Reason for consultation: dog bite History present illness: We have been asked to see Lakeshia Tim by outside emergency department. History obtained through patient interview, review of relevant records, and/or discussion with referring provider. Lakeshia Tim is a 46 y.o. female s/p Dog bite injury earlier today. She was attacked by a rottweiler earlier today at a friend's home. She lost a tooth in the accident. She went to the local ED and was evaluated and noted to have facial and lip laceration, for which we are asked to assist. She reports pain at the site of injury. Otherwise no specific complaints. No ABX given at outside. Tetanus for her up to date. Dog rabies up to date by her report. Hearing unchanged. No new vertigo or balance problems. Denies visual changes or diplopia. No nasal obstruction or epistaxis. Occlusion feels normal, no pain with biting down. No stridor or difficulty breathing. Review of systems: Except as noted in the history above, review of systems is negative for COMPUTER OPERATIONS TECHNICIAN, bone, pulmonary, cardiac, GI, , extremity, neurologic, endocrine, skin, constitutional, emotional, or functional problems. Past medical history: No past medical history on file. There are no active problems to display for this patient. Social history: History Substance Use Topics ??? Smoking status: Not on file ??? Smokeless tobacco: Not on file ??? Alcohol Use: Not on file Lives in : [facility] [address]* Family history: noncontribitory No family history on file. Medications: Prior to Admission medications Medication Sig Start Date End Date Taking? Authorizing Provider amoxicillin-clavulanate (AUGMENTIN) 875-125 mg per tablet Take 1 tablet by mouth 2 times daily. 07/24/11 Moe Christian MD OXYcodone-acetaminophen (PERCOCET) 5-325 mg per tablet Take 1 tablet by mouth every 4 hours as needed for Pain. 07/24/11 Moe Christian MD bacitracin 500 unit/g ointment Apply topically 2 times daily. 07/24/11 Moe Christian MD ibuprofen (ADVIL;MOTRIN) 800 mg tablet 08/22/08 Calcium Carbonate (TUMS) 300 mg (750 mg) Chew 08/22/08 LANSOPRAZOLE (PREVACID ORAL) 08/22/08 Allergies: Allergies as of 07/24/2011 - Review Complete 07/24/2011 Allergen Reaction Noted ??? Codeine phos Exam: Vitals: Blood pressure 166/108, pulse 83, resp. rate 16, SpO2 100.00%. Constitutional: Alert, pleasant, interactive, NAD Lacerations: There is an irregular laceration extending from just lateral to the right lateral canthus extending in a hockey lazy C type pattern medially onto the cheek skin, approximately 8 cm in length. It extends to the facial fat but there is no saliva within the wound. Face: mild swelling, sensation intact, facial movements strong and symmetric, no frontal or orbicularis weakness on the right. Eyes:PERRL, EOMI, vision intact to reading print, No enophthalmos, No vertical dystopia, No hyphemaor scleral hematoma, Ears: Pinna well formed, EACs clear, TMs intact Nose: patent anteriorly, no active bleeding, no septal hematoma Neck: nontender, no crepitus, no swelling or mass Oral examination shows clear saliva from the right parotid with palpation of the gland, no saliva in the wound. There is missing tooth # 11 otherwise tongue and floor of mouth are normal, there is a complex laceration just anterior to the left commissure that extends through the mucosa of the lip, not through and through defect. The superficial mucosa is torn away from the mucosa anteriorly and tethered at the commissure. Radiology: none Facial laceration Procedure Note: Extensive discussion of the risks and benefits of wound closure were explained to the patient and her including but not limited to poor cosmetic or functional outcome or need for revision surgery. Questions were answered and the informed verbal consent was obtained. Lacerations total of ~ 10 cm noted, complex. Right cheek and left lip, as described above. The wound was copiously irrigated and cleansed of any foreign material or necrotic tissue. The areawas prepped and local anesthesia with 1% Lidocaine with Epinephrine was injected. 5.0 vicryl was used deep to the skin to take tension off the wound edges and obliterate the deep space. At the cheek wound 5.0 fast absorbing gut suture was used in a mattress and simple fashion to well ellen the wound edges. Excellent facial motor function at the completion. The lip was closed in layers as well. The deeper tissues were closed with 5.0 vicryl. The borders of the lip were approximated with 5.0 chromic suture. The skin component was closed with 5.0 fast absorbing gut suture. The patient tolerated the procedure well with no immediate complications. Assessment: 46 y.o. female with facial lacerations from dog bite, as noted above. Closed in the ED without event. Recommendations/Plan: Wound care instructions were provided. 10 days of Augmentin Bacitracin to the wounds BID until follow up Minimize talking/mouth opening to allow best chance for excellent healing of lip wound. Careful evaluation for collection of saliva at the right cheek wound, call promptly for that (unlikely) Call with concerns, no sutures to come out. Will arrange follow up in 2-3 weeks in ENT clinic * ED Triage - Rao David RN - 07/24/2011 7:32 PM EST Dog bite - face - sent from [facility] to be seen by ENT documented in this encounter Plan of Treatment Not on file documented as of this encounter Visit Diagnoses Not on filedocumented in this encounter Administered Medications Inactive Administered Medications - up to 3 most recent administrations Medication Order MAR Action Action Date Dose Rate Site ampicillin-sulbactam (UNASYN) injection 3 g, Intravenous, ONCE, 1 dose, On 07/24/11 at 2030, Routine Given 07/24/2011 8:30 PM EST 3 g morphine 2 mg/mL carpuject 1 mg 1 mg, Intravenous, EVERY 4 HOURS, First dose on 07/24/11 at 2014, Until Discontinued, Routine Given 07/24/2011 8:15 PM EST 2 mg ondansetron (ZOFRAN-ODT) disintegrating tablet 4 mg 4 mg, Oral, ONCE, 1 dose, On 07/24/11 at 2014, STAT Given 07/24/2011 8:15 PM EST 4 mg OXYcodone-acetaminophen (PERCOCET) 5-325 mg per tablet 1 tablet 1 tablet, Oral, EVERY 4 HOURS PRN, Starting on 07/24/11 at 2211, Until 07/25/11 at 0020, Pain, Maximum dose of acetaminophen is 4000 mg from all sources in 24 hours., Routine Given 07/24/2011 10:00 PM EST 1 tablet documented in this encounter Active and Recently Administered Medications Times are shown in EST. Scheduled Medication Order 07/22/2011 07/23/2011 07/24/2011 ampicillin-sulbactam (UNASYN) injection (COMPLETED) 3 g, Intravenous, ONCE, 1 dose, On 07/24/11 at 2030, Routine 2029 (Given - Provid er: Gurinder Betancourt RN) morphine 2 mg/mL carpuject 1 mg (CANCELED) 1 mg, Intravenous, EVERY 4 HOURS, First dose on 07/24/11 at 2014, Until Discontinued, Routine 2014 (Given - Provid er: Gurinder Betancourt RN) ondansetron (ZOFRAN-ODT) disintegrating tablet 4 mg (COMPLETED) 4 mg, Oral, ONCE, 1 dose, On 07/24/11 at 2014, STAT 2014 (Given - Provid er: Gurinder Betancourt RN) PRN Medication Order 07/22/2011 07/23/2011 07/24/2011 OXYcodone-acetaminophen (PERCOCET) 5-325 mg per tablet 1 tablet (CANCELED) 1 tablet, Oral, EVERY 4 HOURS PRN, Starting on 07/24/11 at 2211, Until 07/25/11 at 0020, Pain, Maximum dose of acetaminophen is 4000 mg from all sources in 24 hours., Routine 2200 (Given - Provid er: Gurinder Betancourt RN) documented in this encounter Care Teams Instrument And Controls Technician Relationship Specialty Start Date End Date Raul Birmingham APRN [address] [place] [address] PCP - General 04/07/10 08/05/11 documented as of this encounter
--- OUTSIDE RECORDS SUMMARY | 2024-02-07 10:30 | XMS_ITS | Encounter Summary ---
Author Organization [facility] [place] [address] Care Team Providers Care Bill Poster Installer Name Role Phone Cordell Robledo MD Primary Care Provider [phone] Reason for Visit * Reason Comments Follow-up Encounter Details Date Type Department Care Team (Late st Contact Info) Description 10/18/2011 1:00 PM EDT Follow-[place] [id number] Moe Christian MD [facility] [place] [address] Dog bite (Primary Dx) Discharge Disposition: Home Social History Tobacco Use Types Packs/Day Years Used Date Smoking Tobacco: Never Sex and Gender Information Value Date Recorded Sex Assigned at Not on file Gender Identity Not on file Sexual Orientation Not on file documented as of this encounter Last Filed Vital Signs Vital Sign Reading Time Taken Comments Blood Pressure 129/90 10/18/2011 1:44 PM EDT Pulse 90 10/18/2011 1:44 PM EDT Temperature - - Respiratory Rate - - Oxygen Saturation - - Inhaled Oxygen Concentration - - Weight 94.3 kg (208 lb) 10/18/2011 1:44 PM EDT Height 185.4 cm (6' 1) 10/18/2011 1:44 PM EDT Body Mass Index 27.44 10/18/2011 1:44 PM EDT documented in this encounter Progress Notes * Richard Givens MD - 10/27/2011 4:44 PM EDT The patient's clinical history is reviewed and a complete examination is accomplished. The physicalfindings are confirmed. The resident's assessment and plan was formulated with my guidance and approval. * Moe Christian MD - 10/18/2011 2:07 PM EDT ENT FOLLOW UP NOTE Subjective: Patient ID: Lakeshia Tim is a 46 y.o. female. Follow up of dog bite to the right cheek and left lip 07-24-2011 HPI: Doing well since I last saw her. She remains quite pleased with her cosmetic outcome. She doeshave some concerns after facial pain on the right cheek and occasional swelling. She has tried narcotic medications and anti- inflammatories with some relief. Review of Systems: ENT as above, health overall is stable. Objective: Physical Exam Filed Vitals: 10/18/11 1344 BP: 129/90 Pulse: 90 Height: 185.4 cm (6' 1) Weight: 94.348 kg (208 lb) Constitutional: Well developed and well nourished, well groomed. Communicates in a strong clear voice without stridor or hoarseness On the right cheek there is a lazy C type scar that extends from laterally and inferiorly from the lateral portion of the right eye on to the cheek, approximately 8 CM in length. Well approximated, barely perceptible. The left lip is CDI. Intra-orally the wound is well approximated. Extra-orally it is well approximated as well. Small area of scar tissue at the commissure. Facial motor function is full bilaterally. Assessment and Plan: Doing well cosmetically from above laceration repair after dog bite. I suspect the intermittent pain she is having is related to the traumatic nature of her wound. I am hopeful this will improve withtime. I think it is also related to the re-innervation of the facial skin and I again anticipate that will improve with time. I think the swelling may be related to lymphatic disruption, which I would anticipate would improve with more time. She does know that I can not make guarantees in that regard and she is realistic with her expectations. I answered all of her questions to her satisfaction. She will follow up with us PRN. documented in this encounter Plan of Treatment Not on file documented as of this encounter Visit Diagnoses Diagnosis Dog bite(E906.0)- Primary Dog bite documented in this encounter Care Teams Bill Poster Installer Relationship Specialty Start Date End Date Cordell Robledo MD [address] [place] [id number] PCP - General 08/06/11 08/01/19 documented as of this encounter
[2024-02-07 15:47] LABS: Abs Immature Grans 0.01 10^3/uL (0.0-0.06); Absolute Basophil Count 0.06 10^3/uL (0.0-0.2); Absolute Eosinophil Count 0.26 10^3/uL (0.0-0.7); Absolute Lymphocyte Count 2.07 10^3/uL (1.2-3.4); Absolute Monocyte Count 0.42 10^3/uL (0.1-0.8); Absolute Neutrophil Count 2.39 10^3/uL (1.2-6.7); Basophils % 1.2 %; HCT 43.7 % (36.0-46.0); HGB 14.3 g/dL (11.2-15.7); Immature Grans % 0.2 %; Lymphocytes % 39.7 %; MCH 29.6 pg (27.0-33.0); MCHC 32.7 % (32.0-36.0); MCV 91 fL (80-95); MPV 10.2 fL (8.0-11.0); Monocytes % 8.1 %; Neutrophils % 45.8 %; Platelet Count 286 10^3/uL (130-400); RBC 4.83 10^6/uL (3.93-5.22); RDW 13.5 % (11.7-14.6); RDW-SD 44.9 fL; WBC 5.21 10^3/uL (4.4-10.8)
[2024-02-07 16:06] LABS: ALT 39 U/L (14-59); AST 24 U/L (15-37); Albumin 4.4 g/dL (3.4-5.0); Alkaline Phosphatase 96 U/L (46-116); BUN 13 mg/dL (7-18); Bilirubin, Total 0.45 mg/dL (0.2-1.0); CREATININE 0.7 mg/dL (0.55-1.02); Calcium 9.7 mg/dL (8.5-10.1); Calculated LDL 139 mg/dL (<100); Chloride 100 mmol/L (98-107); Cholesterol 223 mg/dL (<200); Estimated GFR 100.81 (mL/min/1.73m2); Glucose 116 mg/dL (74-106); HDL Cholesterol 72 mg/dL (40-60); Sodium 139 mmol/L (136-145); Total Protein 8.3 g/dL (6.4-8.2); Triglyceride 62 mg/dL (<150)
[2024-02-08 09:08] LABS: AFP Tumor Marker 6.1 ng/mL (<8.1)
== END 2024-02-07 10:23 | disposition home or self-care (01) ==
LOC: NCHCN 10:22
PROVIDERS: PCP Nurse Practitioner Family; Visit Provider Nurse Practitioner Family
DX: K74.60 Unspecified cirrhosis of liver (principal)
CPT/HCPCS: 80053; 80061; 82105; 85025

== ENCOUNTER 2024-05-19 08:57 | Emergency (ER) | payer OTHER, SELFPAY ==
[2024-05-19 09:05] VITALS: BP 179/102; PULSE 66; RESP 14; TEMP 37.2; O2SAT 99
--- NOTE | 2024-05-19 09:14 | ED.GENADUL_ITS ---
Discharge Plan Disposition Patient Disposition: Home Condition: Stable Discharge Details Clinical Impression: Right lumbar radiculopathy Primary Care Provider: Sumaya Saldivar ED Provider: Kye Coleman Home Meds and New Rx's Prescriptions: New methocarbamol 750 mg tablet 750 mg PO QID 7 Days Qty: 28 0RF Continued nitrofurantoin macrocrystal 100 mg capsule 100 mg PO DAILY PRN Rx Instructions: as directed, post intercourse multivitamin [Daily Multi-Vitamin] 1 EACH tablet 1 ea PO DAILY Qty: 1 lisinopril 5 MG tablet 10 mg PO DAILY aspirin [Aspir-81] 81 MG tablet,delayed release (DR/EC) 81 mg PO DAILY atorvastatin 40 MG tablet 40 mg PO DAILY acetaminophen 500 mg tablet 1,000 mg PO TID Qty: 90 0RF Discharge Instructions Instructions: Radiculopathy (DC), Methocarbamol Additional Instructions: You were seen in the emergency department for your sciatica syndrome with right thigh pain, this is either a very minor disc herniation versus IT band syndrome versus paresthetica meralgia. Please use therapeutic dosing of Tylenol (acetamenophen) & Advil (ibuprofen) in an alternating fashion as follows: Take 1000mg of Tylenol every 6 hours without missing doses- that is 4 times per day. Penitentiary in between the Tylenol dosings, take 400-600mg of Advil also on a 6 hour schedule, that is also 4 times per day. The daily maximum dosing of Tylenol is 4000mg, and the daily maximum dosing of Advil is 2400mg. This is safe to do for weeks. Please note that some common cold medications & prescription pain medications may contain acetamenophen and you need to read OTC drug labels and factor that in to maximum daily dosings. Please follow-up with professional massage therapist or chiropractor if desired or physical therapy. Take the prescribed methocarbamol for skeletal muscle relaxation, apply gentle heat to the area and apply an [id number] lidocaine patch to the area of pain for 12 hours each day, this may be most beneficial to apply while you are sleeping. Please return to the emergency department for any unilateral leg swelling, severe increase in pain, skin changes, urinary retention or bowel incontinence or numbness to the genitals. Stand Alone Forms: Physical Therapy Referral Referrals: Sumaya Saldivar [Primary Care Provider] - Discharge Data Discharge Date/Time-TO BE ENTERED AT DEPARTURE: 05/19/24 09:53 HPI General Date/Time Provider Initiated Documentation: 05/19/24 09:03 . HPI Narrative: 58 year-old female presents to ED today by POV/ambulating with a chief complaint of R hip/thigh pain with onset last night, no trauma. Quality described as R hip/low back and posterior/lateral thigh pain, no radiation to skin changes, new trauma, inability to ambulate, numbness/tingling distally. Severity is described as moderate. Palliating factors include nothing specific. Provoking factors include nothing specific. Patient not anticoagulated. Related Data Home Medications ?Medication ?Instructions ?Recorded ?Confirmed multivitamin (Daily Multi-Vitamin 1 ea PO DAILY ##1 01/16/13 05/19/24 tablet) aspirin 81 mg tablet,delayed 81 mg PO DAILY 09/24/13 05/19/24 release (Aspir-) lisinopril 5 mg tablet 10 mg PO DAILY 06/11/16 05/19/24 atorvastatin 40 mg tablet 40 mg PO DAILY 01/12/18 05/19/24 acetaminophen 500 mg tablet 1,000 mg (2 x 500 mg) PO TID #90 08/25/21 05/19/24 tabs nitrofurantoin macrocrystal 100 mg 100 mg PO DAILY PRN 12/10/22 05/19/24 capsule methocarbamol 750 mg tablet 750 mg PO QID sciatica 7 days #28 05/19/24 tabs Previous Rx's ?Medication ?Instructions ?Recorded acetaminophen 500 mg tablet 1,000 mg (2 x 500 mg) PO TID #90 08/25/21 tabs methocarbamol 750 mg tablet 750 mg PO QID sciatica 7 days #28 05/19/24 tabs Allergies Allergy/AdvReac Type Severity Reaction Status Date / Time Penicillins Allergy Intermediate rash Verified 05/19/24 09:07 codeine AdvReac Mild GI UPSET Verified 05/19/24 09:07 General Stated Complaint: Orthopedic DEEJAY: 4 Review of Systems All systems reviewed & are unremarkable except as noted in HPI and below Exam Narrative Exam Narrative: GENERAL APPEARANCE: Well-nourished, non-toxic, awake and alert, atraumatic, no acute distress. SKIN: Warm, pink, dry, intact, without rashes/lesions/ulcerations. HEAD: Normocephalic, atraumatic, normal hair distribution for gender/age. EYES: Normal conjunctiva, no exudates on lids/lashes. ENT: Nares patent, no circumoral cyanosis, no facial swelling NECK: Supple, trachea midline, painless cervical ROM. LUNGS/CHEST: Non-labored respirations, normal A/P diameter, symmetrical expansion, no chest wall deformity HEART (CV/PV): No peripheral edema, no JVD. ABDOMEN: Soft, non-distended, no guarding. MSK: Normal ROM, no swelling/deformity to bilateral UEs or LEs, moving all extremities without weakness, no cyanosis, spine midline without tenderness, normal curvature, R lumbosacral tenderness in paraspinal muscles through the proximal IT band insertion on R, no saddle anesthesia, no midline vertebral tenderness/crepitus/step-offs NEURO: Mental Status AAOx4 - alert to person, place, time, events No facial droop, no forehead involvement. Motor: No focal weakness - strength 5/5 in bilateral UEs and LEs, proximal and distal, symmetric. Sensory: sensation intact to light touch globally. Gait normal: patient ambulated without ataxia into ED room. PSYCH: euthymic, cooperative, pleasant, appropriate speech Course Vital Signs Vital signs: Vital Signs Temperature 37.2 C 05/19/24 09:05 Pulse 66 05/19/24 09:05 Respiratory Rate 14 05/19/24 09:05 Blood Pressure 179/102 H 05/19/24 09:05 Pulse Oximetry 99 05/19/24 09:05 Temperature 37.2 C 05/19/24 09:05 Temperature Source Oral 05/19/24 09:05 Pulse 66 05/19/24 09:05 Respiratory Rate 14 05/19/24 09:05 Blood Pressure 179/102 H 05/19/24 09:05 Blood Pressure Position Supine 05/19/24 09:05 Pulse Oximetry 99 05/19/24 09:05 Oxygen Delivery Method Room Air 05/19/24 09:05 Oxygen Flow Rate 0 05/19/24 09:05 Pain Level 8 05/19/24 09:05 Medical Decision Making This dictation utilizes weolw-oh-wsvq dictation software and may contain unedited grammatical errors. 58 year-old female presents to ED today by POV/ambulating with a chief complaint of R hip/thigh pain with onset last night, no trauma. Quality described as R hip/low back and posterior/lateral thigh pain, no radiation to skin changes, new trauma, inability to ambulate, numbness/tingling distally. Severity is described as moderate. Palliating factors include nothing specific. Provoking factors include nothing specific. Patients' medical history: Chronic back pain. Family and social history: Noncontributory. Pertinent exam findings / vital signs include right lumbosacral paraspinal muscle tenderness radiating through the upper IT band insertion, neurovascular intact distal, Homans negative, no unilateral leg swelling or skin change. Differential / pathologies of concern include right lumbar radiculopathy, paresthetica meralgia, IT band syndrome, not DVT. Diagnostic studies of: -None, no new trauma, do not suspect any severe spinal etiology. Interventions of: -Rx for methocarbomol. ED Course/Assessment/Plan: 58-year-old female presents with right lumbar and upper lateral hip pain, likely due to radicular syndrome, has no evidence of DVT on exam, counseled skeletal muscle relaxer use and following up with physical therapy, strict return criteria for any signs of cauda equina or fracture or neurovascular compromise or infection. Findings not consistent with cauda equina, trauma, clot pathology, NV compromise. Disposition of Right Lumbar Radiculopathy. Patient verbalized understanding of the plan and return to ED criteria and engaged in shared decision making. Medical Records Medical records reviewed: Yes I reviewed the patient's medical records. Quality:SDOH Health Related Social Needs: No Data to Display PFSH All Active Problems (Updated 05/20/24 @ 13:58 by CHYNA Hurt) Right lumbar radiculopathy (Acute) De Quervain's tenosynovitis, left (Acute) Status post de Quervain's release DOS: 08/25/2021 Anxiety and depression (Acute) Heart murmur, systolic (Acute) Aneurysm of iliac artery (Acute) Left wrist sprain (Acute) Left thumb sprain (Acute) S/P endoscopic carpal tunnel release (Acute) Carpal tunnel syndrome, left (Acute) Medical History Parotid mass (05/03/16) chronic back pain Hyperlipidemia Depression Diabetes mellitus Migraine Barretts Esophagus Surgical History Screw removal Tibia (03/12/08) right, from records.[facility] section 1990 c/s Abdominal hysterectomy with ovarian conservation. Kinsey Procedure (02/01/07) Right, same surgery as arthroscopy.HE EGD - MAC (08/09/16) Release for de Quervain's tenosynovitis of hand (09/18/08) Right wrist, from records.HE Arthroplasty of knee (02/01/07) Right, from records.HE Arthroscopy (06/13/06) Right knee, with patellar chondroplasty, from recoreds.HE Family History Other Diabetes Heart disease Social History Smoking/Tobacco Use Status: Former Tobacco Use Quit Date: 05/16/13 Smoking risk assessment performed?: Yes Drug use: Never Substance use type: does not use
--- OUTSIDE RECORDS SUMMARY | 2024-05-19 09:20 | XMS_ITS | Encounter Summary ---
[place] [address] Care Team Providers Care Recovery Analyst Name Role Phone Sumaya Saldivar APRN Primary Care Provider [phone] Encounter Details Date Type Department Care Team (Latest Contact Info) Description 04/09/2024 Travel Social History Tobacco Use Types Packs/Day [...] as of this encounter Plan of Treatment Upcoming Encounters Date Type Department Care Team (Late st Contact Info) Description 07/06/2024 1:00 PM EST Procedure visit [place] [address] Tameka Corrales APRN [facility] [place] [address] documented as of this encounter Visit Diagnoses Not on filedocumented in this encounter Care Teams Recovery Analyst Relationship Specialty Start Date End Date Sumaya Saldivar APRN [address] [place] [address] PCP - General Family Medicine 04/08/24 documented as of this encounter
--- OUTSIDE RECORDS SUMMARY | 2024-05-19 09:20 | XMS_ITS | Encounter Summary ---
Author Organization Replaced By [facility] Address [facility] [place] [address] Care Team Providers Care Exceptional Children Teacher Assistant Name Role Phone Sumaya Saldivar APRN Primary Care Provider [phone] Encounter Details Date Type Department Care Team (Late st Contact Info) Description 12/30/2021 11:00 AM EDT Office [place] [address] Khanh Salas MD [facility] [place] [address] Surgery follow-up; Macromastia Social History Tobacco Use [...] documented in this encounter Plan of Treatment Upcoming Encounters Date Type Department Care Team (Late st Contact Info) Description 07/06/2024 1:00 PM EST Procedure [place] [address] Tameka Corrales APRN [facility] [place] [address] documented as of this encounter Visit Diagnoses Diagnosis Surgery follow-up Follow-up examination, following unspecified surgery Macromastia Hypertrophy of breast documented in this encounter Care Teams Exceptional Children Teacher Assistant Relationship Specialty Start Date End Date Sumaya Saldivar APRN [address] [place] [address] PCP - General Family Medicine 08/02/19 04/07/24 documented as of this encounter
--- OUTSIDE RECORDS SUMMARY | 2024-05-19 09:20 | XMS_ITS | Encounter Summary ---
[place] [address] Care Team Providers Care Dynamo Repairer Name Role Phone Sumaya Saldivar APRN Primary Care Provider [phone] Reason for Referral * Consultation (Routine) - Authorized Specialty Diagnoses / Procedures Referred By Madhu smyth Referred To Contact Gastroenterology Diagnoses Abnormal findings on diagnostic imaging of liver and biliary tract FIBROSCAN Khadijah Shafer APRN [address] [place] [address] [facility] [address] [place] [id number] Referral ID Status Reason Start Date Expiration Date Visits Requested Visits Authorized [id number] Authorized Test Only PCP Updated and/or Approved 03/19/2024 03/19/2025 1 1 Encounter Details Date Type Department Care Team (Late st Contact Info) Description 04/08/2024 Transcribe Orders eDH Incoming Referrals [phone] Khadijah Shafer APRN [address] [place] [address] Abnormal findings on diagnostic imaging of liver and biliary tract Social History Tobacco Use Types Packs/Day Years [...] 1:00 PM EST Procedure visit [place] [address] Tameka Corrales APRN [facility] [place] [address] Scheduled Referrals Name Type Priority Associated Diagnoses Order Schedule Referral to Gastroenterology Outpatient Referral Routine Abnormal findings on diagnostic imaging of liver and biliary tract Ordered: 04/08/2024 documented as of this encounter Visit Diagnoses Diagnosis Abnormal findings on diagnostic imaging of liver and biliary tract documented in this encounter Care Teams Dynamo Repairer Relationship Specialty Start Date End Date Sumaya Saldivar APRN [address] [place] [address] PCP - General Family Medicine 04/08/24 documented as of this encounter
--- OUTSIDE RECORDS SUMMARY | 2024-05-19 09:20 | XMS_ITS | Encounter Summary ---
Author Organization [facility] [place] [address] Care Team Providers Care Call Center Associate Name Role Phone YarielLadan malhotrahryn Sweetie CHATMAN Primary Care Provider [phone] Encounter Details Date Type Department Care Team (Late st Contact Info) Description 02/18/2023 8:00 AM EDT Tech [place] [address] Sylvia Cooper Ectatic abdominal aorta Social History [...] 1:00 PM EST Procedure [place] [id number] Tameka Corrales APRN [facility] [place] [address] documented as of this encounter Procedures Procedure Name Priority Date/Time Associated Diagnosis Comments AAA DUPLEX COMPLETE Routine 02/18/2023 8 :08 AM EDT Ectatic abdominal aorta documented in this encounter Results * AAA Duplex, Complete/Bilateral (02/18/2023 8:08 AM EDT) VB Text Report Department: Vascular Surgery Lab Patient: [id number] (LAKESHIA GUZMAN) CPT: 60905 Referring Physician: OJSEE SAVAGE APRN ?? Indications: AAA ? Size [...] VASCUBASE 02/18/2023 8:08 AM EDT Josee Savage FORMAL WEAR RENTAL CLERK VASCULAR ORDERABLE S VASCUBASE documented in this encounter Visit Diagnoses Diagnosis Ectatic abdominal aorta Abdominal aortic ectasia documented in this encounter Care Teams Call Center Associate Relationship Specialty Start Date End Date Sumaya Saldivar APRN [address] [place] [address] PCP - General Family Medicine 08/02/19 04/07/24 documented as of this encounter
--- OUTSIDE RECORDS SUMMARY | 2024-05-19 09:20 | XMS_ITS | Encounter Summary ---
Author Organization [facility] [place] [address] Care Team Providers Care Ash Handler Name Role Phone Sumaya Saldivar APRN Primary Care Provider [phone] Reason for Visit * Consultation (Routine) - Closed Specialty Diagnoses / Procedures Referred By Madhu smyth Referred To Contact Plastic Surgery Diagnoses Other dorsalgia Procedures Sumaya Vera APRN [address] [place] [address] [facility] [address] [address] Referral ID Status Reason Start Date Expiration Date V isits Requested Visits Authorized [id number] Closed Consult, Test & Treat Connection Center PCP Updated and/or Approved 04/08/2021 04/08/2022 12 12 Encounter Details Date Type Department Care Team (Late st Contact Info) Description 05/27/2021 8:30 AM EST Office [place] [address] Khanh Salas MD [facility] [place] [address] Macromastia Social History Tobacco Use Types Packs/Day [...] to your surgery. Day of Surgery A sulky driver is required at time of discharge. [...] For questions pertaining to your surgical date [phone] For nursing related questions [phone] On weekends, holidays or after office hours: Call [phone] and ask the sequencing machine operator to page the Plastic Surgery Resident wet cotton feeder. documented in this encounter Progress Notes * [...] ENDOSCOPY performed by Farzaneh Knowles MD at [facility] ENDOSCOPY ROS: System Constitutional neg [...] surgery is best done at a realistic snf stable weight. We talked about the outpatient [...] revisions for scarring or asymmetry.) [place] or [place] Pattern Incision: More scarring on breast, but [...] Timeframe: Elective Procedure: Bilateral breast reduction CPT: 96025 Surgical Technique: Surgical site: Breasts Side: Bilateral [...] 1:00 PM EST Procedure visit [place] [address] Tameka Corrales APRN [facility] [place] [place] [address] documented as of this encounter Visit Diagnoses Diagnosis Macromastia Hypertrophy of breast documented in this encounter Care Teams Ash Handler Relationship Specialty Start Date End Date Sumaya Saldivar APRN [address] [place] [address] PCP - General Family Medicine 08/02/19 04/07/24 documented as of this encounter
--- OUTSIDE RECORDS SUMMARY | 2024-05-19 09:20 | XMS_ITS | Encounter Summary ---
Author Organization Formerly [facility] [place] [address] Care Team Providers Care Adjunct English Instructor Name Role Phone Sumaya Saldivar APRN Primary Care Provider [phone] Reason for Referral * Diagnostic Test (Routine) - Closed Specialty Diagnoses / Procedures Referred By Madhu smyth Referred To Contact Diagnoses Ectatic abdominal aorta Procedures AAA Duplex, Complete/Bilateral Josee Savage APRN [facility] [place] [address] [facility] Lab [address] [place] [address] Referral ID Status Reason Start Date Expiration Date V isits Requested Visits Authorized [id number] Closed Specialty Service Requested 02/16/2022 02/16/2023 1 1 Encounter Details Date Type Department Care Team (Late st Contact Info) Description 02/16/2022 9:00 AM EDT Office Visit [place] [address] Josee Savage APRN Ectatic abdominal aorta Social History Tobacco Use [...] this encounter Progress Notes * Josee Savage, CADMIUM LIQUOR MAKER - 02/16/2022 9:00 AM EDT F/u aortic [...] 16.03) performed by Khanh Salas MD at [facility] OSC ??? PRO UPPER GI ENDOSCOPY, DIAGNOSTIC N/A 01/16/2020 EGD, UPPER GI ENDOSCOPY performed by Farzaneh Knowles MD at [facility] ENDOSCOPY Family Hx: No family history [...] ND, no palpable pulsatile masses Extremity - [place], warm, no ulceration, brisk capillary refill, no [...] 1:00 PM EST Procedure [place] [address] Tameka Corrales APRN [facility] [place] [address] documented as of this encounter Results * AAA Duplex, Complete/Bilateral (02/18/2023 8:08 AM EDT) VB Text Report Department: Vascular Surgery Lab Patient: [id number] (LAKESHIA GUZMAN) CPT: 07625 Referring Physician: JOSEE SAVAGE APRN ?? Indications: [...] VASCUBASE 02/18/2023 8:08 AM EDT Josee Savage CADMIUM LIQUOR MAKER VASCULAR ORDERABLE S VASCUBASE documented in this encounter Visit Diagnoses Diagnosis Ectatic abdominal aorta Abdominal aortic ectasia documented in this encounter Care Teams Adjunct English Instructor Relationship Specialty Start Date End Date Sumaya Saldivar APRN [address] [place] [address] PCP - General Family Medicine 08/02/19 04/07/24 documented as of this encounter
--- OUTSIDE RECORDS SUMMARY | 2024-05-19 09:20 | XMS_ITS | Encounter Summary ---
Author Organization [facility] Address [facility] [place] [address] Care Team Providers Care Byproduct Engineer Name Role Phone Sumaya Saldivar APRN Primary Care Provider +1 -[phone] Reason for Visit * Auth/Cert Specialty Diagnoses / Procedures Referred By Madhu smyth Referred To Contact Diagnoses reduction mammoplasty Procedures PRO REDUCTION OF LARGE BREAST REDUCTION MAMMOPLASTY, KRYSTIN (WRVU 16.03) MODIFIER BARROW SEE PROTOCOL Referral ID Status Reason Start Date Expiration Date Visits Re quested Visits Authorized [id number] 1 1 Encounter Details Date Type Department Care Team (Latest Contact Info) Description 06/29/2021 8:52 AM EST - 06/29/2021 12:42 PM EST Hospital Encounter [place] [id number] Khanh Turner MD [facility] [place] [address] Macromastia Discharge Disposition: Home Social History Tobacco [...] closest emergency room or call the hospital rock drill operator at [phone] and ask for physician employee relation manager covering for your physician. Questions or problems after 5pm or on a weekend: Call the [facility] rock drill operator at and ask for the physician employee relation manager covering for your doctor. * Patient Instructions* [...] good night sleep. Pain (short term and long wall mining machine tender) With any surgery there is some discomfort or pain. You should take tylenol starting the day of surgery. You should also take ibuprofen starting 48 hours after surgery. We recommend taking an nipz-ism-Cbmvocv stool softener, such as Colace (docusate) or [...] about scheduling, please contact our administrative officesat [phone] For clinical questions, please call our nurses at [phone] Both offices are open Tuesday thru Tuesday 8a - 5p. With emergencies after hours, call the hospital rock drill operator at [phone] and ask for the Plastic Surgery Resident employee relation manager. Future Appointments Date Time Provider Department Center 06/30/2021 2:00 PM NURSE, PLASTIC [place] [facility] 07/07/2021 11:00 AM NURSE, PLASTIC SURGERY [facility] DRAIN CARE INSTRUCTIONS General Information: Drains help [...] Sig Dispensed Refills Start Date End Date aspirin EC 81 mg EC (DR) tablet Take 1 tablet by mouth daily. 09/20/2013 acetaminophen 325 mg Capsule Take by mouth. 09/13/2020 atorvastatin (Lipitor) 40 mg Tablet TAKE 1 TABLET BY MOUTH ONCE DAILY 08/13/2019 lisinopriL (Prinivil;Zestril) 5 mg Tablet Take 10 mg by mouth daily. 08/13/2019 nitrofurantoin (MACRODANTIN) 100 mg Capsule TAKE [...] Instructed to resume ASA in 48hrs per MD instructions documented in this encounter H&P Notes [...] Operative Note Patient Name: Lakeshia Tim : [id number] MR#: [id number] Case Date: 06/29/2021 Surgeon: Surgeon(s) and Role: * Khanh Turner MD - Primary * Ángel Parks PA - Physician Coating Mixer * Cholo Capone MD - Resident Preoperative [...] fitting, review post-op activity restrictions 6 months: wellness consultant f/u with surgeon Future Appointments Date Time Provider Department Center 06/30/2021 2:00 PM NURSE, PLASTIC SURGERY [facility] 07/07/2021 11:00 AM NURSE, PLASTIC SURGERY [facility] * Op Note - Khanh Turner MD - 06/29/2021 10:08 AM EST [facility] Oper[place] Note Patient Name: Lakeshia Tim : [id number] MR#: [id number] Case Date: 06/29/2021 Surgeon: Surgeon(s) and Role: * Khanh Turner MD - Primary * Ángel Parks PA - Physician Coating Mixer * Cholo Capone MD - Resident Preoperative [...] 1:00 PM EST Procedure [place] [address] Tameka Corrales APRN [facility] GASTROENTEROLOGY [place] [id number] documented as of this encounter Procedures Procedure Name Priority Date/Time Associated Diagnosis Comments SPECIMEN TO PATHOLOGY Routine 06/29/2021 11:17 AM EST SPECIMEN TO PATHOLOGY Routine 06/29/2021 11:17 AM EST SURGICAL PATHOLOGY REPORT Routine 06/29/2021 11:06 AM EST SEE PROTOCOL 06/29/2021 9:55 AM EST Macromastia MODIFIER BARROW 06/29/2021 9:55 AM EST Macromastia Breast Reduction () 06/29/2021 9:55 AM EST Macromastia REDUCTION MAMMOPLASTY, BILATERAL Routine 06/29/2021 8:43 AM EST Macromastia POCT HGB Routine 06/29/2021 documented in this encounter Results * Specimen to Pathology (06/29/2021 11:17 AM EST) AP Specimen 06/29/2021 11:1 7 AM EST 06/29/2021 11:[address] [facility] - 06/29/2021 11:17 AM EST Specimen requisition ordered. ??Separate Pathology report to follow Khanh Turner MD PATHOLOGY/CYTOLOGY O OLLIE Performing Organization Address City/[facility]/[place] [address] * Specimen to Pathology (06/29/2021 11:17 AM EST) AP Specimen 06/29/2021 11:1 7 AM EST 06/29/2021 11:[address] [facility] - 06/29/2021 11:17 AM EST Specimen requisition ordered. ??Separate Pathology report to follow Khanh Turner MD PATHOLOGY/CYTOLOGY O RDCARRIE [facility] [place] [address] * Surgical Pathology Report (06/29/2021 11:06 AM EST) Final Diagnosis [id number] ? Location: [facility] The signing pathologist has (i) examined the relevant preparation(s) for the specimen(s) and (ii) rendered or confirmed the diagnosis(es). . ?Surgical Pathology DIAGNOSIS A - Left breast tissue, reduction mammoplasty: ??- Benign breast tissue B - Right breast tissue, reduction mammoplasty: ??- Benign breast tissue Electronically signed by: ?Cher Fragoso DO Verified: ??07/02/2021 15:57 ??Pathologist Performed at: ??-[facility] [place], [place], [place] SPECIMEN(S) SUBMITTED A - Left breast reduction, excision (1) B - Right breast reduction, excision (1) CLINICAL INFORMATION Reduction mammoplasty SPECIMEN PROCESSING A - Labeled/Fixativ e: Left breast reduction, fresh. Quantity/Size/W eight: Multiple, aggregating 20 x 12.5 x 4.7 cm, 414 g. Tissue Description: Fibrofatty breast tissue. Skin: Unremarkable. Sectioning: Adipose and dense, steinberg-white fibrous tissue. Sections/Proces sing: Yoker Machine Operator sections in 3 cassettes labeled A1-A3. B - Labeled/Fixativ e: Right breast reduction, fresh. Quantity/Size/W eight: Multiple, 24 x 13.4 x 3.5 cm, 337 g. Tissue Description: Fibrofatty breast tissue. Skin: Unremarkable. Sectioning: Adipose and dense, steinberg-white fibrous tissue. Sections/Proces sing: Yoker Machine Operator sections in 3 cassettes labeled B1-B3. ??pps 07/02/2021 3:[address] [facility] BREAST STRUCTURE / Unknown 06/29/2021 11:06 AM EST 06/29/2021 11:06 AM EST BREAST STRUCTURE / Unknown 06/29/2021 11:06 AM EST 06/29/2021 11:06 AM EST Khanh Turner MD PATHOLOGY/CYTOLOGY O RDERABLES [facility] [place] [address] * POCT HGB (06/29/2021) POC Hemoglobin 13.96 g/dL Comment:RN notified 06/29/2021 Khanh Turner MD POINT OF CARE TEST O RDCARRIE documented in this encounter Visit Diagnoses Diagnosis [...] (Due) documented in this encounter Care Teams Byproduct Engineer Relationship Specialty Start Date End Date Sumaya Saldivar APRN [address] [place] [id number] PCP - General Family Medicine 08/02/19 04/07/24 documented as of this encounter
--- OUTSIDE RECORDS SUMMARY | 2024-05-19 09:20 | XMS_ITS | Encounter Summary ---
Author Organization [facility] [place] [address] Care Team Providers Care Drill Sharpener Operator Name Role Phone Sumaya Saldivar APRN Primary Care Provider +1 [phone] Reason for Referral * Diagnostic Test (Routine) - Closed Specialty Diagnoses / Procedures Referred By Madhu t Referred To Contact Diagnoses Ectatic abdominal aorta Procedures AAA Duplex, Complete/Bilateral Kitty Cooley APRN [facility] [place] [address] [facility] Vascular [place] [address] [place] [address] Referral ID Status Reason Start Date Expiration Date V isits Requested Visits Authorized [id number] Closed Specialty Service Requested 02/24/2023 02/24/2024 1 1 Encounter Details Date Type Department Care Team (Late st Contact Info) Description 02/18/2023 9:00 AM EDT Office Visit [place] [address] Kitty Cooley APRN [facility] [place] [address] Ectatic abdominal aorta Social History [...] documented in this encounter Progress Notes * Kitty Cooley Richard, EMERGENCY COMMUNICATIONS OPERATOR - 02/18/2023 9:00 AM EDT Reason for [...] 16.03) performed by Khanh Salas MD at [facility] PRO UPPER GI ENDOSCOPY, DIAGNOSTIC N/A 01/16/2020 EGD, UPPER GI ENDOSCOPY performed by Farzaneh Knowles MD at [facility] ENDOSCOPY Family Hx: No family history [...] ND, no palpable pulsatile masses Extremity - [place], warm, no ulceration, brisk capillary refill, no [...] and statin. RTC one year aortic duplex Kitty Cooley APRN Department of Vascular Surgery documented in this encounter Plan of Treatment Upcoming Encounters Date Type Department Care Team (Late st Contact Info) Description 07/06/2024 1:00 PM EST Procedure visit [place] [phone] Tameka Corrales APRN [facility] [place] [address] documented as of this encounter Results * AAA Duplex, Complete/Bilateral (04/09/2024 9:41 AM EST) VB Text Report Department: Vascular Surgery Lab Patient: [id number] (LAKESHIA GUZMAN) CPT: 26219 Referring Physician: KITTY COOLEY ?? Phone: Indications: ??AAA; ? patency, size, growth Findings: Unilateral ? PSV (cm/s) ??EDV (cm/s) ??Diam AP (cm) ??Diam Lateral (cm) ?? Angie Renal Aorta ? 66 ?19 ? 2.4 ?2.4 ?? Infra Renal Aorta ?61 ? 0 ? 1.8 ?1.8 ?? Distal Aorta ? 77 ?15 ? 3.1 ?3.1 ?? Interpretation: Patent abdominal aorta with the distal aorta measuring 3.1 x 3.1 cm (previously 3.0 x 3.0 cm). Bilateral common iliac arteries were not well visualized due to obstruction by overlying bowel gas. Comparison: Slight increase in distal aorta diameter when compared to previous exam on 02/18/23. Previous AAAs with change from previous value: Date ? DIAM AP ?DIAM LAT ? 3.00 ? 3.00 ? 3.00 ( 0.00) ?? 3.00 ( 0.00) Current Exam ?? 3.10 (+0.10) ?? 3.10 (+0.10) Electronically Signed by: EMPERATRIZ SMITH on 2024-04-09 02:15:56 PM V[facility] VB Text Report End of Report VAS[facility] 04/09/2024 9:41 AM EST Kitty Cooley APRN VASCULAR ORDERABLES [facility] documented in this encounter Visit Diagnoses Diagnosis Ectatic abdominal aorta Abdominal aortic ectasia documented in this encounter Care Teams Drill Sharpener Operator Relationship Specialty Start Date End Date Sumaya Saldivar APRN [address] [place] [address] PCP - General Family Medicine 08/02/19 04/07/24 documented as of this encounter
--- OUTSIDE RECORDS SUMMARY | 2024-05-19 09:20 | XMS_ITS | Encounter Summary ---
Author Organization [facility] Address [facility] [place] [address] Care Team Providers Care Middleware Architect Name Role Phone Sumaya Saldivar APRN Primary Care Provider +1 -[phone] Reason for Visit * Auth/Cert Specialty Diagnoses / Procedures Referred By Madhu smyth Referred To Contact Diagnoses reduction mammoplasty Procedures PRO REDUCTION OF LARGE BREAST REDUCTION MAMMOPLASTY, KRYSTIN (WRVU 16.03) MODIFIER BARROW SEE PROTOCOL Referral ID Status Reason Start Date Expiration Date Visits Re quested Visits Authorized [id number] 1 1 Encounter Details Date Type Department Care Team (Late st Contact Info) Description 06/29/2021 10:20 AM EST - 06/29/2021 1:07 PM EST Surgery Outpatient [place] [phone] Khanh Turner MD [facility] [place] [address] REDUCTION MAMMOPLASTY, KRYSTIN (WRVU 16.03) Social History [...] closest emergency room or call the hospital dyed yarn operator at [phone] and ask for physician telephone service representative covering for your physician. Questions or problems after 5pm or on a weekend: Call the [facility] dyed yarn operator at and ask for the physician telephone service representative covering for your doctor. * Patient Instructions* [...] good night sleep. Pain (short term and longterm) With any surgery there is some discomfort or pain. You should take tylenol starting the day of surgery. You should also take ibuprofen starting 48 hours after surgery. We recommend taking an xtqf-ghs-Lmvdymv stool softener, such as Colace (docusate) or [...] about scheduling, please contact our administrative officesat [phone] For clinical questions, please call our nurses at [phone] Both offices are open Tuesday thru Tuesday 8a - 5p. With emergencies after hours, call the hospital dyed yarn operator at [phone] and ask for the Plastic Surgery Resident telephone service representative. Future Appointments Date Time Provider Department Center 06/30/2021 2:00 PM NURSE, PLASTIC SURGERY [facility] [place] [facility] 07/07/2021 11:00 AM NURSE, PLASTIC SURGERY [facility] [place] [facility] D[facility]IN C[facility] INSTRU[facility] General Information: Drains [...] Operative Note Patient Name: Lakeshia Tim : [id number] MR#: [id number] Case Date: 06/29/2021 Surgeon: Surgeon(s) and Role: * Khanh Turner MD - Primary * Ángel Parks PA - Physician Chemistry Lecturer * Cholo Capone MD - Resident Preoperative [...] fitting, review post-op activity restrictions 6 months: [facility] f/u with surgeon Future Appointments Date Time Provider Department Center 06/30/2021 2:00 PM NURSE, PLASTIC SURGERY [facility] [place] [facility] 07/07/2021 11:00 AM NURSE, PLASTIC SURGERY [facility] [place] [facility] * Op Note - Khanh Turner MD - 06/29/2021 10:08 AM EST [facility] Operative Note Patient Name: Lakeshia Tim : [id number] MR#: [id number] Case Date: 06/29/2021 Surgeon: Surgeon(s) and Role: * Khanh Turner MD - Primary * Ángel Parks PA - Physician Chemistry Lecturer * Cholo Capone MD - Resident Preoperative [...] 1:00 PM EST Procedure [place] [address] Tameka Corrales APRN [facility] [place] [address] documented as of this encounter Procedures Procedure Name Priority Date/Time Associated Diagnosis Comments SPECIMEN TO PATHOLOGY Routine 06/29/2021 11:17 AM EST SPECIMEN TO PATHOLOGY Routine 06/29/2021 11:17 AM EST SURGICAL PATHOLOGY REPORT Routine 06/29/2021 11:06 AM EST SEE PROTOCOL 06/29/2021 9:55 AM EST Macromastia MODIFIER BARROW 06/29/2021 9:55 AM EST Macromastia Breast Reduction (27631) 06/29/2021 9:55 AM EST Macromastia REDUCTION MAMMOPLASTY, BILATERAL Routine 06/29/2021 8:43 AM EST Macromastia POCT HGB Routine 06/29/2021 documented in this encounter Results * Specimen to Pathology (06/29/2021 11:17 AM EST) AP Specimen 06/29/2021 11:1 7 AM EST 06/29/2021 11:17 AM EST Narrative [facility] - 06/29/2021 11:17 AM EST Specimen requisition ordered. ??Separate Pathology report to follow Khanh Turner MD PATHOLOGY/CYTOLOGY O RDCARRIE Performing Organization Address City/[facility]/[place] [address] * Specimen to Pathology (06/29/2021 11:17 AM EST) AP Specimen 06/29/2021 11:1 7 AM EST 06/29/2021 11:17 AM EST Narrative [facility] - 06/29/2021 11:17 AM EST Specimen requisition ordered. ??Separate Pathology report to follow Khanh Turner MD PATHOLOGY/CYTOLOGY O RDERADAVONTE [facility] [place] [address] * Surgical Pathology Report (06/29/2021 11:06 AM EST) Final Diagnosis [id number] ? Location: [facility] The signing pathologist has (i) examined the relevant preparation(s) for the specimen(s) and (ii) rendered or confirmed the diagnosis(es). . ?Surgical Pathology DIAGNOSIS A - Left breast tissue, reduction mammoplasty: ??- Benign breast tissue B - Right breast tissue, reduction mammoplasty: ??- Benign breast tissue Electronically signed by: ?Cher Fragoso DO Verified: ??07/02/2021 15:57 ??Pathologist Performed at: ??-[facility] [facility] Dept. of Pathology, [place], [place] SPECIMEN(S) SUBMITTED A - Left breast reduction, excision (1) B - Right breast reduction, excision (1) CLINICAL INFORMATION Reduction mammoplasty SPECIMEN PROCESSING A - Labeled/Fixativ e: Left breast reduction, fresh. Quantity/Size/W eight: Multiple, aggregating 20 x 12.5 x 4.7 cm, 414 g. Tissue Description: Fibrofatty breast tissue. Skin: Unremarkable. Sectioning: Adipose and dense, steinberg-white fibrous tissue. Sections/Proces sing: Scrap Wheeler sections in 3 cassettes labeled A1-A3. B - Labeled/Fixativ e: Right breast reduction, fresh. Quantity/Size/W eight: Multiple, 24 x 13.4 x 3.5 cm, 337 g. Tissue Description: Fibrofatty breast tissue. Skin: Unremarkable. Sectioning: Adipose and dense, steinberg-white fibrous tissue. Sections/Proces sing: Scrap Wheeler sections in 3 cassettes labeled B1-B3. ??pps 07/02/2021 3:57 PM EST [facility] BREAST STRUCTURE / Unknown 06/29/2021 11:06 AM EST 06/29/2021 11:06 AM EST BREAST STRUCTURE / Unknown 06/29/2021 11:06 AM EST 06/29/2021 11:06 AM EST Khanh Turner MD PATHOLOGY/CYTOLOGY O RDCARRIE [facility] [place] [address] * POCT HGB (06/29/2021) POC Hemoglobin 13.96 g/dL Comment:RN notified 06/29/2021 Khanh Turner MD POINT OF CARE TEST O OLLIE documented in this encounter Visit Diagnoses Diagnosis [...] (Due) documented in this encounter Care Teams Middleware Architect Relationship Specialty Start Date End Date Sumaya Saldivar APRN [address] [place] [address] PCP - General Family Medicine 08/02/19 04/07/24 documented as of this encounter
--- OUTSIDE RECORDS SUMMARY | 2024-05-19 09:20 | XMS_ITS | Encounter Summary ---
Author Organization [facility] [place] [address] Care Team Providers Care Chandelier Maker Name Role Phone Sumaya Saldivar APRN Primary Care Provider +1 -[phone] Reason for Visit * Diagnostic Test (Routine) - Closed Specialty Diagnoses / Procedures Referred By Madhu smyth Referred To Contact Diagnoses Ectatic abdominal aorta Procedures AAA Duplex, Complete/Bilateral Kitty Cooley APRN [facility] [place] [address] [facility] Vascular Lab [address] [place] [address] Referral ID Status Reason Start Date Expiration Date V isits Requested Visits Authorized [id number] Closed Specialty Service Requested 02/24/2023 02/24/2024 1 1 Encounter Details Date Type Department Care Team (Late st Contact Info) Description 04/09/2024 9:30 AM EST Tech [place] [address] Laney Augustine Ectatic abdominal aorta Social History Tobacco Use [...] 1:00 PM EST Procedure [place] [address] Tameka Corrales APRN [facility] [place] [address] documented as of this encounter Procedures Procedure Name Priority Date/Time Associated Diagnosis Comments AAA DUPLEX COMPLETE Routine 04/09/2024 9 :41 AM EST Ectatic abdominal aorta documented in this encounter Results * AAA Duplex, Complete/Bilateral (04/09/2024 9:41 AM EST) VB Text Report Department: Vascular Surgery Lab Patient: [id number] (LAKESHIA GUZMAN) CPT: 23869 Referring Physician: KITTY COOLEY ?? Phone: Indications: [...] AM EST Kitty Cooley APRN VASCULAR ORDERABLES Performing Organization Address City/State/[facility] Co de Phone Number VASCU[facility] documented in this encounter Visit Diagnoses Diagnosis Ectatic abdominal aorta Abdominal aortic ectasia documented in this encounter Care Teams Chandelier Maker Relationship Specialty Start Date End Date Sumaya Saldivar APRN [address] [place] [address] PCP - General Family Medicine 04/08/24 documented as of this encounter
--- OUTSIDE RECORDS SUMMARY | 2024-05-19 09:20 | XMS_ITS | Encounter Summary ---
[place] [address] Care Team Providers Care Sales Order Administrator Name Role Phone Sumaya Saldivar APRN Primary Care Provider +1 -[phone] Encounter Details Date Type Department Care Team [...] 1:00 PM EST Procedure [place] [address] Tameka Corrales APRN [facility] [place] [address] documented as of this encounter Visit Diagnoses Not on filedocumented in this encounter Care Teams Sales Order Administrator Relationship Specialty Start Date End Date Sumaya Saldivar APRN [address] [place] [address] PCP - General Family Medicine 08/02/19 04/07/24 documented as of this encounter
--- OUTSIDE RECORDS SUMMARY | 2024-05-19 09:20 | XMS_ITS | Encounter Summary ---
Author Organization [facility] [place] [address] Care Team Providers Care Fire Controlman Name Role Phone YarielSumaya malhotra LURDES Primary Care Provider +1 -[phone] Encounter Details Date Type Department Care Team (Latest Contact Info) Description 06/30/2021 2:00 PM EST Clinical Support [place] [address] Surgery follow-up Social History Tobacco Use Types [...] symptoms please call our nurse's line at [phone] M - F 8 - 5 For after hours, and on weekends; Call [phone] and ask for our plastic surgeon stone rigger Your drains have removed your drain(s) have a compression dressing. You may remove the dressing in 24 hours and shower. After showering, you may cover the drain site(s) with a band aid,or guaze if still draining a largeamount of fluid. The drain site is typically closed in approximately three days. Please call the clinic with any questions or concerns @ [phone] Tuesday through Tuesday from 8-5. On weekends, nights, or holidays, call the Main Hospital number @ [phone] and ask for the Plastic Surgeon stone rigger. documented in this encounter Progress Notes * [...] 1:00 PM EST Procedure visit [place] [address] Tameka Corrales APRN [facility] [place] [address] documented as of this encounter Visit Diagnoses Diagnosis Surgery follow-up Follow-up examination, following unspecified surgery documented in this encounter Care Teams Fire Controlman Relationship Specialty Start Date End Date Sumaya Saldivar APRN [address] [place] [address] PCP - General Family Medicine 08/02/19 04/07/24 documented as of this encounter
--- OUTSIDE RECORDS SUMMARY | 2024-05-19 09:20 | XMS_ITS | Encounter Summary ---
Author Organization [facility] [place] [address] Care Team Providers Care Press Writer Name Role Phone YarielSumaya malhotra Sweetie CHATMAN Primary Care Provider [phone] Encounter Details Date Type Department Care Team (Late st Contact Info) Description 04/09/2024 10:30 AM EST Office Visit [place] [address] Lizzie Schreiber APRN [facility] [place] [address] Ectatic abdominal aorta Social History Tobacco Use [...] Sign Reading Time Taken Comments Blood Pressure 138/85 04/09/2024 10:25 AM EST Pulse 58 04/09/2024 10:25 AM EST Temperature - - Respiratory Rate - - Oxygen Saturation - - Inhaled Oxygen Concentration - - Weight 94.8 kg (209 lb) 04/09/2024 10:25 AM EST Height 185.4 cm (6' 1) 04/09/2024 10:25 AM EST Body Mass Index 27.57 04/09/2024 10:25 AM EST documented in this encounter Progress Notes * Lizzie Schreiber APRN - 04/09/2024 10:30 AM EST Vascular Surgery Clinic Follow Up Reason for visit: F/u aortic duplex HPI: 58 y.o. female with HTN, HLD, AODM, Sams's esophagus, ectatic abd aorta. Today, pt reports she is doing well. She denies abd/back pain, claudication, CP, SOB. She takes ASA and statin daily. Recent increase to her lisinopril per PCP, patient reports an improvement in BP readings since. She is a distant former smoker, quit in 2003. PMHx: Past Medical History: Diagnosis Date Asymptomatic varicose veins of both lower extremities 03/05/2021 Sams's esophagus 03/05/2021 Diabetes mellitus 03/05/2021 Ectatic abdominal aorta 03/05/2021 HLD (hyperlipidemia) 03/05/2021 Hypertension 03/05/2021 PSxHx: Past Surgical History: Procedure Laterality Date PRO BREAST REDUCTION Bilateral 06/29/2021 REDUCTION MAMMOPLASTY, KRYSTIN (WRVU 16.03) performed by Khanh Salas MD at [facility] OSC PRO UPPER GI ENDOSCOPY, DIAGNOSTIC N/A 01/16/2020 EGD, UPPER GI ENDOSCOPY performed by Farzaneh Knowles MD at [facility] ENDOSCOPY Family Hx: No family history on file. Social Hx: Social History Tobacco Use Smoking status: Former Current packs/day: 0.00 Types: Cigarettes Quit date: 01/16/2004 Years since quittin.2 Smokeless tobacco: Never Substance Use Topics Alcohol use: Not Currently Medications: Medications 04/09/24 1025 Medication Sig Taking? aspirin EC 81 mg EC (DR) tablet Take 1 tablet by mouth daily. Yes acetaminophen 325 mg Capsule Take by mouth. Yes atorvastatin (Lipitor) 40 mg Tablet TAKE 1 TABLET BY MOUTH ONCE DAILY Yes lisinopriL (Prinivil;Zestril) 5 mg Tablet Take 10 mg by mouth daily. Yes nitrofurantoin (MACRODANTIN) 100 mg Capsule TAKE 1 CAPSULE BY MOUTH TWICE DAILY WITH A MEAL/FOOD Yes Allergies: Allergies Allergen Reactions Penicillins Rash Codeine Phosphate CIS - Nausea/Vomiting Review of Systems: Negative except as noted in HPI. Physical Exam: Vitals: Vitals: 04/09/24 1025 BP: 138/85 BP Location (NBP): Left arm Patient Position: Sitting Pulse: 58 Weight: 94.8 kg (209 lb) Height: 185.4 cm (6' 1) General: NAD, appears well Neuro: Alert and oriented, motor sensory grossly intact Lungs: CTA Heart: RRR Abd: Soft, NT, ND, no palpable pulsatile masses Extremity - [place], warm, no ulceration, brisk capillary refill, no edema. Vascular: Palpable radial pulses, no carotid bruit Studies: Recent Results (from the past 72 hour(s)) AAA Duplex, Complete/Bilateral Result Value Ref Range VB Text Report Department: Vascular Surgery Lab Patient: [id number] (LAKESHIA GUZMAN) CPT: 59118 Referring Physician: KITTY PLASCENCIA Phone: Indications: AAA; ? patency, size, growth Findings: Unilateral PSV (cm/s) EDV (cm/s) Diam AP (cm) Diam Lateral (cm) Angie Renal Aorta 66 19 2.4 2.4 Infra Renal Aorta 61 0 1.8 1.8 Distal Aorta 77 15 3.1 3.1 Interpretation: Patent abdominal aorta with the distal aorta measuring 3.1 x 3.1 cm (previously 3.0 x 3.0 cm). Bilateral common iliac arteries were not well visualized due to obstruction by overlying bowel gas. Comparison: Slight increase in distal aorta diameter when compared to previous exam on 02/18/23. Previous AAAs with change from previous value: Date DIAM AP DIAM LAT 3.00 3.00 6 3.00 ( 0.00) 3.00 ( 0.00) Current Exam 3.10 (+0.10) 3.10 (+0.10) VB Text Report End of Report Assessment/Plan: 58 y.o. female with HTN, HLD, AODM, Sams's esophagus, ectatic abd aorta. Today on duplex there is 1 mm growth from prior study: 3.1x3.1cm. She remains asymptomatic, denies abd/back pain, claudication. No intervention warranted at this time. If aorta reaches 5.0 cm would proceed with CTA and see MD. Current guidelines for 3.0-3.9cm aneurysm indicated 3 year follow up with duplex. Red flag aneurysm symptoms reviewed. Plan: - Follow up in 3 years with repeat AAA duplex Lizzie Schreiber APRN Department of Vascular Surgery documented in this encounter Plan of Treatment Upcoming Encounters Date Type Department Care Team (Late st Contact Info) Description 07/06/2024 1:00 PM EST Procedure [place] [address] Tameka Corrales APRN [facility] [place] [address] documented as of this encounter Visit Diagnoses Diagnosis Ectatic abdominal aorta Abdominal aortic ectasia documented in this encounter Care Teams Press Writer Relationship Specialty Start Date End Date Sumaya Saldivar APRN [address] [place] [address] PCP - General Family Medicine 04/08/24 documented as of this encounter
--- OUTSIDE RECORDS SUMMARY | 2024-05-19 09:20 | XMS_ITS | Encounter Summary ---
[place] [address] Care Team Providers Care Media Theorist And Author Of Name Role Phone YarielLadan malhotrahryn Sweetie CHATMAN Primary Care Provider [phone] Encounter Details Date Type Department Care Team (Latest Contact Info) Description 07/07/2021 11:00 AM EST Clinical [place] [id number] Surgery follow-up Social History Tobacco Use Types [...] symptoms please call our nurse's line at [phone] M - F 8 - 5 For after hours, and on weekends; Call [phone] and ask for our plastic surgeon in home sales consultant -[employer]QUE: to begin 4-6 weeks [...] 1:00 PM EST Procedure [place] [address] Tameka Corrales APRN [facility] [place] [address] documented as of this encounter Visit Diagnoses Diagnosis Surgery follow-up Follow-up examination, following unspecified surgery documented in this encounter Care Teams Media Theorist And Author Of Relationship Specialty Start Date End Date Sumaya Saldivar APRN [address] [place] [id number] PCP - General Family Medicine 08/02/19 04/07/24 documented as of this encounter
--- OUTSIDE RECORDS SUMMARY | 2024-05-19 09:20 | XMS_ITS | Encounter Summary ---
Author Organization [facility] [place] [address] Care Team Providers Care Electronics Lead Name Role Phone YarielSumaya malhotra LURDES Primary Care Provider [phone] Encounter Details Date Type Department Care Team (Late st Contact Info) Description 02/16/2022 8:00 AM EDT Tech Visit [place] [phone] [place], [place] Ectatic abdominal aorta Social [...] 1:00 PM EST Procedure [place] [id number] Tameka Corrales APRN [facility] [place] [address] documented as of this encounter Procedures Procedure Name Priority Date/Time Associated Diagnosis Comments AAA DUPLEX COMPLETE Routine 02/16/2022 7 :57 AM EDT Ectatic abdominal aorta documented in this encounter Results * AAA Duplex, Complete/Bilateral (02/16/2022 7:57 AM EDT) VB Text Report Department: Vascular Surgery Lab Patient: [id number] (LAKESHIA BARTON) CPT: [id number] Referring Physician: JOSEE SAVAGE, LURDES ?? Indications: 56 year old female with [...] VASCUBASE 02/16/2022 7:57 AM EDT Josee Savage BEHAVIORAL CONSULTANT VASCULAR ORDERABLE S VASCUBASE documented in this encounter Visit Diagnoses Diagnosis Ectatic abdominal aorta Abdominal aortic ectasia documented in this encounter Care Teams Electronics Lead Relationship Specialty Start Date End Date Sumaya Saldivar APRN [address] [place] [address] PCP - General Family Medicine 08/02/19 04/07/24 documented as of this encounter
--- OUTSIDE RECORDS SUMMARY | 2024-05-19 09:20 | XMS_ITS | Continuity of Care Document ---
Author Organization [place] - [facility], [place] Address [address] [place] [address] Assessment Encounter Date Assessment Date Assessment LastModified by Organization Details LastModified Time 05/10/2024 05/10/2024 Flu vaccine: current Comirnaty: current Td: current- due 2026 PCV20: provide today Shingrix: completed RSV: n/a Pap/ HPV: exempt, s/p hys Mammogram: current- last 08/06; order CRC: current- last 2016; every 5 years since FH of CRC; gastro is following; she will have them order DEXA: n/a Follow-up in 3 Months. Call or RTO sooner if needs arise. [email or web address] Not available 05/10/2024 08:45:05 Plan of Treatment Reminders Order Date Submit Date Provider Last Modified By Organization Details Last Modified Time Details Appointments Office Visit 2024 08:30A Hay TIJERINA Not available Not available Not available Follow Up 2024 08:30A Hay TIJERINA Not available Not available Not available Lab hemoglobi n A1C, fingersti ck 2023 024 [email or web address] [place], [address] [place], [address], 05/10/2024 08:52:40 Referral None recorded. Procedures None recorded. Surgeries None recorded. Imaging MAMMO, screening , bilateral - No disabilit ies, no implants, no personal history of breast cancer 2023 024 ATHENAFAX [facility] (Radiology), [address] [place] [address] [place], [address], 05/10/2024 09:30:50 Medication Orders OneTouch Ultra Test strips 2023 [facility], [address] [place], [address], 05/10/2024 09:50:01 Patient TargetsNo targets recorded. Patient Instructions Encounter Date Encounter Id Patient Instructions Last Modified By Organization Details Last Modified Time 05/10/2024 [id number] Dear Lakeshia, Thank you for visiting us on TueMay 10, 2024. We appreciate your dedication to improving your health and are pleased to see the progress you are making. Here is a summary of the orosco instructions from today's visit: - Continue with your current blood pressure medication as your levels are stable. - Implement the keto-Mediterranean diet and begin your exercise regimen as planned. - Maintain the use of probiotics to help with bloating and suspected muscle issues in the abdominal area. - Your LDL cholesterol is currently at 139; consider increasing your atorvastatin to 80 mg or intensify your focus on diet and weight management. - Ensure to get your mammogram in July and follow up with your gastroenterology appointment every 6 months. - Schedule your colonoscopy, which is due every 5 years due to your family history of colorectal cancer. Remember to follow the dietary prep instructions provided. - Continue using post-coital Macrobid for bladder management and manage headaches with citrus and eye drops. - Your A1c level today is 6.8%; continue monitoring and managing your diabetes. - Ensure you have enough blood sugar test strips; donate any extra meters to our clinic. - Follow up with us in 3 months to reassess your progress. We are here to support you in your health journey, so please do not hesitate to reach out if you have any questions or concerns. Best regards, Nadine [email or web address] Not available 05/10/2024 08:53:54 Reason for Referral None Reported. Results Created Date Observation Date Name Description Value Unit Range Abnormal Flag Note LastModifiedBy Organization Detail LastModifiedTime 05/10/20 24 05/10/2024 hemog lobin A1C, finge rstic k hemoglobin A1C 6.8 % <5.7 Not Available [address], [address], 05/10/2024 08:36:02 Result Notes None recorded. Problems Name Problem SNOMED Code Status Onset Date Resolution Date Notes Provider Name and Address Organization Details Recorded Time Family history of cancer of colon 612321172 Active 2023 Father CUONG ABRAMS, MACHINE LOADER null, [facility] 4 13:41:46 Pain in thoracic spine 128531318 Active 200305/15/20 18 - Comments only - Sumaya Tijerina FOOD TECHNOLOGIST - overall improved . encourag ed rest, ice, heat, exercise / movement . Problem Code: M54.89; Problem Code Type: ICD-10; SUMAYA TIJERINA APRN [address], [place], [address] , [facility] 4 16:51:37 Hyperlip idemia 52078497 Active 201008/11/19 19 - Comments only - Steacy Suddaby - Continue Atorvast atin. Recheck CMP in April 2019. Problem Code: E78.5; Problem Code Type: ICD-10; SUMAYA TIJERINA APRN [address], [place], [address] , [facility] 4 16:51:37 Sams' s esophagu s 797795771 Active 201208/11/19 19 - Comments only - Steacy Suddaby - stable. Having breakthr ough heartbur n rarely and only with spicy foods. Continue Pantopra zole. B12 and Mag stable last checked in April , recheck April 2019. Problem Code: K22.70; Problem Code Type: ICD-10; SUMAYA TIJERINA APRN [address], [place], [address] , [facility] 4 16:51:37 Type 2 diabetes mellitus without complica tion 178160151 Active 201308/11/19 19 - Comments only - Steacy Suddaby - Stable. A1C 6.6 today. Continue with diet and exercise manageme nt. UTD on monofila ment, foot exam and eye exam. Continue lisinopr il. Continue to monitor. Problem Code: E11.9; Problem Code Type: ICD-10; [address], [place], [address] , [facility] 4 16:51:37 Urinary tract infectio us disease 36081883 Active 201408/11/19 19 - Comments only - Lamberto Clearyby - Stable. No sx at this time. Continue Macrobid PRN after intercou rse. Problem Code: N39.0; Problem Code Type: ICD-10; [address], [place], [address] , [facility] 4 16:51:37 Hypertro phic conditio n of skin 68575870 Completed 201507/15/2015 07/08/19 16 - Comments only - Sumaya Tijerina FOOD TECHNOLOGIST - Removed, declined sending to patholog y. Reviewed good skin care until fully healed. 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 Benign tumor. Follow-u p ENT as directed . Problem Code: D11.9; Problem Code Type: ICD-10; [address], [place], [address] , [facility] 4 16:51:37 Adult health examinat ion Active 201608/11/19 19 - Comments only - Lamberto Gutiérrez - Shingrix #2 given today. Problem Code: Z00.00; Problem Code Type: ICD-10; [address], [place], [address] , [facility] 4 16:51:37 Insomnia 112411616 Active 201608/11/19 19 - Comments only - Lamberto Gutiérrez - improved . Sleeping well and waking feeling well rested. [facility] ed good sleep habits includin g 7-9hrs of sleep a night. Problem Code: G47.00; Problem Code Type: ICD-10; [address], [place], [address] , [facility] 4 16:51:37 Venous varices 700307564 Active 201605/31/19 17 - Comments only - Sumaya Tijerina APRN - [facility] ed compress ions daily. Problem Code: I86.8; Problem Code Type: ICD-10; [address], [place], [address] , [facility] 4 16:51:37 Congenit al facial asymmetr y 23126008908 109 Active 201605/31/19 17 - Comments only - Sumaya Tijerina APRN - most likely nerve damage from surgery. Rest, ice, heat as desires. Consider medicati on manageme nt if continue s and desires. Problem Code: Q67.0; Problem Code Type: ICD-10; [address], [place], [address] , [facility] 4 16:51:37 Acute sinusiti s 72565168 Completed 201608/02/2016 07/20/19 17 - Comments only - Park parmar BULKING MACHINE OPERATOR - - Given classic sinus infectio n [...] J01.90; Problem Code Type: ICD-10; Not Available [facility] 3 05:51:42 Hypertro phic conditio n of skin 93746072 Completed 201611/11/2016 11/05/19 17 - Comments only - Sumaya Tijerina APRN - Skin tag removal performe d and was successf ul. Tolerate d well by patient. Counsele d on risk of infectio n. Will monitor and call if any symptoms . Problem Code: L91.8; Problem Code Type: ICD-10; Not Available [facility] 3 05:51:42 Lump in upper inner quadrant of left breast 18541990965 4100 Active 201605/15/20 18 - Comments only - Sumaya Tijerina APRN - resolved . Problem Code: N63.22; Problem Code Type: ICD-10; SUMAYA TIJERINA APRN [address], [place], [address] , [facility] 4 16:51:37 Anxiety 48904264 Active 201708/11/19 19 - Comments only - Lamberto Shahdaby - stable despite increase d stressor s. Using coping skills such as exercise to deal with anxiety and mood swings. Continue Fluoxeti ne Problem Code: F41.8; Problem Code Type: ICD-10; SUMAYA TIJERINA APRN [address], [place], [address] , [facility] 4 16:51:37 Screenin g mammogra phy Active 2017 Problem Code: Z12.31; Problem Code Type: ICD-10; [address], [place], [address] , [facility] 4 16:51:37 Hypertro phic conditio n of skin 28971432 Completed 201808/17/2018 08/11/19 19 - Comments only - Lamberto Gutiérrez - Removed. Watch for signs of infectio n or bleeding . Problem Code: L91.8; Problem Code Type: ICD-10; Not Available [facility] 3 05:51:42 Abdomina l aortic aneurysm 336925797 Active [address], [place], [place], [address] [place] [address] , [facility] 4 16:51:37 Cirrhosi s of liver 01259656 Active 2019 Problem Code: K74.60; Problem Code Type: ICD-10; [address], [place], [address] , [facility] 4 16:51:37 Hydronep hrosis 72515921 Active 2019 Problem Code: N13.30; Problem Code Type: ICD-10; [address], [place], [address] , [facility] 4 16:51:37 Neck pain 50251859 Active 2020 Problem Code: M54.2; Problem Code Type: ICD-10; [address], [place], [address] , [facility] 4 16:51:37 Viral disease 07362396 Completed 202011/26/2020 Problem Code: B97.89; Problem Code Type: ICD-10; Not Available [facility] 3 05:51:43 Headache disorder 069971998 Active 2020 Problem Code: G44.89; Problem Code Type: ICD-10; [address], [place], [address] , [facility] 4 16:51:37 Heart murmur 19638178 Active 2020 Problem Code: R01.1; Problem Code Type: ICD-10; [address], [facility] [address] , [facility] 4 16:51:37 Aneurysm of iliac artery 36572260 Active 2020 Problem Code: I72.3; Problem Code Type: ICD-10; [address], [facility] [address] , [facility] 4 16:51:37 Ectasia of thoracic aorta 49304800042 9108 Active 2020 Problem Code: I77.810; Problem Code Type: ICD-10; [address], [place], [address] , [facility] 4 16:51:37 Disorder of salivary gland 46925661 Completed 201505/20/2016 Problem Code: K11.8; Problem Code Type: ICD-10; Not Available [facility] 3 05:51:47 Pain in right foot 10072967157 9107 Completed 201911/22/2022 Problem Code: M79.671; Problem Code Type: ICD-10; Not Available [facility] 3 05:51:48 Fatigue 34529781 Completed 202002/09/2023 Problem Code: R53.83; Problem Code Type: ICD-10; Not Available [facility] 3 05:51:48 Disorder of skin and/or subcutan eous tissue 59417637 Completed 201705/15/2018 Problem Code: L98.9; Problem Code Type: ICD-10; Not Available [facility] 3 05:51:48 Urgent desire to urinate 86900104 Completed 201901/01/2021 Problem Code: R39.15; Problem Code Type: ICD-10; Not Available [facility] 3 05:51:49 Backache 016541992 Completed 200302/09/2023 Not Available [facility] 3 05:51:49 Pain of left wrist 73696638212 9102 Completed 202005/03/2022 Problem Code: M25.532; Problem Code Type: ICD-10; Not Available [facility] 3 05:51:50 Localize d enlarged lymph nodes 443265132 Completed 201510/31/2018 Problem Code: R59.0; Problem Code Type: ICD-10; Not Available [facility] 3 05:51:50 Recurren t urinary tract infectio n 015658306 Completed 201402/09/2023 Not Available [facility] 3 05:51:50 Pain of right eye 73719974181 9102 Completed 201705/15/2018 Problem Code: H57.11; Problem Code Type: ICD-10; Not Available [facility] 3 05:51:51 Abdomina l pain 05404639 Completed 201605/15/2018 Problem Code: R10.9; Problem Code Type: ICD-10; Not Available [facility] 3 05:51:51 Shoulder joint pain 011678787 Completed 201405/31/2016 Problem Code: M25.519; Problem Code Type: ICD-10; Not Available [facility] 3 05:51:51 Pain of right knee joint 46353111801 4100 Completed 201705/03/2022 Problem Code: M25.561; Problem Code Type: ICD-10; Not Available [facility] 3 05:51:51 Paresthe dino 18211003 Completed 201705/15/2018 Problem Code: R20.2; Problem Code Type: ICD-10; Not Available [facility] 3 05:51:52 Pain of right shoulder joint 16992435155 448783 Completed 201705/03/2022 Problem Code: M25.511; Problem Code Type: ICD-10; Not Available [facility] 3 05:51:52 Carpal tunnel syndrome of right wrist 59277415490 9108 Completed 201705/15/2018 Problem Code: G56.01; Problem Code Type: ICD-10; Not Available [facility] 3 05:51:52 Exposure to communic able disease Completed 202106/22/2021 Problem Code: Z20.9; Problem Code Type: ICD-10; Not Available [facility] 3 05:51:53 Joint pain 92646335 Completed 202006/22/2021 Problem Code: M25.50; Problem Code Type: ICD-10; Not Available [facility] 3 05:51:53 Lateral epicondy litis of right humerus 88120070559 9107 Completed 201505/31/2016 Problem Code: M77.11; Problem Code Type: ICD-10; Not Available [facility] 3 05:51:53 Increase d frequenc y of urinatio n 188352760 Completed 201901/01/2021 Problem Code: R35.0; Problem Code Type: ICD-10; Not Available [facility] 3 05:51:53 Lymphade nopathy 06341324 Completed 202006/22/2021 Problem Code: R59.9; Problem Code Type: ICD-10; Not Available [facility] 3 05:51:54 Generali zed hyperhid rosis 747863862 Completed 201906/22/2021 Problem Code: R61; Problem Code Type: ICD-10; Not Available [facility] 3 05:51:54 Nodule on toe 337642351 Completed 201705/15/2018 Not Available [facility] 3 05:51:55 Dysphoni a 12420658 Completed 201605/15/2018 Problem Code: R49.0; Problem Code Type: ICD-10; Not Available [facility] 3 05:51:55 Muscle pain 43568581 Completed 202005/03/2022 Problem Code: M79.10; Problem Code Type: ICD-10; Not Available [facility] 3 05:51:55 Diarrhea 03248839 Completed 201605/15/2018 Problem Code: R19.7; Problem Code Type: ICD-10; Not Available [facility] 3 05:51:56 Muscle pain 38502891 Completed 202006/22/2021 Problem Code: M79.10; Problem Code Type: ICD-10; Not Available [facility] 3 05:51:56 Elevated blood-pr essure reading without diagnosi s of hyperten vanessa 648603484 Completed 201608/10/2018 Problem Code: R03.0; Problem Code Type: ICD-10; Not Available [facility] 3 05:51:57 Pain of left knee joint 01523378483 4107 Completed 201605/03/2022 Problem Code: M25.562; Problem Code Type: ICD-10; Not Available [facility] 3 05:51:57 Pre-surg ramiro evaluati on Completed 202105/03/2022 Problem Code: Z01.818; Problem Code Type: ICD-10; Not Available [facility] 3 05:51:57 Disorder of skin and/or subcutan eous tissue 19012684 Active 2022 Problem Code: L98.9; Problem Code Type: ICD-10; Not Available [facility] 4 05:37:32 Disorder of eyelid 49688406 Active 2023 SUMAYA TIJERINA APRN [address], [place], [address] , [facility]. 4 08:50:26 [facility] hyperten vanessa 79120805 Active 2023 SUMAYA TIJERINA APRN [address], [place], [address] , [facility]. 4 08:56:04 Problem Notes None recorded. Procedures Surgical History Date Name Laterality Status Provider Name and Address Organization Details Recorded Time 06/25/19 22 Date of Last Mammogram completed EMILE HOLLY CMA [facility] 06/06/2023 16:24:21 10/19/19 02 Hysterectomy completed Cocoyumiko Andersen [facility] 05/04/2024 12:01:19 Imaging Results None recorded. Procedure Notes None recorded. Medical Equipment None Reported. Allergies Allergen ID Allergen Name Allergen Category Reaction Reaction Severity Criticality Documentation Date Start Date Code Code System Note Provider Name and Address Organization Details Recorded Time 88019 Medicinal product containin g penicilli n and acting as antibacte rial agent (product) medicatio n rash mild Not available 03/25/20232013 79547 05 SOURAV Mas cristina [facility] 4 13:13:31 Medications Name Sig Start Date [...] Not Available Not Available Not Avai lable fluoroura cil 5 % topical cream APPLY TO AFFECTED AREA(S) TWO TIMES A DAY 05/10 completed Not Available Not Available Not Available fluoxetin e 10 mg tablet 1 qd [...] 1 strip via meter once a day 2023 active Not Available Not Available Not Avai lable Tylenol 500 mg tablet Take 1-2 tab by mouth every 6 hours as needed 2017 active Not Available Not Available Not Avai lable fluoxetin e 20 mg tablet 1 qd 06/08 completed Not Available Not Available Not Available Cipro 500 mg tablet 1 TAB BID 11/12 completed Not Available Not Available Not Available nitrofura ntoin macrocrys dorcas 100 mg capsule TAKE ONE CAPSULE BY MOUTH EVERY DAY AFTER INTERCOU RSE active Not Available Not Available No t Available lisinopri l 10 mg tablet TAKE ONE TABLET BY MOUTH [...] TAKE ONE TABLET BY MOUTH EVERY DAY 03/06 completed Not Available Not Available Not Available Aspir-81 mg tablet,de layed release Take [...] CAPSULE BY MOUTH DIRECTED AFTER INTERCOU RSE 03/06 completed Not Available Not Available Not Available Bactrim DS 1TAB twice daily 08/14 [...] completed Not Available Not Available Not Available lotepredn ol etabonate 0.5 % eye gel drops INSTILL ONE DROP IN EACH EYE EVERY EVENING active Not Available Not Available No t Available OneTouch Ultra2 Meter CHECK SUGARS ONCE DAILY active Not Available Not Available No t Available OneTouch UltraSoft 2 Lancet 30 gauge [...] Details Last Updated DateTime 4 180.85 cm 29 kg/m2 56380.2 4 g 97.3 [degF] 97 % 97 % 76 /min 110 mm[Hg] 68 mm[Hg] Karissa Strong RN [facility] 4 08:32:35 Social History Question Answer Notes LastModified by Organizat ion Details LastModified Time Tobacco Smoking Status Former Smoker CUONG ABRAMS CMA null, [facility] 05/26/2023 09:20:52 When Did You Quit [...] Time Mother Family history of Hypercholest erolemia linpui.70 Not available 2022 03:57:17 Mother Family history of Hypertension [email or web address]. Not available 02/2023 03:57:17 Paternal Grandmother Family history of breast cancer 1 gene mutation [email or web address]. Not available 2022 03:57:17 Notes:*Problem: Mother-decea sed from cerebral aneurysm age 42. HTN and HLD Father- - Diabetes, colon cancer, ETOH Brothers- 3 half brothers- varicose veins with removal. Viaml has degeneration of spine. Children- 3- Michelle [...] 0 0 Immunizations Vaccine Type Date Status Note Provider Nam e and Address Organization Details Recorded Time Td (adult), 5 Lf tetanus toxoid, preservative free, adsorbed 7 completed Not Available [facility] 03/25/2023 04:05:11 Tdap 7 completed Not Available [facility] 03/25/2023 04:05:11 Influenza, split virus, trivalent, preservative 7 completed Not Available [facility] 03/25/2023 04:05:12 Influenza, split virus, quadrivalent, PF 0 completed Not Available [facility] 03/25/2023 04:05:12 Influenza, split virus, quadrivalent, PF 9 completed Not Available [facility] 03/25/2023 04:05:13 Influenza, split virus, quadrivalent, PF 1 completed Not Available [facility] 03/25/2023 04:05:13 Influenza, split virus, quadrivalent, PF 2 completed Not Available [facility] 03/25/2023 04:05:13 Influenza, split virus, quadrivalent, preservative 8 completed Not Available [facility] 03/25/2023 04:05:15 zoster recombinant 9 completed Not Available [facility] 03/25/2023 04:05:16 zoster recombinant 8 completed Not Available [facility] 03/25/2023 04:05:16 COVID-19, mRNA, LNP-S, PF, 100 mcg/0.5mL dose or 50 mcg/0.25mL dose 1 completed Not Available [facility] 03/25/2023 04:05:17 COVID-19 vaccine, vector-nr, rS-Ad26, PF, 0.5 mL 1 completed Not Available [facility] 03/25/2023 04:05:18 COVID-19, mRNA, LNP-S, bivalent, PF, 30 mcg/0.3 mL dose 2 completed Not Available [facility] 03/25/2023 04:05:18 pneumococcal polysaccharide PPV23 7 completed Not Available [facility] 03/25/2023 04:05:19 influenza, unspecified formulation 9 completed Not Available [facility] 03/25/2023 04:05:20 COVID-19, mRNA, LNP-S, PF, nori-sucrose, 30 mcg/0.3 mL [address] [place], [address], [facility] 02/07/2024 10:38:05 Influenza, split virus, trivalent, PF [address], [place], [address], [facility] 02/07/2024 10:38:05 COVID-19, mRNA, LNP-S, PF, 30 mcg/0.3 mL dose 3 completed CUONG ABRAMS CMA null, [facility] 05/24/2023 09:59:06 Influenza, split virus, quadrivalent, PF 3 completed CUONG ABRAMS CMA null, [facility] 05/24/2023 09:59:28 Pneumococcal conjugate PCV20, polysaccharide [id number] conjugate, adjuvant, PF 4 completed CUONG ABRAMS CMA [facility], [facility] 05/10/2024 09:07:07 COVID-19, mRNA, LNP-S, PF, nori-sucrose, 30 mcg/0.3 mL 3 completed Not Available [facility] 05/27/2023 05:33:05 Past Encounters Encounter ID Performer Location Encounter Start Date Encounter Closed Date Diagnosis/Indication Diagnosis SNOMED-CT Code Diagnosis ICD10 Code [id number] SUMAYA LILLIANA, [address] [address] 05/10/2024 08:21:53 05/10/2024 09:09:24 Pain in thoracic spine 988092279 M54.6 Sams's esophagus 3029 86736 K22.70 Type 2 francisco betes mellitus without complication 167291368 E11.9 Urinary tr act infectious disease 99115943 N39.0 Anxiety 94374320 F41.9 Abdominal aortic aneurysm 652485384 I71.40 Cirrhosis of liver 007 K74.60 Headache disorder 319630 009 R51.9 Essential hypertension 25995719 I10 Active or passive immunization 109467727 Z23 Screening for malignant neoplasm of breast 665572194 Z12.39 Health Concerns Section Related Observation LastModified by Organization Detai ls LastModified Time None Recorded Concern Status LastModified by Organization Details LastModified Time None Recorded Payers Encounter Date Sequence Insurance Name Policy Number Policy Fiore Covered Member ID Fiore Member ID Guarantor Name 05/10/2024 1 [facility] [place] [id number] Lakeshia Tim [id number] Lakeshia Tim Notes Date Note Type Note Provider Name and Address Organization Details Recorded Time 05/10/2024 text/html Is here for follow-up: Has reduced her water intake greatly. Feeling good. -Back pain, chronic. Thoracic. Neck pain. Knee pain. Shoulder pain. Wrist pain, left, s/p fracture with repair. Has been working with chiropractor. See ROS.-- updates 05.08. Back pain is pretty good. Neck pain pretty good. knee pain is that comes and goes, I mean. Shoulder pain that seems to be good too. Has boundaries in place that has helped with her joint pains. Gets a pain to the left side, mid axillary, when she bends over to put on socks; she is not interested in further evaluation right now. -HTN. HLD. Takes lisinopril, atorvastatin.-- update 05.08. Was seen in February for concerns of elevated BP, BP at recheck was at goal, no changes were made; was recommended to reduce fluid intake to 2L.-- update 05.08. Denies chest pain, heaviness, tightness. Denies palpitations. Denies PND, orthopnea, pedal edema. Denies SOBOE. Denies cough, dyspnea. -Sams? s esophagus. Without meds. Last scope was 2019. Saw general surgery 12/05, they opted not to repeat EGD since she is asymptomatic since diet changes/ supplements and being ETOH free.-- update 05.08. Gets bloated after certain foods. Denies nausea, vomiting. Denies diarrhea, constipation. Denies heart burn, indigestion. Doing probiotics daily. -DM. Diet managed. Takes Lisinopril, atorvastatin, ASA. Last visit she was going to consider doing keto diet.-- 05.08. Doing keto/ Med. diet. Making better food choices. Plans to start exercising. Denies 3Ps.. Denies burning, numbness, tingling, or pain to feet. not checking sugars, does not have strips. -Recurrent UTI. Macrobid post coital.-- update 05.10. Denies dysuria, hematuria. Some vaginal discharge, pasty white, small amount. No odor. -Anxiety. Depression. Insomnia. Takes [place]da, vitamin D supplements.-- update 05.10. Denies thoughts of suicide, hallucinations. +irritable. Working on boundaries at work, work has been more stressful lately. Denies depression. Denies anxiety, admits she was having anxiety before the boundaries. Feels mind shift and coping skills has been effective for her. Sleep like a baby. -AAA. Aneurysm of iliac artery. Ascending aorta dilatation. Takes atorvastatin, Lisinopril, ASA. Sees vascular routinely. -Cirrhosis. Hx of. Working on lifestyle. -Headache, mixed.-- update 05.08. As long as the shoulders and neck stay good, the headaches stay good. Continues to do her eye drops. SUMAYA TIJERINA, FOOD TECHNOLOGIST [address], [place], [id number], [facility]. 05/10/2024 09:51:29 OBGyn Episode No OBEpisode recorded.
--- OUTSIDE RECORDS SUMMARY | 2024-05-19 09:20 | XMS_ITS | Continuity of Care Document ---
Author Organization [place] - [facility] Address [address] [place] [address] Assessment Encounter Date Assessment Date Assessment LastModified by Organization Details LastModified Time 03/06/2024 03/06/2024 Flu vaccine: Current Comirnaty: Current Td: current- due 2026 PCV20: schedule as nurse visit on 03.15.24. Shingrix: completed RSV: n/a Pap/ HPV: exempt, s/p hys Mammogram: current- last 08/06 CRC: current- last 2016 DEXA: n/a FU as scheduled in April. Call sooner if needs arise. Lakeshia is agreeable with above plan. [email or web address] Not available 03/06/2024 14:25:56 Plan of Treatment Reminders Order Date Submit Date Provider Last Modified By Organization Details Last Modified Time Details Appointments Office Visit 2024 08:30A M SUMAYA TIJERINA Not available Not available Not available Follow Up 2024 08:30A M SUMAYA TIJERINA Not available Not available Not available Lab None recorded . Referral None recorded . Procedures None recorded . Surgeries None recorded . Imaging None recorded . Medication Orders None recorded . Patient TargetsNo targets recorded. Patient Instructions Encounter Date Encounter Id Patient Instructions Last Modified By Organization Details Last Modified Time 03/06/2024 [id number] Dear Lakeshia, Thank you for visiting today and for your dedication to improving your health. It was great to see the progress you've made, and I appreciate your efforts in managing your diet and lifestyle. Here are the orosco instructions from our discussion: - Reduce your fluid intake to about 100 ounces per day to manage your blood pressure effectively. - Continue to monitor and limit your salt intake; avoid adding salt to your meals. - Maintain your current medications as prescribed, with no changes needed at this time. - You have an upcoming appointment on May 10 for a follow-up. Please see the nurse at the end of this month for your pneumonia vaccine. She can recheck your blood pressure at that time. - If you experience variable blood pressure or persistent headaches, contact me. We may need to conduct a urine sample and blood work before your next visit. Please remember to call me if there are any changes in your symptoms or if you have any concerns before our next scheduled appointment. Best regards, Nadine kramer Not available 03/06/2024 14:33:04 Reason for Referral None Reported. Results Created Date Observation Date Name Description Value Unit Range Abnormal Flag Note LastModifiedBy Organization Detail LastModifiedTime 02/13/20 24 02/13/2024 US, liver Patien t Name: Lakeshia Smart Unit #: [id number] Loc: DI Orderi ng Provid er: Madyson Stone Accoun t #: [id number] Status : REG CLI Primar y Care Provid er: Madyson Stone Date of Exam: Sex: F Admiss ion Date: : 1965 Age: 58 Exam(s ) US ABDOME N LIMITE D EXAM: US ABDOME N LIMITE D CLINIC AL HISTOR Y: CIRRHO SIS OF LIVER, K74.60 TECHNI QUE: Ultras ound abdome n perfor med using standa rd protoc ol. COMPAR VALDEZ: US US ABDOME N LIMITE D from 2023 FINDIN GS: LIVER: 18.8 cm in length . Slight ly increa sedech ogenic ity. No focal liver lesion s are seen. GALLBL ADDER: No eviden ce of cholel ithias is. No eviden ce of wall thicke celeste. No perich olecys tic fluid identi fied. FITZGERALD 'S SIGN: Negati ve. BILIAR Y SYSTEM : No intrah epatic or extrah epatic biliar y ductal dilati on. RIGHT KIDNEY : Normal size. No eviden ce of renal calcul i. No eviden ce of hydron ephros is. No suspic ious renal mass. No cyst identi fied. PANCRE : Normal where visual ized. ABDOMI NAL AORTA AND IVC: Visual ized portio ns normal calibe r. ASCITE S: None seen. IMPRES CHAIM: Stable mild hepato megaly . No mass identi fied. DATA REPOSI TORY: Clarita bravo By: Madyson Stone CC: ------ ------ ------ ------ ------ ------ ------ ------ ------ ------ ------ ------ - Dictat ed By: Emmett Guo [id number] Transc ribed By: Alta Myers 1043 This is privil eged, confid ential inform ation intend ed only for the provid er named. Any use or distri bution by any person other than this provid er is strict ly prohib ited. If you receiv e this report in error, please notify us immedi ramboly at and return the origin al report to us at the addres s above. Thank- you. [facility] (Radiology) [address] , [place], [address], 03/22/2024 12:04:54 Result Notes None recorded. Problems Name Problem SNOMED Code Status Onset Date Resolution Date Notes Provider Name and Address Organization Details Recorded Time Family history of cancer of colon 951316579 Active 2023 Father CUONG ABRAMS, FOOD PREPARATION KITCHEN AIDE null, [place] - [facility] 4 13:41:46 Pain in thoracic spine 124820485 Active 200305/15/20 18 - Comments only - Sumaya Tijerina APRN - overall improved . encourag ed rest, ice, heat, exercise / movement . Problem Code: M54.89; Problem Code Type: ICD-10; SUMAYA TIJERINA APRN [address], [place], [address] , [facility] 4 16:51:37 Hyperlip idemia 51571856 Active 201008/11/19 19 - Comments only - Steacy Suddaby - Continue Atorvast atin. Recheck CMP in April 2019. Problem Code: E78.5; Problem Code Type: ICD-10; SUMAYA TIJERINA APRN [address], [place], [address] , [facility] 4 16:51:37 Sams' s esophagu s 003804701 Active 201208/11/19 19 - Comments only - Steacy Suddaby - stable. Having breakthr ough heartbur n rarely and only with spicy foods. Continue Pantopra zole. B12 and Mag stable last checked in April , recheck April 2019. Problem Code: K22.70; Problem Code Type: ICD-10; SUMAYA TIJERINA APRN [address], [facility] [address] , [facility] 4 16:51:37 Type 2 diabetes mellitus without complica tion 460052616 Active 201308/11/19 19 - Comments only - Steacy Suddaby - Stable. A1C 6.6 today. Continue with diet and exercise manageme nt. UTD on monofila ment, foot exam and eye exam. Continue lisinopr il. Continue to monitor. Problem Code: E11.9; Problem Code Type: ICD-10; [address], [place], [address] , [facility] 4 16:51:37 Urinary tract infectio us disease 93979125 Active 201408/11/19 19 - Comments only - Steacy Suddaby - Stable. No sx at this time. Continue Macrobid PRN after intercou rse. Problem Code: N39.0; Problem Code Type: ICD-10; [address], [facility] [address] , [facility] 4 16:51:37 Hypertro phic conditio n of skin 30664872 Completed 201507/15/2015 07/08/19 16 - Comments only - Sumaya Yariel MUSHROOM CUTTER - Removed, declined sending to patholog y. Reviewed good skin care until fully healed. Problem Code: L91.8; Problem Code Type: ICD-10; Not Available [facility] 3 05:51:41 Acquired absence of cervix and uterus 608310938 Active Problem Code: Z90.710; Problem Code Type: ICD-10; [address], [place], [address] , 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 Benign tumor. Follow-u p ENT as directed . Problem Code: D11.9; Problem Code Type: ICD-10; [address], [place], [address] , [facility] 4 16:51:37 Adult health examinat ion Active 201608/11/19 19 - Comments only - Lamberto Gutiérrez - Shingrix #2 given today. Problem Code: Z00.00; Problem Code Type: ICD-10; [address], [place], [address] , [facility] 4 16:51:37 Insomnia 907088052 Active 201608/11/19 19 - Comments only - Lamberto Gutiérrez - improved . Sleeping well and waking feeling well rested. [facility] ed good sleep habits includin g 7-9hrs of sleep a night. Problem Code: G47.00; Problem Code Type: ICD-10; [address], [place], [address] , [facility] 4 16:51:37 Venous varices 748545112 Active 201605/31/19 17 - Comments only - Sumaya Tijerina APRN - encour ed compress ions daily. Problem Code: I86.8; Problem Code Type: ICD-10; SUMAYA TIJERINA APRN [address], [place], [address] , [facility] 4 16:51:37 Congenit al facial asymmetr y 70874897719 109 Active 201605/31/19 17 - Comments only - Sumaya Tijerina MUSHROOM CUTTER - most likely nerve damage from surgery. Rest, ice, heat as desires. Consider medicati on manageme nt if continue s and desires. Problem Code: Q67.0; Problem Code Type: ICD-10; SUMAYA TIJERINA APRN [address], [place], [address] , [facility] 4 16:51:37 Acute sinusiti s 86566114 Completed 201608/02/2016 07/20/19 17 - Comments only - Park parmar AMMUNITION COMPONENTS INSPECTOR - - Given classic sinus infectio n [...] J01.90; Problem Code Type: ICD-10; Not Available [facility] 3 05:51:42 Hypertro phic conditio n of skin 42234889 Completed 201611/11/2016 11/05/19 17 - Comments only - Sumaya Tijerina MUSHROOM CUTTER - Skin tag removal performe d and was successf ul. Tolerate d well by patient. Counsele d on risk of infectio n. Will monitor and call if any symptoms . Problem Code: L91.8; Problem Code Type: ICD-10; Not Available [facility] 3 05:51:42 Lump in upper inner quadrant of left breast 52437332872 4100 Active 201605/15/20 18 - Comments only - Sumaya Tijerina APRN - resolved . Problem Code: N63.22; Problem Code Type: ICD-10; SUMAYA TIJERINA APRN [address], [facility] [address] , [facility] 4 16:51:37 Anxiety 09103780 Active 201708/11/19 19 - Comments only - Lamberto Gutiérrez - stable despite increase d stressor s. Using coping skills such as exercise to deal with anxiety and mood swings. Continue Fluoxeti ne Problem Code: F41.8; Problem Code Type: ICD-10; SUMAYA TIJERINA APRN [address], [facility] [address] , [facility] 4 16:51:37 Screenin g mammogra phy Active 2017 Problem Code: Z12.31; Problem Code Type: ICD-10; [address], [facility] [address] , [facility] 4 16:51:37 Hypertro phic conditio n of skin 91776034 Completed 201808/17/2018 08/11/19 19 - Comments only - Lamberto Marla - Removed. Watch for signs of infectio n or bleeding . Problem Code: L91.8; Problem Code Type: ICD-10; Not Available [facility] 3 05:51:42 Abdomina l aortic aneurysm 186851503 Active 2019 SUMAYA TIJERINA APRN [address], [place], [address] , [facility] 4 16:51:37 Cirrhosi s of liver 14430948 Active 2019 Problem Code: K74.60; Problem Code Type: ICD-10; [address], [facility] [address] , [facility] 4 16:51:37 Hydronep hrosis 17290689 Active 2019 Problem Code: N13.30; Problem Code Type: ICD-10; [address], [facility] [address] [place] [address] 4 16:51:37 Neck pain 46337873 Active 2020 Problem Code: M54.2; Problem Code Type: ICD-10; [address], [facility] [address] [place] [address] 4 16:51:37 Viral disease 80648610 Completed 202011/26/2020 Problem Code: B97.89; Problem Code Type: ICD-10; Not Available [facility] 3 05:51:43 Headache disorder 997455622 Active 2020 Problem Code: G44.89; Problem Code Type: ICD-10; [address], [facility] [address] [facility] 4 16:51:37 Heart murmur 00026012 Active 2020 Problem Code: R01.1; Problem Code Type: ICD-10; [address], [facility] [address] [facility] 4 16:51:37 Aneurysm of iliac artery 49449996 Active 2020 Problem Code: I72.3; Problem Code Type: ICD-10; [address], [facility] [address] [facility] 4 16:51:37 Ectasia of thoracic aorta 73261124051 9108 Active 2020 Problem Code: I77.810; Problem Code Type: ICD-10; SUMAYA TIJERINA, [address], [place], [address] , [facility]. 4 16:51:37 Disorder of salivary gland 27698786 Completed 201505/20/2016 Problem Code: K11.8; Problem Code Type: ICD-10; Not Available [facility] 3 05:51:47 Pain in right foot 35192579441 9107 Completed 201911/22/2022 Problem Code: M79.671; Problem Code Type: ICD-10; Not Available [facility] 3 05:51:48 Fatigue 86613361 Completed 202002/09/2023 Problem Code: R53.83; Problem Code Type: ICD-10; Not Available [facility] 3 05:51:48 Disorder of skin and/or subcutan eous tissue 86795211 Completed 201705/15/2018 Problem Code: L98.9; Problem Code Type: ICD-10; Not Available [facility] 3 05:51:48 Urgent desire to urinate 59235661 Completed 201901/01/2021 Problem Code: R39.15; Problem Code Type: ICD-10; Not Available [facility] 3 05:51:49 Backache 617312961 Completed 200302/09/2023 Not Available [facility] 3 05:51:49 Pain of left wrist 04954460608 9102 Completed 202005/03/2022 Problem Code: M25.532; Problem Code Type: ICD-10; Not Available [facility] 3 05:51:50 Localize d enlarged lymph nodes 376834561 Completed 201510/31/2018 Problem Code: R59.0; Problem Code Type: ICD-10; Not Available [facility] 3 05:51:50 Recurren t urinary tract infectio n 737978278 Completed 201402/09/2023 Not Available [facility] 3 05:51:50 Pain of right eye 27153602761 9102 Completed 201705/15/2018 Problem Code: H57.11; Problem Code Type: ICD-10; Not Available [facility] 3 05:51:51 Abdomina l pain 07335241 Completed 201605/15/2018 Problem Code: R10.9; Problem Code Type: ICD-10; Not Available [facility] 3 05:51:51 Shoulder joint pain 551231540 Completed 201405/31/2016 Problem Code: M25.519; Problem Code Type: ICD-10; Not Available [facility] 3 05:51:51 Pain of right knee joint 59736819485 4100 Completed 201705/03/2022 Problem Code: M25.561; Problem Code Type: ICD-10; Not Available [facility] 3 05:51:51 Paresthe dino 26977594 Completed 201705/15/2018 Problem Code: R20.2; Problem Code Type: ICD-10; Not Available [facility] 3 05:51:52 Pain of right shoulder joint 06852881878 069543 Completed 201705/03/2022 Problem Code: M25.511; Problem Code Type: ICD-10; Not Available [facility] 3 05:51:52 Carpal tunnel syndrome of right wrist 14962975040 9108 Completed 201705/15/2018 Problem Code: G56.01; Problem Code Type: ICD-10; Not Available [facility] 3 05:51:52 Exposure to communic able disease Completed 202106/22/2021 Problem Code: Z20.9; Problem Code Type: ICD-10; Not Available [facility] 3 05:51:53 Joint pain 80193771 Completed 202006/22/2021 Problem Code: M25.50; Problem Code Type: ICD-10; Not Available [facility] 3 05:51:53 Lateral epicondy litis of right humerus 19408956099 9107 Completed 201505/31/2016 Problem Code: M77.11; Problem Code Type: ICD-10; Not Available [facility] 3 05:51:53 Increase d frequenc y of urinatio n 167397971 Completed 201901/01/2021 Problem Code: R35.0; Problem Code Type: ICD-10; Not Available [facility] 3 05:51:53 Lymphade nopathy 58478922 Completed 202006/22/2021 Problem Code: R59.9; Problem Code Type: ICD-10; Not Available [facility] 3 05:51:54 Generali zed hyperhid rosis 821066924 Completed 201906/22/2021 Problem Code: R61; Problem Code Type: ICD-10; Not Available [facility] 3 05:51:54 Nodule on toe 037163409 Completed 201705/15/2018 Not Available [facility] 3 05:51:55 Dysphoni a 72595446 Completed 201605/15/2018 Problem Code: R49.0; Problem Code Type: ICD-10; Not Available [facility] 3 05:51:55 Muscle pain 48724346 Completed 202005/03/2022 Problem Code: M79.10; Problem Code Type: ICD-10; Not Available [facility] 3 05:51:55 Diarrhea 77633313 Completed 201605/15/2018 Problem Code: R19.7; Problem Code Type: ICD-10; Not Available [facility] 3 05:51:56 Muscle pain 33247934 Completed 202006/22/2021 Problem Code: M79.10; Problem Code Type: ICD-10; Not Available [facility] 3 05:51:56 Elevated blood-pr essure reading without diagnosi s of hyperten chaim 843033553 Completed 201608/10/2018 Problem Code: R03.0; Problem Code Type: ICD-10; Not Available [facility] 3 05:51:57 Pain of left knee joint 21639935310 4107 Completed 201605/03/2022 Problem Code: M25.562; Problem Code Type: ICD-10; Not Available [facility] 3 05:51:57 Pre-surg ramiro evaluati on Completed 202105/03/2022 Problem Code: Z01.818; Problem Code Type: ICD-10; Not Available [facility] 3 05:51:57 Disorder of skin and/or subcutan eous tissue 63690365 Active 2022 Problem Code: L98.9; Problem Code Type: ICD-10; Not Available [facility] 4 05:37:32 Disorder of eyelid 89425588 Active 2023 SUMAYA TIJERINA APRN [address], [facility] [address] , [facility] 4 08:50:26 [facility] hyperten chaim 09752069 Active 2023 SUMAYA TIJERINA APRN [address], [facility] [address] , [facility] 4 08:56:04 Problem Notes None recorded. Procedures Surgical History Date Name Laterality Status Provider Name and Address Organization Details Recorded Time 06/25/19 22 Date of Last Mammogram completed EMILE HOLLY CMA [facility] 06/06/2023 16:24:21 10/19/19 02 Hysterectomy completed Coco Andersen [facility] 05/04/2024 12:01:19 Imaging Results None recorded. Procedure Notes None recorded. Medical Equipment None Reported. Allergies Allergen ID Allergen Name Allergen Category Reaction Reaction Severity Criticality Documentation Date Start Date Code Code System Note Provider Name and Address Organization Details Recorded Time 73767 Medicinal product containin g penicilli n and acting as antibacte rial agent (product) medicatio n rash mild Not available 03/25/20232013 98836 05 [address]OMED Laney evans [facility] 13:13:31 Medications Name Sig Start Date Stop [...] and Address Organization Details Last Updated DateTime 180.85 cm 28.4 kg/m2 80458.6 4 g 98.9 [degF] 97 % 97 % 86 /min 138 mm[Hg] 82 mm[Hg] CUONG ABRAMS CMA [facility] 14:10:45 Date Recorded Systolic blood pressure Diastolic blood pressure Provider Name and Address Organization Details Last Updated DateTime 03/06/2024 118 mm[Hg] 64 mm[Hg] SUMAYA TIJERINA, MUSHROOM CUTTER [address], [place], [address], [facility] 03/06/2024 14:19:21 Social History Question Answer Notes LastModified by Organizat ion Details LastModified Time Tobacco Smoking Status Former Smoker CUONG ABRAMS CMA null, [facility] 05/26/2023 09:20:52 When Did You Quit Smoking? [...] Time Mother Family history of Hypercholest erolemia tawana Not available 2022 03:57:17 Mother Family history of Hypertension [email or web address] Not available 02/2023 03:57:17 Paternal Grandmother Family history of breast cancer 1 gene mutation [email or web address] Not available 2022 03:57:17 Notes:*Problem: Mother-decea sed [...] preservative free, adsorbed 7 completed Not Available [facility] 03/25/2023 04:05:11 Tdap 7 completed Not Available [facility] 03/25/2023 04:05:11 Influenza, split virus, trivalent, preservative 7 completed Not Available [facility] 03/25/2023 04:05:12 Influenza, split virus, quadrivalent, PF 0 completed Not Available [facility] 03/25/2023 04:05:12 Influenza, split virus, quadrivalent, PF 9 completed Not Available [facility] 03/25/2023 04:05:13 Influenza, split virus, quadrivalent, PF 1 completed Not Available [facility] 03/25/2023 04:05:13 Influenza, split virus, quadrivalent, PF 2 completed Not Available [facility] 03/25/2023 04:05:13 Influenza, split virus, quadrivalent, preservative 8 completed Not Available [facility] 03/25/2023 04:05:15 zoster recombinant 9 completed Not Available [facility] 03/25/2023 04:05:16 zoster recombinant 8 completed Not Available [facility] 03/25/2023 04:05:16 COVID-19, mRNA, LNP-S, PF, 100 mcg/0.5mL dose or 50 mcg/0.25mL dose 1 completed Not Available [facility] 03/25/2023 04:05:17 COVID-19 vaccine, vector-nr, rS-Ad26, PF, 0.5 mL 1 completed Not Available [facility] 03/25/2023 04:05:18 COVID-19, mRNA, LNP-S, bivalent, PF, 30 mcg/0.3 mL dose 2 completed Not Available [facility] 03/25/2023 04:05:18 pneumococcal polysaccharide PPV23 7 completed Not Available [facility] 03/25/2023 04:05:19 influenza, unspecified formulation 9 completed Not Available [facility] 03/25/2023 04:05:20 COVID-19, mRNA, LNP-S, PF, nori-sucrose, 30 mcg/0.3 mL 4 completed SUAMYA TIJERINA APRN [address], [facility] [address], [facility] 02/07/2024 10:38:05 Influenza, split virus, trivalent, PF 4 completed SUMAYA TIJERINA APRN [address], [place], [address], [facility] 02/07/2024 10:38:05 COVID-19, mRNA, LNP-S, PF, 30 mcg/0.3 mL dose 3 completed CUONG ABRAMS CMA null, [facility] 05/24/2023 09:59:06 Influenza, split virus, quadrivalent, PF 3 completed CUONG ABRAMS FOOD PREPARATION KITCHEN AIDE null, [facility] 05/24/2023 09:59:28 Pneumococcal conjugate PCV20, polysaccharide [id number] conjugate, adjuvant, PF 4 completed CUONG ABRAMS FOOD PREPARATION KITCHEN AIDE null, [facility] 05/10/2024 09:07:07 COVID-19, mRNA, LNP-S, PF, nori-sucrose, 30 mcg/0.3 mL 3 completed Not Available [facility] 05/27/2023 05:33:05 Past Encounters Encounter ID Performer Location Encounter Start Date Encounter Closed Date Diagnosis/Indication Diagnosis SNOMED-CT Code Diagnosis ICD10 Code [id number] SUMAYA TIJERINA[address] [address] 02/07/2024 08:20:30 02/07/2024 09:37:34 Pain in thoracic spine 129882459 M54.6 Hyperlipidemia 96093689 E78.5 Sams's esophagus 3029 93014 K22.70 Type 2 francisco betes mellitus without complication 062811738 E11.9 Urinary tr act infectious disease 15068944 N39.0 Anxiety 76304037 F41.9 Abdominal aortic aneurysm 058338263 I71.40 Cirrhosis of liver 57371 007 K74.60 Headache disorder 526646 009 R51.9 Disorder of eyelid 13302 004 H02.9 Essential hypertension 80395072 I10 Active or passive immunization 243065204 Z23 [id number] SUMAYA TIJERINA[address] [address] 03/06/2024 13:59:50 03/06/2024 14:29:58 Essential hypertension 98416303 I10 Health Concerns Section Related Observation LastModified by Organization Detai ls LastModified Time None Recorded Concern Status LastModified by Organization Details LastModified Time None Recorded Payers Encounter Date Sequence Insurance Name Policy Number Policy Fiore Covered Member ID Fiore Member ID Guarantor Name 03/06/2024 1 [facility] [place] [place] [id number] Lakeshia Tim [id number] Lakeshia Tim Notes Date Note Type Note Provider Name and Address Organization Details Recorded Time 03/06/2024 text/html Is here for FU: HTN. last visit her lisinopril was increased to 10mg daily. BP has been more variable. Feels started about 1 month ago. Diet has been better. She has given up sweets, has not given up salt. Not eating salted chips, no longer cooking with salt. Drinking water throughout the day; drinking 32 oz bottles, 4 per day. Checks BP around noon. Drinks water before checking. Both feet flat on the floor. Denies chest pain, heaviness, tightness. Denies palpitations. Denies fainting. Denies PND. Denies orthopnea, PND. SOB maybe a couple times. Feels SOB with getting dressed at times; stands to get dressed. This is the only time she feels SOB. Some headaches recently; woke up with a pounding headache the other day; this was when her DBP was in 3 digits. Feels the best today that she has felt all day. Ex last week. he was in his 50s. Another family member in 50s. Thirsty a lot. SUMAYA TIJERINA, MUSHROOM CUTTER [address], [place], [address], [facility]. 03/06/2024 15:00:48 OBGyn Episode No OBEpisode recorded.
--- OUTSIDE RECORDS SUMMARY | 2024-05-19 09:20 | XMS_ITS | Encounter Summary ---
[place] [address] Care Team Providers Care Loom Control Chain Builder Name Role Phone Yariel Sumayairis Pitt APRN Primary Care Provider [phone] Reason for Visit * Auth/Cert Specialty Diagnoses / Procedures Referred By Madhu smyth Referred To Contact Diagnoses reduction mammoplasty Procedures PRO REDUCTION OF LARGE BREAST REDUCTION MAMMOPLASTY, KRYSTIN (WRVU 16.03) MODIFIER GARCIA SEE PROTOCOL Referral ID Status Reason Start Date Expiration Date Visits Re quested Visits Authorized [id number] 1 1 Encounter Details Date Type Department Care Team (Late st Contact Info) Description 06/29/2021 9:54 AM EST Anesthesia Event [place] [address] Makeda Akins MD [facility] [place] [address] Geovanni Rico MD [facility] [place] [address] Anesthesia Record Procedure Summary Procedure Name Responsible Anesthesiologist Anesthesia Start Time Anesthesia Stop Time REDUCTION MAMMOPLASTY, KRYSTIN (WRVU 16.03) (Bilateral: Breast) Makeda Akins MD 06/29/21 0954 06/29/21 1152 Events [...] opportunity for questions and acknowledgement of understanding MAKEDA AKINS MD 1145 Extubation/LMA Out 1148 an [...] ; lower; breast; collapsible closed device; Dr. Salas; 10Fr Flat Drain 06/29/21 1025 by Lita Seo RN (RETIRED) Peripheral IV Line - Single Lumen 06/29/21; 0928; basilic vein (medial side of arm), right; [id number] catheter system; Anatomical Landmarks; 20 gauge, 1 in length; Yanely FREEMAN; 06/29/21; 1236 06/29/21 0928 by Yanely Weston RN 06/29/21 1236 by Ilda Sykes RN Supraglottic Mask Ventilation: No t Attempted (0); LMA Type: iGel; LMA Size: 3; Inserted by: HW; Removal Date: 06/29/21; Removal Time: 1145 06/29/21 1003 by Laney Ellis CRNA 06/29/21 1145 by Makeda Akins MD documented in this encounter Social [...] OR Notes * Anesthesia Postprocedure Evaluation - Makeda Akins MD - 06/29/2021 2:33 PM EST Department of Anesthesiology Post-procedure Note Patient: Lakeshia Tim Procedure Summary Date: 06/29/21 [place] [facility] [place] [address] [place] [address] OSC Anesthesia Start: 953 Anesthesia Stop: 1151 Procedures: REDUCTION MAMMOPLASTY, KRYSTIN (WRVU 16.03) (Bilateral Breast) MODIFIER GARCIA (N/A ) SEE PROTOCOL (N/A ) Diagnosis: Macromastia (reduction mammoplasty) Surgeons: Khanh Salas MD Responsible Provider: Makeda Akins MD Anesthesia Type: general ASA Status: 2 All Anesthesia Providers: Anesthesiologist: Makeda Akins MD PLATER BARREL: Laney Ellis CRNA Vitals Value Taken Time BP 178/93 06/29/21 1230 Temp 36.9 ??C (98.4 ??F) 06/29/21 1150 Pulse 78 06/29/21 1228 Resp 16 06/29/21 1230 SpO2 95 % 06/29/21 1230 Pain Level 0 06/29/21 1242 Vitals shown include unvalidated device data. Patient Location: PACU/[facility] Level of Consciousness: Awake and Alert Pain Management: Satisfactory Analgesia PONV: None Cardiovascular Status: At Baseline Respiratory Status: At Baseline Postoperative Fluid Status: Intravascular EUvolemia Possible Anesthetic Complications: NONE apparent at time of evaluation Final Primary Anesthesia Type: General (The anesthetic type performed was the same as planned.) Comments: * Anesthesia Preprocedure Evaluation - Makeda Akins MD - 06/29/2021 9:40 AM EST [...] ENDOSCOPY performed by Farzaneh Knowles MD at [facility] ENDOSCOPY Social History Tobacco Use ??? Smoking [...] with patient and spouse. Plan discussed with PLATER BARREL and attending. Anesthesia Screening documented in this encounter Plan of Treatment Upcoming Encounters Date Type Department Care Team (Late st Contact Info) Description 07/06/2024 1:00 PM EST Procedure visit [place] [address] Tameka Corrales APRN [facility] [address] documented as of this encounter Visit Diagnoses [...] mg documented in this encounter Care Teams Loom Control Chain Builder Relationship Specialty Start Date End Date Sumaya Saldivar APRN [address] [place] [address] PCP - General Family Medicine 08/02/19 04/07/24 documented as of this encounter
--- OUTSIDE RECORDS SUMMARY | 2024-05-19 09:20 | XMS_ITS | Clinical Summary ---
Author Organization [facility] Address [facility] [place] [address] Care Team Providers Care Hotel Maintenance Engineer Name Role Phone Sumaya Saldivar APRN Primary Care Provider [phone] Allergies Active Allergy Reactions Criticality Noted Date Comments Codeine Phosphate CIS - Nausea/Vomiting Penicillins Rash Medium 07/26/2019 Medications Medication Sig Dispensed Refills Start Date End Date Status atorvastatin (Lipitor) 40 mg Tablet TAKE 1 TABLET BY MOUTH ONCE DAILY 08/13/2019 Active lisinopriL (Prinivil;Zestril) 5 mg Tablet Take 10 mg by mouth daily. 08/13/2019 Active nitrofurantoin (MACRODANTIN) 100 mg Capsule TAKE 1 CAPSULE BY MOUTH TWICE DAILY WITH A MEAL/FOOD 07/30/2019 Active acetaminophen 325 mg Capsule Take by mouth. 09/13/2020 Active aspirin EC 81 mg EC (DR) tablet Take 1 tablet by mouth daily. 09/20/2013 Active Active Problems Problem Noted Date Diagnosed Date Surgery follow-up 12/30/2021 Macromastia 06/01/2021 Ectatic abdominal aorta 03/05/2021 Hypertension 03/05/2021 HLD (hyperlipidemia) 03/05/2021 Sams's esophagus 03/05/2021 Diabetes mellitus 03/05/2021 Assessment & Plan (03/05/2021 8:25 AM EDT): Diet and exercise controlled. Asymptomatic varicose veins of both lower extrem ities 03/05/2021 Encounters Date Type Department Care Team Description 04/09/2024 10:30 AM EST Office [place] [id number] Lizzie Schreiber APRN Ectatic abdominal aorta 04/09/2024 9:30 AM EST Tech [place] [phone] Laney Augustine Ectatic abdominal aorta 04/09/2024 Travel 04/08/2024 Transcribe Orders eDH Incoming Referrals [phone] Khadijah Shafer, LURDES Abnormal findings on diagnostic imaging of liver and biliary tract from Last 3 Months Social History Tobacco Use Types Packs/Day Years [...] Pulse 58 04/09/2024 10:25 AM EST Temperature 36.9 ??C (98.4 ??F) 06/29/2021 11:[address] Respiratory Rate 16 06/29/2021 12:30 PM EST Oxygen Saturation 95% 06/29/2021 12:30 PM EST Inhaled Oxygen Concentration - - Weight 94.8 kg (209 lb) 04/09/2024 10:25 AM EST Height 185.4 cm (6' 1) 04/09/2024 10:25 AM EST Body Mass Index 27.57 04/09/2024 10:25 AM EST Plan of Treatment Upcoming Encounters Date Type Department Care Team (Late st Contact Info) Description 07/06/2024 1:00 PM EST Procedure [place] [phone] Tameka Corrales APRN [facility] [place] [address] Health Maintenance Due Date Last Done Comments CT Colonography 1966 Colonoscopy 1966 Colorectal Cancer Screening 1966 FIT DNA 1966 FIT 1966 Sigmoidoscopy (10 year) with FIT yearly 1966 Sigmoidoscopy 1966 DM Hemoglobin A1c 1976 DM Opthalmology Exam 1976 DM Urine Microalbumin yearly 1976 HIV screen 1984 Hepatitis C Screening 1984 Hepatitis B vaccine (0-59 yr s) (1) 1985 Pneumococcal Vaccine: At-Ris k 5-64yrs (1 of 2 - PCV) 1985 Tetanus/Diphtheria/Pertussis Vaccines (1 - Tdap) 1985 HPV test 1996 PAP Smear 1996 Breast Cancer Share Decision Needed 2006 Breast Cancer screening 2006 Zoster vaccine (1 of 2) 2016 DM Creatinine yearly 01/15/2021 01/16/2020 Advance Directive 2021 Influenza (Flu) vaccine (1 o f 1 - Influenza standard series) 01/15/2024 Diabetes Screening (HgbA1C o r Glucose) Discontinued 01/16/2020 Covid-19 Vaccine Completed 02/07/2024, 02/2023, 03/16/2022, Additional history exists Procedures Procedure Name Priority Date/Time Associated Diagnosis Comments AAA DUPLEX COMPLETE Routine 04/09/2024 9 :41 AM EST Ectatic abdominal aorta COMPREHENSIVE METABOLIC PANEL Routine 01/16/2020 4:41 PM EDT Elevated liver enzymes from Last 3 Months or Most Recently Relevant to Health Maintenance Results * AAA Duplex, Complete/Bilateral (04/09/2024 9:41 AM EST) VB Text Report Department: Vascular Surgery Lab Patient: [id number] (LAKESHIA GUZMAN) CPT: 71788 Referring Physician: KITTY COOLEY ?? Phone: Indications: [...] EST Kitty Cooley APRN VASCULAR ORDERABLES VASCUBASE * (ABNORMAL) Comprehensive metabolic panel (non-fasting) (01/16/2020 [...] LABORATORY Potassium 4.1 3.5 - 5.0 mmol/L [facility] Comment: Please note: ??Patients with [...] of body mass or the acutely ill. [email or web address] eGFR 125 >=60 mL/min/1. 73 m?? [facility] Comment: The eGFR was calculated using the CKD-EPI equation. As with all creatinine based estimates of kidney function, eGFR values calculated with the CKD-EPI equation are not accurate in patients with acute kidney failure, extremes of body mass or the acutely ill. [email or web address] Blood specimen (specimen) 01/16/2020 4:41 PM EDT 01/16/2020 4:51 PM EDT Narrative Resulting Agency Comment Spec In Lab Farzaneh Knowles MD CHEMISTRY ORDERABLES [facility] [place] [address] from Last 3 Months or Most Recently Relevant to Health Maintenance Advance Directives * Attempt Cardiopulmonary Resuscitation - Inpatient (Latest Code Status on File) Date Activated Date Inactivated Comments 06/29/2021 9:41 AM 06/29/2021 12:17 PM Question Answer Comments Code Status decision made by: Patient Care Teams Hotel Maintenance Engineer Relationship Specialty Start Date End Date Sumaya Saldivar APRN [address] [place] [address] PCP - General Family Medicine 04/08/24
--- OUTSIDE RECORDS SUMMARY | 2024-05-19 09:21 | XMS_ITS | Encounter Summary ---
Author Organization [facility] Address [address] [place] [address] Care Team Providers Care Custom Shoemaker Name Role Phone Unavailable Primary Care Provider Unavailabl e Encounter Details Date Type Department Care Team (Late st Contact Info) Description 02/27/2016 Results Only [facility] [phone] Clifford Castro, [address] [place] [address] Social History Tobacco Use Types Packs/Day Years Used Date Smoking Tobacco: Never Assessed Comments Unknown Sex and Gender Information Value Date Recorded Sex Assigned at Not on file Legal Sex Female 18:13 EST Gender Identity Not on file Sexual Orientation [...] ? LAKESHIA TIM ? Accession #: ? [id number] : ? 1965 (Age: 50) ??F ?Collect Date: ? 02/27/2016 Location: ? [facility] ? Receive Date: ? 03/02/2016 Provider: ? CLIFFORD CASTRO DO Copy to: ? CYTOLOGIC DIAGNOSIS: PAROTID, LEFT, PALPATION GUIDED FINE NEEDLE ASPIRATION: - Oncocytic neoplasm, favor Warthin's tumor. See comment. ? COMMENT: Cytologic evaluation reveals bland oncocytic cells with scant proteinaceous debris and scattered lymphocytes. ??The differential diagnosis includes oncocytoma vs. Warthins' tumor (papillary cystadenoma lymphomatosum). 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 ??Metal Fabricating Inspector slides of this case were reviewed at [...] cellular enhancement technique. ? End of Report [facility] 02/27/2016 03/02/2016 7:4 2 EDT us Clifford Castro DO PATHOLOGY ORDERABLES Fi nal Result [facility] [address] [place] [address] documented in this encounter Visit Diagnoses Not on filedocumented in this encounter
--- OUTSIDE RECORDS SUMMARY | 2024-05-19 09:21 | XMS_ITS | Encounter Summary ---
Author Organization [facility] Address [facility] [place] [address] Care Team Providers Care Milling Supervisor Name Role Phone ValenciaRaul Sindhu CHATMAN Primary Care Provider [phone] Reason for Visit * Reason Comments Facial Injury Encounter Details Date Type Department Care Team (Late st Contact Info) Description 07/24/2011 7:25 PM EST - 07/24/2011 10:20 PM EST Emergency [place] [address] Tennille Ordonez MD [facility] DR [place]ERG[place]Y [place] [address] Discharge Disposition: Home Social History Tobacco Use [...] You can reach the ENT clinic at [phone] for appointment questions. The ENT triage nurse is available at [phone] For urgent issues during evenings and weekends the ENT resident maintenance mechanic telephone can be reached through the main hospital web press operator at [phone] documented in this encounter Medications at Time [...] Christian MD - 07/24/2011 10:11 PM EST [facility] [place] [facility] - Head & Neck Surgery Facial [...] above, review of systems is negative for SURVEILLANCE SPECIALIST, bone, pulmonary, cardiac, GI, , extremity, neurologic, endocrine, skin, constitutional, emotional, or functional problems. Past medical history: No past medical history on file. There are no active problems to display for this patient. Social history: History Substance Use Topics ??? Smoking status: Not on file ??? Smokeless tobacco: Not on file ??? Alcohol Use: Not on file Lives [place] : [facility] [address] Family history: noncontribitory No family history on [...] Dog bite - face - sent from [facility] to be seen by ENT documented in this encounter Plan of Treatment Upcoming Encounters Date Type Department Care Team (Late st Contact Info) Description 07/06/2024 1:00 PM EST Procedure [place] [phone] Tameka Corrales APRN [facility] [place] [address] documented as of this encounter Visit Diagnoses Not on filedocumented in this encounter Administered Medications Inactive Administered Medications - up to 3 most recent administrations Medication Order MAR Action Action Date Dose Rate Site ampicillin-sulbactam (UNASYN) injection 3 g, Intravenous, ONCE, 1 dose, On 07/24/11 at 2029, Routine Given 07/24/2011 8:30 PM EST 3 [...] 1 tablet, Oral, EVERY 4 HOURS PRN, Pain, Starting on 07/24/11 at 2211, Until 07/25/11 at 0020, Maximum dose of acetaminophen is 4000 mg from all sources in 24 hours. Given 07/24/2011 10:00 PM EST 1 tablet documented in this encounter Active and Recently Administered Medications Times are shown in EST. Scheduled Medication Order 07/22/2011 07/23/2011 07/24/2011 ampicillin-sulbactam (UNASYN) injection (COMPLETED) 3 g, Intravenous, ONCE, 1 dose, On 07/24/11 at 2029, Routine 2029 (Given - Provid er: Gurinder Betancourt RN) morphine 2 mg/mL carpuject 1 mg (CANCELED) 1 mg, Intravenous, EVERY 4 HOURS, First dose on 07/24/11 at 2014, Until Discontinued, Routine 2014 (Given - Provid er: Gurinder Betancourt RN) ondansetron (ZOFRAN-ODT) disintegrating tablet 4 mg (COMPLETED) 4 mg, Oral, ONCE, 1 dose, On 07/24/11 at 2015, STAT 2015 (Given - Provid er: Gurinder Betancourt RN) PRN Medication Order 07/22/2011 07/23/2011 07/24/2011 OXYcodone-acetaminophen (PERCOCET) 5-325 mg per tablet 1 tablet (CANCELED) 1 tablet, Oral, EVERY 4 HOURS PRN, Pain, Starting on 07/24/11 at 2211, Until 07/25/11 at 0020, Maximum dose of acetaminophen is 4000 mg from all sources in 24 hours. 2200 (Given - Provid er: Gurinder Betancourt RN) documented in this encounter Care Teams Milling Supervisor Relationship Specialty Start Date End Date Raul Birmingham APRN [address] [place] [address] PCP - General 04/07/10 08/05/11 documented as of this encounter
--- OUTSIDE RECORDS SUMMARY | 2024-05-19 09:21 | XMS_ITS | Encounter Summary ---
Author Organization [facility] Address [address] [place] [address] Care Team Providers Care Utilization Management Nurse Name Role Phone Unavailable Primary Care Provider Unavailabl e Encounter Details Date Type Department Care Team (Late st Contact Info) Description 02/07/2024 Lab Requisition [facility] Pathology & Laboratory Medicine - [facility] [address] [place] [address] Outr Resulting Lab, Provider Social History Tobacco Use Types Packs/Day Years Used Date Smoking Tobacco: Never Assessed Interpersonal Safety Answer Date Record ed Physically Hurt Never 12/16/2019 Verbally Threaten Not on file 12/16/2019 Comments Unknown Sex and Gender Information Value Date Recorded Sex Assigned at Not on file Legal Sex Female 18:13 EST Gender Identity Not on file Sexual Orientation Not on file documented as of this encounter Plan of Treatment Not on file documented as of this encounter Procedures Procedure Name Priority Date/Time Associated Diagnosis Comments AFP TUMOR MARKER Routine 02/07/2024 9:33 EDT documented in this encounter Results * AFP TUMOR MARKER (02/07/2024 9:33 EDT) AFP Tumor Marker 6.1 <8.1 ng/mL 02/08/2024 9:[address] [facility] Comment: AFP Tumor Marker cannot be interpreted in females. ?? NOTE: Serum AFP concentrations should not be interpreted as absolute evidence for the presence or absence of malignant disease. Assayed on Siemens ADVIA Centaur XPT using chemiluminescent technology. ??Values obtained by using different assay methods cannot be used interchangeably. Blood VENOUS BLOOD / Unknown 02/07/2024 9:33 EDT 02/07/2024 22:22 EDT us Provider Outr Resulting Lab CHEMISTRY & BLOOD GA S ORDERABLES Final Result [facility] [address] [place] [address] documented in this encounter Visit Diagnoses Not on filedocumented in this encounter
--- OUTSIDE RECORDS SUMMARY | 2024-05-19 09:21 | XMS_ITS | Clinical Summary ---
Author Organization [facility] Address [address] [place] [address] Care Team Providers Care Information Manager Name Role Phone Unavailable Primary Care Provider Unavailabl e Social History Tobacco Use Types Packs/Day Years [...] 3-dose series) 06/09 COVID-19 Vaccine ( season) 2024 Insurance MEDICAID [place]
--- OUTSIDE RECORDS SUMMARY | 2024-05-19 09:21 | XMS_ITS | Encounter Summary ---
[place] [address] Care Team Providers Care Senior Process Engineer Name Role Phone Sumaya Saldivar APRN Primary Care Provider [phone] Encounter Details Date Type Department Care Team (Late st Contact Info) Description 12/25/2019 [place] [phone] Kimber Moncada Social History Tobacco Use Types Packs/Day Years Used Date Smoking Tobacco: Never Sex and Gender Information Value Date Recorded Sex Assigned at Not on file Gender Identity Not on file Sexual Orientation Not on file documented as of this encounter Miscellaneous Notes * Telephone Encounter - Kimber Moncada - 12/25/2019 11:18 AM EDT Lakeshia Tim [id number] Diagnosis/Indication: barrets esophagus 1. Have you ever had a/an Upper Endoscopy before? Yes: Date over 5 years at [facility] If yes, did you have any [...] to patient: You must have a responsible alliance party who will drive you to your procedure, [...] 1:00 PM EST Procedure [place] [address] Tameka Corrales APRN [facility] [place] [address] documented as of this encounter Visit Diagnoses Not on filedocumented in this encounter Care Teams Senior Process Engineer Relationship Specialty Start Date End Date Sumaya Saldivar APRN [address] [place] [address] PCP - General Family Medicine 08/02/19 04/07/24 documented as of this encounter
--- OUTSIDE RECORDS SUMMARY | 2024-05-19 09:21 | XMS_ITS | Encounter Summary ---
Author Organization [facility] [place] [address] Care Team Providers Care Pilot Plant Research Technician Name Role Phone YarielLadan malhotrairis Pitt APRN Primary Care Provider +1 [phone] Encounter Details Date Type Department Care Team (Latest Contact Info) Description 01/16/2020 4:35 PM EDT Laboratory Appointment Lab [address] [place] [phone] Elevated liver enzymes Social History Tobacco Use [...] 1:00 PM EST Procedure [place] [phone] Tameka Corrales APRN [facility] [place] [address] documented as of this encounter Procedures Procedure [...] * Differential, Automated (01/16/2020 4:41 PM EDT) Neutrophil % 48.2 % [facility] Neutrophil Absolute 2.79 1.70 - 6.10 x10(3)/[facility] Lymph % 38.3 % [facility] Lymphocytes Abs 2.2 0.9 - 3.2 x10(3)/[facility] Monocyte % 7.8 % [facility] Monocyte Abs 0.4 0.3 - 0.9 x10(3)/[facility] Eos % 4.5 % [facility] Eosinophils Abs 0.3 0.0 - 0.4 x10(3)/[facility] Basophil % 1.0 % [facility] Baso Absolute 0.1 0.0 - 0.1 x10(3)/[facility] Immature Gran % 0.20 % [facility] Comment: Immature granulocytes(IG's)percentage and absolute count will include metamyelocytes, myelocytes, and promyelocytes. Blood smears from CBCs yielding IG's will be scanned manually for concordance. If this scan disagrees with the automated IG or if promyelocytes are noted, a manual differential will be performed. Immature Gran Absolute 0.01 0.00 - 0.04 x10(3)/[facility] Blood specimen (specimen) 01/16/2020 4:41 PM EDT 01/16/2020 4:51 PM EDT Narrative Resulting Agency Comment Spec In Lab Farzaneh Knowles MD HEMATOLOGY ORDERABLE S [facility] [place] [address] * Hemogram (01/16/2020 4:41 PM EDT) [facility] White Blood Cell 5.8 4.0 - 9.5 x10(3)/[facility] Red Blood Cell 4.14 4.00 - 5.21 x10(6)/[facility] Hemoglobin 12.2 11.7 - 15.5 gm/dL [facility] Hematocrit 36.7 35.7 - 45.8 % [facility] Mean Cell Volume 88.6 82.6 - 94.4 fL [facility] Mean Cell Hemoglobin 29.5 27.1 - 32.0 pg [facility] Mean Cell Hemoglobin Concentration 33.2 31.7 - 35.0 gm/dL [facility] Platelet 236 145 - 357 x10(3)/[facility] RDW Standard Deviation 42.5 37.0 - 46.0 [facility] RDW coefficient of variation 13.1 11.5 - 14.1 % [facility] Mean Platelet Volume 9.7 7.6 - 12.9 [facility] NRBC% auto 0.0 % [facility] NRBC Absolute 0.000 0.000 - 0.000 x10(3)/[facility] Blood specimen (specimen) 01/16/2020 4:41 PM EDT 01/16/2020 4:51 PM EDT Narrative Resulting Agency Comment Spec In Lab Farzaneh Knowles MD HEMATOLOGY ORDERABLE S [facility] [place] [address] * (ABNORMAL) Comprehensive metabolic panel (non-fasting) (01/16/2020 4:41 PM EDT) [facility] Glucose 143 65 - 199 mg/dL [facility] Comment:Diabetes: >=200 mg/d L plus symptoms Blood Urea Nitrogen 12 8 - 18 mg/dL [facility] Creatinine 0.54(L) 0.70 - 1.20 mg/dL [facility] Sodium 142 135 - 145 mmol/L [facility] Potassium 4.1 3.5 - 5.0 mmol/L [facility] Comment: Please note: ??Patients with WBC >100,000 may have falsely elevated Potassium levels. ??For accurate Potassium quantification in these patients send serum separator tube (gold top) for subsequent determinations. ??Contact the Clinical Chemistry Laboratory if there are any questions. Chloride 103 98 - 107 mmol/L [facility] Carbon Dioxide 27 22 - 31 mmol/L [facility] Anion Gap 12 5 - 15 mmol/L [facility] Calcium 9.4 8.5 - 10.5 mg/dL [facility] Protein, Total 7.2 6.1 - 8.0 gm/dL [facility] Albumin 4.2 3.2 - 5.2 gm/dL [facility] Aspartate Aminotransferase 29 0 - 30 unit/L [facility] Alanine Aminotransferase 29 0 - 30 unit/L [facility] Alkaline Phosphatase 78 35 - 105 unit/L [facility] Bilirubin, Total 0.2 0.2 - 1.3 mg/dL [facility] Est Glomerular Filtration Rate 108 >=60 mL/min/1. 73 m?? [facility] Comment: The eGFR was calculated using the CKD-EPI equation. As with all creatinine based estimates of kidney function, eGFR values calculated with the CKD-EPI equation are not accurate in patients with acute kidney failure, extremes of body mass or the acutely ill. http://[employer]/DHnkf eGFR 125 >=60 mL/min/1. 73 m?? [facility] Comment: The eGFR was calculated using the CKD-EPI equation. As with all creatinine based estimates of kidney function, eGFR values calculated with the CKD-EPI equation are not accurate in patients with acute kidney failure, extremes of body mass or the acutely ill. http://[employer]/DHMCnkf Blood specimen (specimen) 01/16/2020 4:41 PM EDT 01/16/2020 4:51 PM EDT Narrative Resulting Agency Comment Spec In Lab Farzaneh Knowles MD CHEMISTRY ORDERABLES Performing Organization Address [facility] Co de Phone Number [facility] [place] [address] * Prothrombin Time (01/16/2020 4:41 PM EDT) Prothrombin Time 11.8 9.4 - 12.5 sec [facility] International Normalization Ratio 1.0 [facility] Comment: An INR <2.0 indicates [...] Lab Farzaneh Knowles MD HEMATOLOGY ORDERABLE S Performing Organization Address [facility] Co de Phone Number [facility] [place] [address] documented in this encounter Visit Diagnoses Diagnosis Elevated liver enzymes Nonspecific elevation of levels of transaminase or lactic acid dehydrogenase (LDH) documented in this encounter Care Teams Pilot Plant Research Technician Relationship Specialty Start Date End Date Sumaya Saldivar APRN [address] [place] [address] PCP - General Family Medicine 08/02/19 04/07/24 documented as of this encounter
--- OUTSIDE RECORDS SUMMARY | 2024-05-19 09:21 | XMS_ITS | Encounter Summary ---
Author Organization [facility] Address [address] [place] [address] Care Team Providers Care Railroad Repairer Name Role Phone Unavailable Primary Care Provider Unavailabl e Encounter Details Date Type Department Care Team (Late st Contact Info) Description 05/13/2016 Results Only [facility]- [facility] [phone] Clifford Castro, [address] [place] [address] Social History Tobacco Use Types Packs/Day Years [...] ? Receive Date: ? 05/17/2016 ? Provider: CLIFFORD CASTRO DO Copy to: CORDELL COBB MD [...] rivera-yellow and without obvious associated lymph nodes. Repairer Welding Systems [employer] Equipment sections are submitted as follows: BLOCK RASHID A1-A4- ??appeals representative sections tumor A5-A6- ??appeals representative sections parotid gland tissue away from tumor B. ?Received in formalin labelled with proper patient identification (initials F, L) and left pretragal parotid are fragmented lobulated rivera-brown salivary gland tissues aggregating 2.0 x 1.8 x 0.4 cm. Entirely submitted in B1. CHYNA Moyer (ASCP) 05/17/2016 3:03 PM End of Report [facility] 05/13/2016 13:0 5 EST 05/17/2016 13:05 EST us [place] Castro DO PATHOLOGY ORDERABLES Fi nal Result [facility] [address] [place] [address] documented in this encounter Visit Diagnoses Not on filedocumented in this encounter
--- OUTSIDE RECORDS SUMMARY | 2024-05-19 09:21 | XMS_ITS | Encounter Summary ---
Author Organization [facility] [place] [address] Care Team Providers Care Economics Consultant Name Role Phone YarielBrian malhotraisaac Pitt APRN Primary Care Provider [phone] Encounter Details Date Type Department Care Team (Late st Contact Info) Description 09/25/2019 Notes [place] [address] Farzaneh Knowles MD [facility] [place] [address] Social History Tobacco Use Types Packs/Day Years [...] 1:00 PM EST Procedure [place] [address] Tameka Corrales APRN [facility] [place] [address] documented as of this encounter Visit Diagnoses Not on filedocumented in this encounter Care Teams Economics Consultant Relationship Specialty Start Date End Date Sumaya Saldivar APRN [address] [place] [address] PCP - General Family Medicine 08/02/19 04/07/24 documented as of this encounter
--- OUTSIDE RECORDS SUMMARY | 2024-05-19 09:21 | XMS_ITS | Encounter Summary ---
Author Organization [facility] [place] [address] Care Team Providers Care Support Clerk Name Role Phone Sumaya Saldivar APRN Primary Care Provider [phone] Encounter Details Date Type Department Care Team (Late st Contact Info) Description 01/16/2020 3:15 PM EDT - 01/16/2020 4:00 PM EDT Surgery [place] [phone] Farzaneh Knowles MD [facility] [place] [address] EGD, UPPER GI ENDOSCOPY (WRVU 2.09) Social [...] the day after the procedure, use an rdmd-mok-kqfiycu spray to numb your throat. Sucking on [...] occurs, please contact your Doctor. Please call [phone] before 8pm Mon-Fri with problems, questions or concerns. If you call after 8pm or on weekends, call the Hospital at [phone] and ask to speak to the Salon Receptionist health education coordinator and the copy camera operator will contact that person for you. When should you call for help? Call [phone] anytime you think you may need emergency [...] any problems. Where can you learn more? [facility] View your After Visit Summary and more online at [email or web address] If you would like to provide feedback about your hospital experience, please call the Office of Patient and Family Relations at . If you have received this After Visit Summary in error, please immediately return it in person to the department, or notify the [facility] Privacy Office by calling toll free at between the hours of 8AM and 5PM to arrange for our retrieval of the documents at no cost to you. Content Version: 12.2 ?? [id number] [employer]. Care instructions adapted under license by [facility]. If you have questions about a medical condition or this instruction, always ask your healthcare professional. [employer] disclaims any warranty or liability for your use of this information. documented in this encounter Medications at Time of Discharge Medication Sig Dispensed Refills Start Date End Date aspirin EC 81 mg EC (DR) tablet Take 1 tablet by mouth daily. 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 Patient Name: Lakeshia Tim ? Date of : 1965 ? Age: 54 ? Order #: [id number] ? Instrument Name: [id number] ? Procedure: ? Upper GI endoscopy Indications: [...] Procedure Code(s): ?? --- Professional --- ? 59177, Esophagogastroduod enoscopy, ? flexible, transoral; diagnostic, ? including collection of specimen(s) ? by brushing or washing, when ? performed (separate procedure) CPT copyright 2019 [employer]. All rights reserved. The codes documented in this report are preliminary and upon clothing trades workers review may be revised to meet current compliance requirements. Attending Participation: ? I personally performed the entire procedure. ? Farzaneh Knowles MD Farzaneh Knowles MD 01/16/2020 3:23:47 PM This report has been signed electronically. Number of Addenda: 0 Note Initiated On: 01/16/2020 2:37 PM PROVATION 01/16/2020 2:37 PM EDT Sumaya Saldivar COMPOSITION STONE APPLICATOR GENERAL SURGICAL ORDERABLES PROVATION documented in this [...] RN) documented in this encounter Care Teams Support Clerk Relationship Specialty Start Date End Date Sumaya Saldivar APRN [address] [place] [address] PCP - General Family Medicine 08/02/19 04/07/24 documented as of this encounter
--- OUTSIDE RECORDS SUMMARY | 2024-05-19 09:21 | XMS_ITS | Encounter Summary ---
Author Organization [facility] [place] [address] Care Team Providers Care Hand Lens Polisher Name Role Phone Cordell Robledo MD Primary Care Provider [phone] Reason for Visit * Reason Comments Animal Bite Encounter Details Date Type Department Care Team (Late st Contact Info) Description 08/09/2011 1:15 PM EDT Follow-Up [place] [address] Moe Christian MD Dog bite (Primary Dx) Discharge Disposition: Home [...] 1:00 PM EST Procedure visit [place] [address] Tameka Corrales APRN [facility] [place] [address] documented as of this encounter Visit Diagnoses Diagnosis Dog bite(E906.0)- Primary Dog bite documented in this encounter Care Teams Hand Lens Polisher Relationship Specialty Start Date End Date Cordell Robledo MD [address] [place] [address] PCP - General 08/06/11 08/01/19 documented as of this encounter
--- OUTSIDE RECORDS SUMMARY | 2024-05-19 09:21 | XMS_ITS | Encounter Summary ---
Author Organization [facility] [place] [place] [address] Care Team Providers Care Local Delivery Truck Driver Name Role Phone YarielLadanSumayairis Pitt APRN Primary Care Provider [phone] Encounter Details Date Type Department Care Team (Late st Contact Info) Description 01/17/2020 Telephone [place] [address] Hidla Dempsey Social History Tobacco Use Types Packs/Day [...] not answer and did not have a box set up. Will send [employer] message. documented in this encounter Plan of Treatment Upcoming Encounters Date Type Department Care Team (Late st Contact Info) Description 07/06/2024 1:00 PM EST Procedure visit [place] [phone] Tameka Corrales APRN [facility] GASTROENTEROLOGY [place], [place] [id number] documented as of this encounter Visit Diagnoses Not on filedocumented in this encounter Care Teams Local Delivery Truck Driver Relationship Specialty Start Date End Date Sumaya Saldivar APRN [address] [place] [address] PCP - General Family Medicine 08/02/19 04/07/24 documented as of this encounter
--- OUTSIDE RECORDS SUMMARY | 2024-05-19 09:21 | XMS_ITS | Encounter Summary ---
Author Organization [facility] Address [address] [place] [address] Care Team Providers Care Township Supervisor Name Role Phone Unavailable Primary Care Provider Unavailabl e Encounter Details Date Type Department Care Team (Late st Contact Info) Description 06/02/2021 Lab Requisition [facility] Pathology & Laboratory Medicine - [facility] [address] [place] [address] Outr Resulting Lab, Provider Social History Tobacco [...] 06/02/2021 10:2 0 EST 06/02/2021 23:27 EST us Provider Outr Resulting Lab MICROBIOLOGY - GENER AL ORDERABLES Final Result [facility] [address] [place] [address] * COVID-19 TESTING (06/02/2021 10:20 EST) COVID-19 rt-PCR Result Negative Negative 06/03/2021 15:15 EST [facility] Comment: This test has not [...] history, and epidemiological information. Performed on the [employer] Fusion instrument Performing Lab [place] [facility] Lab 06/03/2021 15:15 EST [facility] Swab 06/02/2021 10:2 0 EST 06/02/2021 23:27 EST us Provider Outr Resulting Lab MICROBIOLOGY - GENER AL ORDERABLES Final Result [facility] [address] [place] [address] documented in this encounter Visit Diagnoses Not on filedocumented in this encounter
--- OUTSIDE RECORDS SUMMARY | 2024-05-19 09:21 | XMS_ITS | Encounter Summary ---
Author Organization [facility] Address [address] [place] [address] Care Team Providers Care Government Affairs Specialist Name Role Phone Unavailable Primary Care Provider Unavailabl e Encounter Details Date Type Department Care Team (Late st Contact Info) Description 11/28/2017 Results Only [facility]- [facility] [phone] Rich Tijerina, ASSISTANCE REPRESENTATIVE [address] [place] [address] Social History Tobacco Use Types Packs/Day Years [...] ? LAKESHIA TIM ? Accession #: ? [id number] ? : ? 1965 (Age: 52) ??F ? Collect Date: ? 11/28/2017 ? Location: ? [facility] ? Receive Date: ? 11/29/2017 ? Provider: RICH TIJERINA ASSISTANCE REPRESENTATIVE Copy to: ? Final Pathologic Diagnosis: A. [...] in thickness). Bisected and submitted in B1. Cristian Causey 11/30/2017 8:17 AM End of Report [facility] 11/28/2017 18:2 4 EDT 11/29/2017 18:24 EDT us Rich Tijerina ASSISTANCE REPRESENTATIVE PATHOLOGY ORDERABLES Donita zuniga Result [facility] [address] [place] [address] documented in this encounter Visit Diagnoses Not on filedocumented in this encounter
--- OUTSIDE RECORDS SUMMARY | 2024-05-19 09:21 | XMS_ITS | Encounter Summary ---
Author Organization [facility] Address [address] [place] [address] Care Team Providers Care Pathology Collector Name Role Phone Unavailable Primary Care Provider Unavailabl e Encounter Details Date Type Department Care Team (Latest Contact Info) Description 08/09/2016 10:20 EDT - 08/09/2016 23:59 EDT Hospital Encounter [address] [address] Unknown, Provider, MD Discharge Disposition: Home or Self Care Social [...] Code Departure Means Destination Home or Self Prison documented in this encounter Plan of Treatment Not on file documented as of this encounter Visit Diagnoses Not on filedocumented in this encounter
--- OUTSIDE RECORDS SUMMARY | 2024-05-19 09:21 | XMS_ITS | Encounter Summary ---
Author Organization [facility] [place] [address] Care Team Providers Care Rehabilitation Physician Name Role Phone Cordell Robledo MD Primary Care Provider [phone] Encounter Details Date Type Department Care Team (Late st Contact Info) Description 08/01/2019 Ancillary Procedure Radiology Library at [facility] [place] [address] Farzaneh Knowles MD [facility] [place] [address] Social History Tobacco Use Types Packs/Day Years Used Date Smoking Tobacco: Never Sex and Gender Information Value Date Recorded Sex Assigned at Not on file Gender Identity Not on file Sexual Orientation Not on file documented as of this encounter Plan of Treatment Upcoming Encounters Date Type Department Care Team (Late st Contact Info) Description 07/06/2024 1:00 PM EST Procedure visit Gastroenterology at [facility] [place] [address] Tameka Corrales APRN [facility] [place] [address] documented as of this encounter Procedures Procedure Name Priority Date/Time Associated Diagnosis Comments FILM LIBRARY STORAGE ONLY ULTRASOUND STUDY Routine 08/01/2019 12:00 AM EDT documented in this encounter Results * Film Library- Storage Only Ultrasound Study (08/01/2019 12:00 AM EDT) Narrative [facility] - 08/31/2019 3:22 PM EDT This exam is auto-finalizing. It's purpose is for storage only. Farzaneh Knowles MD [facility] FILM LIBRARY ORD ERABLES [facility] [place] documented in this encounter Visit Diagnoses Not on filedocumented in this encounter Care Teams Rehabilitation Physician Relationship Specialty Start Date End Date Cordell Robledo MD [address] [place] [address] PCP - General 08/06/11 08/01/19 documented as of this encounter
--- OUTSIDE RECORDS SUMMARY | 2024-05-19 09:21 | XMS_ITS | Encounter Summary ---
Author Organization [facility] Address [address] [place] [address] Care Team Providers Care Stamp Collector Name Role Phone Unavailable Primary Care Provider Unavailabl e Encounter Details Date Type Department Care Team (Latest Contact Info) Description 02/27/2016 9:27 EDT - 02/27/2016 23:59 EDT Hospital Encounter [address] [address] Unknown, Provider, MD Discharge Disposition: Home or [...] Code Departure Means Destination Home or Self Intermediate documented in this encounter Plan of Treatment Not on file documented as of this encounter Visit Diagnoses Not on filedocumented in this encounter
--- OUTSIDE RECORDS SUMMARY | 2024-05-19 09:21 | XMS_ITS | Encounter Summary ---
Author Organization [facility] [place] [address] Care Team Providers Care Referral Rn Name Role Phone Sumaya Saldivar LURDES Primary Care Provider [phone] Encounter Details Date Type Department Care Team (Late st Contact Info) Description 09/04/2019 Telephone [place] [address] Roma Malcolm Social History Tobacco Use Types Packs/Day Years Used Date Smoking Tobacco: Never Sex and Gender Information Value Date Recorded Sex Assigned at Not on file Gender Identity Not on file Sexual Orientation Not on file documented as of this encounter Miscellaneous Notes * Telephone Encounter - Roma Malcolm - 09/04/2019 3:17 PM EDT Kenneth Mccollum Salima Tim we are calling as we have received [...] 1:00 PM EST Procedure [place] [address] Tameka Corrales APRN [facility] [address] documented as of this encounter Visit Diagnoses Not on filedocumented in this encounter Care Teams Referral Rn Relationship Specialty Start Date End Date Sumaya Saldivar APRN [address] [place] [address] PCP - General Family Medicine 08/02/19 04/07/24 documented as of this encounter
--- OUTSIDE RECORDS SUMMARY | 2024-05-19 09:21 | XMS_ITS | Encounter Summary ---
Author Organization [facility]ly [facility] [place] [address] Care Team Providers Care Brim Cutter Name Role Phone Sumaya Saldivar APRN Primary Care Provider [phone] Encounter Details Date Type Department Care Team (Late st Contact Info) Description 04/21/2021 Telephone [place] [address] Stephanie White Social History Tobacco Use Types [...] 1:00 PM EST Procedure [place] [address] Tameka Corrales APRN [facility] [place] [address] documented as of this encounter Visit Diagnoses Not on filedocumented in this encounter Care Teams Brim Cutter Relationship Specialty Start Date End Date Sumaya Saldivar APRN [address] [place] [address] PCP - General Family Medicine 08/02/19 04/07/24 documented as of this encounter
--- OUTSIDE RECORDS SUMMARY | 2024-05-19 09:21 | XMS_ITS | Encounter Summary ---
Author Organization [facility] Address [address] [place] [address] Care Team Providers Care Elastic Attacher Coverstitch Name Role Phone Unknown, Provider Primary Care Provider Unava ilable Encounter Details Date Type Department Care Team (Late st Contact Info) Description 07/05/2001 Results Only [facility] conversion [address] [place] [address] Michael Simms MD [address] [place], [place] [id number] Social History Tobacco Use Types Packs/Day Years [...] when reading/interpreti ng unformatted reports. Name: ? DALILASindhuDEREKLAKESHIA NUÑEZ ? Accession #: ? [id number] : ? 1965 (Age: 36) ??F ?Collect [...] End of Report [facility] 07/05/2001 07/06/2001 us Michael Simms MD PATHOLOGY ORDERABLES Final Resul t [facility] [address] [place] [address] documented in this encounter Visit Diagnoses Not on filedocumented in this encounter Care Teams Elastic Attacher Coverstitch Relationship Specialty Start Date End Date Unknown, Provider, PCP - General 09/10/08 02/17/11 documented as of this encounter
--- OUTSIDE RECORDS SUMMARY | 2024-05-19 09:21 | XMS_ITS | Encounter Summary ---
Author Organization [facility] Address [address] [place] [address] Care Team Providers Care Tool Carrier Name Role Phone Unavailable Primary Care Provider Unavailabl e Encounter Details Date Type Department Care Team (Latest Contact Info) Description 11/29/2017 15:55 EDT - 11/29/2017 23:59 EDT Hospital Encounter [address] [address] Unknown, Provider, MD Discharge Disposition: Home or [...] Code Departure Means Destination Home or Self Group Home documented in this encounter Plan of Treatment Not on file documented as of this encounter Visit Diagnoses Not on filedocumented in this encounter
--- OUTSIDE RECORDS SUMMARY | 2024-05-19 09:21 | XMS_ITS | Encounter Summary ---
Author Organization [facility] Address [address] [place] [address] Care Team Providers Care Casino Cashier Manager Name Role Phone Unknown, Provider Primary Care Provider Unava ilable Encounter Details Date Type Department Care Team (Late st Contact Info) Description 04/05/2005 Results Only [facility] conversion [address] [place] [address] Michael Simms MD [address] [place], [place] [id number] Social History Tobacco Use Types Packs/Day Years [...] ? DALILASindhuDEREKLAKESHIA NUÑEZ ? Accession #: ? [id number] : ? 1965 (Age: 39) ??F ?Collect Date: ? 04/05/2005 Location: ? [facility] ? Receive Date: ? 04/06/2005 Provider: ?MICHAEL SIMMS MD Copy to: ? Specimen/Source: ?ThinPrep Pap Test, Cervix/Endocervix, processed on [employer] ThinPrep Imaging System, with manual evaluation Last [...] End of Report [facility] 04/05/2005 04/06/2005 us Michael Simms MD PATHOLOGY ORDERABLES Final Resul t [facility] [address] [place] [address] documented in this encounter Visit Diagnoses Not on filedocumented in this encounter Care Teams Casino Cashier Manager Relationship Specialty Start Date End Date Unknown, Provider, PCP - General 09/10/08 02/17/11 documented as of this encounter
--- OUTSIDE RECORDS SUMMARY | 2024-05-19 09:21 | XMS_ITS | Encounter Summary ---
[place] [address] Care Team Providers Care Wind Energy Systems Installer Name Role Phone Sumaya Saldivar LURDES Primary Care Provider [phone] Encounter Details Date Type Department Care Team (Late st Contact Info) Description 04/21/2021 Telephone [place] [address] Stephanie White Social History Tobacco Use Types [...] BREAST REDUCTION. The program is available at '[email or web address] The access code to view the Gloria program is: [id number]. The xtox-zq-fwoq is 05-21-2021. documented in this encounter Plan of Treatment Upcoming Encounters Date Type Department Care Team (Late st Contact Info) Description 07/06/2024 1:00 PM EST Procedure [place] [address] Tameka Corrales APRN [facility] [place] [address] documented as of this encounter Visit Diagnoses Not on filedocumented in this encounter Care Teams Wind Energy Systems Installer Relationship Specialty Start Date End Date Sumaya Saldivar APRN [address] [place] [address] PCP - General Family Medicine 08/02/19 04/07/24 documented as of this encounter
--- OUTSIDE RECORDS SUMMARY | 2024-05-19 09:21 | XMS_ITS | Encounter Summary ---
Author Organization [facility] [place] [address] Care Team Providers Care Press Tender Star Signal Name Role Phone Sumaya Saldivar APRN Primary Care Provider [phone] Encounter Details Date Type Department Care Team (Latest Contact Info) Description 01/16/2020 2:02 PM EDT - 01/16/2020 4:14 PM EDT Hospital Encounter [place] [address] Farzaneh Knowles MD [facility] [place] [address] Discharge Disposition: Home Social History Tobacco Use [...] the day after the procedure, use an hwlc-zoz-jwmqiyt spray to numb your throat. Sucking on [...] occurs, please contact your Doctor. Please call [phone] before 8pm Mon-Fri with problems, questions or concerns. If you call after 8pm or on weekends, call the Hospital at [phone] and ask to speak to the Metal Dresser counter person and the tier lift operator will contact that person for you. When should you call for help? Call 000 anytime you think you may need emergency [...] any problems. Where can you learn more? [facility] View your After Visit Summary and more online at [email or web address] If you would like to provide feedback about your hospital experience, please call the Office of Patient and Family Relations at . If you have received this After Visit Summary in error, please immediately return it in person to the department, or notify the [facility] Privacy Office by calling toll free at between the hours of 8AM and 5PM to arrange for our retrieval of the documents at no cost to you. Content Version: 12.2 ?? [id number] [employer]. Care instructions adapted under license by [facility]. If you have questions about a medical condition or this instruction, always ask your healthcare professional. [employer] disclaims any warranty or liability for your [...] PM EST Procedure [place] [address] Tameka Corrales APRN [facility] [place] [address] documented as of this encounter Procedures Procedure Name Priority Date/Time Associated Diagnosis Comments Upper GI Endoscopy, Diagnostic (71641) 01/16/2020 2:59 PM EDT barrets esophagus UPPER GI ENDOSCOPY Routine 01/16/2020 2: 37 PM EDT documented in this encounter Results * UPPER GI ENDOSCOPY (01/16/2020 2:37 PM EDT) [facility] Signature UPPER GI ENDOSCOPY [facility] Endoscopy Procedure Date: 01/16/2020 2:37 PM ? Patient Name: Lakeshia Tim ? Date of : 1965 ? Age: 54 ? Order #: [id number] ? Instrument Name: [id number] ? Procedure: ? Upper GI endoscopy Indications: [...] Procedure Code(s): ?? --- Professional --- ? 11047, Esophagogastroduod enoscopy, ? flexible, transoral; diagnostic, ? including collection of specimen(s) ? by brushing or washing, when ? performed (separate procedure) CPT copyright 2019 [employer]. All rights reserved. The codes documented in this report are preliminary and upon baker bench review may be revised to meet current [...] Vannessa Morfin RN)1512 (Given - Provider: Vannessa Morfin, RN) midazolam (PF) (VERSED) multi-dose injection (CANCELED) ONCE PRN, Starting on Tue01/16/20 at 1502, Until 01/16/20 at 1631, Intra-Operative (Intra-Procedure), Routine 1502 (Given - Provid er: Vannessa Morfin RN)1505 (Given - Provider: Vannessa Morfin, RN)1512 (Given - Provider: Vannessa Morfin, RN) documented in this encounter Care Teams Press Tender Star Signal Relationship Specialty Start Date End Date Sumaya Saldivar APRN [address] [place] [address] PCP - General Family Medicine 08/02/19 04/07/24 documented as of this encounter
--- OUTSIDE RECORDS SUMMARY | 2024-05-19 09:21 | XMS_ITS | Encounter Summary ---
Author Organization [facility] Address [address] [place] [address] Care Team Providers Care Bacon Skinner Name Role Phone Unknown, Provider Primary Care Provider Unava ilable Encounter Details Date Type Department Care Team (Late st Contact Info) Description 06/16/2005 Results Only [facility] conversion [address] [place] [address] Michael Simms MD [address] [place], [place] [id number] Social History Tobacco Use Types Packs/Day Years [...] ? LAKESHIA NELSON ? Accession #: ? [id number] ? : ? 1965 (Age: 40) ??F [...] thickness A7 ?Endomyometrium, posterior, full thickness A8 ?Fish And Wildlife Technician sections of left fallopian tube and ovary A9 ?Fish And Wildlife Technician section of right fallopian tube A10-A12 ? Remaining left ovary (Dr. Billingsley)/[facility] End of Report [facility] 06/16/2005 06/16/2005 15: 00 EST us Michael Simms MD PATHOLOGY ORDERABLES Final Resul t [facility] [address] [place] [address] documented in this encounter Visit Diagnoses Not on filedocumented in this encounter Care Teams Bacon Skinner Relationship Specialty Start Date End Date Unknown, Provider, PCP - General 09/10/08 02/17/11 documented as of this encounter
--- OUTSIDE RECORDS SUMMARY | 2024-05-19 09:21 | XMS_ITS | Encounter Summary ---
Author Organization [facility] Address [address] [place] [address] Care Team Providers Care Charge Account Identification Clerk Name Role Phone Unavailable Primary Care Provider Unavailabl e Encounter Details Date Type Department Care Team (Late st Contact Info) Description 09/06/2008 Orders Only [facility] Laboratory Services - [facility] ([facility] [address] [place], [place] [address] Maximo Badillo, [address] [facility] [address] [place], [place] [id number] Social History Tobacco Use Types Packs/Day Years [...] when reading/interpreting unformatted reports. ? Name: ? DALILAKFRANCISCORINorman, LAKESHIA ? Accession #: ? [id number] ? : ? 1965 (Age: 43) ??F [...] reflux ? Gross Description: ? Received in Trilibis's fixative labelled PeckFleuri, Lakeshia and bx antrum is a rivera-pink, 0.3 x 0.3 x 0.2 cm soft tissue fragment. ??The specimen is ? entirely submitted as (A). ? Received in Trilibis's fixative labelled PeckFleuri, Lakeshia and bx distal ? esophagus are three rivera-pink soft tissues ranging from 0.3 x 0.2 x 0.2 cm to ?? 0.5 x 0.3 x 0.2 cm. ??The specimen is entirely submitted as (B). ? Received in Trilibis's fixative labelled PeckFleuri, Lakeshia and bx mid ? esophagus are [...] specimen is entirely submitted as (D). ??(Yara Rodgers)/[facility] ? End of Report ? [facility] 09/06/2008 09/07/2008 9:3 6 EDT us Maximo Badillo DO PATHOLOGY ORDERABLES Fi nal Result [facility] [address] [place] [address] documented in this encounter Visit Diagnoses Not on filedocumented in this encounter
--- OUTSIDE RECORDS SUMMARY | 2024-05-19 09:21 | XMS_ITS | Encounter Summary ---
Author Organization [facility] Address [address] [place] [address] Care Team Providers Care Benefits Officer Name Role Phone Unavailable Primary Care Provider Unavailabl e Encounter Details Date Type Department Care Team (Late st Contact Info) Description 12/04/2020 Lab Requisition [facility] Pathology & Laboratory Medicine - [facility] [address] [place] [address] Outr Resulting Lab, Provider Social History Tobacco [...] Lyme Ab Negative Negative 12/05/2020 11:27 EDT [facility] Blood VENOUS BLOOD / Unknown 12/04/2020 11:30 EDT 12/04/2020 20:29 EDT us Provider Outr Resulting Lab IMMUNOLOGY AND SEROL OGY ORDERABLES Final Result Performing Organization Address City/[facility]/ZIP Co de Phone Number [facility] [address] [place] [address] * RHEUMATOID FACTOR (12/04/2020 11:30 EDT) Pathologist [facility] Rheumatoid Factor <8.6 <12.0 IU/mL 12/04/2020 20:47 EDT [facility] Blood VENOUS BLOOD / Unknown 12/04/2020 11:30 EDT 12/04/2020 20:29 EDT us Provider Outr Resulting Lab CHEMISTRY & BLOOD GA S ORDERABLES Final Result Performing Organization Address [facility] de Phone Number [facility] [address] [place] [address] * (ABNORMAL) ANTI NUCLEAR AB (NIC), IFA (12/04/2020 11:30 EDT) Pathologist [facility] NIC Interpretation Positive(A) Negative 12/05/2020 13:56 EDT [facility] NIC Titer and Pattern 1 1:80 Homogeneous 12/05/2020 13:56 EDT [facility] Blood VENOUS BLOOD / Unknown 12/04/2020 11:30 EDT 12/04/2020 20:29 EDT Narrative [facility] - 12/05/2020 13:56 EDT Results were obtained with the INOVA NOVA Lite HEp-2 NIC Kit by indirect immunofluorescence. us Provider Outr Resulting Lab IMMUNOLOGY AND SEROL OGY ORDERABLES Final Result Performing Organization Address City/[facility]/ZIP Co de Phone Number [facility] [address] [place] [address] documented in this encounter Visit Diagnoses Not on filedocumented in this encounter
--- OUTSIDE RECORDS SUMMARY | 2024-05-19 09:21 | XMS_ITS | Encounter Summary ---
[place] [address] Care Team Providers Care Glue Cook Name Role Phone Sumaya Saldivar APRN Primary Care Provider [phone] Reason for Referral * Diagnostic Test (Routine) - Closed Specialty Diagnoses / Procedures Referred By Contac t Referred To Contact Diagnoses Ectatic abdominal aorta Procedures AAA Duplex, Complete/Bilateral Josee Savage APRN [facility] [place] [address] [facility] Vascular Lab [address] [place] [phone] Referral ID Status Reason Start Date Expiration Date V isits Requested Visits Authorized [id number] Closed Specialty Service Requested 03/05/2021 03/05/2022 1 1 Reason for Visit * Consultation (Routine) - Closed Specialty Diagnoses / Procedures Referred By Contac t Referred To Contact Vascular Surgery Diagnoses Aneurysm of iliac artery Abdominal aortic aneurysm, without rupture Sumaya Saldivar APRN [address] [place] [address] [facility] Vascular Surg [address] [place] [phone] Referral ID Status Reason Start Date Expiration Date V isits Requested Visits Authorized [id number] Closed Consult, Test & Treat Connection Center PCP Updated and/or Approved 02/02/2021 02/02/2022 12 12 Encounter Details Date Type Department Care Team (Late st Contact Info) Description 03/05/2021 8:30 AM EDT Office Visit [place] [address] Josee Savage APRN Ectatic abdominal aorta Social [...] in this encounter Progress Notes * Josee Savage APRN - 03/05/2021 8:30 AM EDT This is [...] ENDOSCOPY performed by Farzaneh Knowles MD at [facility] ENDOSCOPY Family Hx: No family history on file. Social Hx: Social History Tobacco Use ??? Smoking status: Former Smoker Packs/day: 1.00 Types: Cigarettes Quit date: 01/16/2004 Years since quittin.1 ??? Smokeless tobacco: Never Used Substance Use Topics ??? Alcohol use: Not Currently Medications: Medications 03/05/21 0832 Medication Sig Taking? multivitamin Capsule Take by [...] ND, no palpable pulsatile masses Extremity - Ferney, warm, no ulceration, brisk capillary refill, no [...] 1:00 PM EST Procedure visit [place] [address] Tameka Corrales APRN [facility] [place] [address] documented as of this encounter Results * AAA Duplex, Complete/Bilateral (02/16/2022 7:57 AM EDT) VB Text Report Department: Vascular Surgery Lab Patient: [id number] (LAKESHIA GUZMAN) CPT: 33347 Referring Physician: JOSEE SAVAGE, LURDES ?? Indications: [...] VASCUBASE 02/16/2022 7:57 AM EDT Josee Savage WATER AEROBICS INSTRUCTOR VASCULAR ORDERABLE S VASCUBASE documented in this encounter Visit Diagnoses Diagnosis Ectatic abdominal aorta Abdominal aortic ectasia documented in this encounter Care Teams Glue Cook Relationship Specialty Start Date End Date Sumaya Saldivar APRN [address] [place] [address] PCP - General Family Medicine 08/02/19 04/07/24 documented as of this encounter
--- OUTSIDE RECORDS SUMMARY | 2024-05-19 09:21 | XMS_ITS | Encounter Summary ---
Author Organization [facility] [place] [address] Care Team Providers Care Power And Recovery Supervisor Name Role Phone Cordell Robledo MD Primary Care Provider [phone] Encounter Details Date Type Department Care Team (Late st Contact Info) Description 07/26/2019 Ancillary Procedure Radiology Library at [facility] [place] [address] Farzaneh Knowles MD [facility] [place] [address] Social History Tobacco Use Types Packs/Day Years Used Date Smoking Tobacco: Never Sex and Gender Information Value Date Recorded Sex Assigned at Not on file Gender Identity Not on file Sexual Orientation Not on file documented as of this encounter Plan of Treatment Upcoming Encounters Date Type Department Care Team (Late st Contact Info) Description 07/06/2024 1:00 PM EST Procedure visit Gastroenterology at [facility] [place] [address] Tameka Corrales APRN [facility] [place] [address] documented as of this encounter Procedures Procedure Name Priority Date/Time Associated Diagnosis Comments FILM LIBRARY STORAGE ONLY CT ABDOMEN AND PELVIS Routine 07/26/2019 12:00 AM EDT documented in this encounter Results * Film Library- Storage Only CT Abdomen & Pelvis (07/26/2019 12:00 AM EDT) Narrative [facility] - 08/31/2019 3:21 PM EDT This exam is auto-finalizing. It's purpose is for storage only. Farzaneh Knowles MD IMG FILM LIBRARY ORD ERABLES [place], [place] documented in this encounter Visit Diagnoses Not on filedocumented in this encounter Care Teams Power And Recovery Supervisor Relationship Specialty Start Date End Date Cordell Robledo MD [address] [place] [address] PCP - General 08/06/11 08/01/19 documented as of this encounter
--- OUTSIDE RECORDS SUMMARY | 2024-05-19 09:21 | XMS_ITS | Referral Summary ---
Author Organization [facility] Address [address] [place] [address] Care Team Providers Care Union Steward Name Role Phone Unavailable Primary Care Provider [...] file Plan of Treatment Not on file Insurance MEDICAID [place]
--- OUTSIDE RECORDS SUMMARY | 2024-05-19 09:21 | XMS_ITS | Encounter Summary ---
Author Organization [facility] [place] [address] Care Team Providers Care Carpenter Packing Name Role Phone Cordell Robledo MD Primary Care Provider [phone] Reason for Visit * Reason Comments Follow-up Encounter Details Date Type Department Care Team (Late st Contact Info) Description 10/18/2011 1:00 PM EDT [place] [address] Moe Christian MD Dog bite (Primary Dx) [...] 1:00 PM EST Procedure [place] [address] Tameka Corrales APRN [facility] [place] [place] [address] documented as of this encounter Visit Diagnoses Diagnosis Dog bite(E906.0)- Primary Dog bite documented in this encounter Care Teams Carpenter Packing Relationship Specialty Start Date End Date Cordell Robledo MD [address] [place] [address] PCP - General 08/06/11 08/01/19 documented as of this encounter
--- OUTSIDE RECORDS SUMMARY | 2024-05-19 09:21 | XMS_ITS | Encounter Summary ---
Author Organization [facility] Address [address] [place] [address] Care Team Providers Care Cold Meat Cook Name Role Phone Unavailable Primary Care Provider Unavailabl e Encounter Details Date Type Department Care Team (Late st Contact Info) Description 08/09/2016 Results Only [facility] [phone] Parker Rudolph MD [address] [place] [address] [place] [address] Social History Tobacco Use Types Packs/Day Years [...] ? LAKESHIA TIM ? Accession #: ? [id number] ? : ? 1965 (Age: 51) ??F ? Collect Date: ? 08/09/2016 ? Location: ? [facility] ? Receive Date: ? 08/09/2016 ? Provider: PARKER RUDOLPH MD Copy to: RICH TIJERINA ORACLE HRMS CONSULTANT ? Final Pathologic Diagnosis: ESOPHAGUS, GE JUNCTION, [...] (ASCP) 08/10/2016 9:04 AM End of Report [facility] 08/09/2016 18:3 5 EDT 08/09/2016 18:35 EDT us Parker Rudolph MD PATHOLOGY ORDERABLES Fin al Result [facility] [address] [place] [address] documented in this encounter Visit Diagnoses Not on filedocumented in this encounter
--- OUTSIDE RECORDS SUMMARY | 2024-05-19 09:21 | XMS_ITS | Encounter Summary ---
Author Organization [facility] Address [address] [place] [address] Care Team Providers Care Motion Picture Set Worker Name Role Phone Unknown, Provider Primary Care Provider Unava ilable Encounter Details Date Type Department Care Team (Late st Contact Info) Description 06/26/2002 Results Only [facility] conversion [address] [place] [address] Michael Simms MD [address] [place], [place] [address] Social History Tobacco Use Types Packs/Day Years [...] ? LAKESHIA NELSON ? Accession #: ? [id number] : ? 1965 (Age: 37) ??F ?Collect [...] End of Report [facility]IL[facility] 06/26/2002 06/27/2002 us Michael Simms MD PATHOLOGY ORDERABLES Final Resul t [facility] [address] [place] [address] documented in this encounter Visit Diagnoses Not on filedocumented in this encounter Care Teams Motion Picture Set Worker Relationship Specialty Start Date End Date Unknown, Provider, PCP - General 09/10/08 02/17/11 documented as of this encounter
--- OUTSIDE RECORDS SUMMARY | 2024-05-19 09:21 | XMS_ITS | Encounter Summary ---
Author Organization [facility] Address [address] [place] [address] Care Team Providers Care Road Packer Operator Name Role Phone Unknown, Provider Primary Care Provider Unava ilable Encounter Details Date Type Department Care Team (Late st Contact Info) Description 07/31/2003 Results Only [facility] conversion [address] [place] [address] Senia Nuñez, [facility] [address] [place] [address] [place] [address] Social History Tobacco Use Types [...] when reading/interpreti ng unformatted reports. Name: ? DALILASindhuFRANCISCOLAKESHIA LUA ? Accession #: ? [id number] : ? 1965 (Age: 38) ??F ?Collect Date: ? 07/31/2003 Location: ? [facility] ? Receive Date: ? 08/01/2003 Provider: ?SENIA NUÑEZ HAND KISS SETTER Copy to: ? Specimen/Source: ?ThinPrep Pap Test, [...] End of Report [facility] 07/31/2003 08/01/2003 us Senia Nuñez HAND KISS SETTER PATHOLOGY ORDERABLES Final R esult [facility] [address] [place] [address] documented in this encounter Visit Diagnoses Not on filedocumented in this encounter Care Teams Road Packer Operator Relationship Specialty Start Date End Date Unknown, Provider, PCP - General 09/10/08 02/17/11 documented as of this encounter
--- OUTSIDE RECORDS SUMMARY | 2024-05-19 09:21 | XMS_ITS | Encounter Summary ---
Author Organization [facility] [place] [address] Care Team Providers Care Application Consultant Name Role Phone YarielSumaya malhotra LURDES Primary Care Provider [phone] Encounter Details Date Type Department Care Team (Late st Contact Info) Description 08/17/2007 Orders [place] [phone] Placido Pérez MD Social History Tobacco Use Types Packs/Day Years [...] 1:00 PM EST Procedure [place] [address] Tameka Corrales APRN [facility] [place] [address] documented as of this encounter Procedures Procedure Name Priority Date/Time Associated Diagnosis Comments NON-DESKTOP SUPPORT SPECIALIST FINAL REPORT Routine 08/17/2007 4:05 PM EDT documented in this encounter Results * Non-Medical Technologist Microbiology Final Report (08/17/2007 4:05 PM EDT) Non-Medical Technologist Microbiology Final Report [id number] ? Location: 5C The signing pathologist has (i) examined the relevant preparation(s) for the specimen(s) and (ii) rendered or confirmed the diagnosis(es). . ? Pathology Non-Medical Technologist Microbiology Cytology Final Report Clinical Information Specimen Source: [...] on filedocumented in this encounter Care Teams Application Consultant Relationship Specialty Start Date End Date Sumaya Saldivar APRN [address] [place] [address] PCP - General Family Medicine 08/02/19 04/07/24 documented as of this encounter
--- OUTSIDE RECORDS SUMMARY | 2024-05-19 09:21 | XMS_ITS | Encounter Summary ---
[place] [address] Care Team Providers Care Fighting Vehicle Systems Maintainer Name Role Phone Sumaya Saldivar APRN Primary Care Provider [phone] Encounter Details Date Type Department Care Team (Late st Contact Info) Description 12/14/2019 Telephone [place] [phone] Senia Meneses, CCMA Social History Tobacco Use [...] 1:00 PM EST Procedure [place] [address] Tameka Corrales APRN [facility] [place] [address] documented as of this encounter Visit Diagnoses Not on filedocumented in this encounter Care Teams Fighting Vehicle Systems Maintainer Relationship Specialty Start Date End Date Sumaya Saldivar APRN [address] [place] [address] PCP - General Family Medicine 08/02/19 04/07/24 documented as of this encounter
--- OUTSIDE RECORDS SUMMARY | 2024-05-19 09:21 | XMS_ITS | Encounter Summary ---
Author Organization [facility] Address [address] [place] [address] Care Team Providers Care Full Time Babysitter Name Role Phone Unknown, Provider Primary Care Provider Jodi ilable Encounter Details Date Type Department Care Team (Late st Contact Info) Description 02/16/2011 Results Only [facility] - [facility] [address] [place], [place] [address] Maximo Badillo, [address] [facility] [address] [place] [address] Social History Tobacco Use Types Packs/Day Years [...] ? PECKFLEURIE, LAKESHIA ? Accession #: ? [id number] ? : ? 1965 (Age: 45) ??F [...] Tineo and #1 distal esophagus are four rviera-pink biopsies which vary in size from 0.4 [...] specimens are submitted intact as (B). ??(JACINTO Rosen/bi ? End of Report ? [facility] 02/16/2011 02/17/2011 8:1 6 EDT us Maximo Badillo DO PATHOLOGY ORDERABLES Fi nal Result [facility] [address] [place] [address] documented in this encounter Visit Diagnoses Not on filedocumented in this encounter Care Teams Full Time Babysitter Relationship Specialty Start Date End Date Unknown, Provider, PCP - General 09/10/08 02/17/11 documented as of this encounter
--- OUTSIDE RECORDS SUMMARY | 2024-05-19 09:21 | XMS_ITS | Encounter Summary ---
Author Organization [facility] Address [address] [place] [address] Care Team Providers Care District Manager Major Accounts Sales Name Role Phone Unavailable Primary Care Provider Unavailabl e Encounter Details Date Type Department Care Team (Late st Contact Info) Description 08/01/2019 Lab Requisition [facility] Pathology & Laboratory Medicine - [facility] [address] [place] [address] Unknown, Provider, MD Social History Tobacco Use Types Packs/Day [...] Surface Ag Negative Negative 08/02/2019 11:27 EDT [facility] Hep C Antibody Negative Negative 08/02/2019 11:27 EDT [facility] Hepatitis A Antibody, IgM Negative Negative 08/02/2019 11:27 EDT [facility] Comment: The results of this assay can be falsely lowered due to the consumption of Biotin. Hepatitis B Core Ab, Total Negative Negative 08/02/2019 11:27 EDT [facility] Blood VENOUS BLOOD / Unknown 07/31/2019 20:32 EDT 08/01/2019 15:37 EDT us Provider Unknown MD CHEMISTRY & BLOOD GAS ORDERA BLES Final Result [facility] [address] [place] [address] documented in this encounter Visit Diagnoses Not on filedocumented in this encounter
--- OUTSIDE RECORDS SUMMARY | 2024-05-19 09:21 | XMS_ITS | Encounter Summary ---
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 Unspecified cirrhosis of liver Sumaya Saldivar APRN [address] [place] [address] [facility] [place] [address] [place] [address] Referral ID Status Reason Start Date Expiration Date V isits Requested Visits Authorized [id number] Consult, Test & Treat Connection Center PCP Updated and/or Approved 07/31/2019 07/30/2020 6 6 Encounter Details Date Type Department Care Team (Latest Contact Info) Description 09/13/2019 8:30 AM EDT TH Visit (TeleHealth) [place] [phone] Farzaneh Knowles MD [facility] [place] [address] Elevated liver enzymes Social History [...] - NEW PATIENT VISIT Chief Complaint: Lakeshia Tmi is a 54 y.o. patient referred for [...] diagnosed with Sams's 15 years ago at [facility]. She do not remember being told that [...] with minimal inflammation, no tongues of Sams's Wayne 2017: no polyps Assessment/Plan: Ms. Salima Tim [...] telemedicine visit. The patient was located in [place] at the time of their visit. Farzaneh Knowles MD [facility] [place] [address] documented in this encounter Plan of Treatment Upcoming Encounters Date Type Department Care Team (Late st Contact Info) Description 07/06/2024 1:00 PM EST Procedure visit Gastroenterology at [facility] [place] [address] Tameka Corrales APRN [facility] [place] [address] documented as of this encounter Results * Prothrombin Time (01/16/2020 4:41 PM EDT) Prothrombin Time 11.8 9.4 - 12.5 sec [facility] International Normalization Ratio 1.0 [facility] Comment: An INR <2.0 indicates adequate [...] Lab Farzaneh Knowles MD HEMATOLOGY ORDERABLE S [facility] [place] [address] * (ABNORMAL) Comprehensive metabolic panel (non-fasting) (01/16/2020 4:41 PM EDT) Pathologist [facility] Glucose 143 65 - 199 mg/dL [facility] Comment:Diabetes: >=200 mg/d L plus symptoms Blood Urea Nitrogen 12 8 - 18 mg/dL [facility] Creatinine 0.54(L) 0.70 - 1.20 mg/dL [facility] Sodium 142 135 - 145 mmol/L [facility] Potassium 4.1 3.5 - 5.0 mmol/L [facility] Comment: Please note: ??Patients with WBC >100,000 may have falsely elevated Potassium levels. ??For accurate Potassium quantification in these patients send serum separator tube (gold top) for subsequent determinations. ??Contact the Clinical Chemistry Laboratory if there are any questions. Chloride 103 98 - 107 mmol/L [facility] Carbon Dioxide 27 22 - 31 mmol/L [facility] Anion Gap 12 5 - 15 mmol/L [facility] Calcium 9.4 8.5 - 10.5 mg/dL [facility] Protein, Total 7.2 6.1 - 8.0 gm/dL [facility] Albumin 4.2 3.2 - 5.2 gm/dL [facility] Aspartate Aminotransferase 29 0 - 30 unit/L [facility] Alanine Aminotransferase 29 0 - 30 unit/L [facility] Alkaline Phosphatase 78 35 - 105 unit/L [facility] Bilirubin, Total 0.2 0.2 - 1.3 mg/dL [facility] Est Glomerular Filtration Rate 108 >=60 mL/min/1. 73 m?? [facility] Comment: The eGFR was calculated using the CKD-EPI equation. As with all creatinine based estimates of kidney function, eGFR values calculated with the CKD-EPI equation are not accurate in patients with acute kidney failure, extremes of body mass or the acutely ill. [email or web address] eGFR 125 >=60 mL/min/1. 73 m?? [facility] Comment: The eGFR was calculated using the CKD-EPI equation. As with all creatinine based estimates of kidney function, eGFR values calculated with the CKD-EPI equation are not accurate in patients with acute kidney failure, extremes of body mass or the acutely ill. [email or web address] Blood specimen (specimen) 01/16/2020 4:41 PM EDT 01/16/2020 4:51 PM EDT Narrative Resulting Agency Comment Spec In Lab Farzaneh Knowles MD CHEMISTRY ORDERABLES [facility] [place] [address] documented in this encounter Visit Diagnoses Diagnosis Elevated liver enzymes Nonspecific elevation of levels of transaminase or lactic acid dehydrogenase (LDH) documented in this encounter Care Teams Call Center Specialist Relationship Specialty Start Date End Date Sumaya Saldivar APRN [address] [place] [address] PCP - General Family Medicine 08/02/19 04/07/24 documented as of this encounter
--- OUTSIDE RECORDS SUMMARY | 2024-05-19 09:21 | XMS_ITS | Encounter Summary ---
Author Organization [facility] Address [address] [place] [address] Care Team Providers Care Rounder Hand Name Role Phone Unknown, Provider Primary Care Provider Unava ilable Encounter Details Date Type Department Care Team (Late st Contact Info) Description 05/18/2000 Results Only [facility] conversion [address] [place] [address] Michael Simms MD [address] [place], [place] [id number] Social History Tobacco Use Types Packs/Day Years [...] ? LAKESHIA NELSON ? Accession #: ? [id number] ? : [...] 3.7 x 2.1 x 0.5 cm. ??Three canvas products sales representative sections are submitted as (B). Received in formalin labelled Borrego and #3 left uterosacral ligament is a rivera-pink focally hemorrhagic roughly triangular fragment of tissue that measures 3.4 x 2.1 x 0.5 cm. ??There is a focal amount of attached adipose tissue. ??Three canvas products sales representative sections are submitted as (C). ??(Dr. Pratt)/ingan End of Report [facility] 05/18/2000 05/18/2000 15: 20 EST us Michael Simms MD PATHOLOGY ORDERABLES Final Resul t [facility] [address] [place] [address] documented in this encounter Visit Diagnoses Not on filedocumented in this encounter Care Teams Rounder Hand Relationship Specialty Start Date End Date Unknown, Provider, PCP - General 09/10/08 02/17/11 documented as of this encounter
[2024-05-19 09:52] VITALS: BP 175/87; PULSE 67; RESP 18; O2SAT 95
== END 2024-05-19 09:53 | disposition home or self-care (01) ==
LOC: ER 09:18
PROVIDERS: Emergency Provider Physician Assistant; PCP Nurse Practitioner Family
DX: M54.16 Radiculopathy, lumbar region (principal); E78.5 Hyperlipidemia, unspecified; E11.9 Type 2 diabetes mellitus without complications; Z79.84 Long term (current) use of oral hypoglycemic drugs; Z79.82 Long term (current) use of aspirin
CPT/HCPCS: 99283

== ENCOUNTER 2024-06-01 10:27 | Emergency (ER) | payer OTHER, SELFPAY ==
[2024-06-01 10:29] VITALS: BP 155/76; PULSE 76; RESP 14; TEMP 36.7; O2SAT 96
--- NOTE | 2024-06-01 10:58 | ED.GENADUL_ITS ---
Discharge Plan Disposition Patient Disposition: Home Condition: Stable Discharge Details Clinical Impression: COVID-19 Primary Care Provider: Sumaya Saldivar ED Provider: Kye Coleman Home Meds and New Rx's Prescriptions: Continued nitrofurantoin macrocrystal 100 mg capsule 100 mg PO DAILY PRN Rx Instructions: as directed, post intercourse multivitamin [Daily Multi-Vitamin] 1 EACH tablet 1 ea PO DAILY Qty: 1 lisinopril 5 MG tablet 10 mg PO DAILY aspirin [Aspir-81] 81 MG tablet,delayed release (DR/EC) 81 mg PO DAILY atorvastatin 40 MG tablet 40 mg PO DAILY acetaminophen 500 mg tablet 1,000 mg PO TID Qty: 90 0RF Discharge Instructions Instructions: COVID-19 ED Additional Instructions: You were seen in the emergency department for your leaks along generalized illness, you tested positive for COVID you are vaccinated and this is low risk to progress to severe infection. Please continue at home cold medications inclu ding Tylenol, ibuprofen, Mucinex etc. please return for any respiratory distress. Referrals: Sumaya Saldivar [Primary Care Provider] - Discharge Data Discharge Date/Time-TO BE ENTERED AT DEPARTURE: 06/01/24 11:54 HPI General Date/Time Provider Initiated Documentation: 06/01/24 10:44 . HPI Narrative: 58 year-old female presents to ED today by POV/ambulating with a chief complaint of fatigue, chills, fevers, headache with onset noted today. Quality described as generalized illness, no radiation to respiratory distress, shortness of breath, intractable nausea/vomiting, changes to bowel/urinary habits, chest pain. Severity is described as moderate. Palliating factors include nothing specific attempted. Provoking factors include nothing specific. Events leading up to the incident/Associated Symptoms: Patient recently had a routine CT that discovered a non-incarcerated hernia. Patient not anticoagulated. Related Data Home Medications ?Medication ?Instructions ?Recorded ?Confirmed multivitamin (Daily Multi-Vitamin 1 ea PO DAILY ##1 01/16/13 06/01/24 tablet) aspirin 81 mg tablet,delayed 81 mg PO DAILY 09/24/13 06/01/24 release (Aspir-) lisinopril 5 mg tablet 10 mg PO DAILY 06/11/16 06/01/24 atorvastatin 40 mg tablet 40 mg PO DAILY 01/12/18 06/01/24 acetaminophen 500 mg tablet 1,000 mg (2 x 500 mg) PO TID #90 08/25/21 06/01/24 tabs nitrofurantoin macrocrystal 100 mg 100 mg PO DAILY PRN 12/10/22 06/01/24 capsule Previous Rx's ?Medication ?Instructions ?Recorded acetaminophen 500 mg tablet 1,000 mg (2 x 500 mg) PO TID #90 08/25/21 tabs Allergies Allergy/AdvReac Type Severity Reaction Status Date / Time Penicillins Allergy Intermediate rash Verified 06/01/24 10:38 codeine AdvReac Mild GI UPSET Verified 06/01/24 10:38 General Stated Complaint: GenMedical DEEJAY: 3 Review of Systems All systems reviewed & are unremarkable except as noted in HPI and below Exam Narrative Exam Narrative: GENERAL APPEARANCE: Well-nourished, non-toxic, awake and alert, atraumatic, no acute distress. SKIN: Warm, pink, dry, intact, without rashes/lesions/ulcerations. HEAD: Normocephalic, atraumatic, normal hair distribution for gender/age. EYES: Normal conjunctiva, no exudates on lids/lashes. ENT: Nares patent, no circumoral cyanosis, no facial swelling NECK: Supple, trachea midline, painless cervical ROM. LUNGS/CHEST: Lungs CTA bilaterally- no rhonchi/rales/wheezes diffusely, non- labored respirations, normal A/P diameter, symmetrical expansion, no chest wall deformity HEART (CV/PV): Regular rate and rhythm without murmur, no peripheral edema, no JVD. ABDOMEN: Soft, non-distended, no guarding. MSK: Normal ROM, no swelling/deformity to bilateral UEs or LEs, moving all extremities without weakness, no cyanosis, spine midline without tenderness, normal curvature. NEURO: Mental Status AAOx4 - alert to person, place, time, events No facial droop, no forehead involvement. Motor: No focal weakness - strength 5/5 in bilateral UEs and LEs, proximal and distal, symmetric. Sensory: sensation intact to light touch globally. Gait normal: patient ambulated without ataxia into ED room. PSYCH: euthymic, cooperative, pleasant, appropriate speech Course Vital Signs Vital signs: Vital Signs Temperature 36.7 C 06/01/24 10:29 Pulse 76 06/01/24 10:29 Respiratory Rate 14 06/01/24 10:29 Blood Pressure 155/76 H 06/01/24 10:29 Pulse Oximetry 96 06/01/24 10:29 Temperature 36.7 C 06/01/24 10:29 Temperature Source Oral 06/01/24 10:29 Pulse 76 06/01/24 10:29 Respiratory Rate 14 06/01/24 10:29 Blood Pressure 155/76 H 06/01/24 10:29 Blood Pressure Position Sitting 06/01/24 10:29 Pulse Oximetry 96 06/01/24 10:29 Oxygen Delivery Method Room Air 06/01/24 10:29 Oxygen Flow Rate 0 06/01/24 10:29 Pain Level 7 06/01/24 10:29 Medical Decision Making This dictation utilizes lixgs-[id number] dictation software and may contain unedited grammatical errors. 58 year-old female presents to ED today by POV/ambulating with a chief complaint of fatigue, chills, fevers, headache with onset noted today. Quality described as generalized illness, no radiation to respiratory distress, shortness of breath, intractable nausea/vomiting, changes to bowel/urinary habits, chest pain. Severity is described as moderate. Palliating factors include nothing specific attempted. Provoking factors include nothing specific. Events leading up to the incident/Associated Symptoms: Patient recently had a routine CT that discovered a non-incarcerated hernia. Patients' medical history: [ ]. Family and social history: [ ]. Pertinent exam findings / vital signs include lungs CTA, benign abdomen, nontoxic, no respiratory distress. Differential / pathologies of concern include viral syndrome, COVID, pneumonia unlikely. Diagnostic studies of: -COVID/flu/RSV swab ordered, further workup would be pending depending on results. Interventions of: -None. ED Course/Assessment/Plan: 58-year-old female presents with generalized viral syndrome, is positive for COVID, no respiratory distress with no evidence of hypoxia, I counseled the patient on low likelihood to progress to severe infection as she is vaccinated and boosted, does not have significant enough comorbidities to warrant Paxlovid at this time, patient agreed with this and will take lxjs-gtj-krspaaq cold remedies at home for relief and will return for any emergent concerns. Findings not consistent with hypoxic respiratory failure, respiratory distress. Disposition of COVID-19. Patient verbalized understanding of the plan and return to ED criteria and engaged in shared decision making. Medical Records Medical records reviewed: Yes I reviewed the patient's medical records. Lab Data Lab results reviewed: Yes I reviewed the patient's lab results. Labs: Laboratory Tests Range/Units 06/01/24 10:50 COVID-19 Source Nasopharynx SARS-CoV-2 (PCR) (Negative) Positive A Influenza Type A (PCR) (Negative) Negative Influenza Type B (PCR) (Negative) Negative RSV (PCR) (Negative) Negative Quality:SDOH Health Related Social Needs: No Data to Display PFSH All Active Problems (Updated 06/01/24 @ 11:43 by CHYNA Hurt) COVID-19 (Acute) Right lumbar radiculopathy (Acute) De Quervain's tenosynovitis, left (Acute) Status post de Quervain's release DOS: 08/25/2021 Anxiety and depression (Acute) Heart murmur, systolic (Acute) Aneurysm of iliac artery (Acute) Left wrist sprain (Acute) Left thumb sprain (Acute) S/P endoscopic carpal tunnel release (Acute) Carpal tunnel syndrome, left (Acute) Medical History Parotid mass (05/03/16) chronic back pain Hyperlipidemia Depression Diabetes mellitus Migraine Barretts Esophagus Surgical History Screw removal Tibia (03/12/08) right, from records.[facility] section 1997, 1990 c/s Abdominal hysterectomy with ovarian conservation. Kinsey Procedure (02/01/07) Right, same surgery as arthroscopy.HE EGD - MAC (08/09/16) Release for de Quervain's tenosynovitis of hand (09/18/08) Right wrist, from records.HE Arthroplasty of knee (02/01/07) Right, from records.[facility] Arthroscopy (06/13/06) Right knee, with patellar chondroplasty, from recoreds.[facility] Family History Other Diabetes Heart disease Social History Smoking/Tobacco Use Status: Former Tobacco Use Quit Date: 05/16/13 Smoking risk assessment performed?: Yes Alcohol Intake: current Alcohol Intake frequency: a few times a month Drug use: Never Substance use type: does not use Housing: house Do you feel safe at home: Yes (Unable to assess privately) Do you feel safe in your relationship?: Yes
[2024-06-01 11:32] LABS: Influenza A PCR Negative (Negative); Influenza B PCR Negative (Negative); RSV PCR Negative (Negative)
[2024-06-01 11:33] LABS: Source Nasopharynx
[2024-06-01 11:34] LABS: COVID-19 PCR Positive (Negative)
[2024-06-01 11:53] VITALS: BP 140/77; PULSE 74; RESP 18; O2SAT 97
== END 2024-06-01 11:54 | disposition home or self-care (01) ==
PROVIDERS: Emergency Provider Physician Assistant; PCP Nurse Practitioner Family
DX: U07.1 COVID-19 (principal)
CPT/HCPCS: 87637; 99282; 99283

== ENCOUNTER 2024-07-25 03:32 | Outpatient (CLI) | payer OTHER, SELFPAY ==
--- NOTE | 2024-07-25 | DI.MAMMO_ITS ---
Exam(s) MAMMO SCREENING EXAM: MAMMO SCREENING CLINICAL HISTORY: Screening, Z12.39; paternal grandmother had breast CA TECHNIQUE: Bilateral full field digital CC and MLO mammographic images were obtained with 3D tomosyn thesis and utilizing computer aided detection (CAD). COMPARISON: Available for comparison. FINDINGS: The patient has had prior bilateral breast reduction surgery. Masses/Architectural Distortion: No suspicious masses are seen. Microcalcifications: No suspicious pleomorphic-type are seen. Skin Thickening/Nipple Retraction: None. IMPRESSION: 1. No significant interval change with no specific features of malignancy noted. 2. Unless there is more urgent need, screening mammography is recommended, as per [employer] guidelines. BI-RADS Category 1 - Negative Breast Density - Category C - Heterogeneously dense Breast density category C or D implies that the patient has dense breast tissue. Dense breast tissue is very common and is not abnormal but dense breast tissue can make it harder to find cancer on a ma mmogram. Also, dense breast tissue may increase their breast cancer risk. This information about the result of the mammogram report was provided to the patient to raise their awareness. Use this report when you speak with the patient about their risks for breast cancer, which includes their family hist ory. At that time, you may recommend for more screening tests (Ultrasound or MRI) as they might be us eful based on their risk. A negative radiographic report should not delay biopsy if a dominant or clinically suspicious mass is present. Up to ten percent of cancers are not identified on mammography. A negative report may reinforce clinical impression. Adenosis and dense breasts may obscure an underlying neoplasm. False positive reports average 6 to 10%. Patient will receive a letter notifying them of these results.
== END 2024-07-25 03:52 ==
LOC: DI 03:32
PROVIDERS: PCP Nurse Practitioner Family; Visit Provider Nurse Practitioner Family
DX: Z12.31 Encounter for screening mammogram for malignant neoplasm of breast (principal); R92.333 Mammographic heterogeneous density, bilateral breasts
CPT/HCPCS: 77063; 77067

== ENCOUNTER 2024-07-27 10:06 | Outpatient (CLI) | payer OTHER, SELFPAY ==
--- NOTE | 2024-07-27 08:33 | DI.RAD_ITS ---
Exam(s) XR ELBOW LT COMPLETE EXAM: XR ELBOW LT COMPLETE CLINICAL HISTORY: LEFT RADIAL HEAD FX. TECHNIQUE: 2D digital imaging was performed of the left elbow. Three images were obtained. AP, lat eral and oblique views were obtained. COMPARISON: CR XR ELBOW 3 VIEW LEFT from 07/22/2024 FINDINGS: BONES: The radial head fracture is less well visualized on the current examination when compared to t he examination from 07/22/2024. The faint lucency is seen on the oblique view coursing through the art icular surface of the radius. No bony destructive lesion is seen. JOINTS: The elbow is normally aligned. There is a small joint effusion. SOFT TISSUE: Normal. IMPRESSION: Stable appearance of the nondisplaced radial head fracture. DATA REPOSITORY: RADIATION DOSE DELIVERED:
--- NOTE | 2024-07-27 08:33 | DI.RAD_ITS ---
Exam(s) XR WRIST RT COMPLETE EXAM: XR WRIST RT COMPLETE CLINICAL HISTORY: RIGHT WRIST PAIN. TECHNIQUE: 2D digital imaging was performed of the right wrist. Three views were obtained. PA, lat eral and oblique views were obtained. COMPARISON: CR RIGHT WRIST COMPLETE from 05/07/2011 CR XR WRIST 3 VIEW RIGHT from 07/22/2024 FINDINGS: BONES: The bones are normally mineralized. No bony destructive lesion is seen. There is an osseous f ragment seen in the dorsum of the wrist which may represent an triquetral fracture. This was present on the prior examination 07/22/2024. JOINTS: The carpal bones are normally aligned. SOFT TISSUE: Normal. IMPRESSION: There is an osseous fragment again seen on the dorsum of the wrist. This may represent a fracture fr agment such as a triquetral fracture. Please correlate clinically. DATA REPOSITORY: RADIATION DOSE DELIVERED:
--- NOTE | 2024-07-27 08:44 | DI.RAD_ITS ---
Exam(s) XR WRIST LT COMPLETE EXAM: XR WRIST LT COMPLETE CLINICAL HISTORY: left wrist pain. TECHNIQUE: 2D digital imaging was performed of the left wrist. Three images were obtained. PA, obl ique and lateral views were obtained. COMPARISON: CR XR WRIST LT COMPLETE from 10/08/2022 CR XR ELBOW 3 VIEW LEFT from 07/22/2024 FINDINGS: BONES: No acute fracture is present. No bony destructive lesion is seen. There is a well corticated o sseous density at the tip of the ulnar styloid process which is old. There is again seen a sideplate and screws in the distal left radius. The orthopedic hardware appears unremarkable. JOINTS: The carpal bones are normally aligned. Mild degenerative changes are seen at the 1st carpomet acarpal joint. SOFT TISSUE: Normal. IMPRESSION: No acute abnormality. DATA REPOSITORY: RADIATION DOSE DELIVERED:
== END 2024-07-27 10:07 | disposition home or self-care (01) ==
LOC: DIORS 10:06
PROVIDERS: PCP Nurse Practitioner Family; Visit Provider Physician Assistant
DX: M25.531 Pain in right wrist (principal); S52.122D Displaced fracture of head of left radius, subsequent encounter for closed fracture with routine healing; M25.532 Pain in left wrist; X58.XXXD Exposure to other specified factors, subsequent encounter
CPT/HCPCS: 73080; 73110

== ENCOUNTER 2024-08-07 13:26 | Outpatient (REF) | payer OTHER, SELFPAY ==
[2024-08-07 14:58] LABS: ALT 34 U/L (14-59); AST 23 U/L (15-37); Albumin 4.2 g/dL (3.4-5.0); Alkaline Phosphatase 98 U/L (46-116); Anion Gap 8.7 mmol/L (3-11); BUN 13 mg/dL (7-18); Bilirubin, Total 0.3 mg/dL (0.2-1.0); CO2 28.3 mmol/L (21.0-32.0); CREATININE 0.6 mg/dL (0.55-1.02); Calcium 9.9 mg/dL (8.5-10.1); Chloride 105 mmol/L (98-107); Estimated GFR 103.98 (mL/min/1.73m2); Glucose 127 mg/dL (74-106); Potassium 4.8 mmol/L (3.5-5.1); Sodium 142 mmol/L (136-145); Total Protein 7.9 g/dL (6.4-8.2)
[2024-08-07 15:15] LABS: Abs Immature Grans 0.01 10^3/uL (0.0-0.06); Absolute Basophil Count 0.06 10^3/uL (0.0-0.2); Absolute Eosinophil Count 0.28 10^3/uL (0.0-0.7); Absolute Lymphocyte Count 1.83 10^3/uL (1.2-3.4); Absolute Monocyte Count 0.47 10^3/uL (0.1-0.8); Absolute Neutrophil Count 3.02 10^3/uL (1.2-6.7); Basophils % 1.1 %; Eosinophils % 4.9 %; HCT 42.2 % (36.0-46.0); HGB 13.8 g/dL (11.2-15.7); Immature Grans % 0.2 %; Lymphocytes % 32.3 %; MCH 29.2 pg (27.0-33.0); MCHC 32.7 % (32.0-36.0); MCV 89 fL (80-95); MPV 10.3 fL (8.0-11.0); Monocytes % 8.3 %; Neutrophils % 53.2 %; Platelet Count 335 10^3/uL (130-400); RBC 4.73 10^6/uL (3.93-5.22); RDW 13.2 % (11.7-14.6); RDW-SD 43.7 fL; WBC 5.67 10^3/uL (4.4-10.8)
[2024-08-08 08:41] LABS: AFP Tumor Marker 6.1 ng/mL (<8.1)
== END 2024-08-07 13:27 | disposition home or self-care (01) ==
LOC: NCHCN 13:26
PROVIDERS: PCP Nurse Practitioner Family; Visit Provider Nurse Practitioner Family
DX: K74.60 Unspecified cirrhosis of liver (principal)
CPT/HCPCS: 80053; 82105; 85025

== ENCOUNTER 2024-08-09 13:48 | Outpatient (CLI) | payer OTHER, SELFPAY ==
--- NOTE | 2024-08-09 08:30 | DI.RAD_ITS ---
Exam(s) XR WRIST RT COMPLETE EXAM: XR WRIST RT COMPLETE CLINICAL HISTORY: F/U R TRIQUETRUM FX. TECHNIQUE: 2D digital imaging was performed. COMPARISON: CR XR WRIST RT COMPLETE from 07/27/2024 FINDINGS: 3 views Distal radius and ulna appear intact and no evidence of significant ulnar variance. On the lateral view there is again noted an osteophytic density dorsally which is possibly triquetrum fracture fragment. Appears unchanged from previous study. Also again noted is a small round calcification in the soft tissues just lateral to the trapezium bon e of the distal carpal row, unchanged. IMPRESSION: As above. No radiographic change from 07/27/2024 DATA REPOSITORY: RADIATION DOSE DELIVERED:
--- NOTE | 2024-08-09 08:30 | DI.RAD_ITS ---
Exam(s) XR ELBOW LT COMPLETE EXAM: XR ELBOW LT COMPLETE CLINICAL HISTORY: F/U L RAD HEAD FX. TECHNIQUE: 2D digital imaging was performed. COMPARISON: CR XR ELBOW LT COMPLETE from 07/27/2024 FINDINGS: 3 views Again noted is the previously described radial head fracture site. Fracture line is still visible on the AP view. There does not appear to be a significant step at the articular surface. Other finding is small bony excrescence off the lateral epicondyle again noted and correlation any cl inical signs of lateral epicondylitis/tennis elbow recommended. IMPRESSION: Healing radial head fracture site. Fractures line is still mildly visible. Lateral epicondyle findings as described above. DATA REPOSITORY: RADIATION DOSE DELIVERED:
== END 2024-08-09 13:49 | disposition home or self-care (01) ==
LOC: DIORS 13:48
PROVIDERS: PCP Nurse Practitioner Family; Visit Provider Student in an Organized Health Care Education/Training Program
DX: S52.122D Displaced fracture of head of left radius, subsequent encounter for closed fracture with routine healing (principal); S62.111D Displaced fracture of triquetrum [cuneiform] bone, right wrist, subsequent encounter for fracture with routine healing; X58.XXXD Exposure to other specified factors, subsequent encounter
CPT/HCPCS: 73080; 73110

== ENCOUNTER 2025-01-31 09:33 | Outpatient (REF) | payer OTHER, SELFPAY ==
[2025-01-31 15:19] LABS: Abs Immature Grans 0.01 10^3/uL (0.0-0.06); HCT 40.5 % (36.0-46.0); HGB 13.3 g/dL (11.2-15.7); Immature Grans % 0.2 %; MCH 28.7 pg (27.0-33.0); MCHC 32.8 % (32.0-36.0); MCV 87 fL (80-95); MPV 10.1 fL (8.0-11.0); Platelet Count 296 10^3/uL (130-400); RBC 4.64 10^6/uL (3.93-5.22); RDW 13.4 % (11.7-14.6); RDW-SD 42.6 fL; WBC 5.50 10^3/uL (4.4-10.8)
[2025-01-31 15:32] LABS: ALT 33 U/L (14-59); AST 21 U/L (15-37); Albumin 4.0 g/dL (3.4-5.0); Alkaline Phosphatase 87 U/L (46-116); Anion Gap 10.7 mmol/L (3-11); BUN 11 mg/dL (7-18); Bilirubin, Total 0.4 mg/dL (0.2-1.0); CO2 28.3 mmol/L (21.0-32.0); Calcium 9.8 mg/dL (8.5-10.1); Calculated LDL 248 mg/dL (<100); Chloride 100 mmol/L (98-107); Cholesterol 330 mg/dL (<200); Estimated GFR 103.98 (mL/min/1.73m2); Glucose 127 mg/dL (74-106); HDL Cholesterol 52 mg/dL (>or=50); Potassium 4.6 mmol/L (3.5-5.1); Sodium 139 mmol/L (136-145); Total Protein 7.7 g/dL (6.4-8.2); Triglyceride 150 mg/dL (<150)
[2025-01-31 15:40] LABS: Hemoglobin A1C 6.9 % (<5.7)
[2025-01-31 16:50] LABS: COMMENT (LAB VIEW ONLY) 35.46 mg/dL; Microalb ug/mg Crea 14.1 ug/mg Cr
== END 2025-01-31 09:34 | disposition home or self-care (01) ==
LOC: NCHCN 09:33
PROVIDERS: PCP Nurse Practitioner Family; Visit Provider Nurse Practitioner Family
DX: I10 Essential (primary) hypertension (principal); E11.9 Type 2 diabetes mellitus without complications; K74.60 Unspecified cirrhosis of liver
CPT/HCPCS: 80053; 80061; 82043; 82105; 82570; 83036; 85025

== ENCOUNTER 2025-02-11 15:42 | Outpatient (REF) | payer OTHER, SELFPAY ==
[2025-02-11 16:11] LABS: Abs Immature Grans 0.01 10^3/uL (0.0-0.06); HCT 44.7 % (36.0-46.0); HGB 14.9 g/dL (11.2-15.7); Immature Grans % 0.2 %; MCH 29.4 pg (27.0-33.0); MCHC 33.3 % (32.0-36.0); MCV 88 fL (80-95); MPV 10.2 fL (8.0-11.0); Platelet Count 308 10^3/uL (130-400); RBC 5.06 10^6/uL (3.93-5.22); RDW 13.2 % (11.7-14.6); RDW-SD 42.7 fL; WBC 6.13 10^3/uL (4.4-10.8)
[2025-02-11 16:38] LABS: TSH (W/Ref FT4) 0.90 uIU/mL (0.36-3.74)
== END 2025-02-11 15:43 | disposition home or self-care (01) ==
LOC: NCHCN 15:42
PROVIDERS: PCP Nurse Practitioner Family; Visit Provider Nurse Practitioner Family
DX: N95.0 Postmenopausal bleeding (principal)
CPT/HCPCS: 84443; 85025

== ENCOUNTER 2025-03-19 13:04 | Outpatient (REF) | payer OTHER, SELFPAY ==
[2025-03-19 17:15] LABS: ALT 32 U/L (14-59); AST 21 U/L (15-37); Albumin 3.9 g/dL (3.4-5.0); Alkaline Phosphatase 92 U/L (46-116); Anion Gap 10.5 mmol/L (3-11); BUN 12 mg/dL (7-18); Bilirubin, Total 0.3 mg/dL (0.2-1.0); CO2 29.5 mmol/L (21.0-32.0); Calcium 9.8 mg/dL (8.5-10.1); Chloride 101 mmol/L (98-107); Cholesterol 232 mg/dL (<200); Glucose 192 mg/dL (74-106); HDL Cholesterol 59 mg/dL (>or=50); Potassium 3.7 mmol/L (3.5-5.1); Sodium 141 mmol/L (136-145); Total Protein 7.6 g/dL (6.4-8.2)
== END 2025-03-19 13:05 | disposition home or self-care (01) ==
LOC: NCHCN 13:04
PROVIDERS: PCP Nurse Practitioner Family; Visit Provider Nurse Practitioner Family
DX: E11.9 Type 2 diabetes mellitus without complications (principal)
CPT/HCPCS: 80053; 80061